=== PATIENT | female | born 1955 | race Caucasian/White ===

== ENCOUNTER → 2017-05-09 | Outpatient (CLI) | payer MEDICAID ==
[2017-05-09 12:22] LABS: Basophils % (A) 0 %; CH 28.5; CHCM 33.5; Eosinophils # (A) 0.1 k/uL (0-0.7); Eosinophils % (A) 2 %; HDW 2.72; HGB 13.4 gm/dL (11.4-16.0); Luc # (Auto) 0.16; Luc % (Auto) 2; Lymphocytes # (A) 1.7 k/uL (1.0-4.8); Lymphocytes % (A) 24 %; MCHC 32.7 g/dL (31.0-37.0); MCV 85.7 fL (80.0-100.0); Monocytes # (A) 0.4 k/uL (0-1.0); Monocytes % (A) 6 %; Neutrophils # (A) 4.7 k/uL (1.3-7.7); Neutrophils % (A) 66 %; RBC 4.78 m/uL (3.80-5.40); WBC 7.1 k/uL (3.8-10.6); WBC (Perox) 7.46
[2017-05-09 12:38] LABS: Calcium 9.8 mg/dL (8.4-10.2); Potassium 5.3 mmol/L (3.5-5.1); Total Bilirubin 0.4 mg/dL (0.2-1.3); Total Protein 6.8 g/dL (6.3-8.2)
== END | disposition home or self-care (01) ==
LOC: LABWHC1 12:04
PROVIDERS: ATTEND Nurse Practitioner Family
DX: E78.00 Pure hypercholesterolemia, unspecified (principal); E11.9 Type 2 diabetes mellitus without complications; E03.9 Hypothyroidism, unspecified; I10 Essential (primary) hypertension
CPT/HCPCS: 36415; 80053; 80061; 83036; 84439; 84443; 85025

== ENCOUNTER → 2017-09-09 | Outpatient (CLI) | payer OTHER ==
--- NOTE | 2017-09-09 11:08 | XR ---
EXAMINATION TYPE: XR lumbar spine 2 or 3V DATE OF EXAM: 09/09/2017 CLINICAL HISTORY: Lumbar spine pain for one week TECHNIQUE: Frontal and lateral images of the lumbar spine are obtained. COMPARISON: None FINDINGS: There are 5 lumbar type vertebral bodies identified. The lumbar spine shows satisfactory alignment without evidence of acute fracture or dislocation. There is mild (grade 1) retrolisthesis o f L3 with respect to L4. Vertebral body heights are maintained. There is intervertebral disc space na rrowing at L2-L3. Multilevel anterior osteophytes and facet arthropathy are seen throughout the lumba r spine. The overlying soft tissue appears unremarkable. Incidental note is made of cholecystectomy clips within the right upper quadrant. IMPRESSION: 1. No acute fracture of the lumbar spine. 2. Mild (grade 1) retrolisthesis of L3 with respect to L4, likely degenerative in nature. 3. Mild to moderate multilevel degenerative disc disease of the lumbar spine most exaggerated at L2-L 3.
== END | disposition home or self-care (01) ==
LOC: RADXRMAIN 10:41
PROVIDERS: ATTEND Emergency Medicine
DX: M51.36 Other intervertebral disc degeneration, lumbar region (principal); M43.16 Spondylolisthesis, lumbar region
CPT/HCPCS: 72100

== ENCOUNTER → 2017-09-16 | Outpatient (CLI) | payer OTHER ==
--- NOTE | 2017-09-16 23:32 | MR ---
EXAMINATION TYPE: MR shoulder RT wo con DATE OF EXAM: 09/16/2017 COMPARISON: NONE HISTORY: Work Related Injury, pt turned to prevent from falling, Limited ROM, 09/01/2017, xrays on PA CS TECHNIQUE: Multiplanar, multisequence imaging of the right shoulder is performed without contrast. FINDINGS: Rotator Cuff: The subscapularis tendon is intact. Glenoid marilyn appear intact. There is a small shoulder joint effu laurent. The biceps tendon is intact. There is some fluid around the biceps tendon. There is mild spurri ng of the humeral head. There is spurring at the AC joint and mild impingement on the supraspinatus t endon. There is a 5 mm area of fluid signal in the greater tuberosity of the humerus. The supraspinat us tendon appears intact. There is no retraction. IMPRESSION: Mild osteoarthritis in the shoulder joint. No evidence of rotator cuff tear. Small shoulder joint eff usion consistent with synovitis. Hypertrophic osteoarthritis in the AC joint with mild subacromial im pingement. Small degenerative cyst in the greater tuberosity of the humerus.
== END | disposition home or self-care (01) ==
LOC: RADMRIMAIN 19:56
PROVIDERS: ATTEND Emergency Medicine
DX: M19.011 Primary osteoarthritis, right shoulder (principal); M85.611 Other cyst of bone, right shoulder; M25.811 Other specified joint disorders, right shoulder; S13.4XXD Sprain of ligaments of cervical spine, subsequent encounter; S33.5XXD Sprain of ligaments of lumbar spine, subsequent encounter

== ENCOUNTER → 2017-11-28 | Outpatient (CLI) | payer MEDICAID ==
[2017-11-28 13:41] LABS: Basophils % (A) 0 %; Eosinophils # (A) 0.2 k/uL (0-0.7); Eosinophils % (A) 2 %; HCT 41.7 % (34.0-46.0); HGB 13.9 gm/dL (11.4-16.0); Lymphocytes # (A) 2.1 k/uL (1.0-4.8); Lymphocytes % (A) 29 %; MCH 28.2 pg (25.0-35.0); MCHC 33.4 g/dL (31.0-37.0); MCV 84.4 fL (80.0-100.0); Mean Platelet Volume 7.7; Monocytes # (A) 0.5 k/uL (0-1.0); Monocytes % (A) 7 %; Neutrophils # (A) 4.2 k/uL (1.3-7.7); Neutrophils % (A) 59 %; Platelet Count 237 k/uL (150-450); RBC 4.95 m/uL (3.80-5.40); RDW 13.1 % (11.5-15.5); WBC 7.1 k/uL (3.8-10.6)
[2017-11-28 13:46] LABS: Calcium 10.1 mg/dL (8.4-10.2); Potassium 5.6 mmol/L (3.5-5.1); Total Bilirubin 0.5 mg/dL (0.2-1.3); Total Protein 6.9 g/dL (6.3-8.2)
[2017-11-28 14:03] LABS: T4, Free (Free Thyroxine) 1.62 ng/dL (0.78-2.19)
[2017-11-28 20:40] LABS: Hemoglobin A1C 7.1 % (4.0-6.0)
== END | disposition home or self-care (01) ==
LOC: LABWHC1 13:00
PROVIDERS: ATTEND Internal Medicine Geriatric Medicine
DX: E11.22 Type 2 diabetes mellitus with diabetic chronic kidney disease (principal); N18.2 Chronic kidney disease, stage 2 (mild); E78.00 Pure hypercholesterolemia, unspecified; E03.9 Hypothyroidism, unspecified
CPT/HCPCS: 36415; 80053; 80061; 82043; 82570; 83036; 84439; 84443; 85025

== ENCOUNTER → 2018-06-09 | Outpatient (CLI) | payer MEDICAID ==
--- NOTE | 2018-06-10 10:28 | MR ---
EXAMINATION TYPE: MR shoulder RT wo con DATE OF EXAM: 06/09/2018 COMPARISON: MR right shoulder 09/16/2017 HISTORY: Right shoulder impingement and pain TECHNIQUE: Multiplanar, multisequence imaging of the right shoulder is performed without contrast. FINDINGS: Rotator Cuff: Increased signal is present within the rotator cuff, difficult to exclude a partial und ersurface, rim rent tear, coronal image 14. Thickening of the rotator cuff compatible with tendinosis . Acromioclavicular Joint: Arthropathy is present, there is some mass effect on the musculotendinous ju nction of supraspinatus Glenohumeral Joint: Intact Labrum: There is some increased signal present within the superior labrum. Difficult to exclude a SLA P lesion. Biceps Tendon: The long head of biceps is in normal location within bicipital groove. Some fluid sign al is present along the long head of biceps tendon Bone marrow signal: Pseudocysts present within the humeral head. Other: There is fluid signal in the subacromial subdeltoid bursa. Suspect a distal acromial spur. IMPRESSION: Findings suggest impingement, there is tendinosis as described. Additional findings above.
== END | disposition home or self-care (01) ==
LOC: RADMRIMAIN 09:04
PROVIDERS: ATTEND Orthopaedic Surgery
DX: M67.813 Other specified disorders of tendon, right shoulder (principal); M89.8X2 Other specified disorders of bone, upper arm; R93.7 Abnormal findings on diagnostic imaging of other parts of musculoskeletal system; M19.011 Primary osteoarthritis, right shoulder

== ENCOUNTER → 2018-06-09 | Outpatient (CLI) | payer MEDICAID ==
[2018-06-09 10:21] LABS: Basophils % (A) 0 %; Eosinophils # (A) 0.2 k/uL (0-0.7); Eosinophils % (A) 4 %; HCT 40.5 % (34.0-46.0); HGB 12.6 gm/dL (11.4-16.0); Lymphocytes # (A) 1.3 k/uL (1.0-4.8); Lymphocytes % (A) 22 %; MCH 27.3 pg (25.0-35.0); MCHC 31.1 g/dL (31.0-37.0); MCV 87.9 fL (80.0-100.0); Monocytes # (A) 0.4 k/uL (0-1.0); Monocytes % (A) 6 %; Neutrophils # (A) 4.1 k/uL (1.3-7.7); Neutrophils % (A) 67 %; Platelet Count 215 k/uL (150-450); RDW 12.9 % (11.5-15.5); WBC 6.1 k/uL (3.8-10.6)
[2018-06-09 11:20] LABS: Albumin 3.7 g/dL (3.5-5.0); Calcium 9.4 mg/dL (8.4-10.2); Potassium 5.5 mmol/L (3.5-5.1); Total Bilirubin 0.4 mg/dL (0.2-1.3); Total Protein 6.3 g/dL (6.3-8.2)
[2018-06-09 11:26] LABS: T4, Free (Free Thyroxine) 1.48 ng/dL (0.78-2.19)
[2018-06-09 20:15] LABS: Hemoglobin A1C 7.2 % (4.0-6.0)
== END | disposition home or self-care (01) ==
LOC: LABWHC1 09:17
PROVIDERS: ATTEND Internal Medicine Geriatric Medicine
DX: I10 Essential (primary) hypertension (principal); E11.9 Type 2 diabetes mellitus without complications; E78.00 Pure hypercholesterolemia, unspecified; E03.9 Hypothyroidism, unspecified
CPT/HCPCS: 36415; 80053; 80061; 83036; 84439; 84443; 85025

== ENCOUNTER → 2018-06-10 | Outpatient (CLI) | payer MEDICAID ==
--- NOTE | 2018-06-10 10:25 | P.STRESS ---
- Stress Test Note Stress Test Results/Findings: Exam Performed: stress echo exercise Exam Date: 06/10/18 Reason for Exam: CHEST PAIN Height: 5 ft 3 in Weight: 119.295 kg Protocol: HIRO Stage: 3 Duration of Exercise: 7:02 Resting Heart Rate: 69 Resting Blood Pressure: 145/81 Maximum Achieved Heart Rate: 136 Maximum Achieved Blood Pressure: 162/68 85% PMHR: 135 100% PMHR: 159 METS: 8.3 Technologist Comment: Stress Test Results/Findings: This is a 62-year-old female with history of hypertension, diabetes, hypercholesterolemia and family history being evaluated for symptoms of chest pain and shortness of breath. Stress data: Baseline EKG showed sinus rhythm with normal AR interval and QRS duration. Blood pressure at rest is 145/81 with pulse rate of 69. Patient walked on the Hiro protocol for 7 minutes achieving a max moderate to 136 with a blood pressure 117/58. EKGs taken during and after the exercise did not reveal any changes of ischemia. Patient did not experience any chest pain. Echo data: Baseline echo images showed normal wall motion and thickening. Exercise echo images showed augmentation of wall motion and thickening in all segments. Final impression: #1. Negative stress test #2. Negative stress echo
--- NOTE | 2018-06-10 12:59 | EST ---
Stress Test Results/Findings: Exam Performed: stress echo exercise Exam Date: 06/10/18 Reason for Exam: CHEST PAIN Height: 5 ft 3 in Weight: 119.295 kg Protocol: HIRO Stage: 3 Duration of Exercise: 7:02 Resting Heart Rate: 69 Resting Blood Pressure: 145/81 Maximum Achieved Heart Rate: 136 Maximum Achieved Blood Pressure: 162/68 85% PMHR: 135 100% PMHR: 159 METS: 8.3 Technologist Comment: Stress Test Results/Findings: This is a 62-year-old female with history of hypertension, diabetes, hypercholesterolemia and family history being evaluated for symptoms of chest pain and shortness of breath. Stress data: Baseline EKG showed sinus rhythm with normal LA interval and QRS duration. Blood pressure at rest is 145/81 with pulse rate of 69. Patient walked on the Hiro protocol for 7 minutes achieving a max moderate to 136 with a blood pressure 117/58. EKGs taken during and after the exercise did not reveal any changes of ischemia. Patient did not experience any chest pain. Echo data: Baseline echo images showed normal wall motion and thickening. Exercise echo images showed augmentation of wall motion and thickening in all segments. Final impression: #1. Negative stress test #2. Negative stress echo MTDD
== END | disposition home or self-care (01) ==
LOC: RADNMMAIN 09:14
PROVIDERS: ATTEND Internal Medicine
DX: I25.10 Atherosclerotic heart disease of native coronary artery without angina pectoris (principal)
CPT/HCPCS: 93351

== ENCOUNTER → 2018-11-26 | Outpatient (CLI) | payer MEDICAID ==
--- NOTE | 2018-11-27 12:03 | XR ---
EXAMINATION TYPE: XR chest 2V DATE OF EXAM: 11/26/2018 COMPARISON: NONE HISTORY: Shortness of breath TECHNIQUE: Frontal and lateral views of the chest are obtained. FINDINGS: Scattered senescent parenchymal changes noted. Hyperinflation compatible with COPD. No evidence for infiltrate. No evidence for atelectasis. Heart size is stable. Mediastinal structures are stable and grossly unremarkable. No evidence for hilar prominence. Degenerative changes dorsal spine. IMPRESSION: 1. No evidence for acute pulmonary disease.
== END | disposition home or self-care (01) ==
LOC: RADXRMAIN 15:52
PROVIDERS: ATTEND Internal Medicine Geriatric Medicine
DX: R05 Cough (principal)
CPT/HCPCS: 71046

== ENCOUNTER → 2019-05-26 | Outpatient (CLI) | payer MEDICAID ==
--- NOTE | 2019-05-26 08:38 | CT ---
EXAMINATION TYPE: CT brain wo con DATE OF EXAM: 05/26/2019 COMPARISON: None HISTORY: Vertigo-recent, chronic headache CT DLP: 1036.[address] of the brain was performed. The ventricles, basal cisterns and sulci overlying the cerebral convexities demonstrate mild enlargem ent. There is no evidence for intracranial hemorrhage or sulcal effacement. There is decreased attenuation about the periventricular white matter and deep white matter of both c erebral hemispheres, compatible with chronic small vessel ischemia. Differential diagnosis does inclu de demyelination. No mass effects are seen.No midline shift. Osseous calvarium is intact. If symptoms persist consider MRI. IMPRESSION: 1. Age related atrophic and chronic small vessel ischemic change without acute intracranial process s een at this time.
--- NOTE | 2019-05-26 15:50 | US ---
EXAMINATION TYPE: US carotid duplex BILAT DATE OF EXAM: 05/26/2019 COMPARISON: NONE CLINICAL HISTORY: R42 Vertigo. Dizziness, right endarterectomy 2010 EXAM MEASUREMENTS: RIGHT: Peak Systolic Velocity (PSV) cm/sec ----- Right CCA: 79.1 ----- Right ICA: 111.9 ----- Right ECA: 155.0 ICA/CCA ratio: 1.4 RIGHT: End Diastole cm/sec ----- Right CCA: 24.8 ----- Right ICA: 47.5 ----- Right ECA: 18.9 LEFT: Peak Systolic Velocity (PSV) cm/sec ----- Left CCA: 94.2 ----- Left ICA: 104.3 ----- Left ECA: 141.6 ICA/CCA ratio: 1.1 LEFT: End Diastole cm/sec ----- Left CCA: 32.3 ----- Left ICA: 27.3 ----- Left ECA: 33.3 VERTEBRALS (direction of flow): Right Vertebral: Antegrade Left Vertebral: Antegrade Rhythm: Normal Farah scale images show mild peripheral plaque at carotid bulb level bilaterally. Velocity measurement s and ratios the visualized portion of both internal carotid arteries remains within normal limits. IMPRESSION: No hemodynamically significant stenosis is seen in either internal carotid artery . Criteria for Assigning % of Stenosis / Diameter reduction (Estimation based on the indirect measurements of the internal carotid artery velocities (ICA PSV). 1. Normal (no stenosis)=ICA PSV < 125 cm/s: ratio < 2.0: ICA EDV<40 cm/s. 2. Less than 50% stenosis=ICA PSV < 125 cm/s: ratio < 2.0: ICA EDV<40 cm/s. 3. 50 to 69% stenosis=ICA PSV of 125 to 230 cm/s: ration 2.0 ? 4.0: ICA EDV 40-100 cm/s. 4. Greater than 70% stenosis to near occlusion= ICA PSV > 230 cm/s: ratio > 4.0: ICA EDV > 100 cm/s. 5. Near occlusion= ICA PSV velocities may be low or undetectable: variable ratio and ICA EDV. 6. Total occlusion=unable to detect flow.
== END | disposition home or self-care (01) ==
LOC: RADCTMAIN 07:47
PROVIDERS: ATTEND Internal Medicine
DX: G31.1 Senile degeneration of brain, not elsewhere classified (principal); I67.82 Cerebral ischemia; R42 Dizziness and giddiness
CPT/HCPCS: 70450; 93880

== ENCOUNTER 2019-12-26 21:39 | Inpatient (IN) | payer MEDICAID, OTHER ==
[~2019-12-26 21:39] MED LIST: PROPOFOL 10 MG/ML 20 ML VIAL IV ONE; SUCCINYLCHOLINE CHLORIDE VIAL 200 MG/10 ML VIAL IV ONE
[2019-12-26 22:12] LABS: Basophils % (A) 0 %; Eosinophils % (A) 0 %; HCT 39.4 % (34.0-46.0); HGB 12.7 gm/dL (11.4-16.0); Lymphocytes # (A) 0.9 k/uL (1.0-4.8); Lymphocytes % (A) 8 %; MCH 26.5 pg (25.0-35.0); MCHC 32.2 g/dL (31.0-37.0); MCV 82.3 fL (80.0-100.0); Mean Platelet Volume 7.6; Monocytes # (A) 0.7 k/uL (0-1.0); Monocytes % (A) 6 %; Neutrophils # (A) 10.2 k/uL (1.3-7.7); Neutrophils % (A) 85 %; Platelet Count 303 k/uL (150-450); RBC 4.78 m/uL (3.80-5.40); RDW 13.1 % (11.5-15.5); WBC 12.1 k/uL (3.8-10.6)
[2019-12-26 22:23] LABS: Albumin 3.7 g/dL (3.5-5.0); Calcium 9.1 mg/dL (8.4-10.2); Potassium 5.3 mmol/L (3.5-5.1); Total Bilirubin 0.6 mg/dL (0.2-1.3)
[2019-12-26 22:24] LABS: Partial Thromboplastin Time 24.3 sec (22.0-30.0); Prothrombin Time 10.6 sec (9.0-12.0)
[2019-12-26 22:39] LABS: SARS-CoV-2 RNA Rapid Abbott Detected (Not Detectd)
--- NOTE | 2019-12-26 22:44 | XR ---
EXAMINATION TYPE: XR chest 1V portable DATE OF EXAM: 12/26/2019 COMPARISON: 11/26/2018 HISTORY: Weakness TECHNIQUE: FINDINGS: There is diffuse pulmonary interstitial edema. Heart is probably enlarged. Bony thorax is i ntact. There is no definite pleural effusion. IMPRESSION: Mild cardiomegaly with moderately severe diffuse interstitial edema that is a change comp ared to old exam. This could relate to acute interstitial pneumonia or acute heart failure.
[2019-12-26] MEDS ORDERED: AZITHROMYCIN 500 MG in SODIUM CHLORIDE 0.9% 250 ML IVPB STA (23:12)
[2019-12-26] MEDS ORDERED: NALOXONE 0.4 MG/ML 1 ML VIAL IV PRN (23:18)
--- NOTE | 2019-12-26 23:18 | ED ---
Weakness HPI - General Chief complaint: Weakness Stated complaint: Weaknes Time Seen by Provider: 12/26/19 21:45 Source: patient, EMS Mode of arrival: EMS Limitations: no limitations - History of Present Illness Initial comments: The patient is a 64-year-old female past medical history of asthma and diabetes who presents to the emergency room with reported cough or shortness of breath. 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 She states that she has been using her inhalers at home however continues to be short of breath. States that she's been sitting in bed and sleeping for approximately 20 hours a day. States that this evening her symptoms got acutely worse she could no longer take it. Also reports to diarrhea and fevers. Denies nausea or vomiting. Denies any chest pain. No lower extremity swelling. There are no alleviating, precipitating or modifying factors - Related Data Home Medications Medication Instructions Recorded Confirmed Atorvastatin [Lipitor] 40 mg PO HS 06/04/14 12/26/19 Esomeprazole Magnesium [NexIUM] 20 mg PO DAILY 06/04/14 12/26/19 INSULIN LISPRO (humaLOG) [humaLOG] See Protocol SQ BID 06/04/14 12/26/19 Lisinopril 20 mg PO HS 06/04/14 12/26/19 Naproxen Sodium [Aleve] 220 mg PO BID 06/04/14 12/26/19 Nitroglycerin Sl Tabs [Nitrostat] 0.4 mg SL Q5M PRN 06/04/14 12/26/19 Acetaminophen [Tylenol] 1,000 mg PO BID 12/26/19 12/26/19 Aspirin 325 mg PO DAILY 12/26/19 12/26/19 Dulaglutide [Trulicity] 1.5 mg SQ TH 12/26/19 12/26/19 Insulin Degludec [Tresiba 36 units SQ BID 12/26/19 12/26/19 Flextouch U-100] Loratadine [Claritin] 10 mg PO HS 12/26/19 12/26/19 Pioglitazone [Actos] 15 mg PO DAILY 12/26/19 12/26/19 Allergies Allergy/AdvReac Type Severity Reaction Status Date / Time daptomycin [From Cubicin] AdvReac Unknown Verified 12/26/19 23:08 lanolin AdvReac Unknown Verified 12/26/19 23:08 moxifloxacin HCl AdvReac Anaphylaxis Verified 12/26/19 23:08 [From Avelox] Penicillins AdvReac Unknown Verified 12/26/19 23:08 tetracycline [Tetracycline] AdvReac Unknown Verified 12/26/19 23:08 vancomycin AdvReac Unknown Verified 12/26/19 23:08 Review of Systems ROS Statement: Those systems with pertinent positive or pertinent negative responses have been documented in the HPI. ROS Other: All systems not noted in ROS Statement are negative. Past Medical History Past Medical History: Asthma, Diabetes Mellitus, GERD/Reflux, Hypertension, Renal Disease Additional Past Medical History / Comment(s): diverticulitis History of Any Multi-Drug Resistant Organisms: None Reported Past Surgical History: Cholecystectomy, Heart Catheterization With Stent Past Psychological History: No Psychological Hx Reported Smoking Status: Former smoker Past Alcohol Use History: None Reported Past Drug Use History: None Reported General Exam Limitations: no limitations General appearance: alert, in no apparent distress, anxious Head exam: Present: atraumatic, normocephalic, normal inspection Eye exam: Present: normal appearance, PERRL, EOMI. Absent: scleral icterus, conjunctival injection, periorbital swelling ENT exam: Present: normal exam, mucous membranes moist Neck exam: Present: normal inspection. Absent: tenderness, meningismus, lymphadenopathy Respiratory exam: Present: rhonchi, accessory muscle use, other (patient tachypneic and hypoxic upon arrival. Mild conversational dyspnea. ). Absent: respiratory distress, wheezes, rales, stridor Cardiovascular Exam: Present: regular rate, normal rhythm, normal heart sounds. Absent: systolic murmur, diastolic murmur, rubs, gallop, clicks GI/Abdominal exam: Present: soft, normal bowel sounds. Absent: distended, tenderness, guarding, rebound, rigid Extremities exam: Present: normal inspection, full ROM, normal capillary refill. Absent: tenderness, pedal edema, joint swelling, calf tenderness Back exam: Present: normal inspection Neurological exam: Present: alert, oriented X3, CN II-XII intact Psychiatric exam: Present: normal affect, normal mood Skin exam: Present: warm, dry, intact, normal color. Absent: rash Course Vital Signs 12/26/19 12/26/19 12/27/19 21:45 23:42 00:00 Temperature 98.3 F 99.6 F Pulse Rate 85 77 Respiratory 20 20 18 Rate Blood Pressure 141/68 145/68 O2 Sat by Pulse 87 L 92 L Oximetry EKG Findings - EKG Comments: EKG Findings:: EKG demonstrates a normal sinus rhythm with ventricular rate of 83. NC interval 112. QRS 84. QTC 432. No acute ST segment elevations or depressions concerning for ischemic changes Medical Decision Making - Medical Decision Making Upon arrival the patient is placed into room 3. A thorough history and physical exam is performed. Patient does have low oxygen saturation of 87% on room air. She does not wear oxygen at home. She is placed on 4 L and saturation 90%. She does have improvement in her work of breathing. Laboratory studies were conducted. Patient is swabbed for Covid. White blood cell count 12.1. Creatinine 1.4 and this appears to be patient's baseline. LDH is 1600. C reactive protein to 62. Coronavirus is detected. Chest x-ray does demonstrate cardiomegaly with moderately severe diffuse interstitial edema that is a change compared to old. Could relate to acute interstitial pneumonia or heart failure. I discussed results of the patient. I recommend hospital admission for which patient did agree. I started the patient on azithromycin and plaquentil. I discussed the patients care with Dr. Mjoica who accept admission. Patient is currently awaiting a bed on the floor in hemodynamically stable condition. - Lab Data Result diagrams: 01/02/20 03:45 01/02/20 03:45 Lab Results 12/26/19 12/26/19 12/26/19 Range/Units 22:01 22:01 22:01 WBC 12.1 H (3.8-10.6) k/uL RBC 4.78 (3.80-5.40) m/uL Hgb 12.7 (11.4-16.0) gm/dL Hct 39.4 (34.0-46.0) % MCV 82.3 (80.0-100.0) fL MCH 26.5 (25.0-35.0) pg MCHC 32.2 (31.0-37.0) g/dL RDW 13.1 (11.5-15.5) % Plt Count 303 (150-450) k/uL Neutrophils % 85 % Lymphocytes % 8 % Monocytes % 6 % Eosinophils % 0 % Basophils % 0 % Neutrophils # 10.2 H (1.3-7.7) k/uL Lymphocytes # 0.9 L (1.0-4.8) k/uL Monocytes # 0.7 (0-1.0) k/uL Eosinophils # 0.0 (0-0.7) k/uL Basophils # 0.0 (0-0.2) k/uL PT 10.6 (9.0-12.0) sec INR 1.0 (<1.2) APTT 24.3 (22.0-30.0) sec Sodium 136 L (137-145) mmol/L Potassium 5.3 H (3.5-5.1) mmol/L Chloride 100 (98-107) mmol/L Carbon Dioxide 23 (22-30) mmol/L Anion Gap 13 mmol/L BUN 41 H (7-17) mg/dL Creatinine 1.43 H (0.52-1.04) mg/dL Est GFR (CKD-EPI)AfAm 45 (>60 ml/min/1.73 sqM) Est GFR (CKD-EPI)NonAf 39 (>60 ml/min/1.73 sqM) Glucose 230 H (74-99) mg/dL Lactic Ac Sepsis Rflx Plasma Lactic Acid Loy (0.7-2.0) mmol/L Calcium 9.1 (8.4-10.2) mg/dL Ferritin 609.6 H (10.0-291.0) ng/mL Total Bilirubin 0.6 (0.2-1.3) mg/dL AST 49 H (14-36) U/L ALT 22 (4-34) U/L Alkaline Phosphatase 255 H (38-126) U/L Lactate Dehydrogenase 1600 H (313-618) U/L C-Reactive Protein 262.0 H (<10.0) mg/L Total Protein 7.0 (6.3-8.2) g/dL Albumin 3.7 (3.5-5.0) g/dL Procalcitonin (0.02-0.09) ng/mL Coronavirus (PCR) (Not Detectd) Influenza Type A RNA (Not Detectd) Influenza Type B (PCR) (Not Detectd) 12/26/19 12/26/19 12/26/19 Range/Units 22:01 22:01 22:07 WBC (3.8-10.6) k/uL RBC (3.80-5.40) m/uL Hgb (11.4-16.0) gm/dL Hct (34.0-46.0) % MCV (80.0-100.0) fL MCH (25.0-35.0) pg MCHC (31.0-37.0) g/dL RDW (11.5-15.5) % Plt Count (150-450) k/uL Neutrophils % % Lymphocytes % % Monocytes % % Eosinophils % % Basophils % % Neutrophils # (1.3-7.7) k/uL Lymphocytes # (1.0-4.8) k/uL Monocytes # (0-1.0) k/uL Eosinophils # (0-0.7) k/uL Basophils # (0-0.2) k/uL PT (9.0-12.0) sec INR (<1.2) APTT (22.0-30.0) sec Sodium (137-145) mmol/L Potassium (3.5-5.1) mmol/L Chloride (98-107) mmol/L Carbon Dioxide (22-30) mmol/L Anion Gap mmol/L BUN (7-17) mg/dL Creatinine (0.52-1.04) mg/dL Est GFR (CKD-EPI)AfAm (>60 ml/min/1.73 sqM) Est GFR (CKD-EPI)NonAf (>60 ml/min/1.73 sqM) Glucose (74-99) mg/dL Lactic Ac Sepsis Rflx Plasma Lactic Acid Loy 2.1 H* (0.7-2.0) mmol/L Calcium (8.4-10.2) mg/dL Ferritin (10.0-291.0) ng/mL Total Bilirubin (0.2-1.3) mg/dL AST (14-36) U/L ALT (4-34) U/L Alkaline Phosphatase (38-126) U/L Lactate Dehydrogenase (313-618) U/L C-Reactive Protein (<10.0) mg/L Total Protein (6.3-8.2) g/dL Albumin (3.5-5.0) g/dL Procalcitonin 0.22 H (0.02-0.09) ng/mL Coronavirus (PCR) Detected A (Not Detectd) Influenza Type A RNA Not Detected (Not Detectd) Influenza Type B (PCR) Not Detected (Not Detectd) 12/26/19 Range/Units 22:38 WBC (3.8-10.6) k/uL RBC (3.80-5.40) m/uL Hgb (11.4-16.0) gm/dL Hct (34.0-46.0) % MCV (80.0-100.0) fL MCH (25.0-35.0) pg MCHC (31.0-37.0) g/dL RDW (11.5-15.5) % Plt Count (150-450) k/uL Neutrophils % % Lymphocytes % % Monocytes % % Eosinophils % % Basophils % % Neutrophils # (1.3-7.7) k/uL Lymphocytes # (1.0-4.8) k/uL Monocytes # (0-1.0) k/uL Eosinophils # (0-0.7) k/uL Basophils # (0-0.2) k/uL PT (9.0-12.0) sec INR (<1.2) APTT (22.0-30.0) sec Sodium (137-145) mmol/L Potassium (3.5-5.1) mmol/L Chloride (98-107) mmol/L Carbon Dioxide (22-30) mmol/L Anion Gap mmol/L BUN (7-17) mg/dL Creatinine (0.52-1.04) mg/dL Est GFR (CKD-EPI)AfAm (>60 ml/min/1.73 sqM) Est GFR (CKD-EPI)NonAf (>60 ml/min/1.73 sqM) Glucose (74-99) mg/dL Lactic Ac Sepsis Rflx Y Plasma Lactic Acid Loy (0.7-2.0) mmol/L Calcium (8.4-10.2) mg/dL Ferritin (10.0-291.0) ng/mL Total Bilirubin (0.2-1.3) mg/dL AST (14-36) U/L ALT (4-34) U/L Alkaline Phosphatase (38-126) U/L Lactate Dehydrogenase (313-618) U/L C-Reactive Protein (<10.0) mg/L Total Protein (6.3-8.2) g/dL Albumin (3.5-5.0) g/dL Procalcitonin (0.02-0.09) ng/mL Coronavirus (PCR) (Not Detectd) Influenza Type A RNA (Not Detectd) Influenza Type B (PCR) (Not Detectd) Disposition Clinical Impression: Hypoxia, COVID-19 virus detected, Pneumonia due to COVID-19 virus Disposition: ADMITTED IP TO [facility] Condition: Serious Is patient prescribed a controlled substance at d/c from ED?: No Decision to Admit Reason: Admit from EC Decision Date: 12/26/19 Decision Time: 23:18
[2019-12-26] MEDS: HYDROXYCHLOROQUINE SULFATE 200 MG TAB PO SCH (23:26)
[2019-12-26] MEDS ORDERED: ACETAMINOPHEN TAB 500 MG TAB PO SCH (23:30)
[2019-12-26] MEDS: LISINOPRIL 20 MG TAB PO SCH (23:55)
[2019-12-26] MEDS: ATORVASTATIN 40 MG TAB PO SCH (23:55)
[2019-12-26] MEDS: INSULIN DETEMIR (LEVEMIR) 100 UNIT/ML SYR SQ SCH (23:56)
[2019-12-27 01:58] LABS: Ferritin 609.6 ng/mL (10.0-291.0)
[2019-12-27 07:05] LABS: Glucose,Whole Blood 161 mg/dL (75-99)
[2019-12-27] MEDS: INSULIN DETEMIR (LEVEMIR) 100 UNIT/ML SYR SQ SCH ×2 (07:20→21:12)
[2019-12-27] MEDS: ASPIRIN 325 MG TAB PO SCH (07:20)
[2019-12-27] MEDS: HYDROXYCHLOROQUINE SULFATE 200 MG TAB PO SCH ×2 (07:20→21:11)
[2019-12-27] MEDS: ACETAMINOPHEN TAB 325 MG TAB PO PRN ×3 (07:20→20:05)
[2019-12-27] MEDS: PANTOPRAZOLE 40 MG TABLET PO SCH (07:21)
[2019-12-27] MEDS ORDERED: ENOXAPARIN 40 MG/0.4 ML SYRINGE SQ SCH (09:00)
--- NOTE | 2019-12-27 11:51 | P.HPIM ---
History of Present Illness H&P Date: 12/27/19 This is a 64-year-old female patient of Dr. Mojica with past medical history of asthma, hypertension, hyperlipidemia, gastroesophageal reflux disease, diabetes mellitus type 2 insulin requiring, coronary artery disease status post stent, remote history of tobacco use and dependence, chronic kidney disease stage III. 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 [facility] in the past, recently changed to a position at [employer]. 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 They were exposed to a COVID-19 positive patient on December 11 and/or December 12. She had symptoms develop approximate 7 days ago with fever, cough, shortness of breath, nausea, diarrhea. She tried to manage at home but symptoms became significantly severe in the past 3 days and she lives alone she was so sick she could not get to the She to the bathroom. Patient came into [facility] emergency center for evaluation and found to be afebrile, blood pressure 141/68, heart rate 85, pulse ox 87%. EKG was a sinus rhythm with no acute ST changes. W BC 12.1, hemoglobin 12.7, platelet count 303, sodium 136, potassium 5.3, chloride 100, CO2 23, BUN 41, creatinine 1.43, blood sugar 230. Total bilirubin 0.6, AST 49, ALT 22, alkaline phosphatase 255, LDH 1600, ferritin 609.6 C-reactive protein 262, pro calcitonin 0.2 to. Chronic virus PCR detected, influenza testing negative, lactic acid 2.1. Repeat lactic acid 1.2 chest x-ray revealed mild cardiomegaly with moderately severe diffuse interstitial edema that is changed from old exam compared to November 2018. This could represent acute interstitial pneumonia or acute heart failure. Patient was started on Tylenol, azithromycin, [facility] consult was requested with infectious disease and pulmonary medicine. Review of Systems Constitutional: Reports chills, Reports fatigue, Reports fever, Reports lethargy, Reports malaise, Reports poor appetite, Reports sweats, Reports weakness Eyes: denies blurred vision, denies pain, denies photophobia, denies loss of vision Ears, nose, mouth and throat: Denies dysphagia, Denies headache, Denies nasal congestion, Denies nasal discharge, Denies sore throat, Denies vertigo Cardiovascular: Reports shortness of breath, Denies chest pain, Denies dyspnea on exertion, Denies edema, Denies leg edema, Denies lightheadedness, Denies syncope Respiratory: Reports cough, Reports cough with sputum, Reports dyspnea, Reports pain on inspiration, Reports respiratory infections, Reports wheezing, Denies excessive sputum, Denies hemoptysis, Denies home oxygen, Denies sleep apnea Gastrointestinal: Reports diarrhea, Reports nausea, Denies BRBPR, Denies constipation, Denies vomiting Genitourinary: Denies dysuria, Denies hematuria, Denies urgency, Denies urinary frequency Menstruation: Reports postmenopausal Musculoskeletal: Reports muscle weakness, Reports myalgias, Denies frequent falls, Denies gait dysfunction Integumentary: Denies pruritus, Denies rash, Denies wounds Neurological: Reports gait dysfunction, Denies change in mentation, Denies change in speech, Denies numbness, Denies seizures, Denies weakness Psychiatric: Denies anxiety, Denies depression Endocrine: Denies fatigue, Denies weight change Past Medical History Past Medical History: Asthma, Diabetes Mellitus, GERD/Reflux, Hyperlipidemia, Hypertension, Renal Disease Additional Past Medical History / Comment(s): diverticulitis History of Any Multi-Drug Resistant Organisms: None Reported Past Surgical History: Cholecystectomy, Heart Catheterization With Stent Additional Past Surgical History / Comment(s): heart cath with stent LAD, carotid 2010 Past Anesthesia/Blood Transfusion Reactions: Unable to Obtain Date of Last Stent Placement:: 2005 Past Psychological History: No Psychological Hx Reported Smoking Status: Former smoker Past Alcohol Use History: None Reported Past Drug Use History: None Reported Medications and Allergies Home Medications Medication Instructions Recorded Confirmed Type Atorvastatin [Lipitor] 40 mg PO HS 06/04/14 12/26/19 History Esomeprazole Magnesium [NexIUM] 20 mg PO DAILY 06/04/14 12/26/19 History INSULIN LISPRO (humaLOG) [humaLOG] See Protocol SQ BID 06/04/14 12/26/19 History Lisinopril 20 mg PO HS 06/04/14 12/26/19 History Naproxen Sodium [Aleve] 220 mg PO BID 06/04/14 12/26/19 History Nitroglycerin Sl Tabs [Nitrostat] 0.4 mg SL Q5M PRN 06/04/14 12/26/19 History Acetaminophen [Tylenol] 1,000 mg PO BID 12/26/19 12/26/19 History Aspirin 325 mg PO DAILY 12/26/19 12/26/19 History Dulaglutide [Trulicity] 1.5 mg SQ TH 12/26/19 12/26/19 History Insulin Degludec [Tresiba 36 units SQ BID 12/26/19 12/26/19 History Flextouch U-100] Loratadine [Claritin] 10 mg PO HS 12/26/19 12/26/19 History Pioglitazone [Actos] 15 mg PO DAILY 12/26/19 12/26/19 History Allergies Allergy/AdvReac Type Severity Reaction Status Date / Time daptomycin [From Cubicin] AdvReac Unknown Verified 12/26/19 23:08 lanolin AdvReac Unknown Verified 12/26/19 23:08 moxifloxacin HCl AdvReac Anaphylaxis Verified 12/26/19 23:08 [From Avelox] Penicillins AdvReac Unknown Verified 12/26/19 23:08 tetracycline [Tetracycline] AdvReac Unknown Verified 12/26/19 23:08 vancomycin AdvReac Unknown Verified 12/26/19 23:08 Physical Exam Vitals: Vital Signs Temp Pulse Pulse Resp BP BP Pulse Ox 12/27/19 04:00 20 12/27/19 03:51 98.7 F 74 18 107/69 90 L 12/27/19 00:31 99.2 F 77 18 110/66 96 12/27/19 00:00 18 12/26/19 23:42 99.6 F 77 20 145/68 92 L 12/26/19 21:45 98.3 F 85 20 141/68 87 L Intake and Output 12/26/19 12/27/19 12/27/19 22:59 06:59 14:59 Intake Total 450 Balance 450 Intake: Intake, IV Titration 250 Amount Azithromycin 500 mg In 250 Sodium Chloride 0.9% 250 ml @ 250 mls/hr IVPB ONCE STA Rx#:[id number] Oral 200 Other: # Voids 2 # Bowel Movements 2 Weight 117.934 kg 117.934 kg Gen: This is a morbidly obese 64-year-old female. Patient is resting in bed. No acute respiratory distress is noted. HEENT: Head is atraumatic, normocephalic. Pupils equal, round. Sclerae is anicteric. NECK: Supple. No JVD. No lymphadenopathy. No thyromegaly. LUNGS: Diminished bilaterally with scattered rhonchi. No intercostal retractions. HEART: Regular rate and rhythm. No murmur. ABDOMEN: Soft. Bowel sounds are present. No masses. No tenderness. EXTREMITIES: No pedal edema. No calf tenderness. Dorsalis pedis +2 bilaterally. NEUROLOGICAL: Patient is awake, alert and oriented x3. Cranial nerves 2 through 12 are grossly intact. Results CBC & Chem 7: 12/26/19 22:12/26/19 22: Labs: Abnormal Lab Results - Last 24 Hours (Table) 12/26/19 12/26/19 12/26/19 Range/Units 22:01 22:01 22:01 WBC 12.1 H (3.8-10.6) k/uL Neutrophils # 10.2 H (1.3-7.7) k/uL Lymphocytes # 0.9 L (1.0-4.8) k/uL Sodium 136 L (137-145) mmol/L Potassium 5.3 H (3.5-5.1) mmol/L BUN 41 H (7-17) mg/dL Creatinine 1.43 H (0.52-1.04) mg/dL Glucose 230 H (74-99) mg/dL POC Glucose (mg/dL) (75-99) mg/dL Plasma Lactic Acid Loy 2.1 H* (0.7-2.0) mmol/L Ferritin 609.6 H (10.0-291.0) ng/mL AST 49 H (14-36) U/L Alkaline Phosphatase 255 H (38-126) U/L Lactate Dehydrogenase 1600 H (313-618) U/L C-Reactive Protein 262.0 H (<10.0) mg/L Procalcitonin (0.02-0.09) ng/mL Coronavirus (PCR) (Not Detectd) 12/26/19 12/26/19 12/27/19 Range/Units 22:01 22:07 07:04 WBC (3.8-10.6) k/uL Neutrophils # (1.3-7.7) k/uL Lymphocytes # (1.0-4.8) k/uL Sodium (137-145) mmol/L Potassium (3.5-5.1) mmol/L BUN (7-17) mg/dL Creatinine (0.52-1.04) mg/dL Glucose (74-99) mg/dL POC Glucose (mg/dL) 161 H (75-99) mg/dL Plasma Lactic Acid Loy (0.7-2.0) mmol/L Ferritin (10.0-291.0) ng/mL AST (14-36) U/L Alkaline Phosphatase (38-126) U/L Lactate Dehydrogenase (313-618) U/L C-Reactive Protein (<10.0) mg/L Procalcitonin 0.22 H (0.02-0.09) ng/mL Coronavirus (PCR) Detected A (Not Detectd) Thrombosis Risk Factor Assmnt - DVT/VTE Prophylaxis DVT/VTE Prophylaxis: Pharmacologic Prophylaxis ordered - Choose All That Apply Each Risk Factor Represents 2 Points: Age 61-74 years Thrombosis Risk Factor Assessment Total Risk Factor Score: 2 Thrombosis Risk Factor Assessment Level: Low Risk Assessment and Plan Plan: 1. Acute hypoxic respiratory failure secondary to COPD exacerbation and COVID- 19 pneumonitis. Patient admitted to the MedSurg floor. Continue Plaquenil 400 mg twice daily. Consults with pulmonary medicine and infectious disease. Continue albuterol inhaler as needed, vitamin C, azithromycin, Solu-Medrol 40 mg IV every 12 hours, zinc. 2. Acute kidney injury with chronic kidney disease stage III. Avoid nephrotoxic agents, hypotension. Hold Aleve. 3. Mild hyperkalemia secondary to acute kidney injury. 4. Mild lactic acidosis secondary to COVID-19 infection. Resolved. 5. Hyperlipidemia. Continue atorvastatin 40 g at bedtime 6. Diabetes mellitus type 2, insulin requiring. Continue Levemir 36 units twice daily, NovoLog scale before meals and at bedtime. Hold Actos and Trulicity for now. 7. History of coronary artery disease status post stenting. Continue aspirin 325 mg daily, Lipitor. 8. Hypertension. Continue lisinopril 20 mg at bedtime with parameters. Avoid hypotension. 9. Gastroesophageal reflux disease disease and GI prophylaxis. Continue P rotonix. 10. DVT prophylaxis. Lovenox. Patient will be admitted to the hospital for a minimum of 2 night stay. Discharge plan: return home Impression and plan of care have been directed as dictated by the signing physician. Deborah Crow nurse practitioner acting as scribe for signing physician.
[2019-12-27] MEDS: ALBUTEROL HFA INHALER INHALATION PRN ×3 (11:56→21:01)
[2019-12-27 12:02] LABS: Glucose,Whole Blood 154 mg/dL (75-99)
--- NOTE | 2019-12-27 12:14 | CONS ---
CONSULTATION PULMONARY/CRITICAL CARE CONSULTATION: DATE OF CONSULTATION: December 27, 2019 REASON FOR CONSULTATION: Weakness and possible COVID-19 infection. This 64-year-old female with a history of asthma and diabetes, presents to the emergency department on December 25 at 9 with complaints of cough and shortness of breath. She apparently was exposed to a patient with COVID-19 infection a couple weeks back. 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 The patient states that she was using her inhalers at home, but unfortunately continued to have shortness of breath. In addition, she has felt very weak and fatigued and has been sleeping nearly 20 hours a day. For that reason, she decided to come into the emergency room to be evaluated. Her rapid COVID- 19 test was positive. Her chest x-ray did show diffuse bilateral infiltrates. HOME MEDICATIONS: Her home medications are reviewed. She is on Lipitor, Nexium, insulin, lisinopril, Aleve, nitroglycerin, Tylenol, aspirin, Trulicity, Tresiba, loratadine, and Actos. ALLERGIES: Allergies include DAPTOMYCIN, LANOLIN, AVELOX, PENICILLIN, TETRACYCLINE, and VANCOMYCIN. PAST MEDICAL HISTORY: Her past medical history includes chronic bronchial asthma, diabetes mellitus, GERD, hypertension, chronic kidney disease, and diverticular disease. She also has a history of hyperlipidemia and gastroesophageal reflux disease. SURGICAL HISTORY: Surgical history includes cholecystectomy and heart catheterization with stent. SOCIAL HISTORY: Positive for previous tobacco use. Does not smoke currently. Denies any alcohol or illicit drug use. FAMILY HISTORY: Noncontributory. Both mother and father apparently are healthy. REVIEW OF SYSTEMS: CONSTITUTIONAL: Weakness. NEUROLOGIC: Negative. HEENT: Negative. CARDIOVASCULAR: Negative. PULMONARY: Shortness of breath and cough. GI: Negative. : Negative. RHEUMATOLOGIC: Negative. IMMUNOLOGIC: Negative. ENDOCRINOLOGIC: Negative. DERMATOLOGIC: Negative. PHYSICAL EXAMINATION: VITAL SIGNS: Current vital signs are reviewed. Temperature is 98.6, T-max was 99.6, heart rate 59, respiratory rate 19, blood pressure 93/59, man 70, and 4 L saturation 97%. GENERAL: Appears in no acute distress. HEENT: Examination is grossly unremarkable. Nasal O2 noted. She is on 4 L. NECK: Supple. Full range of motion. No adenopathy, thyromegaly or neck vein distention. CARDIOVASCULAR: Examination reveals regular rhythm and rate. Heart rate os about 65 beats per minute. S1, S2 normal. LUNGS: Reveal diffuse coarse rhonchi. Breath sounds equal. No wheezes or crackles. ABDOMEN: Obese. Bowel sounds are heard. EXTREMITIES: Are intact. No edema. SKIN: Without rash. NEUROLOGIC: Examination is brief but nonfocal. Chest x-ray done on the shows diffuse interstitial changes consistent with interstitial pneumonia. LABS: Labs are reviewed. Her COVID-19 test was positive. Her influenza studies were negative. White count 12.1, hemoglobin 12.7, hematocrit 39.4, platelet count 303,000. PT. INR, PTT all normal. Sodium 136, potassium 5.3, chloride 100, CO2 of 23. Anion gap is 13. BUN and creatinine were 41 and 1.43. Glucose 203. Lactic acid 2.1. Ferritin 609. AST 49. Alkaline phosphatase 255. LDH 1600. C-reactive protein 262. Procalcitonin 0.22. I do not see a D-dimer. CURRENT MEDICATIONS: Current medications are reviewed. She is on Tylenol, albuterol inhaler, ascorbic acid, aspirin, Lipitor, Zithromax, Lovenox at therapeutic doses, hydroxychloroquine, insulin, lisinopril, Narcan, Protonix, and zinc. ASSESSMENT: 1. COVID-19 pneumonia. 2. Asthma exacerbation, triggered by the viral infection. 3. Hyperlipidemia. 4. Gastroesophageal reflux disease. 5. Diabetes mellitus. 6. Hypertension. 7. Hyperlipidemia. 8. Obesity. 9. History of diverticular disease. 10.Previous history of PCI with stent placement. PLAN: Please see my orders. Will add Symbicort and corticosteroids. Additional recommendations and suggestions are forthcoming. Prognosis is guarded. Should she deteriorate, she will be moved to the ICU where she may require intubation and mechanical ventilation. Other medications including hydroxychloroquine, Zithromax, enoxaparin, and zinc were added. MMODL / IJN: [id number] /
[2019-12-27] MEDS: ASCORBIC ACID 500 MG TAB PO SCH ×2 (12:27→20:05)
[2019-12-27] MEDS: INSULIN ASPART (NovoLOG) 100 UNIT/ML VIAL SQ SCH ×3 (12:27→21:11)
[2019-12-27] MEDS: ZINC SULFATE 220 MG CAP PO SCH (12:27)
[2019-12-27] MEDS ORDERED: guaiFENesin-Coden 100-10MG/5ML 10 ML CUP PO PRN (15:15)
[2019-12-27 16:25] LABS: Glucose,Whole Blood 147 mg/dL (75-99)
[2019-12-27 17:14] LABS: ABG Base Excess -1.6 mmol/L; ABG HCO3 23 mmol/L (21-25); ABG Oxygen Saturation 97.2 % (94-97); ABG PCO2 36 mmHg (35-45); ABG PH 7.41 (7.35-7.45); ABG PO2 90 mmHg (83-108); ABG TCO2 24 mmol/L (19-24)
[2019-12-27] MEDS: LACTATED RINGERS 1,000 ML IV SCH (18:38)
[2019-12-27] MEDS: ATORVASTATIN 40 MG TAB PO SCH (20:05)
[2019-12-27] MEDS: LISINOPRIL 20 MG TAB PO SCH (20:05)
[2019-12-27] MEDS: methylPREDNISolone SOD SUCCI 40 MG/ML 1 ML VIAL IV SCH (20:06)
[2019-12-27 20:47] LABS: Glucose,Whole Blood 135 mg/dL (75-99)
[2019-12-27] MEDS: SYMBICORT 160-4.5 MCG INHALER INHALATION SCH (21:02)
[2019-12-27] MEDS: ENOXAPARIN 120 MG/0.8 ML SYRINGE SQ SCH (21:10)
[2019-12-27] MEDS: AZITHROMYCIN 500 MG TAB PO SCH (21:11)
--- NOTE | 2019-12-27 23:44 | P.CONS ---
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 and apparently has been exposed to a corporate positive patient about 2 weeks ago patient had been complaining of increasing shortness of breath over the last 24- hour she did have a cough which has been moderate intensity not bringing up any sputum patient denies having any URI symptom no nausea no vomiting no abdominal pain or any diarrhea patient has been using her inhaler without any relief with the symptom the patient presented to hospital on arrival to the ER patient initially afebrile subsequently spiked a fever patient did have white count 12,000 with a mild lymphopenia patient did have a elevated lactic acid LDH CRP as well as procalcitonin burgos PCR positive patient did have a chest x-ray shows mild cardiomegaly with moderate severe diffuse interstitial edema patient has been admitted to the hospital and has been started on Plaquenil and Zithromax Solu-Medrol infectious has been consulted for further recommendation regarding antibiotic therapy. Review of Systems Positive point has been mentioned in HPI rest of the systems are negative Past Medical History Past Medical History: Asthma, Diabetes Mellitus, GERD/Reflux, Hyperlipidemia, Hypertension, Renal Disease Additional Past Medical History / Comment(s): diverticulitis History of Any Multi-Drug Resistant Organisms: None Reported Past Surgical History: Cholecystectomy, Heart Catheterization With Stent Additional Past Surgical History / Comment(s): heart cath with stent LAD, carotid 2010 Past Anesthesia/Blood Transfusion Reactions: Unable to Obtain Date of Last Stent Placement:: 2005 Past Psychological History: No Psychological Hx Reported Smoking Status: Former smoker Past Alcohol Use History: None Reported Past Drug Use History: None Reported Medications and Allergies Home Medications Medication Instructions Recorded Confirmed Type Atorvastatin [Lipitor] 40 mg PO HS 06/04/14 12/26/19 History Esomeprazole Magnesium [NexIUM] 20 mg PO DAILY 06/04/14 12/26/19 History INSULIN LISPRO (humaLOG) [humaLOG] See Protocol SQ BID 06/04/14 12/26/19 History Lisinopril 20 mg PO HS 06/04/14 12/26/19 History Naproxen Sodium [Aleve] 220 mg PO BID 06/04/14 12/26/19 History Nitroglycerin Sl Tabs [Nitrostat] 0.4 mg SL Q5M PRN 06/04/14 12/26/19 History Acetaminophen [Tylenol] 1,000 mg PO BID 12/26/19 12/26/19 History Aspirin 325 mg PO DAILY 12/26/19 12/26/19 History Dulaglutide [Trulicity] 1.5 mg SQ TH 12/26/19 12/26/19 History Insulin Degludec [Tresiba 36 units SQ BID 12/26/19 12/26/19 History Flextouch U-100] Loratadine [Claritin] 10 mg PO HS 12/26/19 12/26/19 History Pioglitazone [Actos] 15 mg PO DAILY 12/26/19 12/26/19 History Allergies Allergy/AdvReac Type Severity Reaction Status Date / Time daptomycin [From Cubicin] AdvReac Unknown Verified 12/26/19 23:08 lanolin AdvReac Unknown Verified 12/26/19 23:08 moxifloxacin HCl AdvReac Anaphylaxis Verified 12/26/19 23:08 [From Avelox] Penicillins AdvReac Unknown Verified 12/26/19 23:08 tetracycline [Tetracycline] AdvReac Unknown Verified 12/26/19 23:08 vancomycin AdvReac Unknown Verified 12/26/19 23:08 Physical Exam Vitals: Vital Signs Temp Pulse Pulse Resp BP BP Pulse Ox 12/27/19 17:00 79 34 H 92/55 92 L 12/27/19 16:32 95 12/27/19 16:30 99.3 F 83 21 114/82 92 L 12/27/19 12:49 98.9 F 61 18 96/63 96 12/27/19 07:00 98.6 F 59 L 19 93/59 97 12/27/19 04:00 20 12/27/19 03:51 98.7 F 74 18 107/69 90 L 12/27/19 00:31 99.2 F 77 18 110/66 96 12/27/19 00:00 18 12/26/19 23:42 99.6 F 77 20 145/68 92 L 12/26/19 21:45 98.3 F 85 20 141/68 87 L Intake and Output 12/27/19 12/27/19 12/27/19 06:59 14:59 22:59 Intake Total 450 200 200 Balance 450 200 200 Intake: Intake, IV Titration 250 Amount Azithromycin 500 mg In 250 Sodium Chloride 0.9% 250 ml @ 250 mls/hr IVPB ONCE STA Rx#:[id number] Oral 200 200 200 Other: # Voids 2 3 # Bowel Movements 2 Weight 117.934 kg GENERAL DESCRIPTION: Middle-aged female lying in bed, mild distress. No tachypnea or accessory muscle of respiration use. HEENT: Shows Pallor , no scleral icterus. Oral mucous membrane is dry. NECK: Trachea central, no thyromegaly. LUNGS: Unlabored breathing. Decrease intensity of breath sounds. No wheeze or crackle. HEART: S1, S2, regular rate and rhythm. ABDOMEN: Soft, no tenderness , guarding or rigidity EXTREMITIES: No edema of feet. SKIN: No rash, no masses palpable. NEUROLOGICAL: The patient is awake, alert, oriented x3, mood and affect normal. Results CBC & Chem 7: 12/26/19 22:01 12/26/19 22:01 Labs: Abnormal Lab Results - Last 24 Hours (Table) 12/26/19 12/26/19 12/26/19 Range/Units 22:01 22:01 22:01 WBC 12.1 H (3.8-10.6) k/uL Neutrophils # 10.2 H (1.3-7.7) k/uL Lymphocytes # 0.9 L (1.0-4.8) k/uL ABG O2 Saturation (94-97) % Sodium 136 L (137-145) mmol/L Potassium 5.3 H (3.5-5.1) mmol/L BUN 41 H (7-17) mg/dL Creatinine 1.43 H (0.52-1.04) mg/dL Glucose 230 H (74-99) mg/dL POC Glucose (mg/dL) (75-99) mg/dL Plasma Lactic Acid Loy 2.1 H* (0.7-2.0) mmol/L Ferritin 609.6 H (10.0-291.0) ng/mL AST 49 H (14-36) U/L Alkaline Phosphatase 255 H (38-126) U/L Lactate Dehydrogenase 1600 H (313-618) U/L C-Reactive Protein 262.0 H (<10.0) mg/L Procalcitonin (0.02-0.09) ng/mL Coronavirus (PCR) (Not Detectd) 12/26/19 12/26/19 12/27/19 Range/Units 22:01 22:07 07:04 WBC (3.8-10.6) k/uL Neutrophils # (1.3-7.7) k/uL Lymphocytes # (1.0-4.8) k/uL ABG O2 Saturation (94-97) % Sodium (137-145) mmol/L Potassium (3.5-5.1) mmol/L BUN (7-17) mg/dL Creatinine (0.52-1.04) mg/dL Glucose (74-99) mg/dL POC Glucose (mg/dL) 161 H (75-99) mg/dL Plasma Lactic Acid Loy (0.7-2.0) mmol/L Ferritin (10.0-291.0) ng/mL AST (14-36) U/L Alkaline Phosphatase (38-126) U/L Lactate Dehydrogenase (313-618) U/L C-Reactive Protein (<10.0) mg/L Procalcitonin 0.22 H (0.02-0.09) ng/mL Coronavirus (PCR) Detected A (Not Detectd) 12/27/19 12/27/19 12/27/19 Range/Units 12:00 16:24 17:00 WBC (3.8-10.6) k/uL Neutrophils # (1.3-7.7) k/uL Lymphocytes # (1.0-4.8) k/uL ABG O2 Saturation 97.2 H (94-97) % Sodium (137-145) mmol/L Potassium (3.5-5.1) mmol/L BUN (7-17) mg/dL Creatinine (0.52-1.04) mg/dL Glucose (74-99) mg/dL POC Glucose (mg/dL) 154 H 147 H (75-99) mg/dL Plasma Lactic Acid Loy (0.7-2.0) mmol/L Ferritin (10.0-291.0) ng/mL AST (14-36) U/L Alkaline Phosphatase (38-126) U/L Lactate Dehydrogenase (313-618) U/L C-Reactive Protein (<10.0) mg/L Procalcitonin (0.02-0.09) ng/mL Coronavirus (PCR) (Not Detectd) Assessment and Plan Assessment: 1-patient presented hospital with increasing shortness of breath cough and this patient will be exposed to a COVID 19+ patient with evidence of diffuse pulmonary infiltrate likely resenting acute COVID-19 pneumonia which has been confirmed on a nasopharyngeal swab with the biochemical markers also suggestive of COVID-19 infection 2-patient with multiple antibiotic allergies that would limit the number of antibiotics safe to use (1) Pneumonia due to COVID-19 virus Current Visit: Yes Status: Acute Code(s): U07.1 - COVID-19; J12.89 - OTHER VIRAL PNEUMONIA SNOMED Code(s): 110136570 Plan: 1-blood cultures x1-obtain a sputum for Gram stain and culture 2-Plaquenil Zithromax per protocol and steroids has been added 3-droplet isolation and respiratory support We will follow on clinical condition and cultures to further adjust medication if needed Thank you for this consultation we will follow the patient along with you Time with Patient: Greater than 30
[2019-12-28 00:11] LABS: Amorphous Sediment,Urine Occasional /hpf; Appearance,Urine Cloudy (Clear); Bacteria,Urine Rare /hpf; Bilirubin,Urine Negative (Negative); Blood,Urine Negative (Negative); Color,Urine Yellow; Glucose,Urine (UA) Negative (Negative); Granular Casts,Urine 1 /lpf (0); Hyaline Casts,Urine 145 /lpf (0-2); Ketones,Urine Negative (Negative); Leukocyte Esterase,Urine Negative (Negative); Mucus,Urine Rare /hpf; Nitrite,Urine Negative (Negative); Protein,Urine 1+ (Negative); RBC,Urine 3 /hpf (0-5); Specific Gravity,Urine 1.027 (1.001-1.035); Squamous Epithelial Cell,Urine 1 /hpf (0-4); Urobilinogen,Urine <2.0 mg/dL (<2.0); WBC,Urine 1 /hpf (0-5)
[2019-12-28 00:37] LABS: Glucose,Whole Blood 202 mg/dL (75-99)
[2019-12-28 04:48] LABS: Basophils % (A) 0 %; Eosinophils % (A) 0 %; HCT 35.9 % (34.0-46.0); HGB 11.6 gm/dL (11.4-16.0); Lymphocytes # (A) 0.6 k/uL (1.0-4.8); Lymphocytes % (A) 6 %; MCH 27.1 pg (25.0-35.0); MCHC 32.4 g/dL (31.0-37.0); MCV 83.6 fL (80.0-100.0); Mean Platelet Volume 8.4; Monocytes # (A) 0.3 k/uL (0-1.0); Monocytes % (A) 3 %; Neutrophils # (A) 9.4 k/uL (1.3-7.7); Neutrophils % (A) 90 %; Platelet Count 251 k/uL (150-450); RBC 4.29 m/uL (3.80-5.40); RDW 13.4 % (11.5-15.5); WBC 10.5 k/uL (3.8-10.6)
[2019-12-28 05:06] LABS: Albumin 3.6 g/dL (3.5-5.0); Calcium 9.4 mg/dL (8.4-10.2); Potassium 5.2 mmol/L (3.5-5.1); Total Bilirubin 0.5 mg/dL (0.2-1.3); Total Protein 7.5 g/dL (6.3-8.2)
[2019-12-28 07:10] LABS: Glucose,Whole Blood 244 mg/dL (75-99)
[2019-12-28] MEDS: INSULIN ASPART (NovoLOG) 100 UNIT/ML VIAL SQ SCH ×3 (07:16→18:51)
--- NOTE | 2019-12-28 07:58 | XR ---
EXAMINATION TYPE: XR chest 1V portable DATE OF EXAM: 12/28/2019 COMPARISON: 2019 INDICATION: Dyspnea TECHNIQUE: Single frontal view of the chest is obtained. FINDINGS: The heart size is normal. The pulmonary vasculature is normal. Bilateral patchy infiltrates are present especially along the lateral left mid and lower lung field a nd at the right lower lobe. Findings appear worsening over the interval. IMPRESSION: 1. Worsening peripheral infiltrates, correlate for atypical pneumonia.
[2019-12-28] MEDS: methylPREDNISolone SOD SUCCI 40 MG/ML 1 ML VIAL IV SCH ×2 (08:01→20:13)
[2019-12-28] MEDS: ASPIRIN 325 MG TAB PO SCH (08:01)
[2019-12-28] MEDS: ASCORBIC ACID 500 MG TAB PO SCH ×2 (08:01→20:14)
[2019-12-28] MEDS: HYDROXYCHLOROQUINE SULFATE 200 MG TAB PO SCH (08:02)
[2019-12-28] MEDS: ZINC SULFATE 220 MG CAP PO SCH (08:02)
[2019-12-28] MEDS: PANTOPRAZOLE 40 MG TABLET PO SCH (08:02)
[2019-12-28] MEDS: ENOXAPARIN 120 MG/0.8 ML SYRINGE SQ SCH (08:02)
[2019-12-28] MEDS: LACTATED RINGERS 1,000 ML IV SCH ×2 (08:03→16:14)
[2019-12-28] MEDS: ALBUTEROL HFA INHALER INHALATION PRN ×3 (08:21→20:06)
[2019-12-28] MEDS: SYMBICORT 160-4.5 MCG INHALER INHALATION SCH ×2 (08:21→20:06)
[2019-12-28] MEDS: INSULIN DETEMIR (LEVEMIR) 100 UNIT/ML SYR SQ SCH ×2 (08:22→20:26)
[2019-12-28 09:16] LABS: ABG Base Excess -2.6 mmol/L; ABG HCO3 23 mmol/L (21-25); ABG Oxygen Saturation 96.9 % (94-97); ABG PCO2 38 mmHg (35-45); ABG PH 7.38 (7.35-7.45); ABG PO2 91 mmHg (83-108); ABG TCO2 24 mmol/L (19-24); Allen Test Performed? Yes
[2019-12-28] MEDS: PROPOFOL 1,000 MG in EMPTY BAG 1 BAG IV SCH ×6 (10:15→22:03)
[2019-12-28] MEDS ORDERED: CISATRACURIUM 2 MG/ML 5 ML VIAL IV ONE ×2 (10:27→11:37)
--- NOTE | 2019-12-28 10:39 | XR ---
EXAMINATION TYPE: XR chest 1V portable DATE OF EXAM: 12/28/2019 COMPARISON: 12/28/2019 INDICATION: Difficulty breathing, endotracheal tube and nasogastric tube placement TECHNIQUE: Single frontal view of the chest is obtained. FINDINGS: The heart size is normal. The pulmonary vasculature is normal. Scattered infiltrates are present bilaterally greater along the left lateral margin left base and pat gaurav through the right lung. Findings may be worsening. r There is placement of an endotracheal tube with tip 4.7 cm above the frantz. Nasogastric tube transve rses the thorax the tip in the left upper quadrant of the abdomen. IMPRESSION: 1. Worsening bilateral lung infiltrates. 2. Endotracheal tube and nasogastric tube placement.
[2019-12-28 11:25] LABS: ABG Base Excess -3.9 mmol/L; ABG HCO3 23 mmol/L (21-25); ABG Oxygen Saturation 97.2 % (94-97); ABG PCO2 54 mmHg (35-45); ABG PH 7.24 (7.35-7.45); ABG PO2 112 mmHg (83-108); ABG TCO2 25 mmol/L (19-24)
[2019-12-28 11:26] LABS: Allen Test Performed? no
--- NOTE | 2019-12-28 11:35 | PCN ---
PROCEDURE NOTE PROCEDURE: Right radial arterial line. OPERATORS: Alva Noel and Lexy Ramirez. THE REASON FOR THE PROCEDURE: Frequent blood draws and blood gas monitoring. POSTOPERATIVE DIAGNOSIS: Frequent blood draws and blood gas monitoring. There was informed consent and universal timeout. ARTERIAL LINE PLACEMENT: Indications: Hemodynamic monitoring. A time-out was completed verifying correct patient, procedure, site, positioning, and implant(s) or special equipment if applicable. Joni's test was performed to ensure adequate perfusion. The patient's right wrist was prepped and draped in sterile fashion. 1% Lidocaine was used to anesthetize the area. An 18G Arrow arterial line was introduced into the right radial artery. The catheter was threaded over the guide wire and the needle was removed with appropriate pulsatile blood return. Blood loss was minimal. The catheter was then sutured in place to the skin and a sterile dressing applied. Perfusion to the extremity distal to the point of catheter insertion was checked and found to be adequate. The patient tolerated the procedure well and there were no complications. The right radial art line was inserted. It was inserted without difficulty. There was good blood return and waveform. The catheter was sutured in place. Sterile dressing was applied by the nurse. There was no immediate complication. The patient tolerated the procedure very well. MMODL / IJN: [id number] /
--- NOTE | 2019-12-28 11:35 | PCN ---
PROCEDURE NOTE PROCEDURE: Left subclavian triple-lumen catheter. Dr. Liu was the kettle operator head along with Lexy Ramirez RN. PREOPERATIVE DIAGNOSIS: The reason for the procedure was for the administration of fluids and pressors. POSTOPERATIVE DIAGNOSIS: The reason for the procedure was for the administration of fluids and pressors. A time-out was completed verifying correct patient, procedure, site, positioning, and implant(s) or special equipment if applicable. The patient was placed in a dependent position appropriate for triple lumen catheter placement based on the vein to be cannulated. The patient's left shoulder was prepped and draped in sterile fashion. 1% Lidocaine was used to anesthetize the surrounding skin area. A triple lumen 9F Cordis catheter was introduced into the left subclavian using Seldinger technique. The catheter was threaded smoothly over the guide wire and appropriate blood return was obtained. Each lumen of the catheter was evacuated of air and flushed with sterile saline. The catheter was then sutured in place to the skin and a sterile dressing applied. Perfusion to the extremity distal to the point of catheter insertion was checked and found to be adequate. There was no immediate complication. The catheter was sutured in place. Sterile dressing applied by the nurse. There was good blood return from all 3 ports. Again, there was informed consent and universal timeout. The tip of the catheter was seen in the junction of superior vena cava and right atrium. Again, no immediate complication. MMODL / IJN: [id number] /
--- NOTE | 2019-12-28 11:43 | P.PN ---
Subjective Progress Note Date: 12/28/19 This is a 64-year-old female patient of Dr. Mojica with past medical history of asthma, hypertension, hyperlipidemia, gastroesophageal reflux disease, diabetes mellitus type 2 insulin requiring, coronary artery disease status post stent, remote history of tobacco use and dependence, chronic kidney disease stage III. 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 They were exposed to a COVID-19 positive patient on December 11 and/or December 12. She had symptoms develop approximate 7 days ago with fever, cough, shortness of breath, nausea, diarrhea. She tried to manage at home but symptoms became significantly severe in the past 3 days and she lives alone she was so sick she could not get to the She to the bathroom. Patient came into [facility] emergency center for evaluation and found to be afebrile, blood pressure 141/68, heart rate 85, pulse ox 87%. EKG was a sinus rhythm with no acute ST changes. W BC 12.1, hemoglobin 12.7, platelet count 303, sodium 136, potassium 5.3, chloride 100, CO2 23, BUN 41, creatinine 1.43, blood sugar 230. Total bilirubin 0.6, AST 49, ALT 22, alkaline phosphatase 255, LDH 1600, ferritin 609.6 C-reactive protein 262, pro calcitonin 0.2 to. Chronic virus PCR detected, influenza testing negative, lactic acid 2.1. Repeat lactic acid 1.2 chest x-ray revealed mild cardiomegaly with moderately severe diffuse interstitial edema that is changed from old exam compared to November 2018. This could represent acute interstitial pneumonia or acute heart failure. Patient was started on Tylenol, azithromycin, Plaquenil admitted to the [facility] floor and consult was requested with infectious disease and pulmonary medicine. 12/27: Patient had a drop in her oxygen saturation and became tachypneic. She was initially placed on high flow nasal cannula at 10 L, transferred into the intensive care unit and was intubated this morning. Temperature max 101.4. Heart rate in the 60s and 70s. Repeat blood work reveals CBC unremarkable except for low lymphocytes. D-dimer 1.05, potassium 5.2, BUN 62 and creatinine 1.91. Blood sugars in the 200s. Alkaline phosphatase 198 LDH 1439. She has been continued on azithromycin, Plaquenil, zinc and vitamin C. Solu-Medrol is currently at 40 mg IV every 12 hours. Objective - Vital Signs Vital signs: Vital Signs Temp 97.6 F 12/28/19 04:00 Pulse 59 L 12/28/19 07:00 Resp 36 H 12/28/19 07:00 BP 126/66 12/28/19 07:00 Pulse Ox 95 12/28/19 07:00 Intake & Output 12/27/19 12/28/19 12/28/19 18:59 06:59 18:59 Intake Total 600 1240 150 Output Total 468 80 Balance 600 772 70 Weight 123.8 kg Intake: IV 900 150 Lactated Ringers 1,000 ml 900 150 @ 75 mls/hr IV .[id number] [facility] Rx#:[id number] Oral 600 340 Output: Urine 468 80 Other: Voiding Method Indwelling Catheter # Voids 3 - Exam Review of Systems Unable to obtain due to intubation Physical Examination Gen: This is a morbidly obese 64-year-old female. Patient is resting in bed. No acute respiratory distress is noted. HEENT: Head is atraumatic, normocephalic. Pupils equal, round. Sclerae is anicteric. Oral ET and gastric tube in place NECK: Supple. No JVD. No lymphadenopathy. No thyromegaly. LUNGS: Diminished bilaterally with scattered rhonchi. HEART: Regular rate and rhythm. No murmur. ABDOMEN: Soft. Bowel sounds are present. No masses. No tenderness. EXTREMITIES: No pedal edema. No calf tenderness. Dorsalis pedis +2 bilatera lly. NEUROLOGICAL: Patient is intubated. - Labs CBC & Chem 7: 12/28/19 04:18 12/28/19 04:18 Labs: Abnormal Lab Results - Last 24 Hours (Table) 12/27/19 12/27/19 12/27/19 Range/Units 12:00 16:24 17:00 Neutrophils # (1.3-7.7) k/uL Lymphocytes # (1.0-4.8) k/uL D-Dimer (<0.60) mg/L FEU ABG O2 Saturation 97.2 H (94-97) % Potassium (3.5-5.1) mmol/L BUN (7-17) mg/dL Creatinine (0.52-1.04) mg/dL Glucose (74-99) mg/dL POC Glucose (mg/dL) 154 H 147 H (75-99) mg/dL AST (14-36) U/L Alkaline Phosphatase (38-126) U/L Lactate Dehydrogenase (313-618) U/L Urine Appearance (Clear) Urine Protein (Negative) Amorphous Sediment (None) /hpf Urine Bacteria (None) /hpf Hyaline Casts (0-2) /lpf Urine Mucus (None) /hpf 12/27/19 12/27/19 12/28/19 Range/Units 20:46 22:45 00:36 Neutrophils # (1.3-7.7) k/uL Lymphocytes # (1.0-4.8) k/uL D-Dimer (<0.60) mg/L FEU ABG O2 Saturation (94-97) % Potassium (3.5-5.1) mmol/L BUN (7-17) mg/dL Creatinine (0.52-1.04) mg/dL Glucose (74-99) mg/dL POC Glucose (mg/dL) 135 H 202 H (75-99) mg/dL AST (14-36) U/L Alkaline Phosphatase (38-126) U/L Lactate Dehydrogenase (313-618) U/L Urine Appearance Cloudy H (Clear) Urine Protein 1+ H (Negative) Amorphous Sediment Occasional H (None) /hpf Urine Bacteria Rare H (None) /hpf Hyaline Casts 145 H (0-2) /lpf Urine Mucus Rare H (None) /hpf 12/28/19 12/28/19 12/28/19 Range/Units 04:18 04:18 04:18 Neutrophils # 9.4 H (1.3-7.7) k/uL Lymphocytes # 0.6 L (1.0-4.8) k/uL D-Dimer 1.05 H (<0.60) mg/L FEU ABG O2 Saturation (94-97) % Potassium 5.2 H (3.5-5.1) mmol/L BUN 62 H (7-17) mg/dL Creatinine 1.91 H (0.52-1.04) mg/dL Glucose 254 H (74-99) mg/dL POC Glucose (mg/dL) (75-99) mg/dL AST 49 H (14-36) U/L Alkaline Phosphatase 198 H (38-126) U/L Lactate Dehydrogenase 1439 H (313-618) U/L Urine Appearance (Clear) Urine Protein (Negative) Amorphous Sediment (None) /hpf Urine Bacteria (None) /hpf Hyaline Casts (0-2) /lpf Urine Mucus (None) /hpf 12/28/19 Range/Units 07:08 Neutrophils # (1.3-7.7) k/uL Lymphocytes # (1.0-4.8) k/uL D-Dimer (<0.60) mg/L FEU ABG O2 Saturation (94-97) % Potassium (3.5-5.1) mmol/L BUN (7-17) mg/dL Creatinine (0.52-1.04) mg/dL Glucose (74-99) mg/dL POC Glucose (mg/dL) 244 H (75-99) mg/dL AST (14-36) U/L Alkaline Phosphatase (38-126) U/L Lactate Dehydrogenase (313-618) U/L Urine Appearance (Clear) Urine Protein (Negative) Amorphous Sediment (None) /hpf Urine Bacteria (None) /hpf Hyaline Casts (0-2) /lpf Urine Mucus (None) /hpf Assessment and Plan Plan: 1. Acute hypoxic respiratory failure secondary to COPD exacerbation and COVID- 19 pneumonitis. Patient transferred to the ICU and required intubation and mechanical ventilation. Continue Plaquenil 400 mg twice daily. Consults with pulmonary medicine and infectious disease. Continue albuterol inhaler as needed, vitamin C, azithromycin, Solu-Medrol 40 mg IV every 12 hours, zinc. 2. Acute kidney injury with chronic kidney disease stage III. Avoid nephrotoxic agents, hypotension. Hold Aleve. 3. Mild hyperkalemia secondary to acute kidney injury. 4. Mild lactic acidosis secondary to COVID-19 infection. Resolved. 5. Sepsis secondary to Covid 19 infection, POA. 6. Hyperlipidemia. Continue atorvastatin 40 g at bedtime 7. Diabetes mellitus type 2, insulin requiring. Continue Levemir 36 units twic e daily, NovoLog scale before meals and at bedtime. Hold Actos and Trulicity for now. 7. History of coronary artery disease status post stenting. Continue aspirin 325 mg daily, Lipitor. 8. Hypertension. Continue lisinopril 20 mg at bedtime with parameters. Avoid hypotension. 9. Gastroesophageal reflux disease disease and GI prophylaxis. Continue Protonix. 10. DVT prophylaxis. Lovenox. Patient will be admitted to the hospital for a minimum of 2 night stay. Discharge plan: return home Impression and plan of care have been directed as dictated by the signing physician. Deborah Crow nurse practitioner acting as scribe for signing physician.
[2019-12-28] MEDS ORDERED: HYDROmorphone 1 MG/ML 1 ML SYRINGE IVP PRN (11:48)
[2019-12-28] MEDS ORDERED: HYDROmorphone 2 MG/ML 1 ML SYRINGE IVP PRN (11:53)
--- NOTE | 2019-12-28 12:28 | XR ---
EXAMINATION TYPE: XR chest 1V confirm line [facility] DATE OF EXAM: 12/28/2019 CLINICAL HISTORY: Difficulty breathing progress study. TECHNIQUE: Single AP portable upright view of the chest is obtained. COMPARISON: Chest x-ray from 12/28/2019 FINDINGS: Endotracheal and NG tubes are unchanged in position. Left-sided central venous line with i ts distal tip overlying the SVC. No evidence of pneumothorax. Bilateral airspace infiltrates persist essentially unchanged.cardiomediastinal silhouette is unchanged as well. IMPRESSION: Overall stable findings,
[2019-12-28 13:31] LABS: Glucose,Whole Blood 269 mg/dL (75-99)
[2019-12-28] MEDS: HYDROmorphone 1 MG/ML 1 ML SYRINGE IVP PRN (13:35)
--- NOTE | 2019-12-28 14:14 | P.PN ---
Subjective Progress Note Date: 12/28/19 On 12/28/2019 patient seen in follow-up in the intensive care unit. She remains on high FiO2 this morning, she is currently on 50 L per high flow nasal cannula, with a pulse ox of 92%, she is dyspneic, and fatigue. Her Covid 19 test was positive, patient remains on azithromycin, Plaquenil, and IV steroids at 40 mg every 12 hours, she is also on zinc sulfate. Today's chest x-ray has been reviewed, showing worsening peripheral infiltrates. Blood gas has been obtained, showing pO2 of 91, pCO2 of 30, and pH of 7.38, this was done and FiO2 of 75%, which talk to the patient regarding intubation and placement on mechanical ventilation in view of high oxygen demand, worsening pulmonary infiltrates, worsening oxygenation, and the patient is agreeable to proceed with intubation and mechanical ventilation. Anesthesia services were consulted and intubated the patient, patient was placed on assist-control mode of ventilation with a rate of 20, tidal vital 350, FiO2 100%, and PEEP of 5, repeat blood gases were obtained showing pO2 of 112, pCO2 54, pH of 7.24, this was done on the 100%, and a vent settings were adjusted with a rate up to 26 breaths per minute, and increase of PEEP to 10 cm of water. They've remained has been started for sedation. The rest the lab work has been reviewed, d-dimer is elevated at 1.05, no leukocytosis, sodium is 137, potassium is 5.2, chloride is 102, CO2 is 25, BUN is 62, creatinine is 1.91, alk phos is 198, down from 255, LDH is 1439, down from 16 Objective - Vital Signs Vital signs: Vital Signs Temp 98.4 F 12/28/19 08:00 Pulse 80 12/28/19 11:30 Resp 20 12/28/19 11:30 BP 133/66 12/28/19 11:30 Pulse Ox 96 12/28/19 11:30 Intake & Output 12/27/19 12/28/19 12/28/19 18:59 06:59 18:59 Intake Total 600 1240 613.138 Output Total 468 230 Balance 600 772 383.138 Weight 123.8 kg Intake: IV 900 450 Lactated Ringers 1,000 ml 900 450 @ 75 mls/hr IV .[id number] [facility] Rx#:[id number] Intake, IV Titration 163.138 Amount Propofol 1,000 mg In 163.138 Empty Bag 1 bag @ Titrate IV .Q0M [facility] Rx#: [id number] Oral 600 340 Output: Urine 468 230 Other: Voiding Method Indwelling Catheter Indwelling Catheter # Voids 3 ABP, PAP, CO, CI - Last Documented Arterial Blood Pressure 94/44 - Exam GENERAL EXAM: See 64-year-old obese white female, intubated, sedated, on mechanical ventilator, comfortable in no apparent distress. HEAD: Normocephalic/atraumatic. EYES: Normal reaction of pupils, equal size. Conjunctiva pink, sclera white. NOSE: Clear with pink turbinates. THROAT: No erythema or exudates. NECK: No masses, no JVD, no thyroid enlargement, no adenopathy. CHEST: No chest wall deformity. Symmetrical expansion. LUNGS: Equal air entry with no crackles, wheeze, rhonchi or dullness. CVS: Regular rate and rhythm, normal S1 and S2, no gallops, no murmurs, no rubs ABDOMEN: Soft, nontender. No hepatosplenomegaly, normal bowel sounds, no guarding or rigidity. EXTREMITIES: No clubbing, no edema, no cyanosis, 2+ pulses and upper and lower extremities. MUSCULOSKELETAL: Muscle strength and tone normal. SPINE: No scoliosis or deformity SKIN: No rashes CENTRAL NERVOUS SYSTEM: Sedated, intubated, No focal deficits, tone is normal in all 4 extremities. - Labs CBC & Chem 7: 12/28/19 04:18 12/28/19 04:18 Labs: Abnormal Lab Results - Last 24 Hours (Table) 12/27/19 12/27/19 12/27/19 Range/Units 16:24 17:00 20:46 Neutrophils # (1.3-7.7) k/uL Lymphocytes # (1.0-4.8) k/uL D-Dimer (<0.60) mg/L FEU ABG pH (7.35-7.45) ABG pCO2 (35-45) mmHg ABG pO2 (83-108) mmHg ABG Total CO2 (19-24) mmol/L ABG O2 Saturation 97.2 H (94-97) % Potassium (3.5-5.1) mmol/L BUN (7-17) mg/dL Creatinine (0.52-1.04) mg/dL Glucose (74-99) mg/dL POC Glucose (mg/dL) 147 H 135 H (75-99) mg/dL AST (14-36) U/L Alkaline Phosphatase (38-126) U/L Lactate Dehydrogenase (313-618) U/L Urine Appearance (Clear) Urine Protein (Negative) Amorphous Sediment (None) /hpf Urine Bacteria (None) /hpf Hyaline Casts (0-2) /lpf Urine Mucus (None) /hpf 12/27/19 12/28/19 12/28/19 Range/Units 22:45 00:36 04:18 Neutrophils # 9.4 H (1.3-7.7) k/uL Lymphocytes # 0.6 L (1.0-4.8) k/uL D-Dimer (<0.60) mg/L FEU ABG pH (7.35-7.45) ABG pCO2 (35-45) mmHg ABG pO2 (83-108) mmHg ABG Total CO2 (19-24) mmol/L ABG O2 Saturation (94-97) % Potassium (3.5-5.1) mmol/L BUN (7-17) mg/dL Creatinine (0.52-1.04) mg/dL Glucose (74-99) mg/dL POC Glucose (mg/dL) 202 H (75-99) mg/dL AST (14-36) U/L Alkaline Phosphatase (38-126) U/L Lactate Dehydrogenase (313-618) U/L Urine Appearance Cloudy H (Clear) Urine Protein 1+ H (Negative) Amorphous Sediment Occasional H (None) /hpf Urine Bacteria Rare H (None) /hpf Hyaline Casts 145 H (0-2) /lpf Urine Mucus Rare H (None) /hpf 12/28/19 12/28/19 12/28/19 Range/Units 04:18 04:18 07:08 Neutrophils # (1.3-7.7) k/uL Lymphocytes # (1.0-4.8) k/uL D-Dimer 1.05 H (<0.60) mg/L FEU ABG pH (7.35-7.45) ABG pCO2 (35-45) mmHg ABG pO2 (83-108) mmHg ABG Total CO2 (19-24) mmol/L ABG O2 Saturation (94-97) % Potassium 5.2 H (3.5-5.1) mmol/L BUN 62 H (7-17) mg/dL Creatinine 1.91 H (0.52-1.04) mg/dL Glucose 254 H (74-99) mg/dL POC Glucose (mg/dL) 244 H (75-99) mg/dL AST 49 H (14-36) U/L Alkaline Phosphatase 198 H (38-126) U/L Lactate Dehydrogenase 1439 H (313-618) U/L Urine Appearance (Clear) Urine Protein (Negative) Amorphous Sediment (None) /hpf Urine Bacteria (None) /hpf Hyaline Casts (0-2) /lpf Urine Mucus (None) /hpf 12/28/19 12/28/19 Range/Units 11:23 13:30 Neutrophils # (1.3-7.7) k/uL Lymphocytes # (1.0-4.8) k/uL D-Dimer (<0.60) mg/L FEU ABG pH 7.24 L (7.35-7.45) ABG pCO2 54 H (35-45) mmHg ABG pO2 112 H (83-108) mmHg ABG Total CO2 25 H (19-24) mmol/L ABG O2 Saturation 97.2 H (94-97) % Potassium (3.5-5.1) mmol/L BUN (7-17) mg/dL Creatinine (0.52-1.04) mg/dL Glucose (74-99) mg/dL POC Glucose (mg/dL) 269 H (75-99) mg/dL AST (14-36) U/L Alkaline Phosphatase (38-126) U/L Lactate Dehydrogenase (313-618) U/L Urine Appearance (Clear) Urine Protein (Negative) Amorphous Sediment (None) /hpf Urine Bacteria (None) /hpf Hyaline Casts (0-2) /lpf Urine Mucus (None) /hpf Assessment and Plan Plan: Assessment: #1. Acute hypoxemic respiratory failure related to "with 19 related pneumonia, requiring intubation and placement on mechanical ventilation on 12/28/2019 #2. Cough, shortness of breath, weakness, fatigue, diffuse bilateral infiltrates related to "with 19 infection #3. Elevated ferritin, LDH, CRP and d-dimer related to acute: 19 related pneumonia #4. Elevated troponin, rule out possibility of coinfection, related to bacterial infection #5. Hypertension #6. Hyperlipidemia #7. GERD/reflux #8. Diabetes mellitus type 2 #9. History of chronic bronchial asthma, unspecified #10. Chronic kidney disease, unknown baseline #11. History of diverticular disease #12. History of coronary artery disease with PCI and stent placement Plan: Continue current medical treatment, patient has been intubated and placed on mechanical ventilator in view of worsening hypoxemia, worsening pulmonary infiltrates on today's chest x-ray. Necessary vent adjustments have been made, patient placed on Diprivan for sedation with target RASS of -3. Repeat labs, blood gases and chest x-rays in the morning, continue same antibiotics, send a sputum culture, any Plaquenil, and IV Solu-Medrol, will send interleukin-6 level. Continue with therapeutic doses of Lovenox, repeat inflammatory markers, and d-dimer in the morning, repeat chest x-ray. Initiate tube feedings consult dietary for recommendations. We'll continue to follow I performed a history & physical examination of the patient and discussed their management with my nurse practitioner, Alva Urban. I reviewed the nurse practitioner's note and agree with the documented findings and plan of care. Lung sounds are positive for diminished breath sounds. The findings and the impression was discussed with the patient. I attest to the documentation by the nurse practitioner. Time with Patient: Greater than 30
--- NOTE | 2019-12-28 16:53 | PN ---
PROGRESS NOTE DATE OF SERVICE: 12/28/2019 REASON FOR FOLLOWUP: COVID-19 pneumonia. INTERVAL HISTORY: The patient did spike a fever of 101.4. The patient is afebrile this morning. The patient did go into respiratory distress and ended up getting intubated. The patient is currently on low-dose pressor. FiO2 is currently at 70%. No purulent secretions through ET reported by nursing staff or any change in her clinical condition. PHYSICAL EXAMINATION: Blood pressure 103/45 with a pulse of 55, temperature of 98, T-max 101, she is 96% on 70% FiO2. General description is a middle-aged female, intubated on the vent. RESPIRATORY SYSTEM: Unlabored breathing, coarse breath sounds bilaterally, no wheeze. HEART: S1, S2. Regular rate and rhythm. ABDOMEN: Soft, no tenderness. LABS: Hemoglobin 11.8, white count 10.5, BUN of 62, creatinine 1.1, white count of 5.2. DIAGNOSTIC IMPRESSION AND PLAN: Patient with acute respiratory failure which is likely multifactorial as this patient did have a component of acute COVID-19 pneumonia. Patient is covered with Plaquenil and zinc, steroid to continue along with respiratory support and monitor clinical course closely. MMODL / IJN: [id number] / MTDD
[2019-12-28 18:11] LABS: Glucose,Whole Blood 189 mg/dL (75-99)
[2019-12-28] MEDS: ATORVASTATIN 40 MG TAB PO SCH (20:13)
[2019-12-28] MEDS: LISINOPRIL 20 MG TAB PO SCH (20:13)
[2019-12-28] MEDS: CHLORHEXIDINE GLUCONATE 15 ML CUP MUCOUS MEM SCH (20:13)
[2019-12-28] MEDS: HYDROXYCHLOROQUINE ORAL SUSP 200 MG/8 ML ORAL.SYRG PO SCH (20:13)
[2019-12-28] MEDS: AZITHROMYCIN 500 MG TAB PO SCH (20:29)
[2019-12-29 00:05] LABS: Glucose,Whole Blood 195 mg/dL (75-99)
[2019-12-29] MEDS: INSULIN ASPART (NovoLOG) 100 UNIT/ML VIAL SQ SCH ×8 (00:14→23:42)
[2019-12-29] MEDS: PROPOFOL 1,000 MG in EMPTY BAG 1 BAG IV SCH ×10 (01:07→22:31)
[2019-12-29 04:19] LABS: Basophils % (A) 0 %; Eosinophils % (A) 0 %; HCT 34.3 % (34.0-46.0); HGB 10.7 gm/dL (11.4-16.0); Lymphocytes # (A) 0.8 k/uL (1.0-4.8); Lymphocytes % (A) 5 %; MCH 26.1 pg (25.0-35.0); MCHC 31.2 g/dL (31.0-37.0); MCV 83.8 fL (80.0-100.0); Mean Platelet Volume 7.8; Monocytes # (A) 0.4 k/uL (0-1.0); Monocytes % (A) 3 %; Neutrophils # (A) 14.6 k/uL (1.3-7.7); Neutrophils % (A) 92 %; Platelet Count 273 k/uL (150-450); RBC 4.09 m/uL (3.80-5.40); RDW 13.4 % (11.5-15.5)
[2019-12-29 04:36] LABS: Albumin 2.9 g/dL (3.5-5.0); Potassium 4.6 mmol/L (3.5-5.1); Total Bilirubin 0.3 mg/dL (0.2-1.3); Total Protein 5.9 g/dL (6.3-8.2)
[2019-12-29 05:03] LABS: C Reactive Protein 181.7 mg/L (<10.0)
[2019-12-29 05:31] LABS: ABG Base Excess -3.2 mmol/L; ABG HCO3 22 mmol/L (21-25); ABG Oxygen Saturation 95.3 % (94-97); ABG PCO2 40 mmHg (35-45); ABG PH 7.35 (7.35-7.45); ABG PO2 79 mmHg (83-108); ABG TCO2 24 mmol/L (19-24)
--- NOTE | 2019-12-29 07:50 | XR ---
EXAMINATION TYPE: XR chest 1V portable DATE OF EXAM: 12/29/2019 COMPARISON: 12/28/2019 HISTORY: SOB, Follow Up FINDINGS: Indwelling tubes and catheters are unchanged. No Change in bilateral mixed infiltrates. Stable appearance of the cardio-mediastinal structures at this time. IMPRESSION: 1. Stable portable chest. Clinical correlation and follow up until resolution is recommended.
[2019-12-29] MEDS: SYMBICORT 160-4.5 MCG INHALER INHALATION SCH ×2 (07:58→19:41)
[2019-12-29] MEDS: ALBUTEROL HFA INHALER INHALATION PRN (07:58)
[2019-12-29] MEDS: INSULIN DETEMIR (LEVEMIR) 100 UNIT/ML SYR SQ SCH ×2 (08:14→20:03)
[2019-12-29] MEDS: methylPREDNISolone SOD SUCCI 40 MG/ML 1 ML VIAL IV SCH ×2 (08:14→20:03)
[2019-12-29] MEDS: ASPIRIN 325 MG TAB PO SCH (08:14)
[2019-12-29] MEDS: ASCORBIC ACID 500 MG TAB PO SCH ×2 (08:14→20:03)
[2019-12-29] MEDS: CHLORHEXIDINE GLUCONATE 15 ML CUP MUCOUS MEM SCH ×2 (08:15→20:03)
[2019-12-29] MEDS: ZINC SULFATE 220 MG CAP PO SCH (08:15)
[2019-12-29] MEDS: ENOXAPARIN 120 MG/0.8 ML SYRINGE SQ SCH (08:15)
[2019-12-29] MEDS: HYDROXYCHLOROQUINE ORAL SUSP 200 MG/8 ML ORAL.SYRG PO SCH ×2 (08:23→20:03)
[2019-12-29] MEDS: PANTOPRAZOLE 40 MG/10 ML VIAL IVP SCH (10:01)
[2019-12-29 11:07] LABS: Ferritin 556.8 ng/mL (10.0-291.0)
--- NOTE | 2019-12-29 11:29 | P.PN ---
Subjective Progress Note Date: 12/29/19 On 12/28/2019 patient seen in follow-up in the intensive care unit. She remains on high FiO2 this morning, she is currently on 50 L per high flow nasal cannula, with a pulse ox of 92%, she is dyspneic, and fatigue. Her Covid 19 test was positive, patient remains on azithromycin, Plaquenil, and IV steroids at 40 mg every 12 hours, she is also on zinc sulfate. Today's chest x-ray has been reviewed, showing worsening peripheral infiltrates. Blood gas has been obtained, showing pO2 of 91, pCO2 of 30, and pH of 7.38, this was done and FiO2 of 75%, which talk to the patient regarding intubation and placement on mechanical ventilation in view of high oxygen demand, worsening pulmonary infiltrates, worsening oxygenation, and the patient is agreeable to proceed with intubation and mechanical ventilation. Anesthesia services were consulted and intubated the patient, patient was placed on assist-control mode of ventilation with a rate of 20, tidal vital 350, FiO2 100%, and PEEP of 5, repeat blood gases were obtained showing pO2 of 112, pCO2 54, pH of 7.24, this was done on the 100%, and a vent settings were adjusted with a rate up to 26 breaths per minute, and increase of PEEP to 10 cm of water. They've remained has been started for sedation. The rest the lab work has been reviewed, d-dimer is elevated at 1.05, no leukocytosis, sodium is 137, potassium is 5.2, chloride is 102, CO2 is 25, BUN is 62, creatinine is 1.91, alk phos is 198, down from 255, LDH is 1439, down from 16 On 12/29/2019 patient seen in follow-up in the intensive care unit, she was intubated yesterday for acute hypoxemic respiratory failure secondary to "with 19 infection, today she remains on mechanical ventilator, she is sedated, she is on assist-control mode of ventilation with a rate of 26, tidal M of 350, FiO2 of 60% and PEEP of 10, her pulse ox is 92%, this morning his blood gases showed pO2 of 79, pCO2 40, and pH of 7.35, maintenance IV fluids include lactate of Ringer's at a rate of 75, Diprivan is a 55 mics per kilo per minute, tube feeding is Vital 1.2 at 10, with a goal of 10. Today's chest x-ray has been reviewed showing bilateral infiltrates. Today's labs have been reviewed, showing white blood cell count of 16.0, hemoglobin is 10.7, d-dimer is 0.72, serum sodium is 135, and the rest of the electrolytes were within normal limits, B1 of 63, creatinine is 1.43, ferritin level is trending down slightly, down to 556.8 on today's labs, LDH is down to 1050, liver enzymes are improving, al kaline phosphatase is 167 CRP is down to 181.7, interleukin level has been sent, and is pending at this time, patient is on a combination of Plaquenil, azithromycin, Solu-Medrol and zinc for COVID 19 related pneumonia. Objective - Vital Signs Vital signs: Vital Signs Temp 98.1 F 12/29/19 08:00 Pulse 50 L 12/29/19 10:00 Resp 27 H 12/29/19 10:00 BP 120/56 12/29/19 10:00 Pulse Ox 93 L 12/29/19 10:00 Intake & Output 12/28/19 12/29/19 12/29/19 18:59 06:59 18:59 Intake Total 8201.690 1917.786 344 Output Total 530 710 450 Balance 717.920 926.786 -106 Weight 123.8 kg 121.7 kg 121.7 kg Intake: IV 900 1011 234 Lactated Ringers 1,000 ml 900 975 225 @ 75 mls/hr IV .[id number] JORGE Rx#:[id number] Pressure bag 36 9 Intake, IV Titration 317.920 405.786 100 Amount Propofol 1,000 mg In 317.920 405.786 100 Empty Bag 1 bag @ Titrate IV .Q0M JORGE Rx#: [id number] Tube Feeding 30 130 10 Other 90 Output: Urine 530 710 450 Other: Voiding Method Indwelling Catheter Indwelling Catheter Indwelling Catheter ABP, PAP, CO, CI - Last Documented Arterial Blood Pressure 116/50 - Exam GENERAL EXAM: See 64-year-old obese white female, intubated, sedated, on mechanical ventilator, comfortable in no apparent distress. HEAD: Normocephalic/atraumatic. EYES: Normal reaction of pupils, equal size. Conjunctiva pink, sclera white. NOSE: Clear with pink turbinates. THROAT: No erythema or exudates. NECK: No masses, no JVD, no thyroid enlargement, no adenopathy. CHEST: No chest wall deformity. Symmetrical expansion. LUNGS: Equal air entry with no crackles, wheeze, rhonchi or dullness. CVS: Regular rate and rhythm, normal S1 and S2, no gallops, no murmurs, no rubs ABDOMEN: Soft, nontender. No hepatosplenomegaly, normal bowel sounds, no guarding or rigidity. EXTREMITIES: No clubbing, no edema, no cyanosis, 2+ pulses and upper and lower extremities. MUSCULOSKELETAL: Muscle strength and tone normal. SPINE: No scoliosis or deformity SKIN: No rashes CENTRAL NERVOUS SYSTEM: Sedated, intubated, No focal deficits, tone is normal in all 4 extremities. - Labs CBC & Chem 7: 12/29/19 04:00 12/29/19 04:00 Labs: Abnormal Lab Results - Last 24 Hours (Table) 12/28/19 12/28/19 12/28/19 Range/Units 11:23 13:30 18:10 WBC (3.8-10.6) k/uL Hgb (11.4-16.0) gm/dL Neutrophils # (1.3-7.7) k/uL Lymphocytes # (1.0-4.8) k/uL D-Dimer (<0.60) mg/L FEU ABG pH 7.24 L (7.35-7.45) ABG pCO2 54 H (35-45) mmHg ABG pO2 112 H (83-108) mmHg ABG Total CO2 25 H (19-24) mmol/L ABG O2 Saturation 97.2 H (94-97) % Sodium (137-145) mmol/L BUN (7-17) mg/dL Creatinine (0.52-1.04) mg/dL Glucose (74-99) mg/dL POC Glucose (mg/dL) 269 H 189 H (75-99) mg/dL Ferritin (10.0-291.0) ng/mL Alkaline Phosphatase (38-126) U/L Lactate Dehydrogenase (313-618) U/L C-Reactive Protein (<10.0) mg/L Total Protein (6.3-8.2) g/dL Albumin (3.5-5.0) g/dL 12/29/19 12/29/19 12/29/19 Range/Units 00:03 04:00 04:00 WBC 16.0 H (3.8-10.6) k/uL Hgb 10.7 L (11.4-16.0) gm/dL Neutrophils # 14.6 H (1.3-7.7) k/uL Lymphocytes # 0.8 L (1.0-4.8) k/uL D-Dimer (<0.60) mg/L FEU ABG pH (7.35-7.45) ABG pCO2 (35-45) mmHg ABG pO2 (83-108) mmHg ABG Total CO2 (19-24) mmol/L ABG O2 Saturation (94-97) % Sodium 135 L (137-145) mmol/L BUN 63 H (7-17) mg/dL Creatinine 1.43 H (0.52-1.04) mg/dL Glucose 247 H (74-99) mg/dL POC Glucose (mg/dL) 195 H (75-99) mg/dL Ferritin 556.8 H (10.0-291.0) ng/mL Alkaline Phosphatase 167 H (38-126) U/L Lactate Dehydrogenase 1050 H (313-618) U/L C-Reactive Protein 181.7 H (<10.0) mg/L Total Protein 5.9 L (6.3-8.2) g/dL Albumin 2.9 L (3.5-5.0) g/dL 12/29/19 12/29/19 Range/Units 04:00 05:25 WBC (3.8-10.6) k/uL Hgb (11.4-16.0) gm/dL Neutrophils # (1.3-7.7) k/uL Lymphocytes # (1.0-4.8) k/uL D-Dimer 0.72 H (<0.60) mg/L FEU ABG pH (7.35-7.45) ABG pCO2 (35-45) mmHg ABG pO2 79 L (83-108) mmHg ABG Total CO2 (19-24) mmol/L ABG O2 Saturation (94-97) % Sodium (137-145) mmol/L BUN (7-17) mg/dL Creatinine (0.52-1.04) mg/dL Glucose (74-99) mg/dL POC Glucose (mg/dL) (75-99) mg/dL Ferritin (10.0-291.0) ng/mL Alkaline Phosphatase (38-126) U/L Lactate Dehydrogenase (313-618) U/L C-Reactive Protein (<10.0) mg/L Total Protein (6.3-8.2) g/dL Albumin (3.5-5.0) g/dL Microbiology - Last 24 Hours (Table) 12/29/19 00:50 Sputum Culture - Preliminary Sputum 12/28/19 00:21 Blood Culture - Preliminary Blood No Growth after 24 hours Assessment and Plan Plan: Assessment: #1. Acute hypoxemic respiratory failure related to "with 19 related pneumonia, requiring intubation and placement on mechanical ventilation on 12/28/2019 #2. Cough, shortness of breath, weakness, fatigue, diffuse bilateral infiltrates related to "with 19 infection #3. Elevated ferritin, LDH, CRP and d-dimer related to acute COVID19 related pneumonia, and inflammatory markers are improving on today's labs #4. Elevated troponin, rule out possibility of coinfection, related to bacterial infection #5. Hypertension #6. Hyperlipidemia #7. GERD/reflux #8. Diabetes mellitus type 2 #9. History of chronic bronchial asthma, unspecified #10. Chronic kidney disease, unknown baseline #11. History of diverticular disease #12. History of coronary artery disease with PCI and stent placement Plan: Continue current medical treatment, increase the PEEP to 13, today's chest x-ray has been reviewed showing stable bilateral infiltrates, inflammatory markers are trending down, continue with current protocol including Plaquenil, Zithromax, IV Solu-Medrol. 2 up in 6 level is pending, vital signs are stable, continue nutritional support. She is hemodynamically stable. Chest x-ray in the morning. Continue Lovenox at therapeutic doses, GI prophylaxis. I performed a history & physical examination of the patient and discussed their management with my nurse practitioner, Alva Urban. I reviewed the nurse practitioner's note and agree with the documented findings and plan of care. Lung sounds are positive for diminished breath sounds. The findings and the impression was discussed with the patient. I attest to the documentation by the nurse practitioner. Time with Patient: Less than 30
[2019-12-29 12:08] LABS: Glucose,Whole Blood 231 mg/dL (75-99)
--- NOTE | 2019-12-29 12:38 | P.PN ---
Subjective Progress Note Date: 12/29/19 This is a 64-year-old female patient of Dr. Mojica with past medical history of asthma, hypertension, hyperlipidemia, gastroesophageal reflux disease, diabetes mellitus type 2 insulin requiring, coronary artery disease status post stent, remote history of tobacco use and dependence, chronic kidney disease stage III. 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 They were exposed to a COVID-19 positive patient on December 11 and/or December 12. She had symptoms develop approximate 7 days ago with fever, cough, shortness of breath, nausea, diarrhea. She tried to manage at home but symptoms became significantly severe in the past 3 days and she lives alone she was so sick she could not get to the She to the bathroom. Patient came into [facility] emergency [facility] for evaluation and found to be afebrile, blood pressure 141/68, heart rate 85, pulse ox 87%. EKG was a sinus rhythm with no acute ST changes. W BC 12.1, hemoglobin 12.7, platelet count 303, sodium 136, potassium 5.3, chloride 100, CO2 23, BUN 41, creatinine 1.43, blood sugar 230. Total bilirubin 0.6, AST 49, ALT 22, alkaline phosphatase 255, LDH 1600, ferritin 609.6 C-reactive protein 262, pro calcitonin 0.2 to. Chronic virus PCR detected, influenza testing negative, lactic acid 2.1. Repeat lactic acid 1.2 chest x-ray revealed mild cardiomegaly with moderately severe diffuse interstitial edema that is changed from old exam compared to November 2018. This could represent acute interstitial pneumonia or acute heart failure. Patient was started on Tylenol, azithromycin, Plaquenil admitted to the [facility] floor and consult was requested with infectious disease and pulmonary medicine. 12/27: Patient had a drop in her oxygen saturation and became tachypneic. She was initially placed on high flow nasal cannula at 10 L, transferred into the intensive care unit and was intubated this morning. Temperature max 101.4. Heart rate in the 60s and 70s. Repeat blood work reveals CBC unremarkable except for low lymphocytes. D-dimer 1.05, potassium 5.2, BUN 62 and creatinine 1.91. Blood sugars in the 200s. Alkaline phosphatase 198 LDH 1439. She has been continued on azithromycin, Plaquenil, zinc and vitamin C. Solu-Medrol is currently at 40 mg IV every 12 hours. 12/28: Patient remains in the intensive care unit, intubated and on mechanical ventilation with tidal volume 350, FiO2 of 50 and PEEP 13. Patient has been afebrile, heart rate 50, blood pressure 120/56. Repeat blood work reveals WBC 16, hemoglobin 10.7, platelet count 273. Repeat d-dimer is decreased at 0.72. Sodium 135, potassium 4.6, chloride 103, CO2 24, BUN 63 and creatinine 1.43. Ferritin decreased to 556.8, alkaline phosphatase decreased 167, LDH decreased to 1050, C-reactive protein 181.7. Case has been discussed outside patient's room with the patient's nurse. Blood sugars have been elevated running 189 to 231. We will increase Levemir to 42 units twice daily, added and NovoLog scheduled 5 units every 6 hours along with NovoLog scale. Patient is currently & Medrol 40 mg IV every 12 hours. Objective - Vital Signs Vital signs: Vital Signs Temp 98.1 F 12/29/19 08:00 Pulse 55 L 12/29/19 09:00 Resp 26 H 12/29/19 09:00 BP 127/59 12/29/19 09:00 Pulse Ox 91 L 12/29/19 09:00 Intake & Output 12/28/19 12/29/19 12/29/19 18:59 06:59 18:59 Intake Total 1529.951 6602.786 10 Output Total 530 710 Balance 717.920 926.786 10 Weight 123.8 kg 121.7 kg Intake: IV 900 1011 Lactated Ringers 1,000 ml 900 975 @ 75 mls/hr IV .[id number] JORGE Rx#:[id number] Pressure bag 36 Intake, IV Titration 317.920 405.786 Amount Propofol 1,000 mg In 317.920 405.786 Empty Bag 1 bag @ Titrate IV .Q0M JORGE Rx#: [id number] Tube Feeding 30 130 10 Other 90 Output: Urine 530 710 Other: Voiding Method Indwelling Catheter Indwelling Catheter ABP, PAP, CO, CI - Last Documented Arterial Blood Pressure 128/52 - Exam Review of Systems Unable to obtain due to intubation Physical Examination Gen: This is a morbidly obese 64-year-old female. Patient is resting in bed. No acute respiratory distress is noted. HEENT: Head is atraumatic, normocephalic. Pupils equal, round. Sclerae is anicteric. Oral ET and gastric tube in place NEUROLOGICAL: Patient is intubated. Physical examination deferred to recorder helper seismograph. - Labs CBC & Chem 7: 12/29/19 04:00 12/29/19 04:00 Labs: Abnormal Lab Results - Last 24 Hours (Table) 12/28/19 12/28/19 12/28/19 Range/Units 11:23 13:30 18:10 WBC (3.8-10.6) k/uL Hgb (11.4-16.0) gm/dL Neutrophils # (1.3-7.7) k/uL Lymphocytes # (1.0-4.8) k/uL D-Dimer (<0.60) mg/L FEU ABG pH 7.24 L (7.35-7.45) ABG pCO2 54 H (35-45) mmHg ABG pO2 112 H (83-108) mmHg ABG Total CO2 25 H (19-24) mmol/L ABG O2 Saturation 97.2 H (94-97) % Sodium (137-145) mmol/L BUN (7-17) mg/dL Creatinine (0.52-1.04) mg/dL Glucose (74-99) mg/dL POC Glucose (mg/dL) 269 H 189 H (75-99) mg/dL Alkaline Phosphatase (38-126) U/L Lactate Dehydrogenase (313-618) U/L C-Reactive Protein (<10.0) mg/L Total Protein (6.3-8.2) g/dL Albumin (3.5-5.0) g/dL 12/29/19 12/29/19 12/29/19 Range/Units 00:03 04:00 04:00 WBC 16.0 H (3.8-10.6) k/uL Hgb 10.7 L (11.4-16.0) gm/dL Neutrophils # 14.6 H (1.3-7.7) k/uL Lymphocytes # 0.8 L (1.0-4.8) k/uL D-Dimer (<0.60) mg/L FEU ABG pH (7.35-7.45) ABG pCO2 (35-45) mmHg ABG pO2 (83-108) mmHg ABG Total CO2 (19-24) mmol/L ABG O2 Saturation (94-97) % Sodium 135 L (137-145) mmol/L BUN 63 H (7-17) mg/dL Creatinine 1.43 H (0.52-1.04) mg/dL Glucose 247 H (74-99) mg/dL POC Glucose (mg/dL) 195 H (75-99) mg/dL Alkaline Phosphatase 167 H (38-126) U/L Lactate Dehydrogenase 1050 H (313-618) U/L C-Reactive Protein 181.7 H (<10.0) mg/L Total Protein 5.9 L (6.3-8.2) g/dL Albumin 2.9 L (3.5-5.0) g/dL 12/29/19 12/29/19 Range/Units 04:00 05:25 WBC (3.8-10.6) k/uL Hgb (11.4-16.0) gm/dL Neutrophils # (1.3-7.7) k/uL Lymphocytes # (1.0-4.8) k/uL D-Dimer 0.72 H (<0.60) mg/L FEU ABG pH (7.35-7.45) ABG pCO2 (35-45) mmHg ABG pO2 79 L (83-108) mmHg ABG Total CO2 (19-24) mmol/L ABG O2 Saturation (94-97) % Sodium (137-145) mmol/L BUN (7-17) mg/dL Creatinine (0.52-1.04) mg/dL Glucose (74-99) mg/dL POC Glucose (mg/dL) (75-99) mg/dL Alkaline Phosphatase (38-126) U/L Lactate Dehydrogenase (313-618) U/L C-Reactive Protein (<10.0) mg/L Total Protein (6.3-8.2) g/dL Albumin (3.5-5.0) g/dL Microbiology - Last 24 Hours (Table) 12/28/19 00:21 Blood Culture - Preliminary Blood No Growth after 24 hours Assessment and Plan Plan: 1. Acute hypoxic respiratory failure secondary to COPD exacerbation and COVID- 19 pneumonitis. ICU managment with intubation and mechanical ventilation. Continue Plaquenil 200 mg twice daily. Consults with pulmonary medicine and infectious disease. Continue albuterol inhaler as needed, vitamin C, azithromycin, Solu-Medrol 40 mg IV every 12 hours, zinc. 2. Acute kidney injury with chronic kidney disease stage III. Avoid nephrotoxic agents, hypotension. Hold Aleve. 3. Mild hyperkalemia secondary to acute kidney injury. 4. Mild lactic acidosis secondary to COVID-19 infection. Resolved. 5. Sepsis secondary to Covid 19 infection, POA. 6. Hyperlipidemia. Continue atorvastatin 40 g at bedtime 7. Diabetes mellitus type 2, insulin requiring, uncontrolled with hyperglycemia secondary to steroids. Continue Levemir increased to 42 units twice daily, and scheduled NovoLog 5 units every 6 hours along with continuing NovoLog scale every 6 hours. Hold Actos and Trulicity for now. 7. History of coronary artery disease status post stenting. Continue aspirin 325 mg daily, Lipitor. 8. Hypertension. Continue lisinopril 20 mg at bedtime with parameters. Avoid hypotension. 9. Gastroesophageal reflux disease disease and GI prophylaxis. Continue Protonix. 10. DVT prophylaxis. Lovenox. Discharge plan: To be determined Impression and plan of care have been directed as dictated by the signing physician. Deborah Crow nurse practitioner acting as scribe for signing physician.
[2019-12-29] MEDS: LACTATED RINGERS 1,000 ML IV SCH ×2 (16:15→23:42)
[2019-12-29 17:10] LABS: Glucose,Whole Blood 282 mg/dL (75-99)
--- NOTE | 2019-12-29 18:41 | PN ---
PROGRESS NOTE DATE OF SERVICE: 12/29/2019 REASON FOR FOLLOWUP: Acute COVID-19 pneumonia. INTERVAL HISTORY: The patient is currently afebrile. The patient remains to be intubated on the vent. The patient is hemodynamically stable, not on any pressor support. FiO2 is currently 50%. No significant purulent secretions from the ET or any diarrhea reported. PHYSICAL EXAMINATION: Blood pressure is 115/50 with a pulse of 57, temperature of 98.2. She is 95% on 50% FiO2. General description is a middle-aged female lying in bed in no distress. RESPIRATORY SYSTEM: Unlabored breathing. Decreased intensity of breath sounds. No wheeze. HEART: S1, S2. Regular rate and rhythm. ABDOMEN: Soft. No tenderness. LABS: Hemoglobin is 10.7, white count is 16,000. BUN of 63, creatinine 1.43. DIAGNOSTIC IMPRESSION AND PLAN: Patient with acute respiratory failure which is likely multifactorial in this patient who did have a component of pneumonia. She did have confirmed COVID-19 testing. The patient is covered with Zithromax, Plaquenil, zinc, and steroids that we will monitor closely and continue with supportive care. MMODL / IJN: [id number] /
[2019-12-29] MEDS: LISINOPRIL 20 MG TAB PO SCH (20:03)
[2019-12-29] MEDS: ATORVASTATIN 40 MG TAB PO SCH (20:03)
[2019-12-29] MEDS: AZITHROMYCIN 500 MG TAB PO SCH (20:03)
[2019-12-29 23:34] LABS: Glucose,Whole Blood 292 mg/dL (75-99)
[2019-12-30] MEDS: PROPOFOL 1,000 MG in EMPTY BAG 1 BAG IV SCH ×9 (00:07→21:20)
[2019-12-30] MEDS: HYDROmorphone 1 MG/ML 1 ML SYRINGE IVP PRN ×2 (01:05→14:14)
[2019-12-30 04:18] LABS: MCH 27.1 pg (25.0-35.0); MCHC 32.1 g/dL (31.0-37.0); MCV 84.4 fL (80.0-100.0); Mean Platelet Volume 8.2; Platelet Count 276 k/uL (150-450); RBC 3.68 m/uL (3.80-5.40); RDW 13.5 % (11.5-15.5); WBC 17.5 k/uL (3.8-10.6)
[2019-12-30 04:37] LABS: Albumin 2.7 g/dL (3.5-5.0); C Reactive Protein 67.9 mg/L (<10.0); Calcium 8.9 mg/dL (8.4-10.2); Potassium 5.4 mmol/L (3.5-5.1); Total Bilirubin 0.2 mg/dL (0.2-1.3); Total Protein 5.5 g/dL (6.3-8.2)
[2019-12-30] MEDS: INSULIN ASPART (NovoLOG) 100 UNIT/ML VIAL SQ SCH ×6 (05:02→17:46)
[2019-12-30 05:41] LABS: ABG Base Excess -0.9 mmol/L; ABG HCO3 25 mmol/L (21-25); ABG Oxygen Saturation 97.8 % (94-97); ABG PCO2 45 mmHg (35-45); ABG PH 7.35 (7.35-7.45); ABG PO2 110 mmHg (83-108); ABG TCO2 26 mmol/L (19-24)
--- NOTE | 2019-12-30 07:35 | XR ---
EXAMINATION TYPE: XR chest 1V portable DATE OF EXAM: 12/30/2019 COMPARISON: Prior chest x-ray 12/29/2019 HISTORY: Intubated TECHNIQUE: Single frontal view of the chest is obtained. FINDINGS: Endotracheal tube, NG tube, left subclavian central venous catheter are overlying appropri ate positions. Exam is expiratory and rotated. Bilateral airspace disease persists. No evident pneumo thorax or pleural effusion. Heart size is stable. There are overlying cardiac leads, artifacts. IMPRESSION: There is not a significant interval change, correlate for pneumonia
[2019-12-30] MEDS: SYMBICORT 160-4.5 MCG INHALER INHALATION SCH ×2 (07:41→19:01)
[2019-12-30] MEDS: ALBUTEROL HFA INHALER INHALATION PRN ×3 (07:41→11:40)
[2019-12-30] MEDS: ZINC SULFATE 220 MG CAP PO SCH (08:27)
[2019-12-30] MEDS: CHLORHEXIDINE GLUCONATE 15 ML CUP MUCOUS MEM SCH ×2 (08:27→20:06)
[2019-12-30] MEDS: ASCORBIC ACID 500 MG TAB PO SCH ×2 (08:27→20:07)
[2019-12-30] MEDS: PANTOPRAZOLE 40 MG/10 ML VIAL IVP SCH (08:28)
[2019-12-30] MEDS: ENOXAPARIN 120 MG/0.8 ML SYRINGE SQ SCH (08:28)
[2019-12-30] MEDS: HYDROXYCHLOROQUINE ORAL SUSP 200 MG/8 ML ORAL.SYRG PO SCH ×2 (08:28→20:06)
[2019-12-30] MEDS: ASPIRIN 325 MG TAB PO SCH (08:28)
[2019-12-30] MEDS: INSULIN DETEMIR (LEVEMIR) 100 UNIT/ML SYR SQ SCH ×2 (08:29→20:06)
[2019-12-30] MEDS: methylPREDNISolone SOD SUCCI 40 MG/ML 1 ML VIAL IV SCH ×2 (08:29→20:06)
--- NOTE | 2019-12-30 11:34 | P.PN ---
Subjective Progress Note Date: 12/30/19 This is a 64-year-old female patient of Dr. Mojica with past medical history of asthma, hypertension, hyperlipidemia, gastroesophageal reflux disease, diabetes mellitus type 2 insulin requiring, coronary artery disease status post stent, remote history of tobacco use and dependence, chronic kidney disease stage III. Patient is a [employer] and worked for [employer] in the past, recently changed to a position at [employer] [facility]. 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 They were exposed to a COVID-19 positive patient on December 11 and/or December 12. She had symptoms develop approximate 7 days ago with fever, cough, shortness of breath, nausea, diarrhea. She tried to manage at home but symptoms became significantly severe in the past 3 days and she lives alone she was so sick she could not get to the She to the bathroom. Patient came into [facility] emergency center for evaluation and found to be afebrile, blood pressure 141/68, heart rate 85, pulse ox 87%. EKG was a sinus rhythm with no acute ST changes. W BC 12.1, hemoglobin 12.7, platelet count 303, sodium 136, potassium 5.3, chloride 100, CO2 23, BUN 41, creatinine 1.43, blood sugar 230. Total bilirubin 0.6, AST 49, ALT 22, alkaline phosphatase 255, LDH 1600, ferritin 609.6 C-reactive protein 262, pro calcitonin 0.2 to. Chronic virus PCR detected, influenza testing negative, lactic acid 2.1. Repeat lactic acid 1.2 chest x-ray revealed mild cardiomegaly with moderately severe diffuse interstitial edema that is changed from old exam compared to November 2018. This could represent acute interstitial pneumonia or acute heart failure. Patient was started on Tylenol, azithromycin, Plaquenil admitted to the [facility] floor and consult was requested with infectious disease and pulmonary medicine. 12/27: Patient had a drop in her oxygen saturation and became tachypneic. She was initially placed on high flow nasal cannula at 10 L, transferred into the intensive care unit and was intubated this morning. Temperature max 101.4. Heart rate in the 60s and 70s. Repeat blood work reveals CBC unremarkable except for low lymphocytes. D-dimer 1.05, potassium 5.2, BUN 62 and creatinine 1.91. Blood sugars in the 200s. Alkaline phosphatase 198 LDH 1439. She has been continued on azithromycin, Plaquenil, zinc and vitamin C. Solu-Medrol is currently at 40 mg IV every 12 hours. 12/28: Patient remains in the intensive care unit, intubated and on mechanical ventilation with tidal volume 350, FiO2 of 50 and PEEP 13. Patient has been afebrile, heart rate 50, blood pressure 120/56. Repeat blood work reveals WBC 16, hemoglobin 10.7, platelet count 273. Repeat d-dimer is decreased at 0.72. Sodium 135, potassium 4.6, chloride 103, CO2 24, BUN 63 and creatinine 1.43. Ferritin decreased to 556.8, alkaline phosphatase decreased 167, LDH decreased to 1050, C-reactive protein 181.7. Case has been discussed outside patient's room with the patient's nurse. Blood sugars have been elevated running 189 to 231. We will increase Levemir to 42 units twice daily, added and NovoLog scheduled 5 units every 6 hours along with NovoLog scale. Patient is currently & Medrol 40 mg IV every 12 hours. 12/29: Patient remains intubated in critical ventilation with tidal volume 350, FiO2 of 40 and PEEP of 13. Patient has been afebrile, heart rate in the 50s, blood pressure 101/55. Repeat laboratory studies revealed a CBC 17.5, hemoglobin 10, platelet count 276. Sodium 135, potassium 5.4, chloride 105, CO2 26, BUN 61, creatinine 1.07 area blood sugars are running in the 200s up to 300, alkaline phosphatase 143, LDH 875, C-reactive protein 67.9, albumin 2.7. We will again today increase her insulins with long acting up to 50 units twice daily and NovoLog 10 units every 6 hours along with NovoLog scale. Patient has had good urine output, tube feedings are at goal. Patient appears to be stable at this time. Objective - Vital Signs Vital signs: Vital Signs Temp 97.7 F 12/30/19 08:00 Pulse 49 L 12/30/19 08:00 Resp 17 12/30/19 08:00 BP 97/48 12/29/19 19:00 Pulse Ox 98 12/30/19 08:00 Intake & Output 12/29/19 12/30/19 12/30/19 18:59 06:59 18:59 Intake Total 7284.063 6487.446 230 Output Total 985 860 160 Balance 447.493 781.446 70 Weight 121.7 kg 124.5 kg Intake: IV 936 858 156 Lactated Ringers 1,000 ml 900 825 150 @ 75 mls/hr IV .[id number] [facility] Rx#:[id number] Pressure bag 36 33 6 Intake, IV Titration 442.493 473.446 Amount Propofol 1,000 mg In 442.493 473.446 Empty Bag 1 bag @ Titrate IV .Q0M [facility] Rx#: [id number] Tube Feeding 54 220 44 Other 90 30 Output: Urine 985 860 160 Other: Voiding Method Indwelling Catheter Indwelling Catheter ABP, PAP, CO, CI - Last Documented Arterial Blood Pressure 116/57 - Exam Review of Systems Unable to obtain due to intubation Physical Examination Gen: This is a morbidly obese 64-year-old female. Patient is resting in bed. No acute respiratory distress is noted. HEENT: Head is atraumatic, normocephalic. Oral ET and gastric tube in place NEUROLOGICAL: Patient is intubated. Physical examination deferred to api architect. - Labs CBC & Chem 7: 12/30/19 04:00 12/30/19 04:00 Labs: Abnormal Lab Results - Last 24 Hours (Table) 12/29/19 12/29/19 12/29/19 Range/Units 04:00 12:06 17:09 WBC (3.8-10.6) k/uL RBC (3.80-5.40) m/uL Hgb (11.4-16.0) gm/dL Hct (34.0-46.0) % ABG pO2 (83-108) mmHg ABG Total CO2 (19-24) mmol/L ABG O2 Saturation (94-97) % Sodium (137-145) mmol/L Potassium (3.5-5.1) mmol/L BUN (7-17) mg/dL Creatinine (0.52-1.04) mg/dL Glucose (74-99) mg/dL POC Glucose (mg/dL) 231 H 282 H (75-99) mg/dL Ferritin 556.8 H (10.0-291.0) ng/mL Alkaline Phosphatase (38-126) U/L Lactate Dehydrogenase (313-618) U/L C-Reactive Protein (<10.0) mg/L Total Protein (6.3-8.2) g/dL Albumin (3.5-5.0) g/dL 12/29/19 12/30/19 12/30/19 Range/Units 23:32 04:00 04:00 WBC 17.5 H (3.8-10.6) k/uL RBC 3.68 L (3.80-5.40) m/uL Hgb 10.0 L (11.4-16.0) gm/dL Hct 31.0 L (34.0-46.0) % ABG pO2 (83-108) mmHg ABG Total CO2 (19-24) mmol/L ABG O2 Saturation (94-97) % Sodium 135 L (137-145) mmol/L Potassium 5.4 H (3.5-5.1) mmol/L BUN 61 H (7-17) mg/dL Creatinine 1.07 H (0.52-1.04) mg/dL Glucose 300 H (74-99) mg/dL POC Glucose (mg/dL) 292 H (75-99) mg/dL Ferritin (10.0-291.0) ng/mL Alkaline Phosphatase 143 H (38-126) U/L Lactate Dehydrogenase 875 H (313-618) U/L C-Reactive Protein 67.9 H (<10.0) mg/L Total Protein 5.5 L (6.3-8.2) g/dL Albumin 2.7 L (3.5-5.0) g/dL 12/30/19 Range/Units 05:35 WBC (3.8-10.6) k/uL RBC (3.80-5.40) m/uL Hgb (11.4-16.0) gm/dL Hct (34.0-46.0) % ABG pO2 110 H (83-108) mmHg ABG Total CO2 26 H (19-24) mmol/L ABG O2 Saturation 97.8 H (94-97) % Sodium (137-145) mmol/L Potassium (3.5-5.1) mmol/L BUN (7-17) mg/dL Creatinine (0.52-1.04) mg/dL Glucose (74-99) mg/dL POC Glucose (mg/dL) (75-99) mg/dL Ferritin (10.0-291.0) ng/mL Alkaline Phosphatase (38-126) U/L Lactate Dehydrogenase (313-618) U/L C-Reactive Protein (<10.0) mg/L Total Protein (6.3-8.2) g/dL Albumin (3.5-5.0) g/dL Microbiology - Last 24 Hours (Table) 12/28/19 00:21 Blood Culture - Preliminary Blood No Growth after 48 hours 12/29/19 00:50 Gram Stain - Preliminary Sputum Sputum Culture - Preliminary Assessment and Plan Plan: 1. Acute hypoxic respiratory failure secondary to COPD exacerbation and COVID- 19 pneumonitis. ICU managment with intubation and mechanical ventilation. Continue Plaquenil 200 mg twice daily. Consults with pulmonary medicine and infectious disease. Continue albuterol inhaler as needed, vitamin C, azithromycin, Solu-Medrol 40 mg IV every 12 hours, zinc. 2. Acute kidney injury with chronic kidney disease stage III. Avoid nephrotoxic agents, hypotension. Hold Aleve. 3. Mild hyperkalemia secondary to acute kidney injury. 4. Mild lactic acidosis secondary to COVID-19 infection. Resolved. 5. Sepsis secondary to Covid 19 infection, POA. 6. Hyperlipidemia. Continue atorvastatin 40 g at bedtime 7. Diabetes mellitus type 2, insulin requiring, uncontrolled with hyperglycemia secondary to steroids. Continue Levemir increased to 50 units twice daily, and increase scheduled NovoLog to 10 units every 6 hours along with continuing NovoLog scale every 6 hours. Hold Actos and Trulicity for now. 7. History of coronary artery disease status post stenting. Continue aspirin 325 mg daily, Lipitor. 8. Hypertension. Continue lisinopril 20 mg at bedtime with parameters. Avoid hypotension. 9. Gastroesophageal reflux disease disease and GI prophylaxis. Continue Protonix. 10. DVT prophylaxis. Lovenox. Discharge plan: To be determined Impression and plan of care have been directed as dictated by the signing physician. Deborah Crow nurse practitioner acting as scribe for signing physician.
[2019-12-30 11:35] LABS: Ferritin 488.9 ng/mL (10.0-291.0)
[2019-12-30 11:57] LABS: Glucose,Whole Blood 333 mg/dL (75-99)
--- NOTE | 2019-12-30 12:05 | P.PN ---
Subjective Progress Note Date: 12/30/19 On 12/28/2019 patient seen in follow-up in the intensive care unit. She remains on high FiO2 this morning, she is currently on 50 L per high flow nasal cannula, with a pulse ox of 92%, she is dyspneic, and fatigue. Her Covid 19 test was positive, patient remains on azithromycin, Plaquenil, and IV steroids at 40 mg every 12 hours, she is also on zinc sulfate. Today's chest x-ray has been reviewed, showing worsening peripheral infiltrates. Blood gas has been obtained, showing pO2 of 91, pCO2 of 30, and pH of 7.38, this was done and FiO2 of 75%, which talk to the patient regarding intubation and placement on mechanical ventilation in view of high oxygen demand, worsening pulmonary infiltrates, worsening oxygenation, and the patient is agreeable to proceed with intubation and mechanical ventilation. Anesthesia services were consulted and intubated the patient, patient was placed on assist-control mode of ventilation with a rate of 20, tidal vital 350, FiO2 100%, and PEEP of 5, repeat blood gases were obtained showing pO2 of 112, pCO2 54, pH of 7.24, this was done on the 100%, and a vent settings were adjusted with a rate up to 26 breaths per minute, and increase of PEEP to 10 cm of water. They've remained has been started for sedation. The rest the lab work has been reviewed, d-dimer is elevated at 1.05, no leukocytosis, sodium is 137, potassium is 5.2, chloride is 102, CO2 is 25, BUN is 62, creatinine is 1.91, alk phos is 198, down from 255, LDH is 1439, down from 16 On 12/29/2019 patient seen in follow-up in the intensive care unit, she was intubated yesterday for acute hypoxemic respiratory failure secondary to "with 19 infection, today she remains on mechanical ventilator, she is sedated, she is on assist-control mode of ventilation with a rate of 26, tidal M of 350, FiO2 of 60% and PEEP of 10, her pulse ox is 92%, this morning his blood gases showed pO2 of 79, pCO2 40, and pH of 7.35, maintenance IV fluids include lactate of Ringer's at a rate of 75, Diprivan is a 55 mics per kilo per minute, tube feeding is Vital 1.2 at 10, with a goal of 10. Today's chest x-ray has been reviewed showing bilateral infiltrates. Today's labs have been reviewed, showing white blood cell count of 16.0, hemoglobin is 10.7, d-dimer is 0.72, serum sodium is 135, and the rest of the electrolytes were within normal limits, B1 of 63, creatinine is 1.43, ferritin level is trending down slightly, down to 556.8 on today's labs, LDH is down to 1050, liver enzymes are improving, al kaline phosphatase is 167 CRP is down to 181.7, interleukin level has been sent, and is pending at this time, patient is on a combination of Plaquenil, azithromycin, Solu-Medrol and zinc for COVID 19 related pneumonia. On 12/30/2019 patient seen in follow-up in the intensive care unit, she remains intubated, sedated on mechanical ventilator, current settings are assist-control with a rate of 26, tidal line was 350, FiO2 is 50% and PEEP is at 13 cm of water, this morning blood gases show pO2 of 110, pCO2 45 and pH of 7.35 and this was done on 50%. Today's chest x-ray has been reviewed, and stable findings of bilateral airspace disease related to COVID 19 related pneumonia. Today's labs have been reviewed, showing white blood cell, 17.5, hemoglobin is 10.0, d-dimer on yesterday's labs was trending down at 0.7, sodium is 135, potassium is 5.4, chloride is 105, renal profile is improving, B1 is down to 61, and creatinine is 1.07, ferritin is trending down at 488, liver enzymes improving, ALT and AST within normal limits, alkaline phosphatase down to 143, LDH is 875 which is improving, CRP is down to 67.9 on today's labs. Microbiology data has been reviewed no growth on sputum and blood culture. Patient has been afebrile, hemodynamically she stable, IV fluids including lactated Ringer's at a rate of 75, and Diprivan is a 35 mics per kilo per minute. She is tolerating tube fee dings, she received vital 1.2 at 22 with a goal of 22. Objective - Vital Signs Vital signs: Vital Signs Temp 97.7 F 12/30/19 08:00 Pulse 53 L 12/30/19 11:00 Resp 19 12/30/19 11:00 BP 101/55 12/30/19 11:00 Pulse Ox 97 12/30/19 11:00 Intake & Output 12/29/19 12/30/19 12/30/19 18:59 06:59 18:59 Intake Total 1001.325 8005.446 680 Output Total 985 860 520 Balance 447.493 781.446 160 Weight 121.7 kg 124.5 kg 124.5 kg Intake: IV 936 858 390 Lactated Ringers 1,000 ml 900 825 375 @ 75 mls/hr IV .[id number] [facility] Rx#:[id number] Pressure bag 36 33 15 Intake, IV Titration 442.493 473.446 100 Amount Propofol 1,000 mg In 442.493 473.446 100 Empty Bag 1 bag @ Titrate IV .Q0M [facility] Rx#: [id number] Tube Feeding 54 220 110 Other 90 80 Output: Urine 985 860 520 Other: Voiding Method Indwelling Catheter Indwelling Catheter Indwelling Catheter ABP, PAP, CO, CI - Last Documented Arterial Blood Pressure 135/68 - Exam GENERAL EXAM: See 64-year-old obese white female, intubated, sedated, on mechanical ventilator, comfortable in no apparent distress. HEAD: Normocephalic/atraumatic. EYES: Normal reaction of pupils, equal size. Conjunctiva pink, sclera white. NOSE: Clear with pink turbinates. THROAT: No erythema or exudates. NECK: No masses, no JVD, no thyroid enlargement, no adenopathy. CHEST: No chest wall deformity. Symmetrical expansion. LUNGS: Equal air entry with no crackles, wheeze, rhonchi or dullness. CVS: Regular rate and rhythm, normal S1 and S2, no gallops, no murmurs, no rubs ABDOMEN: Soft, nontender. No hepatosplenomegaly, normal bowel sounds, no guarding or rigidity. EXTREMITIES: No clubbing, no edema, no cyanosis, 2+ pulses and upper and lower extremities. MUSCULOSKELETAL: Muscle strength and tone normal. SPINE: No scoliosis or deformity SKIN: No rashes CENTRAL NERVOUS SYSTEM: Sedated, intubated, No focal deficits, tone is normal in all 4 extremities. - Labs CBC & Chem 7: 12/30/19 04:00 12/30/19 04:00 Labs: Abnormal Lab Results - Last 24 Hours (Table) 12/29/19 12/29/19 12/29/19 Range/Units 12:06 17:09 23:32 WBC (3.8-10.6) k/uL RBC (3.80-5.40) m/uL Hgb (11.4-16.0) gm/dL Hct (34.0-46.0) % ABG pO2 (83-108) mmHg ABG Total CO2 (19-24) mmol/L ABG O2 Saturation (94-97) % Sodium (137-145) mmol/L Potassium (3.5-5.1) mmol/L BUN (7-17) mg/dL Creatinine (0.52-1.04) mg/dL Glucose (74-99) mg/dL POC Glucose (mg/dL) 231 H 282 H 292 H (75-99) mg/dL Ferritin (10.0-291.0) ng/mL Alkaline Phosphatase (38-126) U/L Lactate Dehydrogenase (313-618) U/L C-Reactive Protein (<10.0) mg/L Total Protein (6.3-8.2) g/dL Albumin (3.5-5.0) g/dL 12/30/19 12/30/19 12/30/19 Range/Units 04:00 04:00 05:35 WBC 17.5 H (3.8-10.6) k/uL RBC 3.68 L (3.80-5.40) m/uL Hgb 10.0 L (11.4-16.0) gm/dL Hct 31.0 L (34.0-46.0) % ABG pO2 110 H (83-108) mmHg ABG Total CO2 26 H (19-24) mmol/L ABG O2 Saturation 97.8 H (94-97) % Sodium 135 L (137-145) mmol/L Potassium 5.4 H (3.5-5.1) mmol/L BUN 61 H (7-17) mg/dL Creatinine 1.07 H (0.52-1.04) mg/dL Glucose 300 H (74-99) mg/dL POC Glucose (mg/dL) (75-99) mg/dL Ferritin 488.9 H (10.0-291.0) ng/mL Alkaline Phosphatase 143 H (38-126) U/L Lactate Dehydrogenase 875 H (313-618) U/L C-Reactive Protein 67.9 H (<10.0) mg/L Total Protein 5.5 L (6.3-8.2) g/dL Albumin 2.7 L (3.5-5.0) g/dL 12/30/19 Range/Units 11:55 WBC (3.8-10.6) k/uL RBC (3.80-5.40) m/uL Hgb (11.4-16.0) gm/dL Hct (34.0-46.0) % ABG pO2 (83-108) mmHg ABG Total CO2 (19-24) mmol/L ABG O2 Saturation (94-97) % Sodium (137-145) mmol/L Potassium (3.5-5.1) mmol/L BUN (7-17) mg/dL Creatinine (0.52-1.04) mg/dL Glucose (74-99) mg/dL POC Glucose (mg/dL) 333 H (75-99) mg/dL Ferritin (10.0-291.0) ng/mL Alkaline Phosphatase (38-126) U/L Lactate Dehydrogenase (313-618) U/L C-Reactive Protein (<10.0) mg/L Total Protein (6.3-8.2) g/dL Albumin (3.5-5.0) g/dL Microbiology - Last 24 Hours (Table) 12/28/19 00:21 Blood Culture - Preliminary Blood No Growth after 48 hours 12/29/19 00:50 Gram Stain - Preliminary Sputum Sputum Culture - Preliminary Assessment and Plan Plan: Assessment: #1. Acute hypoxemic respiratory failure related to COVID 19 related pneumonia, requiring intubation and placement on mechanical ventilation on 12/28/2019 #2. Cough, shortness of breath, weakness, fatigue, diffuse bilateral infiltrates related to COVID19 infection #3. Elevated ferritin, LDH, CRP and d-dimer related to acute COVID19 related pneumonia, and inflammatory markers are improving on today's labs #4. Elevated troponin, rule out possibility of coinfection, related to bacterial infection #5. Hypertension #6. Hyperlipidemia #7. GERD/reflux #8. Diabetes mellitus type 2 #9. History of chronic bronchial asthma, unspecified #10. Chronic kidney disease, unknown baseline #11. History of diverticular disease #12. History of coronary artery disease with PCI and stent placement Plan: Continue current medical treatment, continue the Plaquenil, antibiotics, and IV Solu-Medrol, inflammatory markers and d-dimer are trending down, interleukin-6 level is pending, no fever, hemodynamically patient is stable, today's chest x- ray has been reviewed still showing bilateral airspace disease consistent with Covid 19 related pneumonia. No significant change on today's chest x-ray. Blood gases have been reviewed, we'll drop the FiO2 down to 40%, and if patient is stable oxygenation above 93-94% May attempt to wean the PEEP further. Continue nutritional support. No acute events overnight. We'll probably attempt spontaneous awakening trials tomorrow as long as the patient's oxygenation continues to improve. We'll continue to follow, I performed a history & physical examination of the patient and discussed their management with my nurse practitioner, Alva Urban. I reviewed the nurse practitioner's note and agree with the documented findings and plan of care. Lung sounds are positive for diminished breath sounds. The findings and the impression was discussed with the patient. I attest to the documentation by the nurse practitioner. Time with Patient: Greater than 30
[2019-12-30 17:43] LABS: Glucose,Whole Blood 313 mg/dL (75-99)
[2019-12-30] MEDS: LACTATED RINGERS 1,000 ML IV SCH (17:46)
[2019-12-30] MEDS: ATORVASTATIN 40 MG TAB PO SCH (20:06)
[2019-12-30] MEDS: AZITHROMYCIN 500 MG TAB PO SCH (20:07)
[2019-12-30] MEDS: LISINOPRIL 20 MG TAB PO SCH (20:07)
[2019-12-30] MEDS: ACETAMINOPHEN TAB 325 MG TAB PO PRN (21:20)
[2019-12-30 23:40] LABS: Glucose,Whole Blood 277 mg/dL (75-99)
--- NOTE | 2019-12-30 23:57 | PN ---
PROGRESS NOTE DATE OF SERVICE: 12/30/2019 REASON FOR FOLLOWUP: Acute COVID-19 pneumonia. INTERVAL HISTORY: The patient is currently afebrile. The patient remains to be hemodynamically stable. FiO2 is currently down to no pressor support. No purulent secretions through the ET or any diarrhea reported by nursing staff. PHYSICAL EXAMINATION: Blood pressure 130/63 with a pulse of 59, temperature 99.3. She is 96% on 40% FiO2. General description is a middle-aged female intubated on the vent. Respiratory system: Unlabored breathing. Clear to auscultation anteriorly. Heart S1, S2. Regular rate and rhythm. Abdomen soft, no tenderness. LABS: Hemoglobin is 10, white count 17.5, BUN of 61, creatinine 1.07. DIAGNOSTIC IMPRESSION AND PLAN: 1. Patient with acute respiratory failure which is multifactorial in this patient who did have a component of acute Covid-19 pneumonia. Patient currently covered with Plaquenil and zinc, Solu-Medrol, to continue and monitor clinical course closely. 2. Elevated white count more likely steroid effect and will monitor closely. MMODL / IJN: [id number] /
[2019-12-31] MEDS: INSULIN ASPART (NovoLOG) 100 UNIT/ML VIAL SQ SCH ×9 (00:02→23:59)
[2019-12-31] MEDS: PROPOFOL 1,000 MG in EMPTY BAG 1 BAG IV SCH ×10 (00:02→21:46)
[2019-12-31] MEDS: LACTATED RINGERS 1,000 ML IV SCH ×2 (01:48→12:10)
[2019-12-31] MEDS: HYDROmorphone 1 MG/ML 1 ML SYRINGE IVP PRN ×3 (03:35→22:19)
[2019-12-31 04:20] LABS: HCT 33.3 % (34.0-46.0); HGB 10.8 gm/dL (11.4-16.0); MCH 27.3 pg (25.0-35.0); MCHC 32.5 g/dL (31.0-37.0); MCV 83.8 fL (80.0-100.0); Mean Platelet Volume 8.1; Platelet Count 308 k/uL (150-450); RBC 3.98 m/uL (3.80-5.40); RDW 13.5 % (11.5-15.5)
[2019-12-31 04:29] LABS: Albumin 2.9 g/dL (3.5-5.0); C Reactive Protein 43.4 mg/L (<10.0); Calcium 9.2 mg/dL (8.4-10.2); Potassium 5.5 mmol/L (3.5-5.1); Total Bilirubin 0.2 mg/dL (0.2-1.3)
[2019-12-31 05:55] LABS: ABG Base Excess 2.4 mmol/L; ABG HCO3 27 mmol/L (21-25); ABG Oxygen Saturation 97.1 % (94-97); ABG PCO2 42 mmHg (35-45); ABG PH 7.42 (7.35-7.45); ABG PO2 89 mmHg (83-108); ABG TCO2 28 mmol/L (19-24); Allen Test Performed? Yes
--- NOTE | 2019-12-31 07:02 | XR ---
EXAMINATION TYPE: XR chest 1V portable DATE OF EXAM: 12/31/2019 HISTORY: Tube placement. REFERENCE: Previous study dated 12/30/2019. FINDINGS: The patient is ET tube and NG tube remain in place, unchanged in appearance. There is a lef t-sided central venous catheter in place. I suspect this is subclavian and location. The tip is at th e cavoatrial junction. There are continuing bilateral infiltrates. That on the right may have worsened slightly. Heart size is mildly prominent. There is blunting of both CP angles. IMPRESSION: 1. CONTINUING BIBASILAR AIRSPACE DISEASE. 2. WORSENING RIGHT BASILAR AIRSPACE DISEASE
[2019-12-31] MEDS: ASCORBIC ACID 500 MG TAB PO SCH ×2 (08:32→19:46)
[2019-12-31] MEDS: PANTOPRAZOLE 40 MG/10 ML VIAL IVP SCH (08:32)
[2019-12-31] MEDS: methylPREDNISolone SOD SUCCI 40 MG/ML 1 ML VIAL IV SCH ×2 (08:32→19:46)
[2019-12-31] MEDS: ASPIRIN 325 MG TAB PO SCH (08:32)
[2019-12-31] MEDS: ZINC SULFATE 220 MG CAP PO SCH (08:33)
[2019-12-31] MEDS: CHLORHEXIDINE GLUCONATE 15 ML CUP MUCOUS MEM SCH ×2 (08:33→19:46)
[2019-12-31] MEDS: INSULIN DETEMIR (LEVEMIR) 100 UNIT/ML SYR SQ SCH ×2 (08:35→19:46)
[2019-12-31] MEDS: HYDROXYCHLOROQUINE ORAL SUSP 200 MG/8 ML ORAL.SYRG PO SCH (08:35)
[2019-12-31] MEDS: SYMBICORT 160-4.5 MCG INHALER INHALATION SCH ×2 (08:42→20:33)
[2019-12-31] MEDS: ALBUTEROL HFA INHALER INHALATION PRN ×2 (08:43→20:33)
[2019-12-31] MEDS ORDERED: ENOXAPARIN 120 MG/0.8 ML SYRINGE SQ SCH (09:00)
--- NOTE | 2019-12-31 11:31 | P.PN ---
Subjective Progress Note Date: 12/31/19 Principal diagnosis: Acute hypoxemic respiratory failure secondary to CoVID 19 related pneumonia, requiring intubation and placement on mechanical ventilator on 12/28/2019 The patient is seen today 12/31/2019 in follow-up in the intensive care unit. She remains intubated and on the mechanical ventilator. Currently he had assist-control with a rate of 60, tidal volume 350, FiO2 40% and a PEEP of 13. Morning blood gases revealed a pO2 89, pCO2 42, pH 7.42. She remains sedated on propofol at 50 mcg/kg/m. She has lactated Ringer's at 75 ML's per hour. Vital 1.2 at 22 mL per hour which is goal. Chest x-ray reveals continuing by basilar airspace disease. Worsening right basilar airspace disease. Blood culture reveals no growth. Sputum culture reveals no growth. White count 17.0. Hemoglobin 10.8. D-dimer 0.48. Sodium 137. Potassium 5.5. Creatinine 0.90. AST 20. ALT 18. LDH 806. Creatinine kinase to 95. C-reactive protein 43. Mainly trending down. She is continued on azithromycin, Plaquenil, IV Solu- Medrol, zinc. Lovenox at 120 mg subcu twice a day. Objective - Vital Signs Vital signs: Vital Signs Temp 99.1 F 12/31/19 08:00 Pulse 59 L 12/31/19 11:00 Resp 26 H 12/31/19 11:00 BP 113/63 12/31/19 11:00 Pulse Ox 95 12/31/19 11:00 Intake & Output 12/30/19 12/31/19 12/31/19 18:59 06:59 18:59 Intake Total 2918.715 2672.265 609.68 Output Total 1255 1210 670 Balance 451.768 525.265 -60.32 Weight 124.5 kg 125.4 kg Intake: IV 936 936 390 Lactated Ringers 1,000 ml 900 900 375 @ 75 mls/hr IV .[id number] JORGE Rx#:[id number] Pressure bag 36 36 15 Intake, IV Titration 366.768 445.265 79.68 Amount Propofol 1,000 mg In 366.768 445.265 79.68 Empty Bag 1 bag @ Titrate IV .Q0M JORGE Rx#: [id number] Tube Feeding 264 264 110 Other 140 90 30 Output: Urine 1255 1210 670 Other: Voiding Method Indwelling Catheter Indwelling Catheter Indwelling Catheter ABP, PAP, CO, CI - Last Documented Arterial Blood Pressure 97/53 - Exam GENERAL EXAM: A 64-year-old obese female patient, intubated, sedated, on mechanical ventilator, comfortable in no apparent distress. HEAD: Normocephalic/atraumatic. EYES: Sluggish reaction of pupils, equal size. Conjunctiva pink, sclera white. NOSE: Clear with pink turbinates. THROAT: Oral endotracheal and gastric tube secured in place No erythema or exudates. NECK: No masses, no JVD, no thyroid enlargement, no adenopathy. CHEST: No chest wall deformity. Symmetrical expansion. LUNGS: Equal air entry with crackles in the posterior bases right greater than left. CVS: Regular rate and rhythm, normal S1 and S2, no gallops, no murmurs, no rubs ABDOMEN: Soft, nontender. No hepatosplenomegaly, normal bowel sounds, no guarding or rigidity. EXTREMITIES: No clubbing, no edema, no cyanosis, 2+ pulses and upper and lower extremities. MUSCULOSKELETAL: Muscle strength and tone normal. SPINE: No scoliosis or deformity SKIN: No rashes CENTRAL NERVOUS SYSTEM: Sedated, intubated, No focal deficits, tone is normal in all 4 extremities. - Labs CBC & Chem 7: 12/31/19 04:00 12/31/19 04:00 Labs: Abnormal Lab Results - Last 24 Hours (Table) 12/30/19 12/30/19 12/30/19 Range/Units 04:00 11:55 17:42 WBC (3.8-10.6) k/uL Hgb (11.4-16.0) gm/dL Hct (34.0-46.0) % ABG HCO3 (21-25) mmol/L ABG Total CO2 (19-24) mmol/L ABG O2 Saturation (94-97) % Potassium (3.5-5.1) mmol/L BUN (7-17) mg/dL Glucose (74-99) mg/dL POC Glucose (mg/dL) 333 H 313 H (75-99) mg/dL Ferritin 488.9 H (10.0-291.0) ng/mL Alkaline Phosphatase (38-126) U/L Lactate Dehydrogenase (313-618) U/L Creatine Kinase (30-135) U/L C-Reactive Protein (<10.0) mg/L Total Protein (6.3-8.2) g/dL Albumin (3.5-5.0) g/dL 12/30/19 12/31/19 12/31/19 Range/Units 23:39 04:00 04:00 WBC 17.0 H (3.8-10.6) k/uL Hgb 10.8 L (11.4-16.0) gm/dL Hct 33.3 L (34.0-46.0) % ABG HCO3 (21-25) mmol/L ABG Total CO2 (19-24) mmol/L ABG O2 Saturation (94-97) % Potassium 5.5 H (3.5-5.1) mmol/L BUN 52 H (7-17) mg/dL Glucose 271 H (74-99) mg/dL POC Glucose (mg/dL) 277 H (75-99) mg/dL Ferritin (10.0-291.0) ng/mL Alkaline Phosphatase 151 H (38-126) U/L Lactate Dehydrogenase 806 H (313-618) U/L Creatine Kinase 295 H (30-135) U/L C-Reactive Protein 43.4 H (<10.0) mg/L Total Protein 6.0 L (6.3-8.2) g/dL Albumin 2.9 L (3.5-5.0) g/dL 12/31/19 Range/Units 05:52 WBC (3.8-10.6) k/uL Hgb (11.4-16.0) gm/dL Hct (34.0-46.0) % ABG HCO3 27 H (21-25) mmol/L ABG Total CO2 28 H (19-24) mmol/L ABG O2 Saturation 97.1 H (94-97) % Potassium (3.5-5.1) mmol/L BUN (7-17) mg/dL Glucose (74-99) mg/dL POC Glucose (mg/dL) (75-99) mg/dL Ferritin (10.0-291.0) ng/mL Alkaline Phosphatase (38-126) U/L Lactate Dehydrogenase (313-618) U/L Creatine Kinase (30-135) U/L C-Reactive Protein (<10.0) mg/L Total Protein (6.3-8.2) g/dL Albumin (3.5-5.0) g/dL Microbiology - Last 24 Hours (Table) 12/28/19 00:21 Blood Culture - Preliminary Blood No Growth after 72 hours 12/29/19 00:50 Gram Stain - Preliminary Sputum Sputum Culture - Preliminary Assessment and Plan Assessment: 1. Acute hypoxemic respiratory failure related to COVID 19 related pneumonia, requiring intubation and placement on mechanical ventilation on 12/28/2019 #2. Cough, shortness of breath, weakness, fatigue, diffuse bilateral infil trates related to COVID19 infection #3. Elevated ferritin, LDH, CRP and d-dimer related to acute COVID19 related pneumonia, and inflammatory markers are improving on today's labs #4. Elevated troponin, rule out possibility of coinfection, related to bacterial infection #5. Hypertension #6. Hyperlipidemia #7. GERD/reflux #8. Diabetes mellitus type 2 #9. History of chronic bronchial asthma, unspecified #10. Chronic kidney disease, unknown baseline #11. History of diverticular disease #12. History of coronary artery disease with PCI and stent placement Plan: The patient was seen and evaluated by Dr. Liu Chest x-ray, ABGs and labs reviewed Decrease the PEEP to 10 Daily interruption of sedation Completed a course of Plaquenil today Continue azithromycin, IV Solu-Medrol, zinc Continue Lovenox We will continue to follow make further recommendations based on her clinical status. Critical care time 40 minutes I, the cosigning physician, performed a history & physical examination of the patient. Lungs sounds with crackles in the bilateral posterior bases right greater than left. Maintaining good O2 saturations in the 90s on 40% FiO2 on mechanical ventilator. I discussed the assessment and plan of care with my nurse practitioner, Missy Jeffrey. I attest to the above note as dictated by her.
[2019-12-31 12:01] LABS: Glucose,Whole Blood 211 mg/dL (75-99)
[2019-12-31 14:29] LABS: Ferritin 419.8 ng/mL (10.0-291.0)
[2019-12-31 17:51] LABS: Glucose,Whole Blood 276 mg/dL (75-99)
[2019-12-31] MEDS: LISINOPRIL 20 MG TAB PO SCH (19:46)
[2019-12-31] MEDS: AZITHROMYCIN 500 MG TAB PO SCH (19:46)
[2019-12-31] MEDS: ATORVASTATIN 40 MG TAB PO SCH (19:46)
[2019-12-31] MEDS: ENOXAPARIN 150 MG/ML SYRINGE SQ SCH (19:47)
--- NOTE | 2019-12-31 20:19 | P.PN ---
Subjective Progress Note Date: 12/31/19 Principal diagnosis: Acute hypoxic respiratory failure secondary to COPD exacerbation and COVID 19 pneumonitis, acute kidney injury, type 2 diabetes, hypertension 64-year-old female one of my office patient who was admitted to the hospital with acute COVID 19 pneumonitis with acute respiratory failure and severe hypoxia require high flow O2. Patient was shortly intubated and transferred to the intensive care unit, patient was suffering from acute on chronic kidney injury but sugar still mildly elevated. Patient still having significantly elevated CRP with abnormal liver function test, lactic acid that subtle down significantly. Blood sugar still mildly elevated when titrating insulin is making sugar slightly but better at this point. Patient is still sedated on mechanical ventilation currently no weaning his plan in the next 24 hours. Objective - Vital Signs Vital signs: Vital Signs Temp 98.8 F 12/31/19 20:00 Pulse 57 L 12/31/19 20:00 Resp 26 H 12/31/19 20:00 BP 137/71 12/31/19 20:00 Pulse Ox 95 12/31/19 20:00 Intake & Output 12/31/19 12/31/19 01/01/20 06:59 18:59 06:59 Intake Total 1162.286 3268.053 327.733 Output Total 1210 1220 375 Balance 525.265 459.053 -47.267 Weight 125.4 kg Intake: IV 936 936 156 Lactated Ringers 1,000 ml 900 900 150 @ 75 mls/hr IV .[id number] JORGE Rx#:[id number] Pressure bag 36 36 6 Intake, IV Titration 445.265 367.053 97.733 Amount Propofol 1,000 mg In 445.265 367.053 97.733 Empty Bag 1 bag @ Titrate IV .Q0M JORGE Rx#: [id number] Tube Feeding 264 286 44 Other 90 90 30 Output: Urine 1210 1220 375 Other: Voiding Method Indwelling Catheter Indwelling Catheter Indwelling Catheter ABP, PAP, CO, CI - Last Documented Arterial Blood Pressure 119/50 - Exam Review of systems: CONSTITUTIONAL: Obese sedated on mechanical ventilation. EYES: No icterus sclerae, no conjunctivitis. EARS, NOSE, MOUTH, THROAT, and FACE: No sore throat, lymphadenopathy, carotid bruits or deformity. RESPIRATORY: Acute respiratory failure on mechanical ventilation. CARDIOVASCULAR: No CP, Palpitation, PND, Orthopnea, or angina. GASTROINTESTINAL: No Abd pain, Nausea or vomiting, no Diarrhea or constipation, No GI Bleed, no distention or masses. GENITOURINARY: Negative for Hematuria or UTI, no kidney stones. INTEGUMENT/BREAST: Negative for any muscular injury with mild osteoarthritis.. HEMATOLOGIC/LYMPHATIC: Negative for bleed or purpura. MUSCULOSKELTAL: Negative for Myalgia or arthralgia. NEURLOGICAL: Currently sedated and paralyzed no much response. BEHAVIORAL/PSYCH: Negative. ENDOCRINE: Negative. Physical examination: General Appearance: Sedated with ET tube on on mechanical ventilation does not look in any respiratory distress. Neck HEENT: Supple, no lymphadenopathy, no thyroid enlargement, no carotid bruits. Lungs: Decreased expansion bilaterally with fine rhonchi positive mild expiratory wheezes with crackles in the bases. Chest Wall: Decrease expansion with deep inspiration no tenderness and no deformity was found on exam, no costochondral pain or discomfort. Heart: Regular rate and rhythm, S1, S2 normal, no murmur, rub or gallop. Back: Symmetric, no curvature, ROM normal, no CVA tenderness. Abdomen: Soft, non-tender, bowel sounds active all four quadrants, no masses, no organomegaly. Extremities: Extremities normal, atraumatic, no cyanosis or edema. Pulses: 2+ and symmetric. Skin: Skin color, texture, tugor normal, no rashes or lesions. Neurologic: Sedated on mechanical ventilation. - Labs CBC & Chem 7: 12/31/19 04:00 12/31/19 04:00 Labs: Abnormal Lab Results - Last 24 Hours (Table) 12/30/19 12/31/19 12/31/19 Range/Units 23:39 04:00 04:00 WBC 17.0 H (3.8-10.6) k/uL Hgb 10.8 L (11.4-16.0) gm/dL Hct 33.3 L (34.0-46.0) % ABG HCO3 (21-25) mmol/L ABG Total CO2 (19-24) mmol/L ABG O2 Saturation (94-97) % Potassium 5.5 H (3.5-5.1) mmol/L BUN 52 H (7-17) mg/dL Glucose 271 H (74-99) mg/dL POC Glucose (mg/dL) 277 H (75-99) mg/dL Ferritin 419.8 H (10.0-291.0) ng/mL Alkaline Phosphatase 151 H (38-126) U/L Lactate Dehydrogenase 806 H (313-618) U/L Creatine Kinase 295 H (30-135) U/L C-Reactive Protein 43.4 H (<10.0) mg/L Total Protein 6.0 L (6.3-8.2) g/dL Albumin 2.9 L (3.5-5.0) g/dL 12/31/19 12/31/19 12/31/19 Range/Units 05:52 11:59 17:50 WBC (3.8-10.6) k/uL Hgb (11.4-16.0) gm/dL Hct (34.0-46.0) % ABG HCO3 27 H (21-25) mmol/L ABG Total CO2 28 H (19-24) mmol/L ABG O2 Saturation 97.1 H (94-97) % Potassium (3.5-5.1) mmol/L BUN (7-17) mg/dL Glucose (74-99) mg/dL POC Glucose (mg/dL) 211 H 276 H (75-99) mg/dL Ferritin (10.0-291.0) ng/mL Alkaline Phosphatase (38-126) U/L Lactate Dehydrogenase (313-618) U/L Creatine Kinase (30-135) U/L C-Reactive Protein (<10.0) mg/L Total Protein (6.3-8.2) g/dL Albumin (3.5-5.0) g/dL Microbiology - Last 24 Hours (Table) 12/29/19 00:50 Gram Stain - Final Sputum Sputum Culture - Final 12/28/19 00:21 Blood Culture - Preliminary Blood No Growth after 72 hours Assessment and Plan Plan: 1 acute hypoxic respiratory failure secondary to COPD exacerbation and Covid 19 pneumonitis: Still on ICU management at this point still on mechanical ventilation continue plaque with nail along with azithromycin still on smaller dose of Solu-Medrol along with zinc. 2 COPD excessive patient: Continue mechanical ventilation, continue Solu-Medrol, continue albuterol inhaler currently. 3 acute kidney injury: Much better so far with significant improvement of kidney function. 4 type 2 diabetes: Blood sugar remain not well control titrate Levemir higher 10 extra unit and NovoLog up to 15 units every 6 hours along with sliding scales coverage holding off on Trulicity the and Actos currently. 5 hypertension: Well controlled currently with try to avoid any hypotension with her current condition. 7 sepsis: Patient was treated with antibiotics with significant response so far. 8 lactic acidosis secondary to Covid 19 infection and hypoxia has improved significantly at this point. 9 DVT prophylaxis: Remain on Lovenox 1 mg/kg daily. 10 GI prophylaxis: Patient remain on pantoprazole IV. CODE STATUS: Full code. Prognosis still guarded mortality still high.
--- NOTE | 2019-12-31 22:11 | PN ---
PROGRESS NOTE DATE OF SERVICE: 12/31/2019. REASON FOR FOLLOW UP: Acute COVID-19 pneumonia. INTERVAL HISTORY: The patient is currently afebrile. The patient is hemodynamically stable. Not on any pressor support. FiO2 is currently stable. Tolerating tube feeds. No diarrhea reported by the nursing staff. PHYSICAL EXAMINATION: Blood pressure 149/65 with a pulse of 53, temperature 98.8. She is 95% on 40% FiO2. General description is a middle-aged female intubated on the vent. Respiratory system: Unlabored breathing, clear to auscultation anteriorly. HEART: S1, S2. Regular rate and rhythm. ABDOMEN: Soft, no distention. LABS: Hemoglobin is 10.8, white count 82073, BUN of 52, creatinine 0.90. Sputum has been usual respiratory ct. Blood culture negative. DIAGNOSTIC IMPRESSION AND PLAN: Patient with acute respiratory failure which is multifactorial in this patient who did have a component of acute COVID-19 pneumonia. The patient has completed her 5-day course of Plaquenil. Currently on Solu-Medrol and Zinc and otherwise to continue along with respiratory support. Monitor clinical course closely. MMODL / IJN: [id number] /
[2019-12-31 23:38] LABS: Glucose,Whole Blood 236 mg/dL (75-99)
[2020-01-01] MEDS: INSULIN ASPART (NovoLOG) 100 UNIT/ML VIAL SQ SCH ×7 (00:02→17:54)
[2020-01-01] MEDS: PROPOFOL 1,000 MG in EMPTY BAG 1 BAG IV SCH ×6 (00:09→21:01)
[2020-01-01] MEDS: LACTATED RINGERS 1,000 ML IV SCH ×2 (00:11→12:22)
[2020-01-01] MEDS: ALBUTEROL HFA INHALER INHALATION PRN ×3 (02:00→21:50)
[2020-01-01 05:08] LABS: Basophils % (A) 0 %; Eosinophils % (A) 0 %; HCT 32.4 % (34.0-46.0); HGB 10.3 gm/dL (11.4-16.0); Lymphocytes # (A) 0.8 k/uL (1.0-4.8); Lymphocytes % (A) 6 %; MCH 26.8 pg (25.0-35.0); MCHC 31.9 g/dL (31.0-37.0); MCV 84.1 fL (80.0-100.0); Monocytes # (A) 0.4 k/uL (0-1.0); Monocytes % (A) 3 %; Neutrophils # (A) 12.2 k/uL (1.3-7.7); Neutrophils % (A) 90 %; Platelet Count 289 k/uL (150-450); RBC 3.86 m/uL (3.80-5.40); RDW 13.4 % (11.5-15.5); WBC 13.5 k/uL (3.8-10.6)
[2020-01-01 05:25] LABS: ABG Base Excess 3.6 mmol/L; ABG HCO3 28 mmol/L (21-25); ABG Oxygen Saturation 96.3 % (94-97); ABG PCO2 44 mmHg (35-45); ABG PH 7.42 (7.35-7.45); ABG PO2 85 mmHg (83-108); ABG TCO2 30 mmol/L (19-24); Allen Test Performed? Yes
[2020-01-01 05:33] LABS: Albumin 2.7 g/dL (3.5-5.0); C Reactive Protein 43.1 mg/L (<10.0); Calcium 8.9 mg/dL (8.4-10.2); Potassium 5.4 mmol/L (3.5-5.1); Total Bilirubin 0.2 mg/dL (0.2-1.3); Total Protein 5.6 g/dL (6.3-8.2)
[2020-01-01 05:41] LABS: Glucose,Whole Blood 249 mg/dL (75-99)
--- NOTE | 2020-01-01 06:46 | XR ---
EXAMINATION TYPE: XR chest 1V portable DATE OF EXAM: 01/01/2020 HISTORY: covid+. REFERENCE: Review study dated 12/31/2019. FINDINGS: The patient's ET tube remains somewhat high projecting over the T2 vertebral body. An NG tu be is present and its tip is within the stomach. There is a left subclavian catheter in place. Its ti p is in the right atrium. There continues be patchy, bilateral airspace disease. This appears to have perhaps worsened slightly on the left. The heart is mildly enlarged. There is blunting of both CP angles and I cannot exclude small effusions. IMPRESSION: SLIGHT WORSENING IN THE PATIENT'S LEFT-SIDED INFILTRATES.
[2020-01-01] MEDS ORDERED: INSULIN ASPART (NovoLOG) 100 UNIT/ML VIAL SQ SCH (07:00)
[2020-01-01] MEDS: SYMBICORT 160-4.5 MCG INHALER INHALATION SCH ×2 (08:01→21:50)
[2020-01-01] MEDS: ENOXAPARIN 150 MG/ML SYRINGE SQ SCH ×2 (08:47→20:07)
[2020-01-01] MEDS: ZINC SULFATE 220 MG CAP PO SCH (08:47)
[2020-01-01] MEDS: ASPIRIN 325 MG TAB PO SCH (08:47)
[2020-01-01] MEDS: PANTOPRAZOLE 40 MG/10 ML VIAL IVP SCH (08:48)
[2020-01-01] MEDS: ASCORBIC ACID 500 MG TAB PO SCH ×2 (08:48→20:06)
[2020-01-01] MEDS: CHLORHEXIDINE GLUCONATE 15 ML CUP MUCOUS MEM SCH ×2 (08:48→20:06)
[2020-01-01] MEDS: methylPREDNISolone SOD SUCCI 40 MG/ML 1 ML VIAL IV SCH ×2 (08:48→20:06)
[2020-01-01] MEDS: INSULIN DETEMIR (LEVEMIR) 100 UNIT/ML SYR SQ SCH ×2 (09:14→20:06)
[2020-01-01] MEDS: HYDROmorphone 1 MG/ML 1 ML SYRINGE IVP PRN ×2 (09:17→15:49)
--- NOTE | 2020-01-01 11:16 | P.PN ---
Subjective Progress Note Date: 01/01/20 Principal diagnosis: Acute hypoxemic respiratory failure secondary to CoVID 19 related pneumonia, requiring intubation and placement on mechanical ventilator on 12/28/2019 The patient is seen today 01/01/2020 in follow-up in the intensive care unit. She remains intubated on mechanical ventilator. Current settings assist-control at a rate of 26, tidal on 350, FiO2 40% and a PEEP of 10. Morning blood gases reveal a P O2 85, pCO2 44, pH 7.41. Chest x-ray reveals bilateral patchy infiltrates worse on the left. She remains sedated on propofol 50 mcg/kg/m. Lactated Ringer's at 75 ML's per hour. Vital 1.2 at 22 milliliters which is her goal. Blood and sputum cultures reveal no growth. White count 13.5. Hemoglobin 10.3. Platelets 289. Sodium 137. Potassium 4.4. Creatinine 0.85. AST 19 ALT 18 LDH 728. C-reactive protein 43. Completed Plaquenil. Remains on Lovenox, zinc, azithromycin, vitamin C. Objective - Vital Signs Vital signs: Vital Signs Temp 98.9 F 01/01/20 08:00 Pulse 61 01/01/20 11:00 Resp 26 H 01/01/20 11:00 BP 116/49 01/01/20 11:00 Pulse Ox 94 L 01/01/20 11:00 Intake & Output 12/31/19 01/01/20 01/01/20 18:59 06:59 18:59 Intake Total 0789.406 2135.885 674.793 Output Total 1220 1690 510 Balance 459.053 39.885 164.793 Intake: IV 936 936 390 Lactated Ringers 1,000 ml 900 900 375 @ 75 mls/hr IV .[id number] JORGE Rx#:[id number] Pressure bag 36 36 15 Intake, IV Titration 367.053 439.885 82.793 Amount Propofol 1,000 mg In 367.053 439.885 82.793 Empty Bag 1 bag @ Titrate IV .Q0M OJRGE Rx#: [id number] Tube Feeding 286 264 132 Other 90 90 70 Output: Urine 1220 1690 510 Other: Voiding Method Indwelling Catheter Indwelling Catheter Indwelling Catheter # Voids 3 ABP, PAP, CO, CI - Last Documented Arterial Blood Pressure 107/48 - Exam GENERAL EXAM: A 64-year-old obese female patient, intubated, sedated, on mechanical ventilator, comfortable in no apparent distress. HEAD: Normocephalic/atraumatic. EYES: Sluggish reaction of pupils, equal size. Conjunctiva pink, sclera white. NOSE: Clear with pink turbinates. THROAT: Oral endotracheal and gastric tube secured in place No erythema or exudates. NECK: No masses, no JVD, no thyroid enlargement, no adenopathy. CHEST: No chest wall deformity. Symmetrical expansion. LUNGS: Equal air entry with crackles in the posterior bases right greater than left. CVS: Regular rate and rhythm, normal S1 and S2, no gallops, no murmurs, no rubs ABDOMEN: Soft, nontender. No hepatosplenomegaly, normal bowel sounds, no guarding or rigidity. EXTREMITIES: No clubbing, no edema, no cyanosis, 2+ pulses and upper and lower extremities. MUSCULOSKELETAL: Muscle strength and tone normal. SPINE: No scoliosis or deformity SKIN: No rashes CENTRAL NERVOUS SYSTEM: Sedated, intubated, No focal deficits, tone is normal in all 4 extremities. - Labs CBC & Chem 7: 01/01/20 05:00 01/01/20 05:00 Labs: Abnormal Lab Results - Last 24 Hours (Table) 12/31/19 12/31/19 12/31/19 Range/Units 04:00 11:59 17:50 WBC (3.8-10.6) k/uL Hgb (11.4-16.0) gm/dL Hct (34.0-46.0) % Neutrophils # (1.3-7.7) k/uL Lymphocytes # (1.0-4.8) k/uL ABG HCO3 (21-25) mmol/L ABG Total CO2 (19-24) mmol/L Potassium (3.5-5.1) mmol/L BUN (7-17) mg/dL Glucose (74-99) mg/dL POC Glucose (mg/dL) 211 H 276 H (75-99) mg/dL Ferritin 419.8 H (10.0-291.0) ng/mL Alkaline Phosphatase (38-126) U/L Lactate Dehydrogenase (313-618) U/L C-Reactive Protein (<10.0) mg/L Total Protein (6.3-8.2) g/dL Albumin (3.5-5.0) g/dL 12/31/19 01/01/20 01/01/20 Range/Units 23:36 04:37 05:00 WBC 13.5 H (3.8-10.6) k/uL Hgb 10.3 L (11.4-16.0) gm/dL Hct 32.4 L (34.0-46.0) % Neutrophils # 12.2 H (1.3-7.7) k/uL Lymphocytes # 0.8 L (1.0-4.8) k/uL ABG HCO3 28 H (21-25) mmol/L ABG Total CO2 30 H (19-24) mmol/L Potassium (3.5-5.1) mmol/L BUN (7-17) mg/dL Glucose (74-99) mg/dL POC Glucose (mg/dL) 236 H (75-99) mg/dL Ferritin (10.0-291.0) ng/mL Alkaline Phosphatase (38-126) U/L Lactate Dehydrogenase (313-618) U/L C-Reactive Protein (<10.0) mg/L Total Protein (6.3-8.2) g/dL Albumin (3.5-5.0) g/dL 01/01/20 01/01/20 Range/Units 05:00 05:39 WBC (3.8-10.6) k/uL Hgb (11.4-16.0) gm/dL Hct (34.0-46.0) % Neutrophils # (1.3-7.7) k/uL Lymphocytes # (1.0-4.8) k/uL ABG HCO3 (21-25) mmol/L ABG Total CO2 (19-24) mmol/L Potassium 5.4 H (3.5-5.1) mmol/L BUN 43 H (7-17) mg/dL Glucose 238 H (74-99) mg/dL POC Glucose (mg/dL) 249 H (75-99) mg/dL Ferritin (10.0-291.0) ng/mL Alkaline Phosphatase 130 H (38-126) U/L Lactate Dehydrogenase 728 H (313-618) U/L C-Reactive Protein 43.1 H (<10.0) mg/L Total Protein 5.6 L (6.3-8.2) g/dL Albumin 2.7 L (3.5-5.0) g/dL Microbiology - Last 24 Hours (Table) 12/28/19 00:21 Blood Culture - Preliminary Blood No Growth after 96 hours 12/29/19 00:50 Gram Stain - Final Sputum Sputum Culture - Final Assessment and Plan Assessment: 1. Acute hypoxemic respiratory failure related to COVID 19 related pneumonia, requiring intubation and placement on mechanical ventilation on 12/28/2019 2. Cough, shortness of breath, weakness, fatigue, diffuse bilateral infiltrates related to COVID19 infection 3. Elevated ferritin, LDH, CRP and d-dimer related to acute COVID19 related pneumonia, and inflammatory markers are improving 4. Elevated troponin, rule out possibility of coinfection, related to bacterial infection 5. Hypertension 6. Hyperlipidemia 7. GERD/reflux 8. Diabetes mellitus type 2 9. History of chronic bronchial asthma, unspecified 10. Chronic kidney disease, unknown baseline 11. History of diverticular disease 12. History of coronary artery disease with PCI and stent placement Plan: The patient was seen and evaluated by Dr. Liu Chest x-ray, ABGs and labs reviewed Decrease the PEEP to Daily interruption of sedation, if possible spontaneous breathing trial Completed a course of Plaquenil Continue azithromycin, IV Solu-Medrol, zinc, vitamin C Continue Lovenox We will continue to follow and make further recommendations based on her clinical status. Critical care time 35 minutes I, the cosigning physician, performed a history & physical examination of the patient. Lungs sounds with crackles in the bilateral posterior bases left greater than right. Maintaining good O2 saturations in the 90s on 40% FiO2 on mechanical ventilator. I discussed the assessment and plan of care with my nurse practitioner, Missy Jeffrey. I attest to the above note as dictated by her.
[2020-01-01 11:23] LABS: Glucose,Whole Blood 175 mg/dL (75-99)
[2020-01-01 14:42] LABS: Glucose,Whole Blood 180 mg/dL (75-99)
[2020-01-01 17:52] LABS: Glucose,Whole Blood 178 mg/dL (75-99)
[2020-01-01] MEDS: LISINOPRIL 20 MG TAB PO SCH (20:06)
[2020-01-01] MEDS: ATORVASTATIN 40 MG TAB PO SCH (20:06)
[2020-01-01] MEDS: AZITHROMYCIN 500 MG TAB PO SCH (20:07)
[2020-01-01 20:18] LABS: Glucose,Whole Blood 153 mg/dL (75-99)
--- NOTE | 2020-01-01 21:21 | P.PN ---
Subjective Progress Note Date: 01/01/20 Principal diagnosis: Acute hypoxic respiratory failure secondary to COPD exacerbation and COVID 19 pneumonitis, acute kidney injury, type 2 diabetes, hypertension 64-year-old female one of my office patient who was admitted to the hospital with acute COVID 19 pneumonitis with acute respiratory failure and severe hypoxia require high flow O2. Patient was shortly intubated and transferred to the intensive care unit, patient was suffering from acute on chronic kidney injury but sugar still mildly elevated. Patient still having significantly elevated CRP with abnormal liver function test, lactic acid that subtle down significantly. Blood sugar still mildly elevated when titrating insulin is making sugar slightly but better at this point. Patient is still sedated on mechanical ventilation currently no weaning his plan in the next 24 hours. 12/31: Back in off on sedation patient has done slightly well still not ready to be extubated this point she had her weaning parameter and was sedated and continue mechanical ventilation. Blood sugar still high her steroid was decreased today to Solu-Medrol 40 mg twice a day with higher Levemir to 60 units twice a day and up on NovoLog to 20 units every 6 hours plus a sliding scale we have to watch for any decrease blood sugar specially with a new change on insulin and medication. Objective - Vital Signs Vital signs: Vital Signs Temp 98.3 F 01/01/20 04:00 Pulse 51 L 01/01/20 06:00 Resp 28 H 01/01/20 06:00 BP 115/53 01/01/20 06:00 Pulse Ox 96 01/01/20 06:00 Intake & Output 12/31/19 01/01/20 01/01/20 18:59 06:59 18:59 Intake Total 5532.032 5586.885 Output Total 1220 1690 Balance 459.053 39.885 Intake: IV 936 936 Lactated Ringers 1,000 ml 900 900 @ 75 mls/hr IV .[id number] JORGE Rx#:[id number] Pressure bag 36 36 Intake, IV Titration 367.053 439.885 Amount Propofol 1,000 mg In 367.053 439.885 Empty Bag 1 bag @ Titrate IV .Q0M JORGE Rx#: [id number] Tube Feeding 286 264 Other 90 90 Output: Urine 1220 1690 Other: Voiding Method Indwelling Catheter Indwelling Catheter ABP, PAP, CO, CI - Last Documented Arterial Blood Pressure 128/64 - Exam Review of systems: CONSTITUTIONAL: Obese sedated on mechanical ventilation. EYES: No icterus sclerae, no conjunctivitis. EARS, NOSE, MOUTH, THROAT, and FACE: No sore throat, lymphadenopathy, carotid bruits or deformity. RESPIRATORY: Acute respiratory failure on mechanical ventilation. CARDIOVASCULAR: No CP, Palpitation, PND, Orthopnea, or angina. GASTROINTESTINAL: No Abd pain, Nausea or vomiting, no Diarrhea or constipation, No GI Bleed, no distention or masses. GENITOURINARY: Negative for Hematuria or UTI, no kidney stones. INTEGUMENT/BREAST: Negative for any muscular injury with mild osteoarthritis.. HEMATOLOGIC/LYMPHATIC: Negative for bleed or purpura. MUSCULOSKELTAL: Negative for Myalgia or arthralgia. NEURLOGICAL: Currently sedated and paralyzed no much response. BEHAVIORAL/PSYCH: Negative. ENDOCRINE: Negative. Physical examination: General Appearance: Sedated with ET tube on on mechanical ventilation does not look in any respiratory distress. Neck HEENT: Supple, no lymphadenopathy, no thyroid enlargement, no carotid bruits. Lungs: Decreased expansion bilaterally with fine rhonchi positive mild expiratory wheezes with crackles in the bases. Chest Wall: Decrease expansion with deep inspiration no tenderness and no deformity was found on exam, no costochondral pain or discomfort. Heart: Regular rate and rhythm, S1, S2 normal, no murmur, rub or gallop. Back: Symmetric, no curvature, ROM normal, no CVA tenderness. Abdomen: Soft, non-tender, bowel sounds active all four quadrants, no masses, no organomegaly. Extremities: Extremities normal, atraumatic, no cyanosis or edema. Pulses: 2+ and symmetric. Skin: Skin color, texture, tugor normal, no rashes or lesions. Neurologic: Sedated on mechanical ventilation. - Labs CBC & Chem 7: 01/01/20 05:00 01/01/20 05:00 Labs: Abnormal Lab Results - Last 24 Hours (Table) 12/31/19 12/31/19 12/31/19 Range/Units 04:00 11:59 17:50 WBC (3.8-10.6) k/uL Hgb (11.4-16.0) gm/dL Hct (34.0-46.0) % Neutrophils # (1.3-7.7) k/uL Lymphocytes # (1.0-4.8) k/uL ABG HCO3 (21-25) mmol/L ABG Total CO2 (19-24) mmol/L Potassium (3.5-5.1) mmol/L BUN (7-17) mg/dL Glucose (74-99) mg/dL POC Glucose (mg/dL) 211 H 276 H (75-99) mg/dL Ferritin 419.8 H (10.0-291.0) ng/mL Alkaline Phosphatase (38-126) U/L Lactate Dehydrogenase (313-618) U/L C-Reactive Protein (<10.0) mg/L Total Protein (6.3-8.2) g/dL Albumin (3.5-5.0) g/dL 12/31/19 01/01/20 01/01/20 Range/Units 23:36 04:37 05:00 WBC 13.5 H (3.8-10.6) k/uL Hgb 10.3 L (11.4-16.0) gm/dL Hct 32.4 L (34.0-46.0) % Neutrophils # 12.2 H (1.3-7.7) k/uL Lymphocytes # 0.8 L (1.0-4.8) k/uL ABG HCO3 28 H (21-25) mmol/L ABG Total CO2 30 H (19-24) mmol/L Potassium (3.5-5.1) mmol/L BUN (7-17) mg/dL Glucose (74-99) mg/dL POC Glucose (mg/dL) 236 H (75-99) mg/dL Ferritin (10.0-291.0) ng/mL Alkaline Phosphatase (38-126) U/L Lactate Dehydrogenase (313-618) U/L C-Reactive Protein (<10.0) mg/L Total Protein (6.3-8.2) g/dL Albumin (3.5-5.0) g/dL 01/01/20 01/01/20 Range/Units 05:00 05:39 WBC (3.8-10.6) k/uL Hgb (11.4-16.0) gm/dL Hct (34.0-46.0) % Neutrophils # (1.3-7.7) k/uL Lymphocytes # (1.0-4.8) k/uL ABG HCO3 (21-25) mmol/L ABG Total CO2 (19-24) mmol/L Potassium 5.4 H (3.5-5.1) mmol/L BUN 43 H (7-17) mg/dL Glucose 238 H (74-99) mg/dL POC Glucose (mg/dL) 249 H (75-99) mg/dL Ferritin (10.0-291.0) ng/mL Alkaline Phosphatase 130 H (38-126) U/L Lactate Dehydrogenase 728 H (313-618) U/L C-Reactive Protein 43.1 H (<10.0) mg/L Total Protein 5.6 L (6.3-8.2) g/dL Albumin 2.7 L (3.5-5.0) g/dL Microbiology - Last 24 Hours (Table) 12/28/19 00:21 Blood Culture - Preliminary Blood No Growth after 96 hours 12/29/19 00:50 Gram Stain - Final Sputum Sputum Culture - Final Assessment and Plan Assessment: 1 acute hypoxic respiratory failure secondary to COPD exacerbation and Covid 19 pneumonitis: Still on ICU management at this point still on mechanical ve ntilation continue plaque with nail along with azithromycin still on smaller dose of Solu-Medrol along with zinc. 2 COPD excessive patient: Continue mechanical ventilation, continue Solu-Medrol 40 mg twice a day and this point, continue albuterol inhaler currently. 3 acute kidney injury: Much better so far with significant improvement of kidney function. 4 type 2 diabetes: Blood sugar still quite bit high will higher NovoLog up to 20 units every 6 hour plus sliding scale and Levemir was up to 60 units twice a day. 5 hypertension: Well controlled currently with try to avoid any hypotension with her current condition. 7 sepsis: Patient was treated with antibiotics with significant response so far. 8 lactic acidosis secondary to Covid 19 infection and hypoxia has improved significantly at this point. 9 DVT prophylaxis: Remain on Lovenox 1 mg/kg daily. 10 GI prophylaxis: Patient remain on pantoprazole IV. CODE STATUS: Full code. Prognosis still guarded mortality still high.
[2020-01-01 23:46] LABS: Glucose,Whole Blood 118 mg/dL (75-99)
[2020-01-02] MEDS: PROPOFOL 1,000 MG in EMPTY BAG 1 BAG IV SCH ×3 (00:04→06:39)
[2020-01-02] MEDS: INSULIN ASPART (NovoLOG) 100 UNIT/ML VIAL SQ SCH ×6 (00:05→18:08)
--- NOTE | 2020-01-02 00:29 | PN ---
PROGRESS NOTE DATE OF SERVICE: 01/01/2020 REASON FOR FOLLOWUP: Acute COVID-19 Pneumonia. INTERVAL HISTORY: The patient is currently afebrile. The patient is hemodynamically stable. The patient is slightly more awake and alert today. FiO2 is currently 40%. No significant purulent secretion through the ET or any diarrhea reported. PHYSICAL EXAMINATION: Blood pressure 111/49 with a pulse of 49, temperature 98.4. She is 96% on 40% FiO2. General description is a middle-aged female intubated on the vent. RESPIRATORY SYSTEM: Unlabored breathing, decreased breath sounds. No wheeze. HEART: S1, S2. Regular rate and rhythm. ABDOMEN: Soft, no tenderness. LABS: Hemoglobin is 10.3, white count 13.5, BUN of 43, creatinine 0.85. DIAGNOSTIC IMPRESSION AND PLAN: Patient with acute COVID-19 Pneumonia with respiratory failure. Patient has completed her Plaquenil therapy. She is currently on Solu-Medrol and zinc. Respiratory support to continue. Will monitor clinical course closely. YUDELKA / SUYAPAN: [id number] /
[2020-01-02] MEDS: HYDROmorphone 1 MG/ML 1 ML SYRINGE IVP PRN ×2 (00:53→06:53)
[2020-01-02 03:49] LABS: Glucose,Whole Blood 197 mg/dL (75-99)
[2020-01-02 03:49] LABS: Glucose,Whole Blood 186 mg/dL (75-99)
[2020-01-02 03:57] LABS: Basophils % (A) 0 %; Eosinophils % (A) 0 %; HGB 9.9 gm/dL (11.4-16.0); Lymphocytes % (A) 6 %; MCH 26.9 pg (25.0-35.0); Mean Platelet Volume 7.8; Monocytes # (A) 0.6 k/uL (0-1.0); Monocytes % (A) 3 %; Neutrophils # (A) 14.5 k/uL (1.3-7.7); Neutrophils % (A) 90 %; Platelet Count 291 k/uL (150-450); RBC 3.69 m/uL (3.80-5.40); RDW 13.2 % (11.5-15.5); WBC 16.2 k/uL (3.8-10.6)
[2020-01-02 05:08] LABS: Albumin 2.6 g/dL (3.5-5.0); Calcium 8.9 mg/dL (8.4-10.2); Potassium 5.2 mmol/L (3.5-5.1); Total Bilirubin 0.2 mg/dL (0.2-1.3); Total Protein 5.4 g/dL (6.3-8.2)
[2020-01-02 05:58] LABS: ABG Base Excess 5.1 mmol/L; ABG HCO3 29 mmol/L (21-25); ABG Oxygen Saturation 95.7 % (94-97); ABG PCO2 44 mmHg (35-45); ABG PH 7.44 (7.35-7.45); ABG PO2 78 mmHg (83-108); ABG TCO2 31 mmol/L (19-24); Allen Test Performed? Yes
[2020-01-02 06:34] LABS: Glucose,Whole Blood 148 mg/dL (75-99)
[2020-01-02] MEDS: INSULIN DETEMIR (LEVEMIR) 100 UNIT/ML SYR SQ SCH ×2 (06:37→21:33)
--- NOTE | 2020-01-02 07:35 | XR ---
EXAMINATION TYPE: XR chest 1V portable DATE OF EXAM: 01/02/2020 COMPARISON: 01/01/2020 HISTORY: SOB, Follow Up FINDINGS: Indwelling tubes and catheters are unchanged. No Change in bilateral infiltrates greatest at the left lower lobe. Stable appearance of the cardio-mediastinal structures at this time. Pleural effusion unchanged. IMPRESSION: 1. Stable portable chest. Clinical correlation and follow up until resolution is recommended.
[2020-01-02] MEDS: SYMBICORT 160-4.5 MCG INHALER INHALATION SCH ×2 (07:41→20:01)
[2020-01-02] MEDS: ALBUTEROL HFA INHALER INHALATION PRN (07:42)
[2020-01-02] MEDS: FUROSEMIDE 10 MG/ML 4 ML VIAL IV SCH ×2 (09:14→21:10)
[2020-01-02] MEDS: PANTOPRAZOLE 40 MG/10 ML VIAL IVP SCH (09:14)
[2020-01-02] MEDS: CHLORHEXIDINE GLUCONATE 15 ML CUP MUCOUS MEM SCH (09:15)
[2020-01-02] MEDS: ASPIRIN 325 MG TAB PO SCH (09:15)
[2020-01-02] MEDS: ASCORBIC ACID 500 MG TAB PO SCH ×3 (09:15→21:46)
[2020-01-02] MEDS: methylPREDNISolone SOD SUCCI 40 MG/ML 1 ML VIAL IV SCH ×2 (09:15→21:10)
[2020-01-02] MEDS: LACTATED RINGERS 1,000 ML IV SCH (09:16)
--- NOTE | 2020-01-02 09:33 | P.PN ---
Subjective Progress Note Date: 01/02/20 This is a 64-year-old female patient of Dr. Mojica with past medical history of asthma, hypertension, hyperlipidemia, gastroesophageal reflux disease, diabetes mellitus type 2 insulin requiring, coronary artery disease status post stent, remote history of tobacco use and dependence, chronic kidney disease stage III. 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. 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 They were exposed to a COVID-19 positive patient on December 11 and/or December 12. She had symptoms develop approximate 7 days ago with fever, cough, shortness of breath, nausea, diarrhea. She tried to manage at home but symptoms became significantly severe in the past 3 days and she lives alone she was so sick she could not get to the She to the bathroom. Patient came into [facility] emergency center for evaluation and found to be afebrile, blood pressure 141/68, heart rate 85, pulse ox 87%. EKG was a sinus rhythm with no acute ST changes. W BC 12.1, hemoglobin 12.7, platelet count 303, sodium 136, potassium 5.3, chloride 100, CO2 23, BUN 41, creatinine 1.43, blood sugar 230. Total bilirubin 0.6, AST 49, ALT 22, alkaline phosphatase 255, LDH 1600, ferritin 609.6 C-reactive protein 262, pro calcitonin 0.2 to. Chronic virus PCR detected, influenza testing negative, lactic acid 2.1. Repeat lactic acid 1.2 chest x-ray revealed mild cardiomegaly with moderately severe diffuse interstitial edema that is changed from old exam compared to November 2018. This could represent acute interstitial pneumonia or acute heart failure. Patient was started on Tylenol, azithromycin, Plaquenil admitted to the [facility] floor and consult was requested with infectious disease and pulmonary medicine. 12/27: Patient had a drop in her oxygen saturation and became tachypneic. She was initially placed on high flow nasal cannula at 10 L, transferred into the intensive care unit and was intubated this morning. Temperature max 101.4. Heart rate in the 60s and 70s. Repeat blood work reveals CBC unremarkable except for low lymphocytes. D-dimer 1.05, potassium 5.2, BUN 62 and creatinine 1.91. Blood sugars in the 200s. Alkaline phosphatase 198 LDH 1439. She has been continued on azithromycin, Plaquenil, zinc and vitamin C. Solu-Medrol is currently at 40 mg IV every 12 hours. 12/28: Patient remains in the intensive care unit, intubated and on mechanical ventilation with tidal volume 350, FiO2 of 50 and PEEP 13. Patient has been afebrile, heart rate 50, blood pressure 120/56. Repeat blood work reveals WBC 16, hemoglobin 10.7, platelet count 273. Repeat d-dimer is decreased at 0.72. Sodium 135, potassium 4.6, chloride 103, CO2 24, BUN 63 and creatinine 1.43. Ferritin decreased to 556.8, alkaline phosphatase decreased 167, LDH decreased to 1050, C-reactive protein 181.7. Case has been discussed outside patient's room with the patient's nurse. Blood sugars have been elevated running 189 to 231. We will increase Levemir to 42 units twice daily, added and NovoLog scheduled 5 units every 6 hours along with NovoLog scale. Patient is currently & Medrol 40 mg IV every 12 hours. 12/29: Patient remains intubated in critical ventilation with tidal volume 350, FiO2 of 40 and PEEP of 13. Patient has been afebrile, heart rate in the 50s, blood pressure 101/55. Repeat laboratory studies revealed a CBC 17.5, hemoglobin 10, platelet count 276. Sodium 135, potassium 5.4, chloride 105, CO2 26, BUN 61, creatinine 1.07 area blood sugars are running in the 200s up to 300, alkaline phosphatase 143, LDH 875, C-reactive protein 67.9, albumin 2.7. We will again today increase her insulins with long acting up to 50 units twice daily and NovoLog 10 units every 6 hours along with NovoLog scale. Patient has had good urine output, tube feedings are at goal. Patient appears to be stable at this time. 12/30: Patient still having significantly elevated CRP with abnormal liver function test, lactic acid that subtle down significantly. Blood sugar still mildly elevated when titrating insulin is making sugar slightly but better at this point. Patient is still sedated on mechanical ventilation currently no weaning his plan in the next 24 hours. 12/31: Back in off on sedation patient has done slightly well still not ready to be extubated this point she had her weaning parameter and was sedated and continue mechanical ventilation. Blood sugar still high her steroid was decreased today to Solu-Medrol 40 mg twice a day with higher Levemir to 60 units twice a day and up on NovoLog to 20 units every 6 hours plus a sliding scale we have to watch for any decrease blood sugar specially with a new change on insulin and medication. 01/01: Patient remains intubated and on mechanical ventilation. Patient is on a sedation holiday. Tidal volume 350, FiO2 40, PEEP 5. Patient has been afebrile, heart rate in the 40s, blood pressure 101/49. Repeat lab work reveals W BC 16.2, hemoglobin 9.9, platelet count 291. D-dimer 0.28. Sodium 138, potassium 5.2, chloride 104, CO2 29, BUN 42 and creatinine 0.89. Blood sugars have been running 148 197. At bedtime glucose 118. Scheduled NovoLog will be decreased to 15 units and continue Levemir at 60 units twice daily. Solu-Medrol at 40 mg IV every 12 hours and Lasix 40 mg every 12 hours. Patient has completed course of Plaquenil. She remains in isolation. Objective - Vital Signs Vital signs: Vital Signs Temp 98.4 F 01/02/20 04:00 Pulse 50 L 01/02/20 07:00 Resp 26 H 01/02/20 07:00 BP 96/43 01/01/20 19:00 Pulse Ox 97 01/02/20 07:00 Intake & Output 01/01/20 01/02/20 01/02/20 18:59 06:59 18:59 Intake Total 7464.125 4565.419 100 Output Total 930 1060 75 Balance 521.612 530.419 25 Weight 123.4 kg 124.1 kg Intake: IV 936 936 78 Lactated Ringers 1,000 ml 900 900 75 @ 75 mls/hr IV .[id number] JORGE Rx#:[id number] Pressure bag 36 36 3 Intake, IV Titration 143.612 300.419 Amount Propofol 1,000 mg In 143.612 300.419 Empty Bag 1 bag @ Titrate IV .Q0M JORGE Rx#: [id number] Tube Feeding 242 264 22 Other 130 90 Output: Urine 930 1060 75 Other: Voiding Method Indwelling Catheter Indwelling Catheter ABP, PAP, CO, CI - Last Documented Arterial Blood Pressure 114/52 - Exam Review of Systems Unable to obtain due to intubation Physical Examination Gen: This is a morbidly obese 64-year-old female. Patient is resting in bed. No acute respiratory distress is noted. HEENT: Head is atraumatic, normocephalic. Oral ET and gastric tube in place NEUROLOGICAL: Patient is intubated. Physical examination deferred to carburetor expert. - Labs CBC & Chem 7: 01/02/20 03:45 01/02/20 03:45 Labs: Abnormal Lab Results - Last 24 Hours (Table) 01/01/20 01/01/20 01/01/20 Range/Units 11:20 14:40 17:51 WBC (3.8-10.6) k/uL RBC (3.80-5.40) m/uL Hgb (11.4-16.0) gm/dL Hct (34.0-46.0) % Neutrophils # (1.3-7.7) k/uL ABG pO2 (83-108) mmHg ABG HCO3 (21-25) mmol/L ABG Total CO2 (19-24) mmol/L Potassium (3.5-5.1) mmol/L BUN (7-17) mg/dL Glucose (74-99) mg/dL POC Glucose (mg/dL) 175 H 180 H 178 H (75-99) mg/dL Lactate Dehydrogenase (313-618) U/L C-Reactive Protein (<10.0) mg/L Total Protein (6.3-8.2) g/dL Albumin (3.5-5.0) g/dL 01/01/20 01/01/20 01/02/20 Range/Units 20:16 23:45 03:45 WBC 16.2 H (3.8-10.6) k/uL RBC 3.69 L (3.80-5.40) m/uL Hgb 9.9 L (11.4-16.0) gm/dL Hct 31.0 L (34.0-46.0) % Neutrophils # 14.5 H (1.3-7.7) k/uL ABG pO2 (83-108) mmHg ABG HCO3 (21-25) mmol/L ABG Total CO2 (19-24) mmol/L Potassium (3.5-5.1) mmol/L BUN (7-17) mg/dL Glucose (74-99) mg/dL POC Glucose (mg/dL) 153 H 118 H (75-99) mg/dL Lactate Dehydrogenase (313-618) U/L C-Reactive Protein (<10.0) mg/L Total Protein (6.3-8.2) g/dL Albumin (3.5-5.0) g/dL 01/02/20 01/02/20 01/02/20 Range/Units 03:45 03:47 03:48 WBC (3.8-10.6) k/uL RBC (3.80-5.40) m/uL Hgb (11.4-16.0) gm/dL Hct (34.0-46.0) % Neutrophils # (1.3-7.7) k/uL ABG pO2 (83-108) mmHg ABG HCO3 (21-25) mmol/L ABG Total CO2 (19-24) mmol/L Potassium 5.2 H (3.5-5.1) mmol/L BUN 42 H (7-17) mg/dL Glucose 180 H (74-99) mg/dL POC Glucose (mg/dL) 186 H 197 H (75-99) mg/dL Lactate Dehydrogenase 643 H (313-618) U/L C-Reactive Protein 43.0 H (<10.0) mg/L Total Protein 5.4 L (6.3-8.2) g/dL Albumin 2.6 L (3.5-5.0) g/dL 01/02/20 01/02/20 Range/Units 05:54 06:29 WBC (3.8-10.6) k/uL RBC (3.80-5.40) m/uL Hgb (11.4-16.0) gm/dL Hct (34.0-46.0) % Neutrophils # (1.3-7.7) k/uL ABG pO2 78 L (83-108) mmHg ABG HCO3 29 H (21-25) mmol/L ABG Total CO2 31 H (19-24) mmol/L Potassium (3.5-5.1) mmol/L BUN (7-17) mg/dL Glucose (74-99) mg/dL POC Glucose (mg/dL) 148 H (75-99) mg/dL Lactate Dehydrogenase (313-618) U/L C-Reactive Protein (<10.0) mg/L Total Protein (6.3-8.2) g/dL Albumin (3.5-5.0) g/dL Microbiology - Last 24 Hours (Table) 12/28/19 00:21 Blood Culture - Preliminary Blood No Growth after 120 hours Assessment and Plan Plan: 1. Acute hypoxic respiratory failure secondary to COPD exacerbation and COVID- 19 pneumonitis. ICU managment with intubation and mechanical ventilation. Continue Plaquenil 200 mg twice daily. Consults with pulmonary medicine and infectious disease. Continue albuterol inhaler as needed, vitamin C, azithromycin, Solu-Medrol 40 mg IV every 12 hours, zinc. 2. Acute kidney injury with chronic kidney disease stage III. Avoid nephrotoxic agents, hypotension. Hold Aleve. 3. Mild hyperkalemia secondary to acute kidney injury. 4. Mild lactic acidosis secondary to COVID-19 infection. Resolved. 5. Sepsis secondary to Covid 19 infection, POA. 6. Hyperlipidemia. Continue atorvastatin 40 g at bedtime 7. Diabetes mellitus type 2, insulin requiring, uncontrolled with hyperglycemia secondary to steroids. Continue Levemir 60 units twice daily, and decrease scheduled NovoLog to 15 units every 6 hours along with continuing NovoLog scale every 6 hours. Hold Actos and Trulicity for now. 7. History of coronary artery disease status post stenting. Continue aspirin 325 mg daily, Lipitor. 8. Hypertension. Continue lisinopril 20 mg at bedtime with parameters. Avoid hypotension. 9. Gastroesophageal reflux disease disease and GI prophylaxis. Continue Protonix. 10. DVT prophylaxis. Lovenox. Discharge plan: To be determined Impression and plan of care have been directed as dictated by the signing physician. Deborah Crow nurse practitioner acting as scribe for signing physician.
--- NOTE | 2020-01-02 10:17 | P.PN ---
Subjective Progress Note Date: 01/02/20 Is a 64-year-old female patient who was originally hospitalized on 12/27/2019 because of an acute cold and 19 related infection/pneumonia. 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 Her symptoms progressively got worse and she became progressively more short of breath and she also developed nausea and diarrhea. She came into the hospital and she was quite hypoxic and she checked positive for coag with 19 infection. Her chest x-ray showed some mild cardiomegaly and diffuse interstitial infiltrates secondary to an underlying covert 19 related pneumonia. The patient also has other comorbidities including asthma, hypertension, hyperlipidemia and acid reflux in addition to diabetes mellitus type 2. She has coronary artery disease with previous coronary stenting. She has chronic stage III kidney disease. She is obese with a body mass index of 48.2. This patient has been intubated since 12/28/2019. Since then the patient has remained on a mechanical ventilator. She is currently on an assist-control mode rate of 26 with a tidal volume of 350 and FiO2 of 40% with a PEEP of 10. Her chest x-ray is consistent with lateral pneumonia worse on the left. She is on propofol for sedation. She is on vital 1.2 for enteral feeding and nutritional support. She has completed her course of Plaquenil and she was also treated with Zithromax vitamin C and zinc sulfate. Her sputum Gram stain and culture has been negative. Blood cultures been negative. She is on IV Solu-Medrol 40 mg every 12 hours. On today's evaluation of 01/02/2020, the patient remains intubated on a mechanical ventilator. The patient today is on a assist-control mode at the rate of 26 with a tidal volume of 350 and FiO2 of 40% with a PEEP of 5. Peak airway pressures around 27 anesthetic pressures of 21. The chest x-ray from today shows stable bilateral pulmonary infiltrates which has remained unchanged and the patient is infiltration rate is in the left lower lobe. ET tube is in a good location. The blood gas showed a pH of 7.44 with a pCO2 of 44 and pO2 of any 8. The patient has a peak given a pressure of 27. This particular pressures at 21. White cell count is at 16.2. She was noted to be excessively fluid overloaded and the patient's net fluid balance and the positive with a weight gain and order of 7 kg. The patient will be started on IV Lasix. Otherwise, no other significant events overnight. The patient remains on Lovenox therapeutic dose. No signs of any bleeding. Objective - Vital Signs Vital signs: Vital Signs Temp 98.4 F 01/02/20 04:00 Pulse 47 L 01/02/20 06:00 Resp 26 H 01/02/20 06:00 BP 96/43 01/01/20 19:00 Pulse Ox 95 01/02/20 06:00 Intake & Output 01/01/20 01/01/20 01/02/20 06:59 18:59 06:59 Intake Total 5399.300 4858.612 1505.055 Output Total 3275 589 9992 Balance 39.885 521.612 445.055 Weight 123.4 kg 124.1 kg Intake: IV 936 936 936 Lactated Ringers 1,000 ml 900 900 900 @ 75 mls/hr IV .[id number] JORGE Rx#:[id number] Pressure bag 36 36 36 Intake, IV Titration 439.885 143.612 215.055 Amount Propofol 1,000 mg In 439.885 143.612 215.055 Empty Bag 1 bag @ Titrate IV .Q0M JORGE Rx#: [id number] Tube Feeding 264 242 264 Other 90 130 90 Output: Urine 8084 880 7609 Other: Voiding Method Indwelling Catheter Indwelling Catheter Indwelling Catheter ABP, PAP, CO, CI - Last Documented Arterial Blood Pressure 110/47 - Exam GENERAL EXAM: A 64-year-old obese female patient, intubated, sedated, on mechanical ventilator, comfortable in no apparent distress.patient has a subclavian left sided triple lumen catheter. Orogastric and orotracheal tube are both in place. HEAD: Normocephalic/atraumatic. EYES: Sluggish reaction of pupils, equal size. Conjunctiva pink, sclera white. NOSE: Clear with pink turbinates. THROAT: Oral endotracheal and gastric tube secured in place No erythema or e xudates. NECK: No masses, no JVD, no thyroid enlargement, no adenopathy. CHEST: No chest wall deformity. Symmetrical expansion. LUNGS: Equal air entry with crackles in the posterior bases right greater than left. CVS: Regular rate and rhythm, normal S1 and S2, no gallops, no murmurs, no rubs ABDOMEN: Soft, nontender. No hepatosplenomegaly, normal bowel sounds, no guarding or rigidity. EXTREMITIES: No clubbing, no edema, no cyanosis, 2+ pulses and upper and lower extremities. The patient has extensive edema in all 4 extremities MUSCULOSKELETAL: Muscle strength and tone normal. SPINE: No scoliosis or deformity SKIN: No rashes CENTRAL NERVOUS SYSTEM: Sedated, intubated, No focal deficits, tone is normal in all 4 extremities. - Labs CBC & Chem 7: 01/02/20 03:45 01/02/20 03:45 Labs: Abnormal Lab Results - Last 24 Hours (Table) 01/01/20 01/01/20 01/01/20 Range/Units 11:20 14:40 17:51 WBC (3.8-10.6) k/uL RBC (3.80-5.40) m/uL Hgb (11.4-16.0) gm/dL Hct (34.0-46.0) % Neutrophils # (1.3-7.7) k/uL ABG pO2 (83-108) mmHg ABG HCO3 (21-25) mmol/L ABG Total CO2 (19-24) mmol/L Potassium (3.5-5.1) mmol/L BUN (7-17) mg/dL Glucose (74-99) mg/dL POC Glucose (mg/dL) 175 H 180 H 178 H (75-99) mg/dL Lactate Dehydrogenase (313-618) U/L C-Reactive Protein (<10.0) mg/L Total Protein (6.3-8.2) g/dL Albumin (3.5-5.0) g/dL 01/01/20 01/01/20 01/02/20 Range/Units 20:16 23:45 03:45 WBC 16.2 H (3.8-10.6) k/uL RBC 3.69 L (3.80-5.40) m/uL Hgb 9.9 L (11.4-16.0) gm/dL Hct 31.0 L (34.0-46.0) % Neutrophils # 14.5 H (1.3-7.7) k/uL ABG pO2 (83-108) mmHg ABG HCO3 (21-25) mmol/L ABG Total CO2 (19-24) mmol/L Potassium (3.5-5.1) mmol/L BUN (7-17) mg/dL Glucose (74-99) mg/dL POC Glucose (mg/dL) 153 H 118 H (75-99) mg/dL Lactate Dehydrogenase (313-618) U/L C-Reactive Protein (<10.0) mg/L Total Protein (6.3-8.2) g/dL Albumin (3.5-5.0) g/dL 01/02/20 01/02/20 01/02/20 Range/Units 03:45 03:47 03:48 WBC (3.8-10.6) k/uL RBC (3.80-5.40) m/uL Hgb (11.4-16.0) gm/dL Hct (34.0-46.0) % Neutrophils # (1.3-7.7) k/uL ABG pO2 (83-108) mmHg ABG HCO3 (21-25) mmol/L ABG Total CO2 (19-24) mmol/L Potassium 5.2 H (3.5-5.1) mmol/L BUN 42 H (7-17) mg/dL Glucose 180 H (74-99) mg/dL POC Glucose (mg/dL) 186 H 197 H (75-99) mg/dL Lactate Dehydrogenase 643 H (313-618) U/L C-Reactive Protein 43.0 H (<10.0) mg/L Total Protein 5.4 L (6.3-8.2) g/dL Albumin 2.6 L (3.5-5.0) g/dL 01/02/20 01/02/20 Range/Units 05:54 06:29 WBC (3.8-10.6) k/uL RBC (3.80-5.40) m/uL Hgb (11.4-16.0) gm/dL Hct (34.0-46.0) % Neutrophils # (1.3-7.7) k/uL ABG pO2 78 L (83-108) mmHg ABG HCO3 29 H (21-25) mmol/L ABG Total CO2 31 H (19-24) mmol/L Potassium (3.5-5.1) mmol/L BUN (7-17) mg/dL Glucose (74-99) mg/dL POC Glucose (mg/dL) 148 H (75-99) mg/dL Lactate Dehydrogenase (313-618) U/L C-Reactive Protein (<10.0) mg/L Total Protein (6.3-8.2) g/dL Albumin (3.5-5.0) g/dL Microbiology - Last 24 Hours (Table) 12/28/19 00:21 Blood Culture - Preliminary Blood No Growth after 120 hours Assessment and Plan Plan: 1. Acute hypoxemic respiratory failure related to COVID 19 related pneumonia, requiring intubation and placement on mechanical ventilation on 12/28/2019, treated with Plaquenil and then sulfate and the patient is also on IV Solu Medrol 40 mg every 12 hours. Remains intubated on mechanical ventilator. Chest x-ray was noted. Blood gases was noted. Remains sedated for now. The patient's chest x-ray stable for now. Oxidation is also stable. Chest x-ray was noted. Blood gases was noted. There are signs of fluid overload. 2. diffuse bilateral pneumonia secondary to COVID19 infection 3. Elevated ferritin, LDH, CRP and d-dimer related to acute COVID19 related pneumonia, and inflammatory markers are improving, and the d-dimer was elevated and the patient was placed on therapeutic dose of Lovenox in the most recent d- dimer from 12/31/2019 has improved and is down to 0.28 4. obesity with a BMI of 48.2 5. Hypertension, taken RAVEN inhibitor in the RAVEN inhibitor was kept on board 6. Hyperlipidemia 7. GERD/reflux 8. Diabetes mellitus type 2currently on Levemir insulin 60 units twice a day in addition to NovoLog 20 units every 6 hours and a scale 9. History of chronic bronchial asthma, unspecified 10. acute on chronic kidney injury, renal function is normalized and the creatinine is down to 0.8 11. History of diverticular disease 12. History of coronary artery disease with PCI and stent placement Plan Continue ventilator support Drop the PEEP down to 5 and work on the FiO2 to maintain a saturation above 90% Start the patient on Lasix 40 mg every 12 hours and IV Fluids to KVO Continued IV Solu Medrol 40 mg every 12 hours. Continue rest of the supportive care including enteral feeding for nutritional support Blood sugar monitoring and treatment We'll continue to follow make further recommendations based on her progress. Condition is critical. This evaluation was done more than 30 minutes. Time with Patient: Greater than 30
[2020-01-02] MEDS: ZINC SULFATE 220 MG CAP PO SCH (10:27)
[2020-01-02 11:25] LABS: Ferritin 376.4 ng/mL (10.0-291.0)
[2020-01-02 11:27] LABS: Ferritin 326.2 ng/mL (10.0-291.0)
[2020-01-02] MEDS ORDERED: INSULIN ASPART (NovoLOG) 100 UNIT/ML VIAL SQ SCH (12:00)
[2020-01-02 12:19] LABS: Glucose,Whole Blood 102 mg/dL (75-99)
[2020-01-02] MEDS: PROMETHAZINE HCL 6.25 MG/5 ML CUP PO PRN ×2 (14:04→21:11)
[2020-01-02] MEDS: ENOXAPARIN 150 MG/ML SYRINGE SQ SCH (14:20)
--- NOTE | 2020-01-02 17:28 | PN ---
PROGRESS NOTE DATE OF SERVICE: 01/02/2020 REASON FOR FOLLOWUP: Acute COVID-19 pneumonia. INTERVAL HISTORY: The patient is currently afebrile. She was extubated this morning, currently on 100% non-rebreather. Slightly lethargic, though no hemodynamic instability. No vomiting or any diarrhea reported. PHYSICAL EXAMINATION: Blood pressure 132/59 with pulse 84, temperature 98. She is 98% on 100% FiO2. General description is a middle-aged female lying in bed in no distress. RESPIRATORY SYSTEM: Unlabored breathing. Coarse breath sounds bilaterally at the bases. No wheeze. HEART: S1, S2. Regular rate and rhythm. ABDOMEN: Soft. No tenderness. LABS: Hemoglobin is 9.9, white count 16.2, BUN of 42, creatinine 0.89. DIAGNOSTIC IMPRESSION AND PLAN: Patient with acute COVID-19 pneumonia. Patient has been successfully extubated. She has completed her Plaquenil therapy, currently on Zithromax, Solu-Medrol and zinc; to continue along with respiratory support and monitor her clinical course closely. MMCHON / SUYAPAN: [id number] /
[2020-01-02 18:04] LABS: Glucose,Whole Blood 113 mg/dL (75-99)
[2020-01-02] MEDS: LISINOPRIL 20 MG TAB PO SCH ×2 (21:16→21:46)
[2020-01-02] MEDS: AZITHROMYCIN 500 MG TAB PO SCH ×2 (21:16→21:46)
[2020-01-02] MEDS: ATORVASTATIN 40 MG TAB PO SCH ×2 (21:17→21:46)
[2020-01-02 21:23] LABS: Glucose,Whole Blood 95 mg/dL (75-99)
[2020-01-03] MEDS: LACTATED RINGERS 1,000 ML IV SCH ×3 (00:01→13:28)
[2020-01-03 00:08] LABS: Glucose,Whole Blood 90 mg/dL (75-99)
[2020-01-03] MEDS: INSULIN ASPART (NovoLOG) 100 UNIT/ML VIAL SQ SCH ×5 (00:45→23:46)
[2020-01-03 05:12] LABS: Glucose,Whole Blood 132 mg/dL (75-99)
[2020-01-03 05:20] LABS: Basophils % (A) 0 %; Eosinophils % (A) 0 %; HCT 32.5 % (34.0-46.0); HGB 10.3 gm/dL (11.4-16.0); Lymphocytes % (A) 8 %; MCH 26.9 pg (25.0-35.0); MCHC 31.8 g/dL (31.0-37.0); MCV 84.6 fL (80.0-100.0); Mean Platelet Volume 8.4; Monocytes # (A) 0.5 k/uL (0-1.0); Monocytes % (A) 4 %; Neutrophils # (A) 11.4 k/uL (1.3-7.7); Neutrophils % (A) 87 %; Platelet Count 308 k/uL (150-450); RBC 3.84 m/uL (3.80-5.40); RDW 13.9 % (11.5-15.5); WBC 13.1 k/uL (3.8-10.6)
[2020-01-03 05:40] LABS: Albumin 2.9 g/dL (3.5-5.0); Potassium 4.7 mmol/L (3.5-5.1); Total Bilirubin 0.3 mg/dL (0.2-1.3); Total Protein 5.9 g/dL (6.3-8.2)
[2020-01-03] MEDS: INSULIN DETEMIR (LEVEMIR) 100 UNIT/ML SYR SQ SCH (05:58)
--- NOTE | 2020-01-03 07:48 | XR ---
EXAMINATION TYPE: XR chest 1V portable DATE OF EXAM: 01/03/2020 COMPARISON: 01/02/2020 INDICATION: Tube placement TECHNIQUE: Single frontal view of the chest is obtained. FINDINGS: The heart size is borderline in size. The pulmonary vasculature is prominent. There is patchy infiltrates diffusely throughout the bilateral lungs lung peripheries. Central venous catheter is present the tip in the superior vena cava right atrial junction unchanged in position. Prior endotracheal tube and nasogastric tube have been removed. IMPRESSION: 1. Patchy diffuse infiltrates less stable from comparison. 2. Central venous catheter stable in position.
[2020-01-03] MEDS: ALBUTEROL HFA INHALER INHALATION PRN ×2 (08:13→15:58)
[2020-01-03] MEDS: SYMBICORT 160-4.5 MCG INHALER INHALATION SCH ×2 (08:14→19:56)
[2020-01-03] MEDS: ENOXAPARIN 40 MG/0.4 ML SYRINGE SQ SCH (09:00)
[2020-01-03] MEDS: FUROSEMIDE 10 MG/ML 4 ML VIAL IV SCH ×2 (09:01→20:04)
[2020-01-03] MEDS: methylPREDNISolone SOD SUCCI 40 MG/ML 1 ML VIAL IV SCH (09:01)
[2020-01-03] MEDS: PANTOPRAZOLE 40 MG/10 ML VIAL IVP SCH (09:01)
[2020-01-03] MEDS: ASPIRIN 325 MG TAB PO SCH (09:27)
[2020-01-03] MEDS: ASCORBIC ACID 500 MG TAB PO SCH ×2 (09:27→20:04)
[2020-01-03] MEDS: ZINC SULFATE 220 MG CAP PO SCH (09:27)
[2020-01-03 11:26] LABS: Ferritin 527.6 ng/mL (10.0-291.0)
--- NOTE | 2020-01-03 11:43 | P.PN ---
Subjective Progress Note Date: 01/03/20 Is a 64-year-old female patient who was originally hospitalized on 12/27/2019 because of an acute cold and 19 related infection/pneumonia. 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 Her symptoms progressively got worse and she became progressively more short of breath and she also developed nausea and diarrhea. She came into the hospital and she was quite hypoxic and she checked positive for coag with 19 infection. Her chest x-ray showed some mild cardiomegaly and diffuse interstitial infiltrates secondary to an underlying covert 19 related pneumonia. The patient also has other comorbidities including asthma, hypertension, hyperlipidemia and acid reflux in addition to diabetes mellitus type 2. She has coronary artery disease with previous coronary stenting. She has chronic stage III kidney disease. She is obese with a body mass index of 48.2. This patient has been intubated since 12/28/2019. Since then the patient has remained on a mechanical ventilator. She is currently on an assist-control mode rate of 26 with a tidal volume of 350 and FiO2 of 40% with a PEEP of 10. Her chest x-ray is consistent with lateral pneumonia worse on the left. She is on propofol for sedation. She is on vital 1.2 for enteral feeding and nutritional support. She has completed her course of Plaquenil and she was also treated with Zithromax vitamin C and zinc sulfate. Her sputum Gram stain and culture has been negative. Blood cultures been negative. She is on IV Solu-Medrol 40 mg every 12 hours. On today's evaluation of 01/02/2020, the patient remains intubated on a mechanical ventilator. The patient today is on a assist-control mode at the rate of 26 with a tidal volume of 350 and FiO2 of 40% with a PEEP of 5. Peak airway pressures around 27 anesthetic pressures of 21. The chest x-ray from today shows stable bilateral pulmonary infiltrates which has remained unchanged and the patient is infiltration rate is in the left lower lobe. ET tube is in a good location. The blood gas showed a pH of 7.44 with a pCO2 of 44 and pO2 of any 8. The patient has a peak given a pressure of 27. This particular pressures at 21. White cell count is at 16.2. She was noted to be excessively fluid overloaded and the patient's net fluid balance and the positive with a weight gain and order of 7 kg. The patient will be started on IV Lasix. Otherwise, no other significant events overnight. The patient remains on Lovenox therapeutic dose. No signs of any bleeding. On 01/03/2020, I'm seeing this patient for a follow-up in the intensive care [facility]. The patient was extubated yesterday and currently she is on 10 L of oxygen by nasal cannula. She is awake and communicating and following commands pH is extremely weak. I'm not sure if he is able to swallow and his Urrutia evaluation to be done today. Chest x-ray still showing stable bilateral pulmonary infiltrates unchanged from yesterday's chest x-ray. The patient has been a positive fluid balance. The patient is currently on Lasix 40 mg every 12 hours. The patient is on IV Solu-Medrol. The net fluid balance of been -2 L over the past 24 hours he had a body weight is still at 124 kg. In terms of labs, the white cell count at 13.1. BUN is at 43 with a creatinine of 0.9. The LDH is slightly elevated at 914. CRP level is at 50. No fever. No chills. No other complaints otherwise for now. Objective - Vital Signs Vital signs: Vital Signs Temp 97.8 F 01/03/20 08:00 Pulse 69 01/03/20 11:00 Resp 22 01/03/20 11:00 BP 149/77 01/02/20 11:00 Pulse Ox 97 01/03/20 11:00 Intake & Output 01/02/20 01/03/20 01/03/20 18:59 06:59 18:59 Intake Total 1103.092 936 234 Output Total 2290 1835 250 Balance -1186.908 -899 -16 Weight 124.1 kg 124.1 kg Intake: IV 936 936 234 Lactated Ringers 1,000 ml 900 900 225 @ 75 mls/hr IV .[id number] JORGE Rx#:[id number] Pressure bag 36 36 9 Intake, IV Titration 82.092 Amount Propofol 1,000 mg In 82.092 Empty Bag 1 bag @ Titrate IV .Q0M JORGE Rx#: [id number] Tube Feeding 55 Other 30 Output: Urine 2290 1835 250 Other: Voiding Method Indwelling Catheter Indwelling Catheter ABP, PAP, CO, CI - Last Documented Arterial Blood Pressure 112/52 - Exam GENERAL EXAM: A 64-year-old obese female patient, The patient has been on 10 L of oxygen by nasal cannula. The patient's been extubated. HEAD: Normocephalic/atraumatic. EYES: Sluggish reaction of pupils, equal size. Conjunctiva pink, sclera white. NOSE: Clear with pink turbinates. THROAT: Oral endotracheal and gastric tube secured in place No erythema or exudates. NECK: No masses, no JVD, no thyroid enlargement, no adenopathy. CHEST: No chest wall deformity. Symmetrical expansion. LUNGS: Equal air entry with crackles in the posterior bases right greater than left. CVS: Regular rate and rhythm, normal S1 and S2, no gallops, no murmurs, no rubs ABDOMEN: Soft, nontender. No hepatosplenomegaly, normal bowel sounds, no guarding or rigidity. EXTREMITIES: No clubbing, no edema, no cyanosis, 2+ pulses and upper and lower extremities. The patient has extensive edema in all 4 extremities MUSCULOSKELETAL: Muscle strength and tone normal. SPINE: No scoliosis or deformity SKIN: No rashes CENTRAL NERVOUS SYSTEM: Significant motor weakness in all 4 extremities. The patient is barely able to raise her arms against gravity. No focal deficits, tone is normal in all 4 extremities. - Labs CBC & Chem 7: 01/03/20 05:15 01/03/20 05:15 Labs: Abnormal Lab Results - Last 24 Hours (Table) 01/02/20 01/02/20 01/03/20 Range/Units 12:17 18:03 05:10 WBC (3.8-10.6) k/uL Hgb (11.4-16.0) gm/dL Hct (34.0-46.0) % Neutrophils # (1.3-7.7) k/uL Carbon Dioxide (22-30) mmol/L BUN (7-17) mg/dL Glucose (74-99) mg/dL POC Glucose (mg/dL) 102 H 113 H 132 H (75-99) mg/dL Ferritin (10.0-291.0) ng/mL Lactate Dehydrogenase (313-618) U/L C-Reactive Protein (<10.0) mg/L Total Protein (6.3-8.2) g/dL Albumin (3.5-5.0) g/dL 01/03/20 01/03/20 Range/Units 05:15 05:15 WBC 13.1 H (3.8-10.6) k/uL Hgb 10.3 L (11.4-16.0) gm/dL Hct 32.5 L (34.0-46.0) % Neutrophils # 11.4 H (1.3-7.7) k/uL Carbon Dioxide 36 H (22-30) mmol/L BUN 43 H (7-17) mg/dL Glucose 127 H (74-99) mg/dL POC Glucose (mg/dL) (75-99) mg/dL Ferritin 527.6 H (10.0-291.0) ng/mL Lactate Dehydrogenase 914 H (313-618) U/L C-Reactive Protein 50.0 H (<10.0) mg/L Total Protein 5.9 L (6.3-8.2) g/dL Albumin 2.9 L (3.5-5.0) g/dL Microbiology - Last 24 Hours (Table) 12/28/19 00:21 Blood Culture - Final Blood No Growth after 144 hours Assessment and Plan Plan: 1. Acute hypoxemic respiratory failure related to COVID 19 related pneumonia, requiring intubation and placement on mechanical ventilation on 12/28/2019, treated with Plaquenil and then sulfate and the patient is also on IV Solu Medrol 40 mg every 12 hours. The patient was extubated on 01/02/2020 and curren tly she is on 10 L about 2 by nasal cannula. She is awake and alert. She is expressing significant amount of motor weakness. 2. diffuse bilateral pneumonia secondary to COVID19 infection 3. Elevated ferritin, LDH, CRP and d-dimer related to acute COVID19 related pneumonia, and inflammatory markers are improving, and the d-dimer was elevated and the patient was placed on therapeutic dose of Lovenox in the most recent d- dimer from 12/31/2019 has improved and is down to 0.28 4. obesity with a BMI of 48.2 5. Hypertension, taken RAVEN inhibitor in the RAVEN inhibitor was kept on board 6. Hyperlipidemia 7. GERD/reflux 8. Diabetes mellitus type 2currently on Levemir insulin 60 units twice a day in addition to NovoLog 20 units every 6 hours and a scale 9. History of chronic bronchial asthma, unspecified 10. acute on chronic kidney injury, renal function is normalized and the cre atinine is down to 0.8 11. History of diverticular disease 12. History of coronary artery disease with PCI and stent placement Plan keep the patient 10 L about 2 by nasal cannula and gradually wean it down to maintain a saturation above 90% IV Solu Medrol 40 mg every 12 hours IV Lasix 40 mg every 12 hours Speech clear with this patient's swallow physical therapy Lovenox and was switched to prophylactic doses 40 mg subcu every 24 hours Discontinue the IV Solu-Medrol and put the patient prednisone burst taper Repeat chest x-ray in the morning We'll continue to follow.
[2020-01-03 12:20] LABS: Glucose,Whole Blood 146 mg/dL (75-99)
--- NOTE | 2020-01-03 13:05 | P.PN ---
Subjective Progress Note Date: 01/03/20 This is a 64-year-old female patient of Dr. Mojica with past medical history of asthma, hypertension, hyperlipidemia, gastroesophageal reflux disease, diabetes mellitus type 2 insulin requiring, coronary artery disease status post stent, remote history of tobacco use and dependence, chronic kidney disease stage III. 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 They were exposed to a COVID-19 positive patient on December 11 and/or December 12. She had symptoms develop approximate 7 days ago with fever, cough, shortness of breath, nausea, diarrhea. She tried to manage at home but symptoms became significantly severe in the past 3 days and she lives alone she was so sick she could not get to the She to the bathroom. Patient came into [facility] emergency center for evaluation and found to be afebrile, blood pressure 141/68, heart rate 85, pulse ox 87%. EKG was a sinus rhythm with no acute ST changes. W BC 12.1, hemoglobin 12.7, platelet count 303, sodium 136, potassium 5.3, chloride 100, CO2 23, BUN 41, creatinine 1.43, blood sugar 230. Total bilirubin 0.6, AST 49, ALT 22, alkaline phosphatase 255, LDH 1600, ferritin 609.6 C-reactive protein 262, pro calcitonin 0.2 to. Chronic virus PCR detected, influenza testing negative, lactic acid 2.1. Repeat lactic acid 1.2 chest x-ray revealed mild cardiomegaly with moderately severe diffuse interstitial edema that is changed from old exam compared to November 2018. This could represent acute interstitial pneumonia or acute heart failure. Patient was started on Tylenol, azithromycin, Plaquenil admitted to the MedSur floor and consult was requested with infectious disease and pulmonary medicine. 12/27: Patient had a drop in her oxygen saturation and became tachypneic. She was initially placed on high flow nasal cannula at 10 L, transferred into the intensive care unit and was intubated this morning. Temperature max 101.4. Heart rate in the 60s and 70s. Repeat blood work reveals CBC unremarkable except for low lymphocytes. D-dimer 1.05, potassium 5.2, BUN 62 and creatinine 1.91. Blood sugars in the 200s. Alkaline phosphatase 198 LDH 1439. She has been continued on azithromycin, Plaquenil, zinc and vitamin C. Solu-Medrol is currently at 40 mg IV every 12 hours. 12/28: Patient remains in the intensive care unit, intubated and on mechanical ventilation with tidal volume 350, FiO2 of 50 and PEEP 13. Patient has been afebrile, heart rate 50, blood pressure 120/56. Repeat blood work reveals WBC 16, hemoglobin 10.7, platelet count 273. Repeat d-dimer is decreased at 0.72. Sodium 135, potassium 4.6, chloride 103, CO2 24, BUN 63 and creatinine 1.43. Ferritin decreased to 556.8, alkaline phosphatase decreased 167, LDH decreased to 1050, C-reactive protein 181.7. Case has been discussed outside patient's room with the patient's nurse. Blood sugars have been elevated running 189 to 231. We will increase Levemir to 42 units twice daily, added and NovoLog scheduled 5 units every 6 hours along with NovoLog scale. Patient is currently & Medrol 40 mg IV every 12 hours. 12/29: Patient remains intubated in critical ventilation with tidal volume 350, FiO2 of 40 and PEEP of 13. Patient has been afebrile, heart rate in the 50s, blood pressure 101/55. Repeat laboratory studies revealed a CBC 17.5, hemoglobin 10, platelet count 276. Sodium 135, potassium 5.4, chloride 105, CO2 26, BUN 61, creatinine 1.07 area blood sugars are running in the 200s up to 300, alkaline phosphatase 143, LDH 875, C-reactive protein 67.9, albumin 2.7. We will again today increase her insulins with long acting up to 50 units twice daily and NovoLog 10 units every 6 hours along with NovoLog scale. Patient has had good urine output, tube feedings are at goal. Patient appears to be stable at this time. 12/30: Patient still having significantly elevated CRP with abnormal liver function test, lactic acid that subtle down significantly. Blood sugar still mildly elevated when titrating insulin is making sugar slightly but better at this point. Patient is still sedated on mechanical ventilation currently no weaning his plan in the next 24 hours. 12/31: Back in off on sedation patient has done slightly well still not ready to be extubated this point she had her weaning parameter and was sedated and continue mechanical ventilation. Blood sugar still high her steroid was decreased today to Solu-Medrol 40 mg twice a day with higher Levemir to 60 units twice a day and up on NovoLog to 20 units every 6 hours plus a sliding scale we have to watch for any decrease blood sugar specially with a new change on insulin and medication. 01/01: Patient remains intubated and on mechanical ventilation. Patient is on a sedation holiday. Tidal volume 350, FiO2 40, PEEP 5. Patient has been afebrile, heart rate in the 40s, blood pressure 101/49. Repeat lab work reveals W BC 16.2, hemoglobin 9.9, platelet count 291. D-dimer 0.28. Sodium 138, potassium 5.2, chloride 104, CO2 29, BUN 42 and creatinine 0.89. Blood sugars have been running 148 197. At bedtime glucose 118. Scheduled NovoLog will be decreased to 15 units and continue Levemir at 60 units twice daily. Solu-Medrol at 40 mg IV every 12 hours and Lasix 40 mg every 12 hours. Patient has completed course of Plaquenil. She remains in isolation. 01/02: Patient was successfully extubated yesterday afternoon. She is pulse ox 97% on 10 L high flow nasal cannula. She has been afebrile, heart rate 69, blood pressure 112/52. WBC 13.1, hemoglobin 10.3, platelet count 308. Sodium 141, potassium 4.7, chloride 103, CO2 36, BUN 43 and creatinine 0.96. Blood sugars are improved and stable and have been running between 90 and 146 with holding of Levemir. Levemir will be discontinued and patient on scale insulin only for now. Repeat ferritin level 527.6, LDH 914, C-reactive protein 50. Sputum culture finalized with normal ct. Blood culture no growth at 144 hours. Repeat chest x-ray reveals patchy diffuse infiltrates less stable from comparison. Central venous catheter stable. Patient is having difficulties with swallowing and speech therapy will be evaluating. For now, oral medic ations on hold. corporate manager will discuss with the patient option of rehab when she is stable. Anticipate patient will be in the hospital until early next week. Objective - Vital Signs Vital signs: Vital Signs Temp 98.8 F 01/03/20 04:00 Pulse 66 01/03/20 07:00 Resp 22 01/03/20 07:00 BP 149/77 01/02/20 11:00 Pulse Ox 92 L 01/03/20 07:00 Intake & Output 01/02/20 01/03/20 01/03/20 18:59 06:59 18:59 Intake Total 1103.092 936 78 Output Total 2290 1835 75 Balance -1186.908 -765 3 Weight 124.1 kg Intake: IV 936 936 78 Lactated Ringers 1,000 ml 900 900 75 @ 75 mls/hr IV .[id number] JORGE Rx#:[id number] Pressure bag 36 36 3 Intake, IV Titration 82.092 Amount Propofol 1,000 mg In 82.092 Empty Bag 1 bag @ Titrate IV .Q0M JORGE Rx#: [id number] Tube Feeding 55 Other 30 Output: Urine 2290 1835 75 Other: Voiding Method Indwelling Catheter Indwelling Catheter ABP, PAP, CO, CI - Last Documented Arterial Blood Pressure 114/53 - Exam Review of Systems Unable to obtain due to intubation Physical Examination Gen: This is a morbidly obese 64-year-old female. Patient is resting in bed. No acute respiratory distress is noted. HEENT: Head is atraumatic, normocephalic. Physical examination deferred to associate project manager. - Labs CBC & Chem 7: 01/03/20 05:15 01/03/20 05:15 Labs: Abnormal Lab Results - Last 24 Hours (Table) 01/01/20 01/02/20 01/02/20 Range/Units 05:00 03:45 12:17 WBC (3.8-10.6) k/uL Hgb (11.4-16.0) gm/dL Hct (34.0-46.0) % Neutrophils # (1.3-7.7) k/uL Carbon Dioxide (22-30) mmol/L BUN (7-17) mg/dL Glucose (74-99) mg/dL POC Glucose (mg/dL) 102 H (75-99) mg/dL Ferritin 376.4 H 326.2 H (10.0-291.0) ng/mL Lactate Dehydrogenase (313-618) U/L C-Reactive Protein (<10.0) mg/L Total Protein (6.3-8.2) g/dL Albumin (3.5-5.0) g/dL 01/02/20 01/03/20 01/03/20 Range/Units 18:03 05:10 05:15 WBC 13.1 H (3.8-10.6) k/uL Hgb 10.3 L (11.4-16.0) gm/dL Hct 32.5 L (34.0-46.0) % Neutrophils # 11.4 H (1.3-7.7) k/uL Carbon Dioxide (22-30) mmol/L BUN (7-17) mg/dL Glucose (74-99) mg/dL POC Glucose (mg/dL) 113 H 132 H (75-99) mg/dL Ferritin (10.0-291.0) ng/mL Lactate Dehydrogenase (313-618) U/L C-Reactive Protein (<10.0) mg/L Total Protein (6.3-8.2) g/dL Albumin (3.5-5.0) g/dL 01/03/20 Range/Units 05:15 WBC (3.8-10.6) k/uL Hgb (11.4-16.0) gm/dL Hct (34.0-46.0) % Neutrophils # (1.3-7.7) k/uL Carbon Dioxide 36 H (22-30) mmol/L BUN 43 H (7-17) mg/dL Glucose 127 H (74-99) mg/dL POC Glucose (mg/dL) (75-99) mg/dL Ferritin (10.0-291.0) ng/mL Lactate Dehydrogenase 914 H (313-618) U/L C-Reactive Protein 50.0 H (<10.0) mg/L Total Protein 5.9 L (6.3-8.2) g/dL Albumin 2.9 L (3.5-5.0) g/dL Microbiology - Last 24 Hours (Table) 12/28/19 00:21 Blood Culture - Final Blood No Growth after 144 hours Assessment and Plan Plan: 1. Acute hypoxic respiratory failure secondary to COPD exacerbation and COVID- 19 pneumonitis. Patient has been successfully extubated.. Completed Plaquenil. Consults with pulmonary medicine and infectious disease. Continue albuterol inhaler as needed, Symbicort twice daily, IV Solu-Medrol transitioned to oral prednisone. 2. Acute kidney injury with chronic kidney disease stage III. Avoid nephrotoxic agents, hypotension. Hold Aleve. 3. Mild hyperkalemia secondary to acute kidney injury. 4. Mild lactic acidosis secondary to COVID-19 infection. Resolved. 5. Sepsis secondary to Covid 19 infection, POA. 6. Hyperlipidemia. Continue atorvastatin 40 g at bedtime 7. Diabetes mellitus type 2, insulin requiring, uncontrolled with hyperglycemia secondary to steroids. Discontinue Levemir and scheduled NovoLog. Continue NovoLog scale every 6 hours. Hold Actos and Trulicity for now. 7. History of coronary artery disease status post stenting. Continue aspirin 325 mg daily, Lipitor. 8. Hypertension. Continue lisinopril 20 mg at bedtime with parameters. Avoid hypotension. 9. Gastroesophageal reflux disease disease and GI prophylaxis. Continue Protonix. 10. DVT prophylaxis. Lovenox. 11. Dysphagia. Speech therapy consult. Discharge plan: Subacute rehab Impression and plan of care have been directed as dictated by the signing physician. Deborah Crow nurse practitioner acting as scribe for signing physician.
--- NOTE | 2020-01-03 15:35 | PN ---
PROGRESS NOTE DATE OF SERVICE: 01/03/2020 REASON FOR FOLLOWUP: Pneumonia. INTERVAL HISTORY: The patient is currently afebrile. The patient has been breathing comfortably, requiring nasal cannula oxygen. Did have a low-grade fever of 100 around midnight. Hemodynamically stable. Not on pressor support. The patient denies any chest pain, no abdominal pain, no diarrhea. PHYSICAL EXAMINATION: Blood pressure 106/54 with a pulse of 71, temperature 98.7, she is 94% on 8 L nasal cannula. General description is a middle-aged female, lying in bed in no distress. RESPIRATORY SYSTEM: Unlabored breathing, decreased breath sounds at the base, no wheeze. HEART: S1, S2. Regular rate and rhythm. ABDOMEN: Soft, no tenderness. LABS: Hemoglobin 10.8, white count of 13.1. BUN of 43, creatinine 0.96. DIAGNOSTIC IMPRESSION AND PLAN: Patient with acute respiratory failure which is multifactorial did have COVID-19 pneumonia. The patient has been successfully extubated, is currently hemodynamically stable and respiratory status slowly improving. White count showing downward trend, currently on vancomycin and prednisone to continue and will monitor clinical course closely. MMODL / IJN: [id number] /
[2020-01-03 16:41] LABS: Glucose,Whole Blood 269 mg/dL (75-99)
[2020-01-03 18:09] LABS: Glucose,Whole Blood 242 mg/dL (75-99)
[2020-01-03] MEDS: LISINOPRIL 20 MG TAB PO SCH (20:04)
[2020-01-03] MEDS: ATORVASTATIN 40 MG TAB PO SCH (20:04)
[2020-01-03] MEDS: AZITHROMYCIN 500 MG TAB PO SCH (20:04)
[2020-01-03 23:36] LABS: Glucose,Whole Blood 188 mg/dL (75-99)
[2020-01-04 04:47] LABS: Basophils % (A) 0 %; Eosinophils # (A) 0.2 k/uL (0-0.7); Eosinophils % (A) 2 %; HCT 32.7 % (34.0-46.0); HGB 10.4 gm/dL (11.4-16.0); Lymphocytes # (A) 1.2 k/uL (1.0-4.8); Lymphocytes % (A) 9 %; MCH 26.7 pg (25.0-35.0); MCHC 31.6 g/dL (31.0-37.0); MCV 84.3 fL (80.0-100.0); Mean Platelet Volume 8.1; Monocytes # (A) 0.8 k/uL (0-1.0); Monocytes % (A) 6 %; Neutrophils # (A) 10.6 k/uL (1.3-7.7); Neutrophils % (A) 82 %; Platelet Count 387 k/uL (150-450); RBC 3.89 m/uL (3.80-5.40); RDW 13.4 % (11.5-15.5); WBC 12.9 k/uL (3.8-10.6)
[2020-01-04 05:05] LABS: Albumin 2.9 g/dL (3.5-5.0); C Reactive Protein 43.6 mg/L (<10.0); Calcium 9.1 mg/dL (8.4-10.2); Potassium 4.5 mmol/L (3.5-5.1); Total Bilirubin 0.5 mg/dL (0.2-1.3); Total Protein 5.9 g/dL (6.3-8.2)
[2020-01-04 05:19] LABS: Glucose,Whole Blood 198 mg/dL (75-99)
[2020-01-04] MEDS: INSULIN ASPART (NovoLOG) 100 UNIT/ML VIAL SQ SCH ×3 (05:57→18:06)
--- NOTE | 2020-01-04 07:56 | XR ---
EXAMINATION TYPE: XR chest 1V portable DATE OF EXAM: 01/04/2020 COMPARISON: 01/03/2020 HISTORY: Recent extubation. Line placement. Follow-up for bilateral opacities. TECHNIQUE: Single frontal view of the chest is obtained. FINDINGS: Stable peripheral confluent bilateral opacities, left greater than right and retrocardiac opacity. Left-sided subclavian approach central venous catheter is similar in position. Mediastinal s ilhouette is enlarged likely from rotation and patient positioning. Overall low lung volumes. No acut e osseous process. No pneumothorax. IMPRESSION: Stable peripherally oriented bilateral consolidations and retrocardiac airspace disease.
[2020-01-04] MEDS: ALBUTEROL HFA INHALER INHALATION PRN ×3 (08:28→20:31)
[2020-01-04] MEDS: SYMBICORT 160-4.5 MCG INHALER INHALATION SCH ×2 (08:28→20:31)
[2020-01-04] MEDS: ENOXAPARIN 40 MG/0.4 ML SYRINGE SQ SCH (09:06)
[2020-01-04] MEDS: ASCORBIC ACID 500 MG TAB PO SCH ×2 (09:06→20:45)
[2020-01-04] MEDS: FUROSEMIDE 10 MG/ML 4 ML VIAL IV SCH (09:06)
[2020-01-04] MEDS: ASPIRIN 325 MG TAB PO SCH (09:06)
[2020-01-04] MEDS: predniSONE 20 MG TAB PO SCH (09:07)
[2020-01-04] MEDS: PANTOPRAZOLE 40 MG/10 ML VIAL IVP SCH (09:07)
[2020-01-04] MEDS: ZINC SULFATE 220 MG CAP PO SCH (09:18)
[2020-01-04] MEDS: INSULIN DETEMIR (LEVEMIR) 100 UNIT/ML SYR SQ SCH ×2 (10:05→20:45)
[2020-01-04 11:33] LABS: Ferritin 462.8 ng/mL (10.0-291.0)
--- NOTE | 2020-01-04 11:42 | P.PN ---
Subjective Progress Note Date: 01/04/20 This is a 64-year-old female patient of Dr. Mojica with past medical history of asthma, hypertension, hyperlipidemia, gastroesophageal reflux disease, diabetes mellitus type 2 insulin requiring, coronary artery disease status post stent, remote history of tobacco use and dependence, chronic kidney disease stage III. 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 They were exposed to a COVID-19 positive patient on December 11 and/or December 12. She had symptoms develop approximate 7 days ago with fever, cough, shortness of breath, nausea, diarrhea. She tried to manage at home but symptoms became significantly severe in the past 3 days and she lives alone she was so sick she could not get to the She to the bathroom. Patient came into [facility] emergency center for evaluation and found to be afebrile, blood pressure 141/68, heart rate 85, pulse ox 87%. EKG was a sinus rhythm with no acute ST changes. W BC 12.1, hemoglobin 12.7, platelet count 303, sodium 136, potassium 5.3, chloride 100, CO2 23, BUN 41, creatinine 1.43, blood sugar 230. Total bilirubin 0.6, AST 49, ALT 22, alkaline phosphatase 255, LDH 1600, ferritin 609.6 C-reactive protein 262, pro calcitonin 0.2 to. Chronic virus PCR detected, influenza testing negative, lactic acid 2.1. Repeat lactic acid 1.2 chest x-ray revealed mild cardiomegaly with moderately severe diffuse interstitial edema that is changed from old exam compared to November 2018. This could represent acute interstitial pneumonia or acute heart failure. Patient was started on Tylenol, azithromycin, Plaquenil admitted to the MedSur floor and consult was requested with infectious disease and pulmonary medicine. 12/27: Patient had a drop in her oxygen saturation and became tachypneic. She was initially placed on high flow nasal cannula at 10 L, transferred into the intensive care unit and was intubated this morning. Temperature max 101.4. Heart rate in the 60s and 70s. Repeat blood work reveals CBC unremarkable except for low lymphocytes. D-dimer 1.05, potassium 5.2, BUN 62 and creatinine 1.91. Blood sugars in the 200s. Alkaline phosphatase 198 LDH 1439. She has been continued on azithromycin, Plaquenil, zinc and vitamin C. Solu-Medrol is currently at 40 mg IV every 12 hours. 12/28: Patient remains in the intensive care unit, intubated and on mechanical ventilation with tidal volume 350, FiO2 of 50 and PEEP 13. Patient has been afebrile, heart rate 50, blood pressure 120/56. Repeat blood work reveals WBC 16, hemoglobin 10.7, platelet count 273. Repeat d-dimer is decreased at 0.72. Sodium 135, potassium 4.6, chloride 103, CO2 24, BUN 63 and creatinine 1.43. Ferritin decreased to 556.8, alkaline phosphatase decreased 167, LDH decreased to 1050, C-reactive protein 181.7. Case has been discussed outside patient's room with the patient's nurse. Blood sugars have been elevated running 189 to 231. We will increase Levemir to 42 units twice daily, added and NovoLog scheduled 5 units every 6 hours along with NovoLog scale. Patient is currently & Medrol 40 mg IV every 12 hours. 12/29: Patient remains intubated in critical ventilation with tidal volume 350, FiO2 of 40 and PEEP of 13. Patient has been afebrile, heart rate in the 50s, blood pressure 101/55. Repeat laboratory studies revealed a CBC 17.5, hemoglobin 10, platelet count 276. Sodium 135, potassium 5.4, chloride 105, CO2 26, BUN 61, creatinine 1.07 area blood sugars are running in the 200s up to 300, alkaline phosphatase 143, LDH 875, C-reactive protein 67.9, albumin 2.7. We will again today increase her insulins with long acting up to 50 units twice daily and NovoLog 10 units every 6 hours along with NovoLog scale. Patient has had good urine output, tube feedings are at goal. Patient appears to be stable at this time. 12/30: Patient still having significantly elevated CRP with abnormal liver function test, lactic acid that subtle down significantly. Blood sugar still mildly elevated when titrating insulin is making sugar slightly but better at this point. Patient is still sedated on mechanical ventilation currently no weaning his plan in the next 24 hours. 12/31: Back in off on sedation patient has done slightly well still not ready to be extubated this point she had her weaning parameter and was sedated and continue mechanical ventilation. Blood sugar still high her steroid was decreased today to Solu-Medrol 40 mg twice a day with higher Levemir to 60 units twice a day and up on NovoLog to 20 units every 6 hours plus a sliding scale we have to watch for any decrease blood sugar specially with a new change on insulin and medication. 01/01: Patient remains intubated and on mechanical ventilation. Patient is on a sedation holiday. Tidal volume 350, FiO2 40, PEEP 5. Patient has been afebrile, heart rate in the 40s, blood pressure 101/49. Repeat lab work reveals W BC 16.2, hemoglobin 9.9, platelet count 291. D-dimer 0.28. Sodium 138, potassium 5.2, chloride 104, CO2 29, BUN 42 and creatinine 0.89. Blood sugars have been running 148 197. At bedtime glucose 118. Scheduled NovoLog will be decreased to 15 units and continue Levemir at 60 units twice daily. Solu-Medrol at 40 mg IV every 12 hours and Lasix 40 mg every 12 hours. Patient has completed course of Plaquenil. She remains in isolation. 01/02: Patient was successfully extubated yesterday afternoon. She is pulse ox 97% on 10 L high flow nasal cannula. She has been afebrile, heart rate 69, blood pressure 112/52. WBC 13.1, hemoglobin 10.3, platelet count 308. Sodium 141, potassium 4.7, chloride 103, CO2 36, BUN 43 and creatinine 0.96. Blood sugars are improved and stable and have been running between 90 and 146 with holding of Levemir. Levemir will be discontinued and patient on scale insulin only for now. Repeat ferritin level 527.6, LDH 914, C-reactive protein 50. Sputum culture finalized with normal ct. Blood culture no growth at 144 hours. Repeat chest x-ray reveals patchy diffuse infiltrates less stable from comparison. Central venous catheter stable. Patient is having difficulties with swallowing and speech therapy will be evaluating. For now, oral medic ations on hold. repair department manager will discuss with the patient option of rehab when she is stable. Anticipate patient will be in the hospital until early next week. 01/03: Patient remains in intensive care unit. She is on O2 partial nonrebreather and pulse ox seen 97% on 15 L. Blood pressure 122/70, heart rate 80, respiratory rate 24. Patient has been afebrile for 24 hours. You have to collect again over a year repeat blood work reveals hemoglobin of 10.4, white count 12.9, platelet count 387. Sodium 140, potassium 4.5, chloride 100, CO2 38, BUN 52 and creatinine 1. Blood sugars have been running between 188 and 198. Blood sugars were in the 200s yesterday afternoon. Patient is now able to eat and we will start Levemir back in at 10 units twice daily. Sputum culture is finalized with normal ct and blood culture no growth. A repeat chest x- ray is stable peripherally oriented bilateral consolidation and retrocardiac airspace disease. Dr. Moreira is continuing to follow patient and recommending vancomycin and prednisone. repair department manager and director of social work are attempting to reach the patient's son regarding subacute rehab. PT and OT have recommended subacute rehab. Objective - Vital Signs Vital signs: Vital Signs Temp 99.5 F 01/04/20 00:00 Pulse 72 01/04/20 07:00 Resp 25 H 01/04/20 07:00 BP 122/62 01/04/20 07:00 Pulse Ox 94 L 01/04/20 07:00 Intake & Output 01/03/20 01/04/20 01/04/20 18:59 06:59 18:59 Intake Total 936 1176 78 Output Total 1850 1705 60 Balance -914 -529 18 Weight 124.1 kg Intake: IV 936 936 78 Lactated Ringers 1,000 ml 900 900 75 @ 75 mls/hr IV .[id number] [facility] Rx#:[id number] Pressure bag 36 36 3 Oral 240 Output: Urine 1850 1705 60 Other: Voiding Method Indwelling Catheter Indwelling Catheter ABP, PAP, CO, CI - Last Documented Arterial Blood Pressure 98/49 - Exam Review of Systems Unable to obtain. Patient is and Covid 19 isolation. Physical Examination Gen: This is a morbidly obese 64-year-old female. Patient is resting in bed. No acute respiratory distress is noted. HEENT: Head is atraumatic, normocephalic. Physical examination deferred to washing machine repairer. - Labs CBC & Chem 7: 01/04/20 04:30 01/04/20 04:30 Labs: Abnormal Lab Results - Last 24 Hours (Table) 01/03/20 01/03/2020 Range/Units 05:15 12:17 16:40 WBC (3.8-10.6) k/uL Hgb (11.4-16.0) gm/dL Hct (34.0-46.0) % Neutrophils # (1.3-7.7) k/uL Carbon Dioxide (22-30) mmol/L BUN (7-17) mg/dL Glucose (74-99) mg/dL POC Glucose (mg/dL) 146 H 269 H (75-99) mg/dL Ferritin 527.6 H (10.0-291.0) ng/mL Lactate Dehydrogenase (313-618) U/L C-Reactive Protein (<10.0) mg/L Total Protein (6.3-8.2) g/dL Albumin (3.5-5.0) g/dL 01/03/20 01/03/20 01/04/20 Range/Units 18:06 23:35 04:30 WBC 12.9 H (3.8-10.6) k/uL Hgb 10.4 L (11.4-16.0) gm/dL Hct 32.7 L (34.0-46.0) % Neutrophils # 10.6 H (1.3-7.7) k/uL Carbon Dioxide (22-30) mmol/L BUN (7-17) mg/dL Glucose (74-99) mg/dL POC Glucose (mg/dL) 242 H 188 H (75-99) mg/dL Ferritin (10.0-291.0) ng/mL Lactate Dehydrogenase (313-618) U/L C-Reactive Protein (<10.0) mg/L Total Protein (6.3-8.2) g/dL Albumin (3.5-5.0) g/dL 01/04/20 01/04/20 Range/Units 04:30 05:16 WBC (3.8-10.6) k/uL Hgb (11.4-16.0) gm/dL Hct (34.0-46.0) % Neutrophils # (1.3-7.7) k/uL Carbon Dioxide 38 H (22-30) mmol/L BUN 52 H (7-17) mg/dL Glucose 188 H (74-99) mg/dL POC Glucose (mg/dL) 198 H (75-99) mg/dL Ferritin (10.0-291.0) ng/mL Lactate Dehydrogenase 739 H (313-618) U/L C-Reactive Protein 43.6 H (<10.0) mg/L Total Protein 5.9 L (6.3-8.2) g/dL Albumin 2.9 L (3.5-5.0) g/dL Assessment and Plan Plan: 1. Acute hypoxic respiratory failure secondary to COPD exacerbation and COVID- 19 pneumonitis. Patient has been successfully extubated. Completed Plaquenil. Consults with pulmonary medicine and infectious disease. Continue albuterol inhaler as needed, Symbicort twice daily, continue prednisone 40 mg daily 2. Acute kidney injury with chronic kidney disease stage III. Avoid nephrotoxic agents, hypotension. Hold Aleve. 3. Mild hyperkalemia secondary to acute kidney injury. 4. Mild lactic acidosis secondary to COVID-19 infection. Resolved. 5. Sepsis secondary to Covid 19 infection, POA. 6. Hyperlipidemia. Continue atorvastatin 40 g at bedtime 7. Diabetes mellitus type 2, insulin requiring, uncontrolled with hyperglycemia secondary to steroids. Resume Levemir at 10 units twice daily, continue NovoLog scale before meals and at bedtime. 7. History of coronary artery disease status post stenting. Continue aspirin 325 mg daily, Lipitor. 8. Hypertension. Continue lisinopril 20 mg at bedtime with parameters. Avoid hypotension. 9. Gastroesophageal reflux disease disease and GI prophylaxis. Continue Protonix. 10. DVT prophylaxis. Lovenox. 11. Dysphagia. Speech therapy has evaluated with recommendations for ground diet with nectar thick liquids, continue one-to-one supervision, upright position small bites liquids via cup. Discharge plan: Subacute rehab Impression and plan of care have been directed as dictated by the signing physician. Deborah Crow nurse practitioner acting as scribe for signing physician.
[2020-01-04 12:11] LABS: Glucose,Whole Blood 249 mg/dL (75-99)
[2020-01-04] MEDS: LACTATED RINGERS 1,000 ML IV SCH (12:12)
--- NOTE | 2020-01-04 13:21 | US ---
EXAMINATION TYPE: US kidneys/renal and bladder DATE OF EXAM: 01/04/2020 COMPARISON: CT abdomen and pelvis August 21, 2013 CLINICAL HISTORY: HUANG on [facility]. ICU patient. Positive Covid. Bladder heart. Limited visualization due to patient body habitus and position EXAM MEASUREMENTS: Right Kidney: 9.2 x 4.4 x 4.9 cm Left Kidney: 9.0 x 4.3 x 4.6 cm Right Kidney: No hydronephrosis or masses seen Left Kidney: No hydronephrosis or masses seen Bladder: Appears moderately distended. Patient has heart. Bilateral Jets not seen due to heart Suboptimal study due to patient's body habitus and current medical condition in ICU. No obvious hydro nephrosis or concerning solid or cystic renal masses on images saved. Heart catheter in bladder with some residual urine. IMPRESSION: Suboptimal study without obvious hydronephrosis noted bilaterally.
--- NOTE | 2020-01-04 13:27 | P.PN ---
Subjective Progress Note Date: 01/04/20 Is a 64-year-old female patient who was originally hospitalized on 12/27/2019 because of an acute cold and 19 related infection/pneumonia. 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 Her symptoms progressively got worse and she became progressively more short of breath and she also developed nausea and diarrhea. She came into the hospital and she was quite hypoxic and she checked positive for coag with 19 infection. Her chest x-ray showed some mild cardiomegaly and diffuse interstitial infiltrates secondary to an underlying covert 19 related pneumonia. The patient also has other comorbidities including asthma, hypertension, hyperlipidemia and acid reflux in addition to diabetes mellitus type 2. She has coronary artery disease with previous coronary stenting. She has chronic stage III kidney disease. She is obese with a body mass index of 48.2. This patient has been intubated since 12/28/2019. Since then the patient has remained on a mechanical ventilator. She is currently on an assist-control mode rate of 26 with a tidal volume of 350 and FiO2 of 40% with a PEEP of 10. Her chest x-ray is consistent with lateral pneumonia worse on the left. She is on propofol for sedation. She is on vital 1.2 for enteral feeding and nutritional support. She has completed her course of Plaquenil and she was also treated with Zithromax vitamin C and zinc sulfate. Her sputum Gram stain and culture has been negative. Blood cultures been negative. She is on IV Solu-Medrol 40 mg every 12 hours. On today's evaluation of 01/02/2020, the patient remains intubated on a mechanical ventilator. The patient today is on a assist-control mode at the rate of 26 with a tidal volume of 350 and FiO2 of 40% with a PEEP of 5. Peak airway pressures around 27 anesthetic pressures of 21. The chest x-ray from today shows stable bilateral pulmonary infiltrates which has remained unchanged and the patient is infiltration rate is in the left lower lobe. ET tube is in a good location. The blood gas showed a pH of 7.44 with a pCO2 of 44 and pO2 of any 8. The patient has a peak given a pressure of 27. This particular pressures at 21. White cell count is at 16.2. She was noted to be excessively fluid overloaded and the patient's net fluid balance and the positive with a weight gain and order of 7 kg. The patient will be started on IV Lasix. Otherwise, no other significant events overnight. The patient remains on Lovenox therapeutic dose. No signs of any bleeding. On 01/03/2020, I'm seeing this patient for a follow-up in the intensive care [facility]. The patient was extubated yesterday and currently she is on 10 L of oxygen by nasal cannula. She is awake and communicating and following commands pH is extremely weak. I'm not sure if he is able to swallow and his Urrutia evaluation to be done today. Chest x-ray still showing stable bilateral pulmonary infiltrates unchanged from yesterday's chest x-ray. The patient has been a positive fluid balance. The patient is currently on Lasix 40 mg every 12 hours. The patient is on IV Solu-Medrol. The net fluid balance of been -2 L over the past 24 hours he had a body weight is still at 124 kg. In terms of labs, the white cell count at 13.1. BUN is at 43 with a creatinine of 0.9. The LDH is slightly elevated at 914. CRP level is at 50. No fever. No chills. No other complaints otherwise for now. On 01/04/2020, the patient is still weak and somewhat lethargic. She is able to take some few bites and take some applesauce. Her oral intake is diminished. She remains quite weak and debilitated. She has been placed on on the percent nonrebreather facemask to maintain a saturation of above 90% and the patient has been mouth breathing. She is receiving IV fluids at the rate of 75 mL an hour of normal saline. Her chest x-ray still showing diffuse bilateral pulmonary infiltrates, interstitial, unchanged compared to yesterday. She was receiving diuretics and the Lasix dose will be tapered. The patient was also taken of the IV Solu Medrol and started on a prednisone burst taper. No altered mentation. No agitation. No chest pain. Continues to have some dry cough. No significant sputum production. She is afebrile. Based on her covert 19 inflammatory markers, the LDH is at 739 with a C-reactive protein of 43 and a ferritin level is down to 462. Renal function is stable for now. No other significant events otherwise for now. The patient will be kept in ICU for another 24 hours pending some further improvement. Objective - Vital Signs Vital signs: Vital Signs Temp 99.2 F 01/04/20 12:00 Pulse 80 01/04/20 12:00 Resp 33 H 01/04/20 12:00 BP 129/61 01/04/20 12:00 Pulse Ox 96 01/04/20 12:00 Intake & Output 01/03/20 01/04/20 01/04/20 18:59 06:59 18:59 Intake Total 936 1176 588 Output Total 1850 1705 1070 Balance -914 -529 -482 Weight 124.1 kg Intake: IV 936 936 468 Lactated Ringers 1,000 ml 900 900 450 @ 75 mls/hr IV .[id number] [facility] Rx#:[id number] Pressure bag 36 36 18 Oral 240 120 Output: Urine 1850 1705 1070 Other: Voiding Method Indwelling Catheter Indwelling Catheter Indwelling Catheter # Voids 3 ABP, PAP, CO, CI - Last Documented Arterial Blood Pressure 95/48 - Exam GENERAL EXAM: A 64-year-old obese female patient, The patient has been on 100 and percent nonrebreather facemask. The patient's been extubated. She is able to speak up. Sentences that are rather short. No use of accessory muscles of breathing.. HEAD: Normocephalic/atraumatic. EYES: Sluggish reaction of pupils, equal size. Conjunctiva pink, sclera white. NOSE: Clear with pink turbinates. THROAT: Oral endotracheal and gastric tube secured in place No erythema or exudates. NECK: No masses, no JVD, no thyroid enlargement, no adenopathy. CHEST: No chest wall deformity. Symmetrical expansion. LUNGS: Equal air entry with crackles in the posterior bases right greater than left. CVS: Regular rate and rhythm, normal S1 and S2, no gallops, no murmurs, no rubs ABDOMEN: Soft, nontender. No hepatosplenomegaly, normal bowel sounds, no guarding or rigidity. EXTREMITIES: No clubbing, no edema, no cyanosis, 2+ pulses and upper and lower extremities. The patient has extensive edema in all 4 extremities MUSCULOSKELETAL: Muscle strength and tone normal. SPINE: No scoliosis or deformity SKIN: No rashes CENTRAL NERVOUS SYSTEM: Significant motor weakness in all 4 extremities. The patient is barely able to raise her arms against gravity. No focal deficits, tone is normal in all 4 extremities. - Labs CBC & Chem 7: 01/04/20 04:30 01/04/20 04:30 Labs: Abnormal Lab Results - Last 24 Hours (Table) 01/03/20 01/03/20 01/03/20 Range/Units 16:40 18:06 23:35 WBC (3.8-10.6) k/uL Hgb (11.4-16.0) gm/dL Hct (34.0-46.0) % Neutrophils # (1.3-7.7) k/uL Carbon Dioxide (22-30) mmol/L BUN (7-17) mg/dL Glucose (74-99) mg/dL POC Glucose (mg/dL) 269 H 242 H 188 H (75-99) mg/dL Ferritin (10.0-291.0) ng/mL Lactate Dehydrogenase (313-618) U/L C-Reactive Protein (<10.0) mg/L Total Protein (6.3-8.2) g/dL Albumin (3.5-5.0) g/dL 01/04/20 01/04/20 01/04/20 Range/Units 04:30 04:30 05:16 WBC 12.9 H (3.8-10.6) k/uL Hgb 10.4 L (11.4-16.0) gm/dL Hct 32.7 L (34.0-46.0) % Neutrophils # 10.6 H (1.3-7.7) k/uL Carbon Dioxide 38 H (22-30) mmol/L BUN 52 H (7-17) mg/dL Glucose 188 H (74-99) mg/dL POC Glucose (mg/dL) 198 H (75-99) mg/dL Ferritin 462.8 H (10.0-291.0) ng/mL Lactate Dehydrogenase 739 H (313-618) U/L C-Reactive Protein 43.6 H (<10.0) mg/L Total Protein 5.9 L (6.3-8.2) g/dL Albumin 2.9 L (3.5-5.0) g/dL 01/04/20 Range/Units 12:09 WBC (3.8-10.6) k/uL Hgb (11.4-16.0) gm/dL Hct (34.0-46.0) % Neutrophils # (1.3-7.7) k/uL Carbon Dioxide (22-30) mmol/L BUN (7-17) mg/dL Glucose (74-99) mg/dL POC Glucose (mg/dL) 249 H (75-99) mg/dL Ferritin (10.0-291.0) ng/mL Lactate Dehydrogenase (313-618) U/L C-Reactive Protein (<10.0) mg/L Total Protein (6.3-8.2) g/dL Albumin (3.5-5.0) g/dL Assessment and Plan Plan: 1. Acute hypoxemic respiratory failure related to COVID 19 related pneumonia, requiring intubation and placement on mechanical ventilation on 12/28/2019, treated with Plaquenil and then sulfate and the patient is also on IV Solu Medrol 40 mg every 12 hours. The patient was extubated on 01/02/2020 On 01/04/2020, the patient remains on 100% nonrebreather facemask. She was weaned down to 10 L. Nevertheless, overnight, she was noted to be a mouth breather and she was placed back on the percent on a beta facemask a chest x-ray findings are essentially stable with patient continues to have diffuse bilateral pulmonary infiltrates. Functionally and physically, she is quite weak. She is trying to increase his oral intake. His spending most of her time in bed. Limi julio activity for now. Continues to BE short of breath with limited amount of activity. 2. diffuse bilateral pneumonia secondary to COVID19 infection 3. Elevated ferritin, LDH, CRP and d-dimer related to acute COVID19 related pneumonia, and inflammatory markers are improving, and the d-dimer was elevated and the patient was placed on therapeutic dose of Lovenox in the most recent d- dimer from 12/31/2019 has improved and is down to 0.28 4. obesity with a BMI of 48.2 5. Hypertension, taken RAVEN inhibitor in the RAVEN inhibitor was kept on board 6. Hyperlipidemia 7. GERD/reflux 8. Diabetes mellitus type 2currently on Levemir insulin 60 units twice a day in addition to NovoLog 20 units every 6 hours and a scale 9. History of chronic bronchial asthma, unspecified 10. acute on chronic kidney injury, renal function is normalized and the creatinine is down to 0.8 11. History of diverticular disease 12. History of coronary artery disease with PCI and stent placement Plan Alternate between 100% nonrebreather facemask and a nasal cannula, high flow This continued IV Solu Medrol put the patient prednisone burst taper Diabetes to Once a Day Daily chest x-rays Monitor Covid 19 inflammatory markers We'll continue to follow make further recommendations based on her progress. She is on Lovenox for prophylaxis for now.
--- NOTE | 2020-01-04 17:25 | PN ---
PROGRESS NOTE DATE OF SERVICE: 01/04/2020 REASON FOR FOLLOWUP: Pneumonia. INTERVAL HISTORY: The patient is currently afebrile. Patient is more awake and alert. She is still on partial non-rebreather, but denies having any worsening chest pain or shortness of breath. Minimal cough. No abdominal pain, no diarrhea. PHYSICAL EXAMINATION: Blood pressure 109/56, pulse of 65, temperature 98.8. She is 95% on partial non- rebreather. General description is a middle-aged female, lying in bed in no distress. RESPIRATORY SYSTEM: Unlabored breathing. Coarse breath sounds at the base. No wheeze. HEART: S1, S2. Regular rate and rhythm. ABDOMEN: Soft, no tenderness. LABS: Hemoglobin is 10.4, white count of 12.9 with a creatinine 1.0. DIAGNOSTIC IMPRESSION AND PLAN: Patient with acute COVID-19 pneumonia. The patient has been consistently extubated. X- rays still showing some infiltrate though the patient is not running fever and white count showing a downward trend. She has completed her antibiotic therapy. Will monitor the patient closely and adjust medications further if needed. MMODL / IJN: [id number] /
[2020-01-04 17:58] LABS: Glucose,Whole Blood 221 mg/dL (75-99)
[2020-01-04] MEDS: LISINOPRIL 20 MG TAB PO SCH (20:45)
[2020-01-04] MEDS: ATORVASTATIN 40 MG TAB PO SCH (20:45)
[2020-01-04 21:03] LABS: Glucose,Whole Blood 230 mg/dL (75-99)
[2020-01-04 23:54] LABS: Glucose,Whole Blood 201 mg/dL (75-99)
[2020-01-05] MEDS: INSULIN ASPART (NovoLOG) 100 UNIT/ML VIAL SQ SCH ×5 (00:04→23:30)
[2020-01-05] MEDS: LACTATED RINGERS 1,000 ML IV SCH ×3 (02:30→23:19)
[2020-01-05 05:01] LABS: Basophils % (A) 0 %; Eosinophils # (A) 0.2 k/uL (0-0.7); Eosinophils % (A) 2 %; HCT 30.5 % (34.0-46.0); HGB 9.8 gm/dL (11.4-16.0); Hypochromasia Slight; Lymphocytes % (A) 12 %; MCH 27.2 pg (25.0-35.0); MCHC 31.9 g/dL (31.0-37.0); MCV 85.1 fL (80.0-100.0); Mean Platelet Volume 7.8; Monocytes # (A) 0.4 k/uL (0-1.0); Monocytes % (A) 5 %; Neutrophils # (A) 6.9 k/uL (1.3-7.7); Neutrophils % (A) 80 %; Platelet Count 355 k/uL (150-450); RBC 3.59 m/uL (3.80-5.40); RDW 13.2 % (11.5-15.5); WBC 8.7 k/uL (3.8-10.6)
[2020-01-05 05:30] LABS: Glucose,Whole Blood 156 mg/dL (75-99)
--- NOTE | 2020-01-05 07:16 | XR ---
EXAMINATION TYPE: XR chest 1V portable DATE OF EXAM: 01/05/2020 CLINICAL HISTORY: Difficulty breathing progress study. TECHNIQUE: Single AP portable upright view of the chest is obtained. COMPARISON: Chest x-ray from one day earlier and older studies. FINDINGS: Stable left-sided central venous catheter. Persistent peripheral mid to lower lung and bib asilar opacities and low lung volumes. Stable cardiomegaly. Osseous structures are intact. IMPRESSION: Overall stable findings, cardiomegaly and low lung volumes with bibasilar and periphera l bilateral mid to lower lung infiltrates are all redemonstrated.
[2020-01-05] MEDS: ALBUTEROL HFA INHALER INHALATION PRN ×2 (08:10→20:03)
[2020-01-05] MEDS: SYMBICORT 160-4.5 MCG INHALER INHALATION SCH ×3 (08:10→20:08)
[2020-01-05] MEDS: ASPIRIN 325 MG TAB PO SCH (08:50)
[2020-01-05] MEDS: ZINC SULFATE 220 MG CAP PO SCH (08:51)
[2020-01-05] MEDS: predniSONE 20 MG TAB PO SCH (08:52)
[2020-01-05] MEDS: ASCORBIC ACID 500 MG TAB PO SCH ×2 (08:52→20:50)
[2020-01-05] MEDS: PANTOPRAZOLE 40 MG/10 ML VIAL IVP SCH (08:52)
[2020-01-05] MEDS: FUROSEMIDE 10 MG/ML 4 ML VIAL IV SCH (08:53)
[2020-01-05] MEDS: ENOXAPARIN 40 MG/0.4 ML SYRINGE SQ SCH (08:53)
[2020-01-05] MEDS: INSULIN DETEMIR (LEVEMIR) 100 UNIT/ML SYR SQ SCH ×2 (08:54→20:50)
--- NOTE | 2020-01-05 11:26 | P.PN ---
Subjective Progress Note Date: 01/05/20 This is a 64-year-old female patient of Dr. Mojica with past medical history of asthma, hypertension, hyperlipidemia, gastroesophageal reflux disease, diabetes mellitus type 2 insulin requiring, coronary artery disease status post stent, remote history of tobacco use and dependence, chronic kidney disease stage III. 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 They were exposed to a COVID-19 positive patient on December 11 and/or December 12. She had symptoms develop approximate 7 days ago with fever, cough, shortness of breath, nausea, diarrhea. She tried to manage at home but symptoms became significantly severe in the past 3 days and she lives alone she was so sick she could not get to the She to the bathroom. Patient came into [facility] emergency center for evaluation and found to be afebrile, blood pressure 141/68, heart rate 85, pulse ox 87%. EKG was a sinus rhythm with no acute ST changes. W BC 12.1, hemoglobin 12.7, platelet count 303, sodium 136, potassium 5.3, chloride 100, CO2 23, BUN 41, creatinine 1.43, blood sugar 230. Total bilirubin 0.6, AST 49, ALT 22, alkaline phosphatase 255, LDH 1600, ferritin 609.6 C-reactive protein 262, pro calcitonin 0.2 to. Chronic virus PCR detected, influenza testing negative, lactic acid 2.1. Repeat lactic acid 1.2 chest x-ray revealed mild cardiomegaly with moderately severe diffuse interstitial edema that is changed from old exam compared to November 2018. This could represent acute interstitial pneumonia or acute heart failure. Patient was started on Tylenol, azithromycin, Plaquenil admitted to the [facility] floor and consult was requested with infectious disease and pulmonary medicine. 12/27: Patient had a drop in her oxygen saturation and became tachypneic. She was initially placed on high flow nasal cannula at 10 L, transferred into the intensive care unit and was intubated this morning. Temperature max 101.4. Heart rate in the 60s and 70s. Repeat blood work reveals CBC unremarkable except for low lymphocytes. D-dimer 1.05, potassium 5.2, BUN 62 and creatinine 1.91. Blood sugars in the 200s. Alkaline phosphatase 198 LDH 1439. She has been continued on azithromycin, Plaquenil, zinc and vitamin C. Solu-Medrol is currently at 40 mg IV every 12 hours. 12/28: Patient remains in the intensive care unit, intubated and on mechanical ventilation with tidal volume 350, FiO2 of 50 and PEEP 13. Patient has been afebrile, heart rate 50, blood pressure 120/56. Repeat blood work reveals WBC 16, hemoglobin 10.7, platelet count 273. Repeat d-dimer is decreased at 0.72. Sodium 135, potassium 4.6, chloride 103, CO2 24, BUN 63 and creatinine 1.43. Ferritin decreased to 556.8, alkaline phosphatase decreased 167, LDH decreased to 1050, C-reactive protein 181.7. Case has been discussed outside patient's room with the patient's nurse. Blood sugars have been elevated running 189 to 231. We will increase Levemir to 42 units twice daily, added and NovoLog scheduled 5 units every 6 hours along with NovoLog scale. Patient is currently & Medrol 40 mg IV every 12 hours. 12/29: Patient remains intubated in critical ventilation with tidal volume 350, FiO2 of 40 and PEEP of 13. Patient has been afebrile, heart rate in the 50s, blood pressure 101/55. Repeat laboratory studies revealed a CBC 17.5, hemoglobin 10, platelet count 276. Sodium 135, potassium 5.4, chloride 105, CO2 26, BUN 61, creatinine 1.07 area blood sugars are running in the 200s up to 300, alkaline phosphatase 143, LDH 875, C-reactive protein 67.9, albumin 2.7. We will again today increase her insulins with long acting up to 50 units twice daily and NovoLog 10 units every 6 hours along with NovoLog scale. Patient has had good urine output, tube feedings are at goal. Patient appears to be stable at this time. 12/30: Patient still having significantly elevated CRP with abnormal liver function test, lactic acid that subtle down significantly. Blood sugar still mildly elevated when titrating insulin is making sugar slightly but better at this point. Patient is still sedated on mechanical ventilation currently no weaning his plan in the next 24 hours. 12/31: Back in off on sedation patient has done slightly well still not ready to be extubated this point she had her weaning parameter and was sedated and continue mechanical ventilation. Blood sugar still high her steroid was decreased today to Solu-Medrol 40 mg twice a day with higher Levemir to 60 units twice a day and up on NovoLog to 20 units every 6 hours plus a sliding scale we have to watch for any decrease blood sugar specially with a new change on insulin and medication. 01/01: Patient remains intubated and on mechanical ventilation. Patient is on a sedation holiday. Tidal volume 350, FiO2 40, PEEP 5. Patient has been afebrile, heart rate in the 40s, blood pressure 101/49. Repeat lab work reveals W BC 16.2, hemoglobin 9.9, platelet count 291. D-dimer 0.28. Sodium 138, potassium 5.2, chloride 104, CO2 29, BUN 42 and creatinine 0.89. Blood sugars have been running 148 197. At bedtime glucose 118. Scheduled NovoLog will be decreased to 15 units and continue Levemir at 60 units twice daily. Solu-Medrol at 40 mg IV every 12 hours and Lasix 40 mg every 12 hours. Patient has completed course of Plaquenil. She remains in isolation. 01/02: Patient was successfully extubated yesterday afternoon. She is pulse ox 97% on 10 L high flow nasal cannula. She has been afebrile, heart rate 69, blood pressure 112/52. WBC 13.1, hemoglobin 10.3, platelet count 308. Sodium 141, potassium 4.7, chloride 103, CO2 36, BUN 43 and creatinine 0.96. Blood sugars are improved and stable and have been running between 90 and 146 with holding of Levemir. Levemir will be discontinued and patient on scale insulin only for now. Repeat ferritin level 527.6, LDH 914, C-reactive protein 50. Sputum culture finalized with normal ct. Blood culture no growth at 144 hours. Repeat chest x-ray reveals patchy diffuse infiltrates less stable from comparison. Central venous catheter stable. Patient is having difficulties with swallowing and speech therapy will be evaluating. For now, oral medic ations on hold. banking center manager will discuss with the patient option of rehab when she is stable. Anticipate patient will be in the hospital until early next week. 01/03: Patient remains in intensive care unit. She is on O2 partial nonrebreather and pulse ox seen 97% on 15 L. Blood pressure 122/70, heart rate 80, respiratory rate 24. Patient has been afebrile for 24 hours. You have to collect again over a year repeat blood work reveals hemoglobin of 10.4, white count 12.9, platelet count 387. Sodium 140, potassium 4.5, chloride 100, CO2 38, BUN 52 and creatinine 1. Blood sugars have been running between 188 and 198. Blood sugars were in the 200s yesterday afternoon. Patient is now able to eat and we will start Levemir back in at 10 units twice daily. Sputum culture is finalized with normal ct and blood culture no growth. A repeat chest x- ray is stable peripherally oriented bilateral consolidation and retrocardiac airspace disease. Dr. Moreira is continuing to follow patient and recommending vancomycin and prednisone. banking center manager and executive secretary social welfare are attempting to reach the patient's son regarding subacute rehab. PT and OT have recommended subacute rehab. 01/04: Patient remains in the intensive care unit, afebrile, heart rate 76, respiratory rate 15-25, blood pressure 106/52, pulse ox 93% on partial rebreather. Repeat lab work reveals hemoglobin 9.8, WBC 8.7, platelet count 355. BUN 48 creatinine 1.01. Blood sugars running this morning at 158. During the evening in the low 200s, 201-230. Patient will be continued on Levemir 10 units twice daily for now and monitor closely. Anticipate increased need once patient is eating. Thus far, patient has had only a few bites of her food. Social work is working with the patient, her son regarding possible workman comp coverage for subacute rehab. Dr. Mojica is planning for her to go to [facility] for subacute rehab when stabilized. Objective - Vital Signs Vital signs: Vital Signs Temp 98.1 F 01/05/20 04:00 Pulse 67 01/05/20 07:00 Resp 22 01/05/20 07:00 BP 121/42 01/05/20 07:00 Pulse Ox 92 L 01/05/20 07:00 Intake & Output 01/04/20 01/05/20 01/05/20 18:59 06:59 18:59 Intake Total 1056 936 78 Output Total 1595 655 45 Balance -539 281 33 Weight 125.2 kg 124.4 kg Intake: IV 936 936 78 Lactated Ringers 1,000 ml 900 900 75 @ 75 mls/hr IV .[id number] [facility] Rx#:[id number] Pressure bag 36 36 3 Oral 120 Output: Urine 1595 655 45 Other: Voiding Method Indwelling Catheter Indwelling Catheter # Voids 3 ABP, PAP, CO, CI - Last Documented Arterial Blood Pressure 104/46 - Exam Review of Systems Unable to obtain. Patient is in Covid 19 isolation. Physical Examination Gen: This is a morbidly obese 64-year-old female. Patient is resting in bed. No acute respiratory distress is noted. HEENT: Head is atraumatic, normocephalic. Physical examination deferred to tele rn. - Labs CBC & Chem 7: 01/05/20 04:30 01/05/20 04:30 Labs: Abnormal Lab Results - Last 24 Hours (Table) 01/04/20 01/04/20 01/04/20 Range/Units 04:30 12:09 17:57 RBC (3.80-5.40) m/uL Hgb (11.4-16.0) gm/dL Hct (34.0-46.0) % Carbon Dioxide (22-30) mmol/L BUN (7-17) mg/dL Glucose (74-99) mg/dL POC Glucose (mg/dL) 249 H 221 H (75-99) mg/dL Ferritin 462.8 H (10.0-291.0) ng/mL 01/04/20 01/04/20 01/05/20 Range/Units 21:01 23:52 04:30 RBC 3.59 L (3.80-5.40) m/uL Hgb 9.8 L (11.4-16.0) gm/dL Hct 30.5 L (34.0-46.0) % Carbon Dioxide (22-30) mmol/L BUN (7-17) mg/dL Glucose (74-99) mg/dL POC Glucose (mg/dL) 230 H 201 H (75-99) mg/dL Ferritin (10.0-291.0) ng/mL 01/05/20 01/05/20 Range/Units 04:30 05:29 RBC (3.80-5.40) m/uL Hgb (11.4-16.0) gm/dL Hct (34.0-46.0) % Carbon Dioxide 38 H (22-30) mmol/L BUN 48 H (7-17) mg/dL Glucose 158 H (74-99) mg/dL POC Glucose (mg/dL) 156 H (75-99) mg/dL Ferritin (10.0-291.0) ng/mL Assessment and Plan Plan: 1. Acute hypoxic respiratory failure secondary to COPD exacerbation and COVID- 19 pneumonitis. Patient has been successfully extubated. Completed Plaquenil. Consults with pulmonary medicine and infectious disease appreciated. Continue albuterol inhaler as needed, Symbicort twice daily, continue prednisone 40 mg daily 2. Acute kidney injury with chronic kidney disease stage III. Avoid nephrotoxic agents, hypotension. 3. Mild hyperkalemia secondary to acute kidney injury. 4. Mild lactic acidosis secondary to COVID-19 infection. Resolved. 5. Sepsis secondary to Covid 19 infection, POA. 6. Hyperlipidemia. Continue atorvastatin 40 g at bedtime 7. Diabetes mellitus type 2, insulin requiring, uncontrolled with hyperglycemia secondary to steroids. Resume Levemir at 10 units twice daily, continue NovoLog scale before meals and at bedtime. 7. History of coronary artery disease status post stenting. Continue aspirin 325 mg daily, Lipitor. 8. Hypertension. Continue lisinopril 20 mg at bedtime with parameters. Avoid hypotension. 9. Gastroesophageal reflux disease disease and GI prophylaxis. Continue Prot narinder. 10. DVT prophylaxis. Lovenox. 11. Dysphagia. Speech therapy has evaluated with recommendations for ground diet with nectar thick liquids, continue one-to-one supervision, upright position small bites liquids via cup. Discharge plan: Subacute rehab at [facility]. Social work is working with the patient's son regarding Workmen's Comp. coverage for ECF. Impression and plan of care have been directed as dictated by the signing physician. Deborah Crow nurse practitioner acting as scribe for signing physician.
[2020-01-05 12:02] LABS: Glucose,Whole Blood 294 mg/dL (75-99)
[2020-01-05] MEDS ORDERED: DILTIAZEM DRIP BOLUS FROM BAG 1 MG SOLN IV ONE (12:03)
[2020-01-05] MEDS: DILTIAZEM 125 MG in SODIUM CHLORIDE 0.9% 100 ML IV SCH (12:15)
[2020-01-05] MEDS ORDERED: INSULIN ASPART (NovoLOG) 100 UNIT/ML VIAL SQ ONE (12:53)
--- NOTE | 2020-01-05 13:33 | P.PN ---
Subjective Progress Note Date: 01/05/20 Is a 64-year-old female patient who was originally hospitalized on 12/27/2019 because of an acute cold and 19 related infection/pneumonia. 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 Her symptoms progressively got worse and she became progressively more short of breath and she also developed nausea and diarrhea. She came into the hospital and she was quite hypoxic and she checked positive for coag with 19 infection. Her chest x-ray showed some mild cardiomegaly and diffuse interstitial infiltrates secondary to an underlying covert 19 related pneumonia. The patient also has other comorbidities including asthma, hypertension, hyperlipidemia and acid reflux in addition to diabetes mellitus type 2. She has coronary artery disease with previous coronary stenting. She has chronic stage III kidney disease. She is obese with a body mass index of 48.2. This patient has been intubated since 12/28/2019. Since then the patient has remained on a mechanical ventilator. She is currently on an assist-control mode rate of 26 with a tidal volume of 350 and FiO2 of 40% with a PEEP of 10. Her chest x-ray is consistent with lateral pneumonia worse on the left. She is on propofol for sedation. She is on vital 1.2 for enteral feeding and nutritional support. She has completed her course of Plaquenil and she was also treated with Zithromax vitamin C and zinc sulfate. Her sputum Gram stain and culture has been negative. Blood cultures been negative. She is on IV Solu-Medrol 40 mg every 12 hours. On today's evaluation of 01/02/2020, the patient remains intubated on a mechanical ventilator. The patient today is on a assist-control mode at the rate of 26 with a tidal volume of 350 and FiO2 of 40% with a PEEP of 5. Peak airway pressures around 27 anesthetic pressures of 21. The chest x-ray from today shows stable bilateral pulmonary infiltrates which has remained unchanged and the patient is infiltration rate is in the left lower lobe. ET tube is in a good location. The blood gas showed a pH of 7.44 with a pCO2 of 44 and pO2 of any 8. The patient has a peak given a pressure of 27. This particular pressures at 21. White cell count is at 16.2. She was noted to be excessively fluid overloaded and the patient's net fluid balance and the positive with a weight gain and order of 7 kg. The patient will be started on IV Lasix. Otherwise, no other significant events overnight. The patient remains on Lovenox therapeutic dose. No signs of any bleeding. On 01/03/2020, I'm seeing this patient for a follow-up in the intensive care [facility]. The patient was extubated yesterday and currently she is on 10 L of oxygen by nasal cannula. She is awake and communicating and following commands pH is extremely weak. I'm not sure if he is able to swallow and his Urrutia evaluation to be done today. Chest x-ray still showing stable bilateral pulmonary infiltrates unchanged from yesterday's chest x-ray. The patient has been a positive fluid balance. The patient is currently on Lasix 40 mg every 12 hours. The patient is on IV Solu-Medrol. The net fluid balance of been -2 L over the past 24 hours he had a body weight is still at 124 kg. In terms of labs, the white cell count at 13.1. BUN is at 43 with a creatinine of 0.9. The LDH is slightly elevated at 914. CRP level is at 50. No fever. No chills. No other complaints otherwise for now. On 01/04/2020, the patient is still weak and somewhat lethargic. She is able to take some few bites and take some applesauce. Her oral intake is diminished. She remains quite weak and debilitated. She has been placed on on the percent nonrebreather facemask to maintain a saturation of above 90% and the patient has been mouth breathing. She is receiving IV fluids at the rate of 75 mL an hour of normal saline. Her chest x-ray still showing diffuse bilateral pulmonary infiltrates, interstitial, unchanged compared to yesterday. She was receiving diuretics and the Lasix dose will be tapered. The patient was also taken of the IV Solu Medrol and started on a prednisone burst taper. No altered mentation. No agitation. No chest pain. Continues to have some dry cough. No significant sputum production. She is afebrile. Based on her covert 19 inflammatory markers, the LDH is at 739 with a C-reactive protein of 43 and a ferritin level is down to 462. Renal function is stable for now. No other significant events otherwise for now. The patient will be kept in ICU for another 24 hours pending some further improvement. On 01/05/2020, the patient is looking somewhat better, more alert and awake and she has regained some of her strength and she is able to raise her arms and legs against gravity and she is also willing to sit up on a chair with help. On today's evaluation, the patient was replaced back on a 15 L of oxygen by nasal cannula with a pulse of 76% pH is being considered for a partial nonrebreather facemask. She is taking minimal amount of oral intake and she is to advance her diet as tolerated. No nausea. No vomiting. No chest pain. She has developed coffee no significant sputum production. She is able to swallow her medications fine. No diarrhea. Note that after completion of around and around noontime today the patient went into atrial fibrillation with rapid ventricular response. The patient be started on Cardizem drip. No major hemodynamic instability along with his atrial fibrillation. The patient still has an arterial line in the right upper extremity and a Urrutia catheter still in place. Objective - Vital Signs Vital signs: Vital Signs Temp 99.2 F 01/05/20 12:30 Pulse 144 H 01/05/20 13:00 Resp 24 01/05/20 13:00 BP 106/85 01/05/20 13:00 Pulse Ox 96 01/05/20 13:00 Intake & Output 01/04/20 01/05/20 01/05/20 18:59 06:59 18:59 Intake Total 1056 936 696 Output Total 1595 655 755 Balance -539 281 -59 Weight 125.2 kg 124.4 kg Intake: IV 936 936 546 Lactated Ringers 1,000 ml 900 900 525 @ 75 mls/hr IV .[id number] [facility] Rx#:[id number] Pressure bag 36 36 21 Oral 120 150 Output: Urine 1595 655 755 Other: Voiding Method Indwelling Catheter Indwelling Catheter Indwelling Catheter # Voids 3 3 ABP, PAP, CO, CI - Last Documented Arterial Blood Pressure 92/63 - Exam GENERAL EXAM: A 64-year-old obese female patient, The patient has been on 100 and percent nonrebreather facemask. The patient's been extubated. She is able to speak up. Sentences that are rather short. No use of accessory muscles of breathing. She was switched to 15 L of oxygen by nasal cannula in the evening and today this patient remains on high flow oxygen. Oxygen is flowing to 15 L per minute nasal cannula. HEAD: Normocephalic/atraumatic. EYES: Sluggish reaction of pupils, equal size. Conjunctiva pink, sclera white. NOSE: Clear with pink turbinates. THROAT: Oral endotracheal and gastric tube secured in place No erythema or exudates. NECK: No masses, no JVD, no thyroid enlargement, no adenopathy. CHEST: No chest wall deformity. Symmetrical expansion. LUNGS: Equal air entry with crackles in the posterior bases right greater than left. CVS: Regular rate and rhythm, normal S1 and S2, no gallops, no murmurs, no rubs, and subsequently around noontime, the patient went into atrial fibrillation with rapid ventricular response. She is asymptomatic with that. ABDOMEN: Soft, nontender. No hepatosplenomegaly, normal bowel sounds, no guarding or rigidity. EXTREMITIES: No clubbing, no edema, no cyanosis, 2+ pulses and upper and lower extremities. The patient has extensive edema in all 4 extremities MUSCULOSKELETAL: Muscle strength and tone normal. SPINE: No scoliosis or deformity SKIN: No rashes CENTRAL NERVOUS SYSTEM: Significant motor weakness in all 4 extremities. The patient seems a much more awake and stronger on today's evaluation she expressed wishes to be moved to a bedside chair with assistance. No focal neurological deficit at this point in time. No confusion. No altered mentation. No signs of any delirium. - Labs CBC & Chem 7: 01/05/20 04:30 01/05/20 04:30 Labs: Abnormal Lab Results - Last 24 Hours (Table) 01/04/20 01/04/20 01/04/20 Range/Units 17:57 21:01 23:52 RBC (3.80-5.40) m/uL Hgb (11.4-16.0) gm/dL Hct (34.0-46.0) % Carbon Dioxide (22-30) mmol/L BUN (7-17) mg/dL Glucose (74-99) mg/dL POC Glucose (mg/dL) 221 H 230 H 201 H (75-99) mg/dL 01/05/20 01/05/20 01/05/20 Range/Units 04:30 04:30 05:29 RBC 3.59 L (3.80-5.40) m/uL Hgb 9.8 L (11.4-16.0) gm/dL Hct 30.5 L (34.0-46.0) % Carbon Dioxide 38 H (22-30) mmol/L BUN 48 H (7-17) mg/dL Glucose 158 H (74-99) mg/dL POC Glucose (mg/dL) 156 H (75-99) mg/dL 01/05/20 Range/Units 12:00 RBC (3.80-5.40) m/uL Hgb (11.4-16.0) gm/dL Hct (34.0-46.0) % Carbon Dioxide (22-30) mmol/L BUN (7-17) mg/dL Glucose (74-99) mg/dL POC Glucose (mg/dL) 294 H (75-99) mg/dL Assessment and Plan Plan: 1. Acute hypoxemic respiratory failure related to COVID 19 related pneumonia, requiring intubation and placement on mechanical ventilation on 12/28/2019, treated with Plaquenil and then sulfate and the patient is also on IV Solu Medrol 40 mg every 12 hours. The patient was extubated on 01/02/2020 On 01/05/2020, chest x-ray findings are essentially the same. The patient co ntinues to have diffuse breath and pulmonary infiltrates related to Covid 19 related pneumonia. The patient is receiving prednisone burst taper for now and she is a dose of 40 mg P she is on Symbicort and albuterol HFA. Oxygenation is still not much improved and the patient remains on 15 L about 2 by nasal cannula. She seems clinically much more alert and somewhat stronger physically . 2. diffuse bilateral pneumonia secondary to COVID19 infection 3. Elevated ferritin, LDH, CRP and d-dimer related to acute COVID19 related pneumonia, and inflammatory markers are improving, and the d-dimer was elevated and the patient was placed on therapeutic dose of Lovenox in the most recent d- dimer from 12/31/2019 has improved and is down to 0.28 4. obesity with a BMI of 48.2 5. Hypertension, taken RAVEN inhibitor in the RAVEN inhibitor was kept on board 6. Hyperlipidemia 7. GERD/reflux 8. Diabetes mellitus type 2currently on Levemir insulin 60 units twice a day in addition to NovoLog 20 units every 6 hours and a scale 9. History of chronic bronchial asthma, unspecified 10. acute on chronic kidney injury, renal function is normalized and the creatinine is down to 0.8 11. History of diverticular disease 12. History of coronary artery disease with PCI and stent placement 13 new-onset atrial fibrillation with rapid ventricular response. The patient was given a dose of Cardizem and currently she is on 10 mg Cardizem an hour. Plan Alternate between 100% nonrebreather facemask and a nasal cannula, high flow oxygen and the patient is currently on 15 L of oxygen by nasal cannula. Prednisone burst taper Chest x-ray findings are noted and the findings are stable In regards to atrial fibrillation continue the Cardizem drip for rate control the dose of 10 mg an hour and may even increased up to 15 mg an hour if needed. Check troponins and TSH and free T4 Obtain echocardiogram to assess LV function Cardiology consultation may be needed in this patient continues to have issues from her atrial fibrillation Daily chest x-rays We'll continue to follow make further recommendations based on her progress. She is on Lovenox for prophylaxis for now.
[2020-01-05 15:07] LABS: T4, Free (Free Thyroxine) 1.4 ng/dL (0.78-2.19)
[2020-01-05 15:12] LABS: Creatine Kinase 47 U/L (30-135)
[2020-01-05 15:25] LABS: Creatine Kinase MB <0.2 ng/mL (0.0-2.4); Troponin I <0.012 ng/mL (0.000-0.034)
[2020-01-05] MEDS ORDERED: DEXTROSE 5% IN WATER 100 ML with AMIODARONE 150 MG IV ONE (16:30)
[2020-01-05 16:38] LABS: Glucose,Whole Blood 250 mg/dL (75-99)
[2020-01-05] MEDS ORDERED: AMIODARONE 360 MG in DEXTROSE 5% IN WATER 200 ML IV ONE ×2 (16:40)
--- NOTE | 2020-01-05 18:18 | PN ---
PROGRESS NOTE DATE OF SERVICE: 01/05/2020 REASON FOR FOLLOWUP: Pneumonia. INTERVAL HISTORY: The patient is currently afebrile. She is still requiring partial rebreather for her oxygen requirement but denies having any chest pain. Minimal cough. No nausea, vomiting or diarrhea. PHYSICAL EXAMINATION: Blood pressure 101/66, pulse of 74, temperature 99.2. She is 97% on 2 L non-rebreather. General description is a middle-aged female lying in bed in no distress. RESPIRATORY SYSTEM: Unlabored breathing with decreased breath sounds at the base. No wheeze. HEART: S1, S2. Irregular rhythm. ABDOMEN: Soft. No tenderness. LABS: Hemoglobin 9.8, white count 8.7, BUN of 48, creatinine 1.01. DIAGNOSTIC IMPRESSION AND PLAN: Patient with acute COVID-19 pneumonia that has been treated. The patient is currently extubated, is on high-flow oxygen, though x-ray with no worsening finding. Lymphopenia has resolved. The patient has completed her Plaquenil/Zithromax therapy, currently on penicillin and zinc; to continue. Will monitor her clinical course closely. MMODL / IJN: [id number] /
[2020-01-05 20:19] LABS: Glucose,Whole Blood 234 mg/dL (75-99)
[2020-01-05] MEDS: LISINOPRIL 20 MG TAB PO SCH (20:50)
[2020-01-05] MEDS: ATORVASTATIN 40 MG TAB PO SCH (20:50)
[2020-01-05 23:25] LABS: Glucose,Whole Blood 165 mg/dL (75-99)
[2020-01-05] MEDS: AMIODARONE 300 MG in DEXTROSE 5% IN WATER 250 ML IV SCH ×2 (23:30)
[2020-01-06] MEDS: DILTIAZEM 125 MG in SODIUM CHLORIDE 0.9% 100 ML IV SCH (04:56)
[2020-01-06] MEDS: LACTATED RINGERS 1,000 ML IV SCH ×2 (06:20→11:25)
[2020-01-06 06:41] LABS: Glucose,Whole Blood 143 mg/dL (75-99)
[2020-01-06] MEDS: INSULIN ASPART (NovoLOG) 100 UNIT/ML VIAL SQ SCH ×4 (06:52→20:39)
[2020-01-06 07:18] LABS: Basophils % (A) 0 %; Eosinophils # (A) 0.3 k/uL (0-0.7); Eosinophils % (A) 3 %; HGB 9.8 gm/dL (11.4-16.0); Hypochromasia Marked; Lymphocytes # (A) 1.2 k/uL (1.0-4.8); Lymphocytes % (A) 13 %; MCH 27.7 pg (25.0-35.0); MCHC 31.4 g/dL (31.0-37.0); MCV 88.1 fL (80.0-100.0); Mean Platelet Volume 7.7; Monocytes # (A) 0.4 k/uL (0-1.0); Monocytes % (A) 5 %; Neutrophils # (A) 7.6 k/uL (1.3-7.7); Neutrophils % (A) 79 %; Platelet Count 348 k/uL (150-450); RBC 3.52 m/uL (3.80-5.40); RDW 13.7 % (11.5-15.5); WBC 9.6 k/uL (3.8-10.6)
[2020-01-06 07:29] LABS: Calcium 8.7 mg/dL (8.4-10.2); Potassium 3.7 mmol/L (3.5-5.1)
[2020-01-06] MEDS: SYMBICORT 160-4.5 MCG INHALER INHALATION SCH ×2 (08:05→19:38)
[2020-01-06] MEDS: ALBUTEROL HFA INHALER INHALATION PRN ×2 (08:05→19:37)
[2020-01-06] MEDS ORDERED: POTASSIUM CHLORIDE 20 MEQ in WATER FOR INJECTION 1 100ML.BAG IVPB ONE (09:00)
[2020-01-06] MEDS: predniSONE 20 MG TAB PO SCH (10:24)
[2020-01-06] MEDS: ASPIRIN 325 MG TAB PO SCH (10:25)
[2020-01-06] MEDS: FUROSEMIDE 10 MG/ML 4 ML VIAL IV SCH (10:25)
[2020-01-06] MEDS: ENOXAPARIN 40 MG/0.4 ML SYRINGE SQ SCH (10:25)
[2020-01-06] MEDS: ASCORBIC ACID 500 MG TAB PO SCH ×2 (10:27→20:40)
[2020-01-06] MEDS: PANTOPRAZOLE 40 MG/10 ML VIAL IVP SCH (10:27)
[2020-01-06 10:33] LABS: Glucose,Whole Blood 164 mg/dL (75-99)
[2020-01-06] MEDS: INSULIN DETEMIR (LEVEMIR) 100 UNIT/ML SYR SQ SCH ×2 (10:34→20:38)
[2020-01-06] MEDS: ZINC SULFATE 220 MG CAP PO SCH (10:34)
--- NOTE | 2020-01-06 10:57 | ECHOF ---
Referral Reason:New onset A fib assess for clots and lvf MEASUREMENTS -------- HEIGHT: 160.0 cm WEIGHT: 124.3 kg BP: 92/63 RVIDd: 2.9 cm (< 3.3) IVSd: 1.7 cm (0.6 - 1.1) LVIDd: 3.2 cm (3.9 - 5.3) LVPWd: 1.4 cm (0.6 - 1.1) IVSs: 2.3 cm LVIDs: 2.1 cm LVPWs: 1.8 cm LA Diam: 3.0 cm (2.7 - 3.8) Ao Diam: 3.2 cm (2.0 - 3.7) AV Cusp: 2.2 cm (1.5 - 2.6) MV EXCURSION: 14.577 mm (> 18.000) MV EF SLOPE: 17 mm/s (70 - 150) EPSS: 0.4 cm RAP: 5.00 mmHg RVSP: 43.54 mmHg FINDINGS -------- Atrial fibrillation. This was a technically difficult study with suboptimal views. The left ventricular size is normal. There is severe concentric left ventricular hypertrophy. Ove rall left ventricular systolic function is normal with, an EF between 65 - 70 %. The right ventricle is normal in size. The left atrial size is normal. The right atrium is normal in size. 5.0mg of Lumason was utilized for enhancement of images There is mild aortic valve sclerosis. The mitral valve is normal. Mild tricuspid regurgitation present. There is mild pulmonary hypertension. The right ventricular systolic pressure, as measured by Doppler, is 43.54mmHg. Trace/mild (physiologic) pulmonic regurgitation. The aortic root size is normal. Normal inferior vena cava with normal inspiratory collapse consistent with estimated right atrial pre ssure of 5 mmHg. There is no pericardial effusion. CONCLUSIONS -------- 1. Atrial fibrillation. 2. This was a technically difficult study with suboptimal views. 3. The left ventricular size is normal. 4. There is severe concentric left ventricular hypertrophy. 5. Overall left ventricular systolic function is normal with, an EF between 65 - 70 %. 6. The right ventricle is normal in size. 7. The left atrial size is normal. 8. The right atrium is normal in size. 9. 5.0mg of Lumason was utilized for enhancement of images 10. There is mild aortic valve sclerosis. 11. The mitral valve is normal. 12. Mild tricuspid regurgitation present. 13. There is mild pulmonary hypertension. 14. The right ventricular systolic pressure, as measured by Doppler, is 43.54mmHg. 15. Trace/mild (physiologic) pulmonic regurgitation. 16. The aortic root size is normal. 17. Normal inferior vena cava with normal inspiratory collapse consistent with estimated right atrial pressure of 5 mmHg. 18. There is no pericardial effusion. PAID INTERN: Mary Christian RDCS
--- NOTE | 2020-01-06 12:05 | P.PN ---
Subjective Progress Note Date: 01/06/20 This is a 64-year-old female patient of Dr. Mojica with past medical history of asthma, hypertension, hyperlipidemia, gastroesophageal reflux disease, diabetes mellitus type 2 insulin requiring, coronary artery disease status post stent, remote history of tobacco use and dependence, chronic kidney disease stage III. 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 They were exposed to a COVID-19 positive patient on December 11 and/or December 12. She had symptoms develop approximate 7 days ago with fever, cough, shortness of breath, nausea, diarrhea. She tried to manage at home but symptoms became significantly severe in the past 3 days and she lives alone she was so sick she could not get to the She to the bathroom. Patient came into [facility] emergency center for evaluation and found to be afebrile, blood pressure 141/68, heart rate 85, pulse ox 87%. EKG was a sinus rhythm with no acute ST changes. W BC 12.1, hemoglobin 12.7, platelet count 303, sodium 136, potassium 5.3, chloride 100, CO2 23, BUN 41, creatinine 1.43, blood sugar 230. Total bilirubin 0.6, AST 49, ALT 22, alkaline phosphatase 255, LDH 1600, ferritin 609.6 C-reactive protein 262, pro calcitonin 0.2 to. Chronic virus PCR detected, influenza testing negative, lactic acid 2.1. Repeat lactic acid 1.2 chest x-ray revealed mild cardiomegaly with moderately severe diffuse interstitial edema that is changed from old exam compared to November 2018. This could represent acute interstitial pneumonia or acute heart failure. Patient was started on Tylenol, azithromycin, Plaquenil admitted to the [facility] floor and consult was requested with infectious disease and pulmonary medicine. 12/27: Patient had a drop in her oxygen saturation and became tachypneic. She was initially placed on high flow nasal cannula at 10 L, transferred into the intensive care unit and was intubated this morning. Temperature max 101.4. Heart rate in the 60s and 70s. Repeat blood work reveals CBC unremarkable except for low lymphocytes. D-dimer 1.05, potassium 5.2, BUN 62 and creatinine 1.91. Blood sugars in the 200s. Alkaline phosphatase 198 LDH 1439. She has been continued on azithromycin, Plaquenil, zinc and vitamin C. Solu-Medrol is currently at 40 mg IV every 12 hours. 12/28: Patient remains in the intensive care unit, intubated and on mechanical ventilation with tidal volume 350, FiO2 of 50 and PEEP 13. Patient has been afebrile, heart rate 50, blood pressure 120/56. Repeat blood work reveals WBC 16, hemoglobin 10.7, platelet count 273. Repeat d-dimer is decreased at 0.72. Sodium 135, potassium 4.6, chloride 103, CO2 24, BUN 63 and creatinine 1.43. Ferritin decreased to 556.8, alkaline phosphatase decreased 167, LDH decreased to 1050, C-reactive protein 181.7. Case has been discussed outside patient's room with the patient's nurse. Blood sugars have been elevated running 189 to 231. We will increase Levemir to 42 units twice daily, added and NovoLog scheduled 5 units every 6 hours along with NovoLog scale. Patient is currently & Medrol 40 mg IV every 12 hours. 12/29: Patient remains intubated in critical ventilation with tidal volume 350, FiO2 of 40 and PEEP of 13. Patient has been afebrile, heart rate in the 50s, blood pressure 101/55. Repeat laboratory studies revealed a CBC 17.5, hemoglobin 10, platelet count 276. Sodium 135, potassium 5.4, chloride 105, CO2 26, BUN 61, creatinine 1.07 area blood sugars are running in the 200s up to 300, alkaline phosphatase 143, LDH 875, C-reactive protein 67.9, albumin 2.7. We will again today increase her insulins with long acting up to 50 units twice daily and NovoLog 10 units every 6 hours along with NovoLog scale. Patient has had good urine output, tube feedings are at goal. Patient appears to be stable at this time. 12/30: Patient still having significantly elevated CRP with abnormal liver function test, lactic acid that subtle down significantly. Blood sugar still mildly elevated when titrating insulin is making sugar slightly but better at this point. Patient is still sedated on mechanical ventilation currently no weaning his plan in the next 24 hours. 12/31: Back in off on sedation patient has done slightly well still not ready to be extubated this point she had her weaning parameter and was sedated and continue mechanical ventilation. Blood sugar still high her steroid was decreased today to Solu-Medrol 40 mg twice a day with higher Levemir to 60 units twice a day and up on NovoLog to 20 units every 6 hours plus a sliding scale we have to watch for any decrease blood sugar specially with a new change on insulin and medication. 01/01: Patient remains intubated and on mechanical ventilation. Patient is on a sedation holiday. Tidal volume 350, FiO2 40, PEEP 5. Patient has been afebrile, heart rate in the 40s, blood pressure 101/49. Repeat lab work reveals W BC 16.2, hemoglobin 9.9, platelet count 291. D-dimer 0.28. Sodium 138, potassium 5.2, chloride 104, CO2 29, BUN 42 and creatinine 0.89. Blood sugars have been running 148 197. At bedtime glucose 118. Scheduled NovoLog will be decreased to 15 units and continue Levemir at 60 units twice daily. Solu-Medrol at 40 mg IV every 12 hours and Lasix 40 mg every 12 hours. Patient has completed course of Plaquenil. She remains in isolation. 01/02: Patient was successfully extubated yesterday afternoon. She is pulse ox 97% on 10 L high flow nasal cannula. She has been afebrile, heart rate 69, blood pressure 112/52. WBC 13.1, hemoglobin 10.3, platelet count 308. Sodium 141, potassium 4.7, chloride 103, CO2 36, BUN 43 and creatinine 0.96. Blood sugars are improved and stable and have been running between 90 and 146 with holding of Levemir. Levemir will be discontinued and patient on scale insulin only for now. Repeat ferritin level 527.6, LDH 914, C-reactive protein 50. Sputum culture finalized with normal ct. Blood culture no growth at 144 hours. Repeat chest x-ray reveals patchy diffuse infiltrates less stable from comparison. Central venous catheter stable. Patient is having difficulties with swallowing and speech therapy will be evaluating. For now, oral medic ations on hold. regional marketing manager will discuss with the patient option of rehab when she is stable. Anticipate patient will be in the hospital until early next week. 01/03: Patient remains in intensive care unit. She is on O2 partial nonrebreather and pulse ox seen 97% on 15 L. Blood pressure 122/70, heart rate 80, respiratory rate 24. Patient has been afebrile for 24 hours. You have to collect again over a year repeat blood work reveals hemoglobin of 10.4, white count 12.9, platelet count 387. Sodium 140, potassium 4.5, chloride 100, CO2 38, BUN 52 and creatinine 1. Blood sugars have been running between 188 and 198. Blood sugars were in the 200s yesterday afternoon. Patient is now able to eat and we will start Levemir back in at 10 units twice daily. Sputum culture is finalized with normal ct and blood culture no growth. A repeat chest x- ray is stable peripherally oriented bilateral consolidation and retrocardiac airspace disease. Dr. Moreira is continuing to follow patient and recommending vancomycin and prednisone. regional marketing manager and director social welfare are attempting to reach the patient's son regarding subacute rehab. PT and OT have recommended subacute rehab. 01/04: Patient remains in the intensive care unit, afebrile, heart rate 76, respiratory rate 15-25, blood pressure 106/52, pulse ox 93% on partial rebreather. Repeat lab work reveals hemoglobin 9.8, WBC 8.7, platelet count 355. BUN 48 creatinine 1.01. Blood sugars running this morning at 158. During the evening in the low 200s, 201-230. Patient will be continued on Levemir 10 units twice daily for now and monitor closely. Anticipate increased need once patient is eating. Thus far, patient has had only a few bites of her food. Social work is working with the patient, her son regarding possible workman comp coverage for subacute rehab. Dr. Mojica is planning for her to go to [facility] for subacute rehab when stabilized. 01/05: Patient remains in intensive care unit. She is awake and alert. She continues to have significant weakness. She is eating very little. She is currently on partial rebreather mask and we will try to transition to nasal cannula today. Patient went into A. fib with RVR yesterday and was started on amiodarone subsequently converted to normal sinus rhythm. Echocardiogram reveals EF of 65-70% with severe concentric left ventricular hypertrophy, mild tricuspid regurgitation, mild pulmonary hypertension.. Patient has been afebrile, blood pressure 99/49, pulse ox 99% on 15 L partial rebreather mask. Repeat blood work reveals WBC 9.6, hemoglobin 9.8, platelet count 348. Electrolytes normal, CO2 36, BUN 44 and creatinine 0.94. Blood sugars running 143-165. Objective - Vital Signs Vital signs: Vital Signs Temp 98.4 F 01/06/20 04:00 Pulse 64 01/06/20 05:00 Resp 22 01/06/20 05:00 BP 106/51 01/06/20 05:00 Pulse Ox 99 01/06/20 05:00 Intake & Output 01/05/20 01/06/20 01/06/20 18:59 06:59 18:59 Intake Total 1086 936 78 Output Total 1275 447 30 Balance -189 489 48 Weight 124.4 kg 125.4 kg Intake: IV 936 936 78 Lactated Ringers 1,000 ml 900 900 75 @ 75 mls/hr IV .[id number] JORGE Rx#:[id number] Pressure bag 36 36 3 Oral 150 Output: Urine 1275 447 30 Other: Voiding Method Indwelling Catheter Indwelling Catheter # Voids 3 # Bowel Movements 1 ABP, PAP, CO, CI - Last Documented Arterial Blood Pressure 84/63 - Exam Review of Systems Constitutional: No fever, no chills, no night sweats. No weight change. Reports weakness, Reports fatigue Reports lethargy. Reports daytime sleepiness. EENT: No headache. No blurred vision or double vision, no loss of vision. No loss of Hearing, no ringing in the ears, no dizziness. No nasal drainage or congestion. No epistaxis. No sore throat. Lungs: Reports shortness of breath, Reportscough, Reports sputum production. No wheezing. Cardiovascular: No chest pain, no lower extremity edema. No palpitations. No paroxysmal nocturnal dyspnea. No orthopnea. No lightheadedness or dizziness. No syncopal episodes. Abdominal: No abdominal pain. No nausea, vomiting. No diarrhea. No constipa tion. No bloody or tarry stools.. No loss of appetite. Genitourinary: No dysuria, increased frequency, urgency. No urinary retention. Musculoskeletal: No myalgias. No muscle weakness, no gait dysfunction, no frequent falls. No back pain. No neck pain. Integumentary: No wounds, no lesions. No rash or pruritus. No unusual bruising. No change in hair or nails. Neurologic: No aphasia. No facial droop. No change in mentation. No head injury. No headache. No paralysis. No paresthesia. Psychiatric: No depression. No anxiety. No mood swings. Endocrine: No abnormal blood sugars. No weight change. No excessive sweating or thirst. No cold intolerance. Physical Examination Gen: This is a 64-year-old morbidly obese female. Patient is resting in ICU bed. She is on partial nonrebreather with mild accessory muscle usage. HEENT: Head is atraumatic, normocephalic. Pupils equal, round. Sclerae is anicteric. Left-sided triple-lumen in place. NECK: Supple. No JVD. No lymphadenopathy. No thyromegaly. LUNGS: Diminished breath sounds bilaterally. Bilateral rales in the bases. No intercostal retractions. HEART: Regular rate and rhythm. No murmur. consulting intern normal sinus rhythm. ABDOMEN: Soft. Bowel sounds are present. No masses. No tenderness. Urrutia catheter draining vini urine with sediment. EXTREMITIES: No pedal edema. No calf tenderness. Dorsalis pedis +2 bilaterally. NEUROLOGICAL: Patient is awake, alert and oriented x3. Cranial nerves 2 through 12 are grossly intact. Generalized weakness noted to upper and lower extremit ies. - Labs CBC & Chem 7: 01/06/20 07:01 01/06/20 07:01 Labs: Abnormal Lab Results - Last 24 Hours (Table) 01/05/20 01/05/20 01/05/20 Range/Units 12:00 16:36 20:17 RBC (3.80-5.40) m/uL Hgb (11.4-16.0) gm/dL Hct (34.0-46.0) % Carbon Dioxide (22-30) mmol/L BUN (7-17) mg/dL Glucose (74-99) mg/dL POC Glucose (mg/dL) 294 H 250 H 234 H (75-99) mg/dL 01/05/20 01/06/20 01/06/20 Range/Units 23:24 06:40 07:01 RBC (3.80-5.40) m/uL Hgb (11.4-16.0) gm/dL Hct (34.0-46.0) % Carbon Dioxide 36 H (22-30) mmol/L BUN 44 H (7-17) mg/dL Glucose 143 H (74-99) mg/dL POC Glucose (mg/dL) 165 H 143 H (75-99) mg/dL 01/06/20 Range/Units 07:01 RBC 3.52 L (3.80-5.40) m/uL Hgb 9.8 L (11.4-16.0) gm/dL Hct 31.0 L (34.0-46.0) % Carbon Dioxide (22-30) mmol/L BUN (7-17) mg/dL Glucose (74-99) mg/dL POC Glucose (mg/dL) (75-99) mg/dL Assessment and Plan Plan: 1. Acute hypoxic respiratory failure secondary to COPD exacerbation and COVID- 19 pneumonitis. Patient has been successfully extubated. Completed Plaquenil. Consults with pulmonary medicine and infectious disease appreciated. Continue albuterol inhaler as needed, Symbicort twice daily, Phenergan cough syrup, prednisone 40 mg daily 2. Acute kidney injury with chronic kidney disease stage III. Avoid nephrotoxic agents, hypotension. 3. Mild hyperkalemia secondary to acute kidney injury. 4. Mild lactic acidosis secondary to COVID-19 infection. Resolved. 5. Sepsis secondary to Covid 19 infection, POA. 6. Hyperlipidemia. Continue atorvastatin 40 mg at bedtime 7. Diabetes mellitus type 2, insulin requiring, uncontrolled with hyperglycemia secondary to steroids. Continue Levemir at 10 units twice daily, continue NovoLog scale before meals and at bedtime. 7. History of coronary artery disease status post stenting. Continue aspirin 325 mg daily, Lipitor. 8. Hypertension. Continue lisinopril 20 mg at bedtime. Avoid hypotension. 9. Gastroesophageal reflux disease disease and GI prophylaxis. Continue Protonix. 10. DVT prophylaxis. Lovenox. 11. Dysphagia. Speech therapy evaluation with recommendations for chapped diet with nectar thick liquids, continue one-to-one supervision, upright position small bites liquids via cup. Possible modified barium swallow on Thursday if symptoms continue. 12. Atrial fibrillation with RVR, paroxysmal atrial fibrillation, new onset. Patient converted on amiodarone drip. Patient was started on Lopressor 12.5 mg twice daily. Discharge plan: Subacute rehab at [facility]. Social work is working with the thomas gaxiola's son regarding Workmen's Comp. coverage for ECF. Impression and plan of care have been directed as dictated by the signing physician. Deborah Crow nurse practitioner acting as scribe for signing physician.
[2020-01-06 12:24] LABS: Glucose,Whole Blood 232 mg/dL (75-99)
--- NOTE | 2020-01-06 13:56 | P.PN ---
Subjective Progress Note Date: 01/06/20 Is a 64-year-old female patient who was originally hospitalized on 12/27/2019 because of an acute cold and 19 related infection/pneumonia. 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 Her symptoms progressively got worse and she became progressively more short of breath and she also developed nausea and diarrhea. She came into the hospital and she was quite hypoxic and she checked positive for coag with 19 infection. Her chest x-ray showed some mild cardiomegaly and diffuse interstitial infiltrates secondary to an underlying covert 19 related pneumonia. The patient also has other comorbidities including asthma, hypertension, hyperlipidemia and acid reflux in addition to diabetes mellitus type 2. She has coronary artery disease with previous coronary stenting. She has chronic stage III kidney disease. She is obese with a body mass index of 48.2. This patient has been intubated since 12/28/2019. Since then the patient has remained on a mechanical ventilator. She is currently on an assist-control mode rate of 26 with a tidal volume of 350 and FiO2 of 40% with a PEEP of 10. Her chest x-ray is consistent with lateral pneumonia worse on the left. She is on propofol for sedation. She is on vital 1.2 for enteral feeding and nutritional support. She has completed her course of Plaquenil and she was also treated with Zithromax vitamin C and zinc sulfate. Her sputum Gram stain and culture has been negative. Blood cultures been negative. She is on IV Solu-Medrol 40 mg every 12 hours. On today's evaluation of 01/02/2020, the patient remains intubated on a mechanical ventilator. The patient today is on a assist-control mode at the rate of 26 with a tidal volume of 350 and FiO2 of 40% with a PEEP of 5. Peak airway pressures around 27 anesthetic pressures of 21. The chest x-ray from today shows stable bilateral pulmonary infiltrates which has remained unchanged and the patient is infiltration rate is in the left lower lobe. ET tube is in a good location. The blood gas showed a pH of 7.44 with a pCO2 of 44 and pO2 of any 8. The patient has a peak given a pressure of 27. This particular pressures at 21. White cell count is at 16.2. She was noted to be excessively fluid overloaded and the patient's net fluid balance and the positive with a weight gain and order of 7 kg. The patient will be started on IV Lasix. Otherwise, no other significant events overnight. The patient remains on Lovenox therapeutic dose. No signs of any bleeding. On 01/03/2020, I'm seeing this patient for a follow-up in the intensive care [facility]. The patient was extubated yesterday and currently she is on 10 L of oxygen by nasal cannula. She is awake and communicating and following commands pH is extremely weak. I'm not sure if he is able to swallow and his Urrutia evaluation to be done today. Chest x-ray still showing stable bilateral pulmonary infiltrates unchanged from yesterday's chest x-ray. The patient has been a positive fluid balance. The patient is currently on Lasix 40 mg every 12 hours. The patient is on IV Solu-Medrol. The net fluid balance of been -2 L over the past 24 hours he had a body weight is still at 124 kg. In terms of labs, the white cell count at 13.1. BUN is at 43 with a creatinine of 0.9. The LDH is slightly elevated at 914. CRP level is at 50. No fever. No chills. No other complaints otherwise for now. On 01/04/2020, the patient is still weak and somewhat lethargic. She is able to take some few bites and take some applesauce. Her oral intake is diminished. She remains quite weak and debilitated. She has been placed on on the percent nonrebreather facemask to maintain a saturation of above 90% and the patient has been mouth breathing. She is receiving IV fluids at the rate of 75 mL an hour of normal saline. Her chest x-ray still showing diffuse bilateral pulmonary infiltrates, interstitial, unchanged compared to yesterday. She was receiving diuretics and the Lasix dose will be tapered. The patient was also taken of the IV Solu Medrol and started on a prednisone burst taper. No altered mentation. No agitation. No chest pain. Continues to have some dry cough. No significant sputum production. She is afebrile. Based on her covert 19 inflammatory markers, the LDH is at 739 with a C-reactive protein of 43 and a ferritin level is down to 462. Renal function is stable for now. No other significant events otherwise for now. The patient will be kept in ICU for another 24 hours pending some further improvement. On 01/05/2020, the patient is looking somewhat better, more alert and awake and she has regained some of her strength and she is able to raise her arms and legs against gravity and she is also willing to sit up on a chair with help. On today's evaluation, the patient was replaced back on a 15 L of oxygen by nasal cannula with a pulse of 76% pH is being considered for a partial nonrebreather facemask. She is taking minimal amount of oral intake and she is to advance her diet as tolerated. No nausea. No vomiting. No chest pain. She has developed coffee no significant sputum production. She is able to swallow her medications fine. No diarrhea. Note that after completion of around and around noontime today the patient went into atrial fibrillation with rapid ventricular response. The patient be started on Cardizem drip. No major hemodynamic instability along with his atrial fibrillation. The patient still has an arterial line in the right upper extremity and a Urrutia catheter still in place. On 01/06/2020, the patient is alternating between high flow oxygen and 100% nonrebreather facemask. No new complaints. I was told that she is working with physical therapy and she was able to sit up on a commode with assistance for a brief period of time. She is taking oral material remaining form of liquids and soft diet. She was in atrial fibrillation with rapid ventricular response and she was given amiodarone and she converted yesterday and she is still on a maintenance for now. She is on no anticoagulation for now. No nausea. No vomiting. No chest pain. No fever. No chills. No cough or sputum production. No other significant events otherwise for now. The patient is still in the intensive care unit as she is recovering from her covid 19 related pneumonia. The catheter still in place. A urinalysis was done as the urine material it's coming out of the Urrutia catheter is quite dark and cloudy. Nevertheless, the patient is a symptomatic and she is afebrile. Objective - Vital Signs Vital signs: Vital Signs Temp 98.8 F 01/06/20 12:00 Pulse 71 01/06/20 12:00 Resp 28 H 01/06/20 12:00 BP 104/40 01/06/20 12:00 Pulse Ox 98 01/06/20 12:00 Intake & Output 01/05/20 01/06/20 01/06/20 18:59 06:59 18:59 Intake Total 1086 936 398 Output Total 1275 447 480 Balance -189 489 -82 Weight 124.4 kg 125.4 kg Intake: IV 936 936 398 Lactated Ringers 1,000 ml 900 900 380 @ 40 mls/hr IV .Q24H JORGE Rx#:[id number] Pressure bag 36 36 18 Oral 150 Output: Urine 1278 769 480 Other: Voiding Method Indwelling Catheter Indwelling Catheter # Voids 3 # Bowel Movements 1 ABP, PAP, CO, CI - Last Documented Arterial Blood Pressure 84/63 - Exam GENERAL EXAM: A 64-year-old obese female patient, The patient has been on 100 and percent nonrebreather facemask. The patient's been extubated. She is able to speak up. Sentences that are rather short. No use of accessory muscles of breathing. She was switched to 15 L of oxygen by nasal cannula in the evening and today this patient remains on high flow oxygen. Oxygen is flowing to 15 L per minute nasal cannula. HEAD: Normocephalic/atraumatic. EYES: Sluggish reaction of pupils, equal size. Conjunctiva pink, sclera white. NOSE: Clear with pink turbinates. THROAT: Oral endotracheal and gastric tube secured in place No erythema or exudates. NECK: No masses, no JVD, no thyroid enlargement, no adenopathy. CHEST: No chest wall deformity. Symmetrical expansion. LUNGS: Equal air entry with crackles in the posterior bases right greater than left. CVS: Regular rate and rhythm, normal S1 and S2, no gallops, no murmurs, no rubs, and subsequently around noontime, the patient went into atrial fibrillation with rapid ventricular response. She is asymptomatic with that. ABDOMEN: Soft, nontender. No hepatosplenomegaly, normal bowel sounds, no guarding or rigidity. EXTREMITIES: No clubbing, no edema, no cyanosis, 2+ pulses and upper and lower extremities. The patient has extensive edema in all 4 extremities MUSCULOSKELETAL: Muscle strength and tone normal. SPINE: No scoliosis or deformity SKIN: No rashes CENTRAL NERVOUS SYSTEM: Significant motor weakness in all 4 extremities. The patient seems a much more awake and stronger on today's evaluation she expressed wishes to be moved to a bedside chair with assistance. No focal neurological deficit at this point in time. No confusion. No altered mentation. No signs of any delirium. - Labs CBC & Chem 7: 01/06/20 07:01 01/06/20 07:01 Labs: Abnormal Lab Results - Last 24 Hours (Table) 01/05/20 01/05/20 01/05/20 Range/Units 16:36 20:17 23:24 RBC (3.80-5.40) m/uL Hgb (11.4-16.0) gm/dL Hct (34.0-46.0) % Carbon Dioxide (22-30) mmol/L BUN (7-17) mg/dL Glucose (74-99) mg/dL POC Glucose (mg/dL) 250 H 234 H 165 H (75-99) mg/dL 01/06/20 01/06/20 01/06/20 Range/Units 06:40 07:01 07:01 RBC 3.52 L (3.80-5.40) m/uL Hgb 9.8 L (11.4-16.0) gm/dL Hct 31.0 L (34.0-46.0) % Carbon Dioxide 36 H (22-30) mmol/L BUN 44 H (7-17) mg/dL Glucose 143 H (74-99) mg/dL POC Glucose (mg/dL) 143 H (75-99) mg/dL 01/06/20 01/06/20 Range/Units 10:32 12:23 RBC (3.80-5.40) m/uL Hgb (11.4-16.0) gm/dL Hct (34.0-46.0) % Carbon Dioxide (22-30) mmol/L BUN (7-17) mg/dL Glucose (74-99) mg/dL POC Glucose (mg/dL) 164 H 232 H (75-99) mg/dL Assessment and Plan Plan: 1. Acute hypoxemic respiratory failure related to COVID 19 related pneumonia, requiring intubation and placement on mechanical ventilation on 12/28/2019, treated with Plaquenil and then sulfate and the patient is also on IV Solu Medrol 40 mg every 12 hours. The patient was extubated on 01/02/2020 On 01/06/2020, the patient is still alternating between high flow oxygen in the 100% nonrebreather facemask. Nevertheless to getting progressively more stronger and interactive. No signs of any significant respiratory distress. I think there may be a component of obstructive sleep apnea as the patient desaturates whenever sleeping and she typically gets placed on on the percent nonrebreather facemask. She is on a prednisone burst taper. No other respira tory issues for now. Most of the cough shortness of breath chest tightness or wheeze.. 2. diffuse bilateral pneumonia secondary to COVID19 infection 3. Elevated ferritin, LDH, CRP and d-dimer related to acute COVID19 related pneumonia, and inflammatory markers are improving, and the d-dimer was elevated and the patient was placed on therapeutic dose of Lovenox in the most recent d- dimer from 12/31/2019 has improved and is down to 0.28 4. obesity with a BMI of 48.2 5. Hypertension, taken RAVEN inhibitor in the RAVEN inhibitor was kept on board 6. Hyperlipidemia 7. GERD/reflux 8. Diabetes mellitus type 2currently on Levemir insulin 60 units twice a day in addition to NovoLog 20 units every 6 hours and a scale 9. History of chronic bronchial asthma, unspecified 10. acute on chronic kidney injury, renal function is normalized and the creatinine is down to 0.8 11. History of diverticular disease 12. History of coronary artery disease with PCI and stent placement 13 new-onset atrial fibrillation with rapid ventricular response. The patient was given a Cardizem initially to which she had no significant response and following that the patient was switched to amiodarone and within a few hours she converted back into normal sinus rhythm. The echo of the heart showed an ejection fraction of 65-70%. No severe abnormalities were noted other than some concentric ventricular hypertrophy. The thyroid function tests were within normal limits. Troponins were also negative. Plan Alternate between 100% nonrebreather facemask and a nasal cannula, high flow oxygen and the patient is currently on 15 L of oxygen by nasal cannula. Prednisone burst taper Chest x-ray findings are noted and the findings are stable Discontinue the amiodarone drip. No need for amiodarone maintenance or anticoagulation. Put the patient on metoprolol 12.5 mg by mouth twice a day. Cardiology consultation may be needed in this patient continues to have issues from her atrial fibrillation Repeat chest x-rays in the morning We'll continue to follow make further recommendations based on her progress. She is on Lovenox for prophylaxis for now.
--- NOTE | 2020-01-06 17:03 | PN ---
PROGRESS NOTE DATE OF SERVICE: 01/06/2020 REASON FOR FOLLOWUP: Pneumonia. INTERVAL HISTORY: The patient is currently afebrile. The patient is still requiring a partial rebreather for her oxygenation, though the patient does not seem to be in any respiratory distress. The patient did have a cough with occasional sputum. No nausea, vomiting or diarrhea is reported. PHYSICAL EXAMINATION: Blood pressure is 90/48 with a pulse of 92, temperature 98.8. She is 93% on partial non-rebreather. General description is a middle-aged female lying in bed in no distress. RESPIRATORY SYSTEM: Unlabored breathing with decreased breath sounds at the base. No wheeze. HEART: S1, S2. Irregular regular. ABDOMEN: Soft. No tenderness. LABS: Hemoglobin 9.8, white count 9.6. BUN of 44, creatinine is 0.94. DIAGNOSTIC IMPRESSION AND PLAN: Patient with acute COVID-19 pneumonia, for which the patient has completed her treatment. She has been extubated. Still her respiratory status is borderline. The patient is currently on prednisone and zinc; to continue. She is afebrile, white count normal, clinically less suspicious for secondary bacterial infection. The patient will be monitored closely. Continue with supportive care. MMODL / IJN: [id number] /
[2020-01-06 17:27] LABS: Glucose,Whole Blood 287 mg/dL (75-99)
[2020-01-06 18:39] LABS: Amorphous Sediment,Urine Moderate /hpf; Appearance,Urine Cloudy (Clear); Bacteria,Urine Occasional /hpf; Bilirubin,Urine Negative (Negative); Blood,Urine Moderate (Negative); Color,Urine Yellow; Glucose,Urine (UA) Trace (Negative); Ketones,Urine Negative (Negative); Leukocyte Esterase,Urine Large (Negative); Mucus,Urine Rare /hpf; Nitrite,Urine Positive (Negative); PH, Urine 5.5 (5.0-8.0); Protein,Urine Negative (Negative); RBC,Urine 64 /hpf (0-5); Specific Gravity,Urine 1.018 (1.001-1.035); Squamous Epithelial Cell,Urine <1 /hpf (0-4); Uric Acid Crystals,Urine Rare /hpf; Urobilinogen,Urine <2.0 mg/dL (<2.0); WBC,Urine 41 /hpf (0-5)
[2020-01-06 20:32] LABS: Glucose,Whole Blood 400 mg/dL (75-99)
[2020-01-06] MEDS: ATORVASTATIN 40 MG TAB PO SCH (20:40)
[2020-01-06] MEDS: METOPROLOL TARTRATE 12.5 MG TAB PO SCH (20:40)
[2020-01-06] MEDS: LISINOPRIL 20 MG TAB PO SCH (20:40)
[2020-01-07 05:34] LABS: Basophils % (A) 0 %; Eosinophils # (A) 0.1 k/uL (0-0.7); Eosinophils % (A) 1 %; HGB 9.7 gm/dL (11.4-16.0); Hypochromasia Marked; Lymphocytes # (A) 1.1 k/uL (1.0-4.8); Lymphocytes % (A) 10 %; MCH 27.8 pg (25.0-35.0); MCHC 31.4 g/dL (31.0-37.0); MCV 88.5 fL (80.0-100.0); Mean Platelet Volume 7.8; Monocytes # (A) 0.4 k/uL (0-1.0); Monocytes % (A) 4 %; Neutrophils # (A) 8.7 k/uL (1.3-7.7); Neutrophils % (A) 83 %; Platelet Count 373 k/uL (150-450); RBC 3.51 m/uL (3.80-5.40); RDW 13.5 % (11.5-15.5); WBC 10.5 k/uL (3.8-10.6)
[2020-01-07 05:47] LABS: Calcium 8.9 mg/dL (8.4-10.2); Potassium 4.1 mmol/L (3.5-5.1)
[2020-01-07] MEDS: LACTATED RINGERS 1,000 ML IV SCH (06:40)
--- NOTE | 2020-01-07 06:47 | XR ---
EXAMINATION TYPE: XR chest 1V portable DATE OF EXAM: 01/07/2020 HISTORY: SOB with low SpO2 levels. REFERENCE: Previous study dated 01/05/2020. FINDINGS: There is a left subclavian catheter in place. Its tip is at the cavoatrial junction. The heart is enlarged. Lung volumes are low. There is patchy, bilateral pneumonia. I suspect small ef fusions. The overall appearance is similar to previous. IMPRESSION: NO SIGNIFICANT INTERVAL CHANGE IN THE APPEARANCE OF THE CHEST.
[2020-01-07 06:49] LABS: Glucose,Whole Blood 196 mg/dL (75-99)
[2020-01-07] MEDS: INSULIN ASPART (NovoLOG) 100 UNIT/ML VIAL SQ SCH ×6 (07:08→21:15)
[2020-01-07] MEDS: SYMBICORT 160-4.5 MCG INHALER INHALATION SCH ×2 (07:22→20:41)
[2020-01-07] MEDS: ALBUTEROL HFA INHALER INHALATION PRN ×2 (07:23→20:42)
[2020-01-07] MEDS ORDERED: INSULIN ASPART (NovoLOG) 100 UNIT/ML VIAL SQ SCH (07:30)
[2020-01-07] MEDS: PANTOPRAZOLE 40 MG/10 ML VIAL IVP SCH (08:16)
[2020-01-07] MEDS: predniSONE 20 MG TAB PO SCH (08:16)
[2020-01-07] MEDS: FUROSEMIDE 10 MG/ML 4 ML VIAL IV SCH (08:16)
[2020-01-07] MEDS: ASPIRIN 325 MG TAB PO SCH (08:16)
[2020-01-07] MEDS: ENOXAPARIN 40 MG/0.4 ML SYRINGE SQ SCH (08:17)
[2020-01-07] MEDS: METOPROLOL TARTRATE 12.5 MG TAB PO SCH ×2 (08:17→21:56)
[2020-01-07] MEDS: ZINC SULFATE 220 MG CAP PO SCH (08:17)
[2020-01-07] MEDS: INSULIN DETEMIR (LEVEMIR) 100 UNIT/ML SYR SQ SCH ×2 (08:17→21:56)
[2020-01-07] MEDS: ASCORBIC ACID 500 MG TAB PO SCH ×2 (08:17→21:56)
[2020-01-07] MEDS ORDERED: INSULIN DETEMIR (LEVEMIR) 100 UNIT/ML SYR SQ ONE (09:08)
--- NOTE | 2020-01-07 10:41 | P.PN ---
Subjective Progress Note Date: 01/07/20 This is a 64-year-old female patient of Dr. Mojica with past medical history of asthma, hypertension, hyperlipidemia, gastroesophageal reflux disease, diabetes mellitus type 2 insulin requiring, coronary artery disease status post stent, remote history of tobacco use and dependence, chronic kidney disease stage III. 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 They were exposed to a COVID-19 positive patient on December 11 and/or December 12. She had symptoms develop approximate 7 days ago with fever, cough, shortness of breath, nausea, diarrhea. She tried to manage at home but symptoms became significantly severe in the past 3 days and she lives alone she was so sick she could not get to the She to the bathroom. Patient came into [facility] emergency center for evaluation and found to be afebrile, blood pressure 141/68, heart rate 85, pulse ox 87%. EKG was a sinus rhythm with no acute ST changes. W BC 12.1, hemoglobin 12.7, platelet count 303, sodium 136, potassium 5.3, chloride 100, CO2 23, BUN 41, creatinine 1.43, blood sugar 230. Total bilirubin 0.6, AST 49, ALT 22, alkaline phosphatase 255, LDH 1600, ferritin 609.6 C-reactive protein 262, pro calcitonin 0.2 to. Chronic virus PCR detected, influenza testing negative, lactic acid 2.1. Repeat lactic acid 1.2 chest x-ray revealed mild cardiomegaly with moderately severe diffuse interstitial edema that is changed from old exam compared to November 2018. This could represent acute interstitial pneumonia or acute heart failure. Patient was started on Tylenol, azithromycin, Plaquenil admitted to the [facility] floor and consult was requested with infectious disease and pulmonary medicine. 12/27: Patient had a drop in her oxygen saturation and became tachypneic. She was initially placed on high flow nasal cannula at 10 L, transferred into the intensive care unit and was intubated this morning. Temperature max 101.4. Heart rate in the 60s and 70s. Repeat blood work reveals CBC unremarkable except for low lymphocytes. D-dimer 1.05, potassium 5.2, BUN 62 and creatinine 1.91. Blood sugars in the 200s. Alkaline phosphatase 198 LDH 1439. She has been continued on azithromycin, Plaquenil, zinc and vitamin C. Solu-Medrol is currently at 40 mg IV every 12 hours. 12/28: Patient remains in the intensive care unit, intubated and on mechanical ventilation with tidal volume 350, FiO2 of 50 and PEEP 13. Patient has been afebrile, heart rate 50, blood pressure 120/56. Repeat blood work reveals WBC 16, hemoglobin 10.7, platelet count 273. Repeat d-dimer is decreased at 0.72. Sodium 135, potassium 4.6, chloride 103, CO2 24, BUN 63 and creatinine 1.43. Ferritin decreased to 556.8, alkaline phosphatase decreased 167, LDH decreased to 1050, C-reactive protein 181.7. Case has been discussed outside patient's room with the patient's nurse. Blood sugars have been elevated running 189 to 231. We will increase Levemir to 42 units twice daily, added and NovoLog scheduled 5 units every 6 hours along with NovoLog scale. Patient is currently & Medrol 40 mg IV every 12 hours. 12/29: Patient remains intubated in critical ventilation with tidal volume 350, FiO2 of 40 and PEEP of 13. Patient has been afebrile, heart rate in the 50s, blood pressure 101/55. Repeat laboratory studies revealed a CBC 17.5, hemoglobin 10, platelet count 276. Sodium 135, potassium 5.4, chloride 105, CO2 26, BUN 61, creatinine 1.07 area blood sugars are running in the 200s up to 300, alkaline phosphatase 143, LDH 875, C-reactive protein 67.9, albumin 2.7. We will again today increase her insulins with long acting up to 50 units twice daily and NovoLog 10 units every 6 hours along with NovoLog scale. Patient has had good urine output, tube feedings are at goal. Patient appears to be stable at this time. 12/30: Patient still having significantly elevated CRP with abnormal liver function test, lactic acid that subtle down significantly. Blood sugar still mildly elevated when titrating insulin is making sugar slightly but better at this point. Patient is still sedated on mechanical ventilation currently no weaning his plan in the next 24 hours. 12/31: Back in off on sedation patient has done slightly well still not ready to be extubated this point she had her weaning parameter and was sedated and continue mechanical ventilation. Blood sugar still high her steroid was decreased today to Solu-Medrol 40 mg twice a day with higher Levemir to 60 units twice a day and up on NovoLog to 20 units every 6 hours plus a sliding scale we have to watch for any decrease blood sugar specially with a new change on insulin and medication. 01/01: Patient remains intubated and on mechanical ventilation. Patient is on a sedation holiday. Tidal volume 350, FiO2 40, PEEP 5. Patient has been afebrile, heart rate in the 40s, blood pressure 101/49. Repeat lab work reveals W BC 16.2, hemoglobin 9.9, platelet count 291. D-dimer 0.28. Sodium 138, potassium 5.2, chloride 104, CO2 29, BUN 42 and creatinine 0.89. Blood sugars have been running 148 197. At bedtime glucose 118. Scheduled NovoLog will be decreased to 15 units and continue Levemir at 60 units twice daily. Solu-Medrol at 40 mg IV every 12 hours and Lasix 40 mg every 12 hours. Patient has completed course of Plaquenil. She remains in isolation. 01/02: Patient was successfully extubated yesterday afternoon. She is pulse ox 97% on 10 L high flow nasal cannula. She has been afebrile, heart rate 69, blood pressure 112/52. WBC 13.1, hemoglobin 10.3, platelet count 308. Sodium 141, potassium 4.7, chloride 103, CO2 36, BUN 43 and creatinine 0.96. Blood sugars are improved and stable and have been running between 90 and 146 with holding of Levemir. Levemir will be discontinued and patient on scale insulin only for now. Repeat ferritin level 527.6, LDH 914, C-reactive protein 50. Sputum culture finalized with normal ct. Blood culture no growth at 144 hours. Repeat chest x-ray reveals patchy diffuse infiltrates less stable from comparison. Central venous catheter stable. Patient is having difficulties with swallowing and speech therapy will be evaluating. For now, oral medic ations on hold. manager commercial sales will discuss with the patient option of rehab when she is stable. Anticipate patient will be in the hospital until early next week. 01/03: Patient remains in intensive care unit. She is on O2 partial nonrebreather and pulse ox seen 97% on 15 L. Blood pressure 122/70, heart rate 80, respiratory rate 24. Patient has been afebrile for 24 hours. You have to collect again over a year repeat blood work reveals hemoglobin of 10.4, white count 12.9, platelet count 387. Sodium 140, potassium 4.5, chloride 100, CO2 38, BUN 52 and creatinine 1. Blood sugars have been running between 188 and 198. Blood sugars were in the 200s yesterday afternoon. Patient is now able to eat and we will start Levemir back in at 10 units twice daily. Sputum culture is finalized with normal ct and blood culture no growth. A repeat chest x- ray is stable peripherally oriented bilateral consolidation and retrocardiac airspace disease. Dr. Moreira is continuing to follow patient and recommending vancomycin and prednisone. manager commercial sales and social science instructor are attempting to reach the patient's son regarding subacute rehab. PT and OT have recommended subacute rehab. 01/04: Patient remains in the intensive care unit, afebrile, heart rate 76, respiratory rate 15-25, blood pressure 106/52, pulse ox 93% on partial rebreather. Repeat lab work reveals hemoglobin 9.8, WBC 8.7, platelet count 355. BUN 48 creatinine 1.01. Blood sugars running this morning at 158. During the evening in the low 200s, 201-230. Patient will be continued on Levemir 10 units twice daily for now and monitor closely. Anticipate increased need once patient is eating. Thus far, patient has had only a few bites of her food. Social work is working with the patient, her son regarding possible workman comp coverage for subacute rehab. Dr. Mojica is planning for her to go to [facility] for subacute rehab when stabilized. 01/05: Patient remains in intensive care unit. She is awake and alert. She continues to have significant weakness. She is eating very little. She is currently on partial rebreather mask and we will try to transition to nasal cannula today. Patient went into A. fib with RVR yesterday and was started on amiodarone subsequently converted to normal sinus rhythm. Echocardiogram reveals EF of 65-70% with severe concentric left ventricular hypertrophy, mild tricuspid regurgitation, mild pulmonary hypertension.. Patient has been afebrile, blood pressure 99/49, pulse ox 99% on 15 L partial rebreather mask. Repeat blood work reveals WBC 9.6, hemoglobin 9.8, platelet count 348. Electrolytes normal, CO2 36, BUN 44 and creatinine 0.94. Blood sugars running 143-165. 01/06: Patient remains in ICU. She was awake and alert this morning and continues to have significant weakness. Patient remains on partial rebreather mask unable to tolerate weaning to nasal cannula yesterday per nursing, will retry today. Patient continues to be normal sinus rhythm. Blood sugar last night was 400 will increase Levemir to 30 units twice a day, NovoLog 10 units with meals along with sliding scale coverage, will titrate slowly to patient's home dose due to decreased oral intake. Patient still to assist two get up to chair. Vital signs are stable, patient remains afebrile heart rate 64 blood pressure 96/53, pulse ox 98% on partial rebreather at 15 L. Labs are reviewed, hemoglobin stable at 9.7, BUN 41 and creatinine 0.91. Repeat chest x-ray showed no significant interval change in the appearance of the chest. Objective - Vital Signs Vital signs: Vital Signs Temp 98.1 F 01/07/20 08:00 Pulse 64 01/07/20 09:00 Resp 29 H 01/07/20 09:00 BP 96/53 01/07/20 09:00 Pulse Ox 98 01/07/20 09:00 Intake & Output 01/06/20 01/07/20 01/07/20 18:59 06:59 18:59 Intake Total 656 633 120 Output Total 1455 874 115 Balance -799 -241 5 Weight 123.5 kg Intake: IV 656 483 120 Lactated Ringers 1,000 ml 620 480 120 @ 40 mls/hr IV .Q24H JORGE Rx#:[id number] Pressure bag 36 3 Intake, IV Titration 50 Amount cefTRIAXone 2 gm In 50 Sodium Chloride 0.9% 50 ml @ 100 mls/hr IVPB HS JORGE Rx#:[id number] Oral 100 Output: Urine 1455 874 115 Other: Voiding Method Indwelling Catheter Indwelling Catheter ABP, PAP, CO, CI - Last Documented Arterial Blood Pressure 84/63 - Exam Review of Systems Constitutional: No fever, no chills, no night sweats. No weight change. Reports weakness, Reports fatigue Reports lethargy. Reports daytime sleepiness. EENT: No headache. No blurred vision or double vision, no loss of vision. No loss of Hearing, no ringing in the ears, no dizziness. No nasal drainage or congestion. No epistaxis. No sore throat. Lungs: Reports shortness of breath, Reports cough, Reports sputum production. No wheezing. Cardiovascular: No chest pain, no lower extremity edema. No palpitations. No paroxysmal nocturnal dyspnea. No orthopnea. No lightheadedness or dizziness. No syncopal episodes. Abdominal: No abdominal pain. No nausea, vomiting. No diarrhea. No constipation. No bloody or tarry stools.. Decreased appetite. Genitourinary: No dysuria, increased frequency, urgency. No urinary retention. Musculoskeletal: No myalgias. No muscle weakness, no gait dysfunction, no frequent falls. No back pain. No neck pain. Integumentary: No wounds, no lesions. No rash or pruritus. No unusual bruising. No change in hair or nails. Neurologic: No aphasia. No facial droop. No change in mentation. No head injury. No headache. No paralysis. No paresthesia. Psychiatric: No depression. No anxiety. No mood swings. Endocrine: No abnormal blood sugars. No weight change. No excessive sweating or thirst. No cold intolerance. Physical Examination Gen: This is a 64-year-old morbidly obese female. Patient is resting in ICU bed. She is on partial nonrebreather, no apparent respiratory distress HEENT: Head is atraumatic, normocephalic. Pupils equal, round. Sclerae is anicteric. Left-sided triple-lumen in place. NECK: Supple. No JVD. No lymphadenopathy. No thyromegaly. LUNGS: Diminished breath sounds bilaterally. Bilateral rales in the bases. No intercostal retractions. HEART: Regular rate and rhythm. No murmur. geospatial technologist normal sinus rhythm. ABDOMEN: Soft. Bowel sounds are present. No masses. No tenderness. Urrutia catheter draining vini urine with sediment. EXTREMITIES: No pedal edema. No calf tenderness. Dorsalis pedis +2 bilaterally. NEUROLOGICAL: Patient is awake, alert and oriented x3. Cranial nerves 2 through 12 are grossly intact. Generalized weakness noted to upper and lower extremities. - Labs CBC & Chem 7: 01/07/20 05:18 01/07/20 05:18 Labs: Abnormal Lab Results - Last 24 Hours (Table) 01/06/20 01/06/20 01/06/20 Range/Units 10:32 12:23 16:40 RBC (3.80-5.40) m/uL Hgb (11.4-16.0) gm/dL Hct (34.0-46.0) % Neutrophils # (1.3-7.7) k/uL Carbon Dioxide (22-30) mmol/L BUN (7-17) mg/dL Glucose (74-99) mg/dL POC Glucose (mg/dL) 164 H 232 H (75-99) mg/dL Urine Appearance Cloudy H (Clear) Urine Glucose (UA) Trace H (Negative) Urine Blood Moderate H (Negative) Urine Nitrite Positive H (Negative) Ur Leukocyte Esterase Large H (Negative) Urine RBC 64 H (0-5) /hpf Urine WBC 41 H (0-5) /hpf Uric Acid Crystals Rare H (None) /hpf Amorphous Sediment Moderate H (None) /hpf Urine Bacteria Occasional H (None) /hpf Urine Mucus Rare H (None) /hpf 01/06/20 01/06/20 01/07/20 Range/Units 17:26 20:30 05:18 RBC 3.51 L (3.80-5.40) m/uL Hgb 9.7 L (11.4-16.0) gm/dL Hct 31.0 L (34.0-46.0) % Neutrophils # 8.7 H (1.3-7.7) k/uL Carbon Dioxide (22-30) mmol/L BUN (7-17) mg/dL Glucose (74-99) mg/dL POC Glucose (mg/dL) 287 H 400 H (75-99) mg/dL Urine Appearance (Clear) Urine Glucose (UA) (Negative) Urine Blood (Negative) Urine Nitrite (Negative) Ur Leukocyte Esterase (Negative) Urine RBC (0-5) /hpf Urine WBC (0-5) /hpf Uric Acid Crystals (None) /hpf Amorphous Sediment (None) /hpf Urine Bacteria (None) /hpf Urine Mucus (None) /hpf 01/07/20 01/07/20 Range/Units 05:18 06:47 RBC (3.80-5.40) m/uL Hgb (11.4-16.0) gm/dL Hct (34.0-46.0) % Neutrophils # (1.3-7.7) k/uL Carbon Dioxide 32 H (22-30) mmol/L BUN 41 H (7-17) mg/dL Glucose 205 H (74-99) mg/dL POC Glucose (mg/dL) 196 H (75-99) mg/dL Urine Appearance (Clear) Urine Glucose (UA) (Negative) Urine Blood (Negative) Urine Nitrite (Negative) Ur Leukocyte Esterase (Negative) Urine RBC (0-5) /hpf Urine WBC (0-5) /hpf Uric Acid Crystals (None) /hpf Amorphous Sediment (None) /hpf Urine Bacteria (None) /hpf Urine Mucus (None) /hpf Assessment and Plan Plan: 1. Acute hypoxic respiratory failure secondary to COPD exacerbation and COVID- 19 pneumonitis. Patient has been successfully extubated. Completed Plaquenil. Consults with pulmonary medicine and infectious disease appreciated. Continue albuterol inhaler as needed, Symbicort twice daily, Phenergan cough syrup, prednisone 40 mg daily 2. Acute kidney injury with chronic kidney disease stage III. Avoid nephrotoxic agents, hypotension. 3. Mild hyperkalemia secondary to acute kidney injury. 4. Mild lactic acidosis secondary to COVID-19 infection. Resolved. 5. Sepsis secondary to Covid 19 infection, POA. 6. Hyperlipidemia. Continue atorvastatin 40 mg at bedtime 7. Diabetes mellitus type 2, insulin requiring, uncontrolled with hyperglycemia secondary to steroids. Will increase Levemir to 30 units twice daily NovoLog 10 units with meals and sliding scale 7. History of coronary artery disease status post stenting. Continue aspirin 325 mg daily, Lipitor. 8. Hypertension. Continue lisinopril 20 mg at bedtime. Avoid hypotension. 9. Gastroesophageal reflux disease disease and GI prophylaxis. Continue Protonix. 10. DVT prophylaxis. Lovenox. 11. Dysphagia. Speech therapy evaluation with recommendations of dysphagia level III chopped diet patient is able to independently feed herself 12. Atrial fibrillation with RVR, paroxysmal atrial fibrillation, new onset. Patient converted on amiodarone drip. Patient was started on Lopressor 12.5 mg twice daily. Discharge plan: Subacute rehab at [facility]. Social work is working with the patient's son regarding Workmen's Comp. coverage for ECF. Impression and plan of care have been directed as dictated by the signing physician. Catrina Albert nurse practitioner acting as scribe for signing physician.
[2020-01-07 11:10] LABS: Glucose,Whole Blood 157 mg/dL (75-99)
--- NOTE | 2020-01-07 12:04 | P.PN ---
Subjective Progress Note Date: 01/07/20 Is a 64-year-old female patient who was originally hospitalized on 12/27/2019 because of an acute cold and 19 related infection/pneumonia. Note that the patient is an [employer] and she worked for [employer]. 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 Her symptoms progressively got worse and she became progressively more short of breath and she also developed nausea and diarrhea. She came into the hospital and she was quite hypoxic and she checked positive for coag with 19 infection. Her chest x-ray showed some mild cardiomegaly and diffuse interstitial infiltrates secondary to an underlying covert 19 related pneumonia. The patient also has other comorbidities including asthma, hypertension, hyperlipidemia and acid reflux in addition to diabetes mellitus type 2. She has coronary artery disease with previous coronary stenting. She has chronic stage III kidney disease. She is obese with a body mass index of 48.2. This patient has been intubated since 12/28/2019. Since then the patient has remained on a mechanical ventilator. She is currently on an assist-control mode rate of 26 with a tidal volume of 350 and FiO2 of 40% with a PEEP of 10. Her chest x-ray is consistent with lateral pneumonia worse on the left. She is on propofol for sedation. She is on vital 1.2 for enteral feeding and nutritional support. She has completed her course of Plaquenil and she was also treated with Zithromax vitamin C and zinc sulfate. Her sputum Gram stain and culture has been negative. Blood cultures been negative. She is on IV Solu-Medrol 40 mg every 12 hours. On today's evaluation of 01/02/2020, the patient remains intubated on a mechanical ventilator. The patient today is on a assist-control mode at the rate of 26 with a tidal volume of 350 and FiO2 of 40% with a PEEP of 5. Peak airway pressures around 27 anesthetic pressures of 21. The chest x-ray from today shows stable bilateral pulmonary infiltrates which has remained unchanged and the patient is infiltration rate is in the left lower lobe. ET tube is in a good location. The blood gas showed a pH of 7.44 with a pCO2 of 44 and pO2 of any 8. The patient has a peak given a pressure of 27. This particular pressures at 21. White cell count is at 16.2. She was noted to be excessively fluid overloaded and the patient's net fluid balance and the positive with a weight gain and order of 7 kg. The patient will be started on IV Lasix. Otherwise, no other significant events overnight. The patient remains on Lovenox therapeutic dose. No signs of any bleeding. On 01/03/2020, I'm seeing this patient for a follow-up in the intensive care [facility]. The patient was extubated yesterday and currently she is on 10 L of oxygen by nasal cannula. She is awake and communicating and following commands pH is extremely weak. I'm not sure if he is able to swallow and his Urrutia evaluation to be done today. Chest x-ray still showing stable bilateral pulmonary infiltrates unchanged from yesterday's chest x-ray. The patient has been a positive fluid balance. The patient is currently on Lasix 40 mg every 12 hours. The patient is on IV Solu-Medrol. The net fluid balance of been -2 L over the past 24 hours he had a body weight is still at 124 kg. In terms of labs, the white cell count at 13.1. BUN is at 43 with a creatinine of 0.9. The LDH is slightly elevated at 914. CRP level is at 50. No fever. No chills. No other complaints otherwise for now. On 01/04/2020, the patient is still weak and somewhat lethargic. She is able to take some few bites and take some applesauce. Her oral intake is diminished. She remains quite weak and debilitated. She has been placed on on the percent nonrebreather facemask to maintain a saturation of above 90% and the patient has been mouth breathing. She is receiving IV fluids at the rate of 75 mL an hour of normal saline. Her chest x-ray still showing diffuse bilateral pulmonary infiltrates, interstitial, unchanged compared to yesterday. She was receiving diuretics and the Lasix dose will be tapered. The patient was also taken of the IV Solu Medrol and started on a prednisone burst taper. No altered mentation. No agitation. No chest pain. Continues to have some dry cough. No significant sputum production. She is afebrile. Based on her covert 19 inflammatory markers, the LDH is at 739 with a C-reactive protein of 43 and a ferritin level is down to 462. Renal function is stable for now. No other significant events otherwise for now. The patient will be kept in ICU for another 24 hours pending some further improvement. On 01/05/2020, the patient is looking somewhat better, more alert and awake and she has regained some of her strength and she is able to raise her arms and legs against gravity and she is also willing to sit up on a chair with help. On today's evaluation, the patient was replaced back on a 15 L of oxygen by nasal cannula with a pulse of 76% pH is being considered for a partial nonrebreather facemask. She is taking minimal amount of oral intake and she is to advance her diet as tolerated. No nausea. No vomiting. No chest pain. She has developed coffee no significant sputum production. She is able to swallow her medications fine. No diarrhea. Note that after completion of around and around noontime today the patient went into atrial fibrillation with rapid ventricular response. The patient be started on Cardizem drip. No major hemodynamic instability along with his atrial fibrillation. The patient still has an arterial line in the right upper extremity and a Urrutia catheter still in place. On 01/06/2020, the patient is alternating between high flow oxygen and 100% nonrebreather facemask. No new complaints. I was told that she is working with physical therapy and she was able to sit up on a commode with assistance for a brief period of time. She is taking oral material remaining form of liquids and soft diet. She was in atrial fibrillation with rapid ventricular response and she was given amiodarone and she converted yesterday and she is still on a maintenance for now. She is on no anticoagulation for now. No nausea. No vomiting. No chest pain. No fever. No chills. No cough or sputum production. No other significant events otherwise for now. The patient is still in the intensive care unit as she is recovering from her covid 19 related pneumonia. The catheter still in place. A urinalysis was done as the urine material it's coming out of the Urrutia catheter is quite dark and cloudy. Nevertheless, the patient is a symptomatic and she is afebrile. On 01/07/2020 on seeing the patient for a follow-up. The patient physically is getting stronger. However, she still having and oxygenation problem which is still requiring 100% nonrebreather facemask. No other new complaints for now. Her oral intake is gradually improving pH is mainly relying on soft or liquid the diet. Cardiac rhythm is sinus. She is off amiodarone for now. Lovenox is being used for DVT prophylaxis. No chest pain. No altered mentation. She is receiving daily Lasix 40 mg IV push. She is also on Lovenox for DVT prophylaxis. She is on Rocephin as an empiric antibiotic coverage. She was taken off the IV Solu-Medrol and started on prednisone burst taper few days back. Objective - Vital Signs Vital signs: Vital Signs Temp 98.1 F 01/07/20 08:00 Pulse 64 01/07/20 11:00 Resp 20 01/07/20 11:00 BP 95/33 01/07/20 11:00 Pulse Ox 94 L 01/07/20 11:00 Intake & Output 01/06/20 01/07/20 01/07/20 18:59 06:59 18:59 Intake Total 656 633 250 Output Total 1455 874 620 Balance -799 -241 -370 Weight 123.5 kg Intake: IV 656 483 200 Lactated Ringers 1,000 ml 620 480 200 @ 40 mls/hr IV .Q24H JORGE Rx#:[id number] Pressure bag 36 3 Intake, IV Titration 50 Amount cefTRIAXone 2 gm In 50 Sodium Chloride 0.9% 50 ml @ 100 mls/hr IVPB HS JORGE Rx#:[id number] Oral 100 50 Output: Urine 1455 874 620 Other: Voiding Method Indwelling Catheter Indwelling Catheter Indwelling Catheter # Voids 3 ABP, PAP, CO, CI - Last Documented Arterial Blood Pressure 84/63 - Exam GENERAL EXAM: A 64-year-old obese female patient, The patient has been on 100 and percent nonrebreather facemask. The patient's been extubated. She is able to speak up. Sentences that are rather short. No use of accessory muscles of breathing. She was switched to 15 L of oxygen by nasal cannula in the evening and today this patient remains on high flow oxygen. Oxygen is flowing to 15 L per minute nasal cannula. HEAD: Normocephalic/atraumatic. EYES: Sluggish reaction of pupils, equal size. Conjunctiva pink, sclera white. NOSE: Clear with pink turbinates. THROAT: Oral endotracheal and gastric tube secured in place No erythema or exudates. NECK: No masses, no JVD, no thyroid enlargement, no adenopathy. CHEST: No chest wall deformity. Symmetrical expansion. LUNGS: Equal air entry with crackles in the posterior bases right greater than left. CVS: Regular rate and rhythm, normal S1 and S2, no gallops, no murmurs, no rubs, and subsequently around noontime, the patient went into atrial fibrillation with rapid ventricular response. She is asymptomatic with that. ABDOMEN: Soft, nontender. No hepatosplenomegaly, normal bowel sounds, no guarding or rigidity. EXTREMITIES: No clubbing, no edema, no cyanosis, 2+ pulses and upper and lower extremities. The patient has extensive edema in all 4 extremities MUSCULOSKELETAL: Muscle strength and tone normal. SPINE: No scoliosis or deformity SKIN: No rashes CENTRAL NERVOUS SYSTEM: Significant motor weakness in all 4 extremities. The patient seems a much more awake and stronger on today's evaluation she expressed wishes to be moved to a bedside chair with assistance. No focal neurological deficit at this point in time. No confusion. No altered mentation. No signs of any delirium. - Labs CBC & Chem 7: 01/07/20 05:18 01/07/20 05:18 Labs: Abnormal Lab Results - Last 24 Hours (Table) 01/06/20 01/06/20 01/06/20 Range/Units 12:23 16:40 17:26 RBC (3.80-5.40) m/uL Hgb (11.4-16.0) gm/dL Hct (34.0-46.0) % Neutrophils # (1.3-7.7) k/uL Carbon Dioxide (22-30) mmol/L BUN (7-17) mg/dL Glucose (74-99) mg/dL POC Glucose (mg/dL) 232 H 287 H (75-99) mg/dL Urine Appearance Cloudy H (Clear) Urine Glucose (UA) Trace H (Negative) Urine Blood Moderate H (Negative) Urine Nitrite Positive H (Negative) Ur Leukocyte Esterase Large H (Negative) Urine RBC 64 H (0-5) /hpf Urine WBC 41 H (0-5) /hpf Uric Acid Crystals Rare H (None) /hpf Amorphous Sediment Moderate H (None) /hpf Urine Bacteria Occasional H (None) /hpf Urine Mucus Rare H (None) /hpf 01/06/20 01/07/20 01/07/20 Range/Units 20:30 05:18 05:18 RBC 3.51 L (3.80-5.40) m/uL Hgb 9.7 L (11.4-16.0) gm/dL Hct 31.0 L (34.0-46.0) % Neutrophils # 8.7 H (1.3-7.7) k/uL Carbon Dioxide 32 H (22-30) mmol/L BUN 41 H (7-17) mg/dL Glucose 205 H (74-99) mg/dL POC Glucose (mg/dL) 400 H (75-99) mg/dL Urine Appearance (Clear) Urine Glucose (UA) (Negative) Urine Blood (Negative) Urine Nitrite (Negative) Ur Leukocyte Esterase (Negative) Urine RBC (0-5) /hpf Urine WBC (0-5) /hpf Uric Acid Crystals (None) /hpf Amorphous Sediment (None) /hpf Urine Bacteria (None) /hpf Urine Mucus (None) /hpf 01/07/20 01/07/20 Range/Units 06:47 11:09 RBC (3.80-5.40) m/uL Hgb (11.4-16.0) gm/dL Hct (34.0-46.0) % Neutrophils # (1.3-7.7) k/uL Carbon Dioxide (22-30) mmol/L BUN (7-17) mg/dL Glucose (74-99) mg/dL POC Glucose (mg/dL) 196 H 157 H (75-99) mg/dL Urine Appearance (Clear) Urine Glucose (UA) (Negative) Urine Blood (Negative) Urine Nitrite (Negative) Ur Leukocyte Esterase (Negative) Urine RBC (0-5) /hpf Urine WBC (0-5) /hpf Uric Acid Crystals (None) /hpf Amorphous Sediment (None) /hpf Urine Bacteria (None) /hpf Urine Mucus (None) /hpf Assessment and Plan Plan: 1. Acute hypoxemic respiratory failure related to COVID 19 related pneumonia, requiring intubation and placement on mechanical ventilation on 12/28/2019, treated with Plaquenil and then sulfate and the patient is also on IV Solu Medrol 40 mg every 12 hours. The patient was extubated on 01/02/2020 On 01/07/2020, the patient remains extubated. Oxygenation is still impaired as the patient continues to require high flow oxygen and 100% on a beta facemask. Physically, she is getting stronger. She is on a prednisone burst taper. The chest x-ray findings are essentially stable with peripheral interstitial infiltrates and areas of consolidation which remains unchanged over the past few days. No other signs of any pulmonary decompensation worsening over the past 48 hours and the patient physically is getting stronger. She is to increase her oral intake. 2. diffuse bilateral pneumonia secondary to COVID19 infection 3. Elevated ferritin, LDH, CRP and d-dimer related to acute COVID19 related pneumonia, and inflammatory markers are improving, and the d-dimer was elevated and the patient was placed on therapeutic dose of Lovenox in the most recent d- dimer from 12/31/2019 has improved and is down to 0.28 4. obesity with a BMI of 48.2 5. Hypertension, taken RAVEN inhibitor in the RAVEN inhibitor was kept on board 6. Hyperlipidemia 7. GERD/reflux 8. Diabetes mellitus type 2currently on Levemir insulin 60 units twice a day in addition to NovoLog 20 units every 6 hours and a scale 9. History of chronic bronchial asthma, unspecified 10. acute on chronic kidney injury, renal function is normalized and the creatinine is down to 0.8 11. History of diverticular disease 12. History of coronary artery disease with PCI and stent placement 13 new-onset atrial fibrillation with rapid ventricular response, converted back into normal sinus rhythm 14 suspected UTI based on an abnormal urine analysis and urine cultures still pending. Meanwhile the patient was started on Rocephin. Plan Alternate between 100% nonrebreather facemask and a nasal cannula, high flow ox ygen and the patient is currently on 15 L of oxygen by nasal cannula. Prednisone burst taper Monitor the cardiac rhythm which remains in sinus for now Chest x-ray findings are noted and the findings are stable and there is no interval changes about the pu Repeat chest x-rays in the morning We'll continue to follow make further recommendations based on her progress. She is on Lovenox for prophylaxis for now. Will work with physical therapy and asked the patient to sit up on a recliner today. We'll keep her in ICU and will continue to follow.
--- NOTE | 2020-01-07 16:55 | PN ---
PROGRESS NOTE DATE OF SERVICE: 01/07/2020 REASON FOR FOLLOWUP: Pneumonia. INTERVAL HISTORY: The patient is currently afebrile. She has been breathing comfortably. FiO2 is currently down to Venti mask. The patient denies having any chest pain. Some cough. No sputum. No abdominal pain or diarrhea reported. PHYSICAL EXAMINATION: Blood pressure 120/56. Pulse of 71, temperature 99.1. She is 95% on Venti mask. General description is a middle-aged female lying in bed in no distress. Respiratory system: Unlabored breathing. Decreased breath sounds in the base, with no wheeze. Heart S1, S2. Regular rate and rhythm. ABDOMEN: Soft, no tenderness. LABS: Hemoglobin 9.7, white count 10.5, BUN of 41, creatinine 0.91. DIAGNOSTIC IMPRESSION AND PLAN: Patient with acute COVID-19 pneumonia for which the patient completed her antibiotic therapy. Chest x-ray with no significant interval changes. The patient has been started on Rocephin. Continue to monitor clinical course closely. Overall prognosis remains to be guarded. Continue supportive care. MMODL / IJN: [id number] /
[2020-01-07 16:59] LABS: Glucose,Whole Blood 177 mg/dL (75-99)
[2020-01-07] MEDS ORDERED: BENZOCAINE/MENTHOL LOZENG 1 EACH LOZENGE MUCOUS MEM PRN (18:23)
[2020-01-07 21:01] LABS: Glucose,Whole Blood 112 mg/dL (75-99)
[2020-01-07] MEDS: LISINOPRIL 20 MG TAB PO SCH (21:56)
[2020-01-07] MEDS: ATORVASTATIN 40 MG TAB PO SCH (21:56)
[2020-01-07] MEDS ORDERED: DEXTROSE 5% IN WATER 100 ML with AMIODARONE 150 MG IV ONE (22:38)
[2020-01-07] MEDS ORDERED: AMIODARONE 360 MG in DEXTROSE 5% IN WATER 200 ML IV ONE ×2 (22:38)
[2020-01-07] MEDS: PROMETHAZINE HCL 6.25 MG/5 ML CUP PO PRN ×2 (22:42→22:43)
[2020-01-08] MEDS: AMIODARONE 300 MG in DEXTROSE 5% IN WATER 250 ML IV SCH ×4 (04:12→15:08)
[2020-01-08] MEDS: APIXABAN 5 MG TAB PO SCH ×3 (04:15→20:18)
[2020-01-08 04:46] LABS: Basophils % (A) 0 %; Eosinophils # (A) 0.2 k/uL (0-0.7); Eosinophils % (A) 2 %; HCT 31.2 % (34.0-46.0); Hypochromasia Slight; Lymphocytes # (A) 2.2 k/uL (1.0-4.8); Lymphocytes % (A) 18 %; MCHC 32.1 g/dL (31.0-37.0); MCV 84.3 fL (80.0-100.0); Mean Platelet Volume 8.1; Monocytes # (A) 0.5 k/uL (0-1.0); Monocytes % (A) 4 %; Neutrophils # (A) 8.8 k/uL (1.3-7.7); Neutrophils % (A) 75 %; Platelet Count 432 k/uL (150-450); RBC 3.71 m/uL (3.80-5.40); RDW 13.8 % (11.5-15.5); WBC 11.8 k/uL (3.8-10.6)
[2020-01-08 04:52] LABS: Potassium 3.5 mmol/L (3.5-5.1)
[2020-01-08 05:31] LABS: Glucose,Whole Blood 73 mg/dL (75-99)
--- NOTE | 2020-01-08 06:36 | XR ---
EXAMINATION TYPE: XR chest 1V portable DATE OF EXAM: 01/08/2020 HISTORY: SOB with low SpO2 levels. REFERENCE: Previous study dated 01/07/2020. FINDINGS: There is a left subclavian catheter in place. Its tip is at the cavoatrial junction. Heart size is improved since the previous study. The heart is now upper limits of normal in size. There are patchy, bilateral infiltrates worse at the left lung base. There is blunting of both CP ang les and I would be difficult to exclude small effusions. The overall appearance of the lungs has not changed significantly. IMPRESSION: NO SIGNIFICANT INTERVAL CHANGE IN THE APPEARANCE OF THE LUNGS.
[2020-01-08 06:51] LABS: Glucose,Whole Blood 70 mg/dL (75-99)
[2020-01-08] MEDS: ALBUTEROL HFA INHALER INHALATION PRN ×2 (07:32→19:19)
[2020-01-08] MEDS: SYMBICORT 160-4.5 MCG INHALER INHALATION SCH ×2 (07:33→19:19)
[2020-01-08] MEDS: PANTOPRAZOLE 40 MG/10 ML VIAL IVP SCH (08:05)
[2020-01-08] MEDS: predniSONE 20 MG TAB PO SCH (08:05)
[2020-01-08] MEDS: METOPROLOL TARTRATE 12.5 MG TAB PO SCH ×2 (08:05→20:18)
[2020-01-08] MEDS: ASCORBIC ACID 500 MG TAB PO SCH ×2 (08:05→20:18)
[2020-01-08] MEDS: FUROSEMIDE 10 MG/ML 4 ML VIAL IV SCH (08:05)
[2020-01-08] MEDS: ZINC SULFATE 220 MG CAP PO SCH (08:05)
[2020-01-08] MEDS: ASPIRIN 325 MG TAB PO SCH (08:05)
[2020-01-08] MEDS: POTASSIUM CHLORIDE 20 MEQ in WATER FOR INJECTION 1 100ML.BAG IVPB SCH ×2 (08:06→10:52)
[2020-01-08] MEDS: INSULIN ASPART (NovoLOG) 100 UNIT/ML VIAL SQ SCH ×7 (08:39→21:31)
[2020-01-08] MEDS: INSULIN DETEMIR (LEVEMIR) 100 UNIT/ML SYR SQ SCH ×2 (08:40→10:53)
--- NOTE | 2020-01-08 09:32 | P.PN ---
Subjective Progress Note Date: 01/08/20 This is a 64-year-old female patient of Dr. Mojica with past medical history of asthma, hypertension, hyperlipidemia, gastroesophageal reflux disease, diabetes mellitus type 2 insulin requiring, coronary artery disease status post stent, remote history of tobacco use and dependence, chronic kidney disease stage III. 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 They were exposed to a COVID-19 positive patient on December 11 and/or December 12. She had symptoms develop approximate 7 days ago with fever, cough, shortness of breath, nausea, diarrhea. She tried to manage at home but symptoms became significantly severe in the past 3 days and she lives alone she was so sick she could not get to the She to the bathroom. Patient came into [facility] emergency center for evaluation and found to be afebrile, blood pressure 141/68, heart rate 85, pulse ox 87%. EKG was a sinus rhythm with no acute ST changes. W BC 12.1, hemoglobin 12.7, platelet count 303, sodium 136, potassium 5.3, chloride 100, CO2 23, BUN 41, creatinine 1.43, blood sugar 230. Total bilirubin 0.6, AST 49, ALT 22, alkaline phosphatase 255, LDH 1600, ferritin 609.6 C-reactive protein 262, pro calcitonin 0.2 to. Chronic virus PCR detected, influenza testing negative, lactic acid 2.1. Repeat lactic acid 1.2 chest x-ray revealed mild cardiomegaly with moderately severe diffuse interstitial edema that is changed from old exam compared to November 2018. This could represent acute interstitial pneumonia or acute heart failure. Patient was started on Tylenol, azithromycin, Plaquenil admitted to the [facility] floor and consult was requested with infectious disease and pulmonary medicine. 12/27: Patient had a drop in her oxygen saturation and became tachypneic. She was initially placed on high flow nasal cannula at 10 L, transferred into the intensive care unit and was intubated this morning. Temperature max 101.4. Heart rate in the 60s and 70s. Repeat blood work reveals CBC unremarkable except for low lymphocytes. D-dimer 1.05, potassium 5.2, BUN 62 and creatinine 1.91. Blood sugars in the 200s. Alkaline phosphatase 198 LDH 1439. She has been continued on azithromycin, Plaquenil, zinc and vitamin C. Solu-Medrol is currently at 40 mg IV every 12 hours. 12/28: Patient remains in the intensive care unit, intubated and on mechanical ventilation with tidal volume 350, FiO2 of 50 and PEEP 13. Patient has been afebrile, heart rate 50, blood pressure 120/56. Repeat blood work reveals WBC 16, hemoglobin 10.7, platelet count 273. Repeat d-dimer is decreased at 0.72. Sodium 135, potassium 4.6, chloride 103, CO2 24, BUN 63 and creatinine 1.43. Ferritin decreased to 556.8, alkaline phosphatase decreased 167, LDH decreased to 1050, C-reactive protein 181.7. Case has been discussed outside patient's room with the patient's nurse. Blood sugars have been elevated running 189 to 231. We will increase Levemir to 42 units twice daily, added and NovoLog scheduled 5 units every 6 hours along with NovoLog scale. Patient is currently & Medrol 40 mg IV every 12 hours. 12/29: Patient remains intubated in critical ventilation with tidal volume 350, FiO2 of 40 and PEEP of 13. Patient has been afebrile, heart rate in the 50s, blood pressure 101/55. Repeat laboratory studies revealed a CBC 17.5, hemoglobin 10, platelet count 276. Sodium 135, potassium 5.4, chloride 105, CO2 26, BUN 61, creatinine 1.07 area blood sugars are running in the 200s up to 300, alkaline phosphatase 143, LDH 875, C-reactive protein 67.9, albumin 2.7. We will again today increase her insulins with long acting up to 50 units twice daily and NovoLog 10 units every 6 hours along with NovoLog scale. Patient has had good urine output, tube feedings are at goal. Patient appears to be stable at this time. 12/30: Patient still having significantly elevated CRP with abnormal liver function test, lactic acid that subtle down significantly. Blood sugar still mildly elevated when titrating insulin is making sugar slightly but better at this point. Patient is still sedated on mechanical ventilation currently no weaning his plan in the next 24 hours. 12/31: Back in off on sedation patient has done slightly well still not ready to be extubated this point she had her weaning parameter and was sedated and continue mechanical ventilation. Blood sugar still high her steroid was decreased today to Solu-Medrol 40 mg twice a day with higher Levemir to 60 units twice a day and up on NovoLog to 20 units every 6 hours plus a sliding scale we have to watch for any decrease blood sugar specially with a new change on insulin and medication. 01/01: Patient remains intubated and on mechanical ventilation. Patient is on a sedation holiday. Tidal volume 350, FiO2 40, PEEP 5. Patient has been afebrile, heart rate in the 40s, blood pressure 101/49. Repeat lab work reveals W BC 16.2, hemoglobin 9.9, platelet count 291. D-dimer 0.28. Sodium 138, potassium 5.2, chloride 104, CO2 29, BUN 42 and creatinine 0.89. Blood sugars have been running 148 197. At bedtime glucose 118. Scheduled NovoLog will be decreased to 15 units and continue Levemir at 60 units twice daily. Solu-Medrol at 40 mg IV every 12 hours and Lasix 40 mg every 12 hours. Patient has completed course of Plaquenil. She remains in isolation. 01/02: Patient was successfully extubated yesterday afternoon. She is pulse ox 97% on 10 L high flow nasal cannula. She has been afebrile, heart rate 69, blood pressure 112/52. WBC 13.1, hemoglobin 10.3, platelet count 308. Sodium 141, potassium 4.7, chloride 103, CO2 36, BUN 43 and creatinine 0.96. Blood sugars are improved and stable and have been running between 90 and 146 with holding of Levemir. Levemir will be discontinued and patient on scale insulin only for now. Repeat ferritin level 527.6, LDH 914, C-reactive protein 50. Sputum culture finalized with normal ct. Blood culture no growth at 144 hours. Repeat chest x-ray reveals patchy diffuse infiltrates less stable from comparison. Central venous catheter stable. Patient is having difficulties with swallowing and speech therapy will be evaluating. For now, oral medic ations on hold. operations section manager will discuss with the patient option of rehab when she is stable. Anticipate patient will be in the hospital until early next week. 01/03: Patient remains in intensive care unit. She is on O2 partial nonrebreather and pulse ox seen 97% on 15 L. Blood pressure 122/70, heart rate 80, respiratory rate 24. Patient has been afebrile for 24 hours. You have to collect again over a year repeat blood work reveals hemoglobin of 10.4, white count 12.9, platelet count 387. Sodium 140, potassium 4.5, chloride 100, CO2 38, BUN 52 and creatinine 1. Blood sugars have been running between 188 and 198. Blood sugars were in the 200s yesterday afternoon. Patient is now able to eat and we will start Levemir back in at 10 units twice daily. Sputum culture is finalized with normal ct and blood culture no growth. A repeat chest x- ray is stable peripherally oriented bilateral consolidation and retrocardiac airspace disease. Dr. Moreira is continuing to follow patient and recommending vancomycin and prednisone. operations section manager and social research assistant are attempting to reach the patient's son regarding subacute rehab. PT and OT have recommended subacute rehab. 01/04: Patient remains in the intensive care unit, afebrile, heart rate 76, respiratory rate 15-25, blood pressure 106/52, pulse ox 93% on partial rebreather. Repeat lab work reveals hemoglobin 9.8, WBC 8.7, platelet count 355. BUN 48 creatinine 1.01. Blood sugars running this morning at 158. During the evening in the low 200s, 201-230. Patient will be continued on Levemir 10 units twice daily for now and monitor closely. Anticipate increased need once patient is eating. Thus far, patient has had only a few bites of her food. Social work is working with the patient, her son regarding possible workman comp coverage for subacute rehab. Dr. Mojica is planning for her to go to [facility] for subacute rehab when stabilized. 01/05: Patient remains in intensive care unit. She is awake and alert. She continues to have significant weakness. She is eating very little. She is currently on partial rebreather mask and we will try to transition to nasal cannula today. Patient went into A. fib with RVR yesterday and was started on amiodarone subsequently converted to normal sinus rhythm. Echocardiogram reveals EF of 65-70% with severe concentric left ventricular hypertrophy, mild tricuspid regurgitation, mild pulmonary hypertension.. Patient has been afebrile, blood pressure 99/49, pulse ox 99% on 15 L partial rebreather mask. Repeat blood work reveals WBC 9.6, hemoglobin 9.8, platelet count 348. Electrolytes normal, CO2 36, BUN 44 and creatinine 0.94. Blood sugars running 143-165. 01/06: Patient remains in ICU. She was awake and alert this morning and continues to have significant weakness. Patient remains on partial rebreather mask unable to tolerate weaning to nasal cannula yesterday per nursing, will retry today. Patient continues to be normal sinus rhythm. Blood sugar last night was 400 will increase Levemir to 30 units twice a day, NovoLog 10 units with meals along with sliding scale coverage, will titrate slowly to patient's home dose due to decreased oral intake. Patient still to assist two get up to chair. Vital signs are stable, patient remains afebrile heart rate 64 blood pressure 96/53, pulse ox 98% on partial rebreather at 15 L. Labs are reviewed, hemoglobin stable at 9.7, BUN 41 and creatinine 0.91. Repeat chest x-ray showed no significant interval change in the appearance of the chest. 01/07 patient seen in ICU this a.m. She is awake and alert. Patient remains on partial rebreather mask O2 flow down to 12 L. Vital signs are stable, remains a febrile heart rate 66, blood pressure 99/66, pulse ox 96%. Patient has been in and out of A. fib per night nurse. Patient is anticoagulated on Eliquis. labs were reviewed, white blood cells 11.8 hemoglobin 10.0 BUN 33, creatinine 0.92. Blood sugars have been up and down, had a blood sugar of 56 this morning adjusted Levemir dose down to 20 units at bedtime and continue 30 AM this should improve as patient tolerates increase oral intake. Speech PT and OT all remain on the case, repeat chest x-ray this morning showed no significant change. Objective - Vital Signs Vital signs: Vital Signs Temp 98.9 F 01/08/20 04:00 Pulse 66 01/08/20 07:00 Resp 17 01/08/20 07:00 BP 99/66 01/08/20 07:00 Pulse Ox 96 01/08/20 07:00 Intake & Output 01/07/20 01/08/20 01/08/20 18:59 06:59 18:59 Intake Total 570 776.4 56.6 Output Total 1395 426 30 Balance -825 350.4 26.6 Weight 124.4 kg Intake: IV 520 776.4 56.6 Amiodarone 1mg/hr 216.4 16.6 Amiodarone Bolus 150 Lactated Ringers 1,000 ml 520 360 40 @ 40 mls/hr IV .Q24H [facility] Rx#:[id number] Rocephin IVPB 50 Oral 50 Output: Urine 1395 426 30 Other: Voiding Method Indwelling Catheter Indwelling Catheter # Voids 3 # Bowel Movements 0 ABP, PAP, CO, CI - Last Documented Arterial Blood Pressure 84/63 - Exam Physical Examination Gen: This is a 64-year-old morbidly obese female. Patient is resting in ICU bed. She is on partial nonrebreather, no apparent respiratory distress HEENT: Head is atraumatic, normocephalic. Pupils equal, round. Sclerae is anicteric. Left-sided triple-lumen in place. NECK: Supple. No JVD. No lymphadenopathy. No thyromegaly. LUNGS: Diminished breath sounds bilaterally. Bilateral rales in the bases. HEART: Regular rate and rhythm. No murmur. base filler operator normal sinus rhythm. ABDOMEN: Soft. Bowel sounds are present. No masses. No tenderness. Urrutia catheter draining vini urine with sediment. EXTREMITIES: No pedal edema. No calf tenderness. Dorsalis pedis +2 bilat erally. NEUROLOGICAL: Patient is awake, alert and oriented x3. Cranial nerves 2 through 12 are grossly intact. Generalized weakness noted to upper and lower extremities. - Labs CBC & Chem 7: 01/08/20 04:34 01/08/20 04:34 Labs: Abnormal Lab Results - Last 24 Hours (Table) 01/07/20 01/07/20 01/07/20 Range/Units 11:09 16:56 21:00 WBC (3.8-10.6) k/uL RBC (3.80-5.40) m/uL Hgb (11.4-16.0) gm/dL Hct (34.0-46.0) % Neutrophils # (1.3-7.7) k/uL Carbon Dioxide (22-30) mmol/L BUN (7-17) mg/dL Glucose (74-99) mg/dL POC Glucose (mg/dL) 157 H 177 H 112 H (75-99) mg/dL 01/08/20 01/08/20 01/08/20 Range/Units 04:34 04:34 05:30 WBC 11.8 H (3.8-10.6) k/uL RBC 3.71 L (3.80-5.40) m/uL Hgb 10.0 L (11.4-16.0) gm/dL Hct 31.2 L (34.0-46.0) % Neutrophils # 8.8 H (1.3-7.7) k/uL Carbon Dioxide 36 H (22-30) mmol/L BUN 33 H (7-17) mg/dL Glucose 56 L (74-99) mg/dL POC Glucose (mg/dL) 73 L (75-99) mg/dL 01/08/20 Range/Units 06:49 WBC (3.8-10.6) k/uL RBC (3.80-5.40) m/uL Hgb (11.4-16.0) gm/dL Hct (34.0-46.0) % Neutrophils # (1.3-7.7) k/uL Carbon Dioxide (22-30) mmol/L BUN (7-17) mg/dL Glucose (74-99) mg/dL POC Glucose (mg/dL) 70 L (75-99) mg/dL Assessment and Plan Assessment: 1. Acute hypoxic respiratory failure secondary to COPD exacerbation and COVID- 19 pneumonitis. Patient has been successfully extubated. Completed Plaquenil. Consults with pulmonary medicine and infectious disease appreciated. Continue albuterol inhaler as needed, Symbicort twice daily, Phenergan cough syrup, prednisone 40 mg daily. Currently on partial rebreather mask at 12 L. 2. Acute kidney injury with chronic kidney disease stage III. Avoid nephrotoxic agents, hypotension. 3. Mild hyperkalemia secondary to acute kidney injury. Resolved. 4. Mild lactic acidosis secondary to COVID-19 infection. Resolved. 5. Sepsis secondary to Covid 19 infection, POA. 6. Hyperlipidemia. Continue atorvastatin 40 mg at bedtime 7. Diabetes mellitus type 2, insulin requiring, uncontrolled with hyperglycemia secondary to steroids. We will do Levemir 30 units in a.m. 20 units at bed. 7. History of coronary artery disease status post stenting. Continue aspirin 325 mg daily, Lipitor. 8. Hypertension. Continue lisinopril 20 mg at bedtime. Avoid hypotension. 9. Gastroesophageal reflux disease disease and GI prophylaxis. Continue Protonix. 10. DVT prophylaxis. Eliquis 5 mg twice a day 11. Dysphagia. Speech therapy evaluation with recommendations of dysphagia l evel III chopped diet patient is able to independently feed herself 12. Atrial fibrillation with RVR, paroxysmal atrial fibrillation, new onset. Patient converted on amiodarone drip. Patient was started on Lopressor 12.5 mg twice daily. Eliquis 5 mg twice a day Discharge plan: Subacute rehab at [facility]. Social work is working with the patient's son regarding Workmen's Comp. coverage for ECF. Impression and plan of care have been directed as dictated by the signing physician. Catrina Albert nurse practitioner acting as scribe for signing physician.
[2020-01-08 12:21] LABS: Glucose,Whole Blood 98 mg/dL (75-99)
--- NOTE | 2020-01-08 12:38 | P.PN ---
Subjective Progress Note Date: 01/08/20 Is a 64-year-old female patient who was originally hospitalized on 12/27/2019 because of an acute cold and 19 related infection/pneumonia. 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 Her symptoms progressively got worse and she became progressively more short of breath and she also developed nausea and diarrhea. She came into the hospital and she was quite hypoxic and she checked positive for coag with 19 infection. Her chest x-ray showed some mild cardiomegaly and diffuse interstitial infiltrates secondary to an underlying covert 19 related pneumonia. The patient also has other comorbidities including asthma, hypertension, hyperlipidemia and acid reflux in addition to diabetes mellitus type 2. She has coronary artery disease with previous coronary stenting. She has chronic stage III kidney disease. She is obese with a body mass index of 48.2. This patient has been intubated since 12/28/2019. Since then the patient has remained on a mechanical ventilator. She is currently on an assist-control mode rate of 26 with a tidal volume of 350 and FiO2 of 40% with a PEEP of 10. Her chest x-ray is consistent with lateral pneumonia worse on the left. She is on propofol for sedation. She is on vital 1.2 for enteral feeding and nutritional support. She has completed her course of Plaquenil and she was also treated with Zithromax vitamin C and zinc sulfate. Her sputum Gram stain and culture has been negative. Blood cultures been negative. She is on IV Solu-Medrol 40 mg every 12 hours. On today's evaluation of 01/02/2020, the patient remains intubated on a mechanical ventilator. The patient today is on a assist-control mode at the rate of 26 with a tidal volume of 350 and FiO2 of 40% with a PEEP of 5. Peak airway pressures around 27 anesthetic pressures of 21. The chest x-ray from today shows stable bilateral pulmonary infiltrates which has remained unchanged and the patient is infiltration rate is in the left lower lobe. ET tube is in a good location. The blood gas showed a pH of 7.44 with a pCO2 of 44 and pO2 of any 8. The patient has a peak given a pressure of 27. This particular pressures at 21. White cell count is at 16.2. She was noted to be excessively fluid overloaded and the patient's net fluid balance and the positive with a weight gain and order of 7 kg. The patient will be started on IV Lasix. Otherwise, no other significant events overnight. The patient remains on Lovenox therapeutic dose. No signs of any bleeding. On 01/03/2020, I'm seeing this patient for a follow-up in the [facility]. The patient was extubated yesterday and currently she is on 10 L of oxygen by nasal cannula. She is awake and communicating and following commands pH is extremely weak. I'm not sure if he is able to swallow and his Urrutia evaluation to be done today. Chest x-ray still showing stable bilateral pulmonary infiltrates unchanged from yesterday's chest x-ray. The patient has been a positive fluid balance. The patient is currently on Lasix 40 mg every 12 hours. The patient is on IV Solu-Medrol. The net fluid balance of been -2 L over the past 24 hours he had a body weight is still at 124 kg. In terms of labs, the white cell count at 13.1. BUN is at 43 with a creatinine of 0.9. The LDH is slightly elevated at 914. CRP level is at 50. No fever. No chills. No other complaints otherwise for now. On 01/04/2020, the patient is still weak and somewhat lethargic. She is able to take some few bites and take some applesauce. Her oral intake is diminished. She remains quite weak and debilitated. She has been placed on on the percent nonrebreather facemask to maintain a saturation of above 90% and the patient has been mouth breathing. She is receiving IV fluids at the rate of 75 mL an hour of normal saline. Her chest x-ray still showing diffuse bilateral pulmonary infiltrates, interstitial, unchanged compared to yesterday. She was receiving diuretics and the Lasix dose will be tapered. The patient was also taken of the IV Solu Medrol and started on a prednisone burst taper. No altered mentation. No agitation. No chest pain. Continues to have some dry cough. No significant sputum production. She is afebrile. Based on her covert 19 inflammatory markers, the LDH is at 739 with a C-reactive protein of 43 and a ferritin level is down to 462. Renal function is stable for now. No other significant events otherwise for now. The patient will be kept in ICU for another 24 hours pending some further improvement. On 01/05/2020, the patient is looking somewhat better, more alert and awake and she has regained some of her strength and she is able to raise her arms and legs against gravity and she is also willing to sit up on a chair with help. On today's evaluation, the patient was replaced back on a 15 L of oxygen by nasal cannula with a pulse of 76% pH is being considered for a partial nonrebreather facemask. She is taking minimal amount of oral intake and she is to advance her diet as tolerated. No nausea. No vomiting. No chest pain. She has developed coffee no significant sputum production. She is able to swallow her medications fine. No diarrhea. Note that after completion of around and around noontime today the patient went into atrial fibrillation with rapid ventricular response. The patient be started on Cardizem drip. No major hemodynamic instability along with his atrial fibrillation. The patient still has an arterial line in the right upper extremity and a Urrutia catheter still in place. On 01/06/2020, the patient is alternating between high flow oxygen and 100% nonrebreather facemask. No new complaints. I was told that she is working with physical therapy and she was able to sit up on a commode with assistance for a brief period of time. She is taking oral material remaining form of liquids and soft diet. She was in atrial fibrillation with rapid ventricular response and she was given amiodarone and she converted yesterday and she is still on a maintenance for now. She is on no anticoagulation for now. No nausea. No vomiting. No chest pain. No fever. No chills. No cough or sputum production. No other significant events otherwise for now. The patient is still in the intensive care unit as she is recovering from her covid 19 related pneumonia. The catheter still in place. A urinalysis was done as the urine material it's coming out of the Urrutia catheter is quite dark and cloudy. Nevertheless, the patient is a symptomatic and she is afebrile. On 01/07/2020 on seeing the patient for a follow-up. The patient physically is getting stronger. However, she still having and oxygenation problem which is still requiring 100% nonrebreather facemask. No other new complaints for now. Her oral intake is gradually improving pH is mainly relying on soft or liquid the diet. Cardiac rhythm is sinus. She is off amiodarone for now. Lovenox is being used for DVT prophylaxis. No chest pain. No altered mentation. She is receiving daily Lasix 40 mg IV push. She is also on Lovenox for DVT prophylaxis. She is on Rocephin as an empiric antibiotic coverage. She was taken off the IV Solu-Medrol and started on prednisone burst taper few days back. On 01/08/2020 on seeing this patient for a follow-up. This patient has been kept in ICU as the patient has had difficulties with improvement in her oxygenation as the patient is recovering from a Covid 19 related pneumonia. The patient was intubated and she was in a mechanical ventilator and she was extubated earlier this week. She was still requiring 100% nonrebreather facemask and earlier this morning she was on 15 L per minute nasal cannula. Chest x-ray still showing bilateral pulmonary infiltrates/consolidation most on the left lung base. Last night, the patient went again for the second time around into atrial fibrillation with rapid ventricular response. She was given amiodarone bolus and she converted back to normal sinus rhythm. For now she is completing the amiodarone bolus and the patient was started also on Eliquis. Echocardiac Wilmar was within normal. Cardiac enzymes were nonelevated. Thyroid function tests are within normal limits. The white cell count is 11.8. Hemoglobin is on 10.0. Renal function is stable. The patient is gradually increasing her diet as tolerated. She is mainly relying on liquid diet. She was started on Levemir insulin and she had issues with hypoglycemia. The dose needs to be reduced accordingly. Objective - Vital Signs Vital signs: Vital Signs Temp 98.2 F 01/08/20 08:00 Pulse 73 01/08/20 11:00 Resp 14 01/08/20 11:21 BP 115/72 01/08/20 11:00 Pulse Ox 91 L 01/08/20 11:00 Intake & Output 01/07/20 01/08/20 01/08/20 18:59 06:59 18:59 Intake Total 570 776.4 323.0 Output Total 1395 426 845 Balance -825 350.4 -522.0 Weight 124.4 kg Intake: IV 520 776.4 283.0 Amiodarone 1mg/hr 216.4 83.0 Amiodarone Bolus 150 Lactated Ringers 1,000 ml 520 360 200 @ 40 mls/hr IV .Q24H [facility] Rx#:[id number] Rocephin IVPB 50 Oral 50 40 Output: Urine 1395 426 845 Other: Voiding Method Indwelling Catheter Indwelling Catheter Indwelling Catheter # Voids 3 3 # Bowel Movements 0 0 ABP, PAP, CO, CI - Last Documented Arterial Blood Pressure 84/63 - Exam GENERAL EXAM: A 64-year-old obese female patient, The patient has been on 100 and percent nonrebreather facemask. The patient's been extubated. She is able to speak up. Sentences that are rather short. No use of accessory muscles of breathing. She was switched to 15 L of oxygen by nasal cannula in the evening and today this patient remains on high flow oxygen. Oxygen is flowing to 15 L per minute nasal cannula. HEAD: Normocephalic/atraumatic. EYES: Sluggish reaction of pupils, equal size. Conjunctiva pink, sclera white. NOSE: Clear with pink turbinates. THROAT: Oral endotracheal and gastric tube secured in place No erythema or exudates. NECK: No masses, no JVD, no thyroid enlargement, no adenopathy. CHEST: No chest wall deformity. Symmetrical expansion. LUNGS: Equal air entry with crackles in the posterior bases right greater than left. CVS: Regular rate and rhythm, normal S1 and S2, no gallops, no murmurs, no rubs, and subsequently around noontime, the patient went into atrial fibrillation with rapid ventricular response. She is asymptomatic with that. ABDOMEN: Soft, nontender. No hepatosplenomegaly, normal bowel sounds, no guarding or rigidity. EXTREMITIES: No clubbing, no edema, no cyanosis, 2+ pulses and upper and lower extremities. The patient has extensive edema in all 4 extremities MUSCULOSKELETAL: Muscle strength and tone normal. SPINE: No scoliosis or deformity SKIN: No rashes CENTRAL NERVOUS SYSTEM: Significant motor weakness in all 4 extremities. The patient seems a much more awake and stronger on today's evaluation she expressed wishes to be moved to a bedside chair with assistance. No focal neurological deficit at this point in time. No confusion. No altered mentation. No signs of any delirium. - Labs CBC & Chem 7: 01/08/20 04:34 01/08/20 04:34 Labs: Abnormal Lab Results - Last 24 Hours (Table) 01/07/20 01/07/20 01/08/20 Range/Units 16:56 21:00 04:34 WBC 11.8 H (3.8-10.6) k/uL RBC 3.71 L (3.80-5.40) m/uL Hgb 10.0 L (11.4-16.0) gm/dL Hct 31.2 L (34.0-46.0) % Neutrophils # 8.8 H (1.3-7.7) k/uL Carbon Dioxide (22-30) mmol/L BUN (7-17) mg/dL Glucose (74-99) mg/dL POC Glucose (mg/dL) 177 H 112 H (75-99) mg/dL 01/08/20 01/08/20 01/08/20 Range/Units 04:34 05:30 06:49 WBC (3.8-10.6) k/uL RBC (3.80-5.40) m/uL Hgb (11.4-16.0) gm/dL Hct (34.0-46.0) % Neutrophils # (1.3-7.7) k/uL Carbon Dioxide 36 H (22-30) mmol/L BUN 33 H (7-17) mg/dL Glucose 56 L (74-99) mg/dL POC Glucose (mg/dL) 73 L 70 L (75-99) mg/dL Assessment and Plan Plan: 1. Acute hypoxemic respiratory failure related to COVID 19 related pneumonia, requiring intubation and placement on mechanical ventilation on 12/28/2019, treated with Plaquenil and then sulfate and the patient is also on IV Solu Medrol 40 mg every 12 hours. The patient was extubated on 01/02/2020 On 01/08/2020, the patient remains extubated, and the patient is on on the percent nonrebreather facemask wean down to 12 L per minute nasal cannula. Chest x-ray findings as essentially unchanged and stable consolidation of the lung bases. She still has very limited reserve and she desaturates with activity and she also desaturated anytime she takes herself off oxygen. 2. diffuse bilateral pneumonia secondary to COVID19 infection, chest x-ray findings are still stable. The patient is post intubation and subsequent extubation. 3. Elevated ferritin, LDH, CRP and d-dimer related to acute COVID19 related pneumonia, and inflammatory markers are improving, and the d-dimer was elevated and the patient was placed on therapeutic dose of Lovenox in the most recent d- dimer from 12/31/2019 has improved and is down to 0.28 4. obesity with a BMI of 48.2 5. Hypertension, taken RAVEN inhibitor in the RAVEN inhibitor was kept on board 6. Hyperlipidemia 7. GERD/reflux 8. Diabetes mellitus type 2 , currently on Levemir insulin and those are being adjusted 9. History of chronic bronchial asthma, unspecified 10. acute on chronic kidney injury, renal function is normalized and the creatinine is down to 0.8 11. History of diverticular disease 12. History of coronary artery disease with PCI and stent placement 13 new-onset atrial fibrillation with rapid ventricular response, converted back into normal sinus rhythm, the patient had 2 runs of atrial fibrillation in both instances she was treated with amiodarone with subsequent conversion to normal sinus rhythm. She is also on metoprolol 12.5 mg by mouth twice a day. 14 suspected UTI based on an abnormal urine analysis and urine cultures still pending. Meanwhile the patient was started on Rocephin. Plan Keep the patient oxygen at 12 L of oxygen by nasal cannula. Prednisone burst taper Monitor the cardiac rhythm which remains in sinus for now Complete amiodarone loading and subsequently we'll maintain the patient on oral amiodarone 200 mg by mouth twice a day. Anticoagulation with Eliquis 5 mg by mouth twice a day. Adjust the dose of Levemir insulin Chest x-ray findings are noted and the findings are stable and there is no interval changes about the pu Repeat chest x-rays in the morning We'll continue to follow make further recommendations based on her progress. Will work with physical therapy and asked the patient to sit up on a recliner today. We'll keep her in ICU and will continue to follow.
[2020-01-08 16:55] LABS: Glucose,Whole Blood 308 mg/dL (75-99)
[2020-01-08] MEDS: LACTATED RINGERS 1,000 ML IV SCH (17:34)
[2020-01-08] MEDS: AMIODARONE 200 MG TAB PO SCH (20:18)
[2020-01-08] MEDS: ATORVASTATIN 40 MG TAB PO SCH (20:18)
[2020-01-08] MEDS: LISINOPRIL 20 MG TAB PO SCH (20:18)
[2020-01-08] MEDS ORDERED: INSULIN DETEMIR (LEVEMIR) 100 UNIT/ML SYR SQ SCH ×2 (21:00)
[2020-01-08 21:16] LABS: Glucose,Whole Blood 269 mg/dL (75-99)
[2020-01-08] MEDS: PROMETHAZINE HCL 6.25 MG/5 ML CUP PO PRN (21:32)
--- NOTE | 2020-01-08 23:30 | PN ---
PROGRESS NOTE DATE OF SERVICE: 01/08/2020 REASON FOR FOLLOWUP: Pneumonia. INTERVAL HISTORY: The patient is currently afebrile. The patient is breathing more comfortably. She did have some cough, no sputum. No nausea, no vomiting. No abdominal pain or diarrhea. PHYSICAL EXAMINATION: Blood pressure 96/32 with a pulse of 67, temperature 97.7. She is 98% on high- flow oxygen. General description is a middle-aged female lying in bed in no distress. RESPIRATORY SYSTEM: Unlabored breathing. Decreased breath sounds at bases. No wheeze. HEART: S1, S2. Regular rate and rhythm. ABDOMEN: Soft, no tenderness. LABS: Hemoglobin is 10, white count 11.8, BUN of 33, creatinine 0.92. DIAGNOSTIC IMPRESSION AND PLAN: Patient with acute COVID-19 pneumonia. This patient has completed her plaquenil. Chest x- ray has been mostly patchy bilateral infiltrate and the patient is currently on Rocephin and zinc and continue and monitor clinical course closely. Continue with supportive care. MMODL / IJN: [id number] / [facility]
[2020-01-09] MEDS: ACETAMINOPHEN TAB 325 MG TAB PO PRN (01:07)
[2020-01-09 04:54] LABS: Basophils % (A) 0 %; Eosinophils # (A) 0.2 k/uL (0-0.7); Eosinophils % (A) 2 %; HCT 28.4 % (34.0-46.0); HGB 9.3 gm/dL (11.4-16.0); Hypochromasia Slight; Lymphocytes # (A) 1.3 k/uL (1.0-4.8); Lymphocytes % (A) 15 %; MCH 27.8 pg (25.0-35.0); MCHC 32.7 g/dL (31.0-37.0); MCV 84.9 fL (80.0-100.0); Mean Platelet Volume 7.4; Monocytes # (A) 0.2 k/uL (0-1.0); Monocytes % (A) 3 %; Neutrophils # (A) 6.6 k/uL (1.3-7.7); Neutrophils % (A) 79 %; Platelet Count 361 k/uL (150-450); RBC 3.35 m/uL (3.80-5.40); RDW 14.1 % (11.5-15.5); WBC 8.4 k/uL (3.8-10.6)
[2020-01-09 05:01] LABS: Calcium 8.6 mg/dL (8.4-10.2); Potassium 3.3 mmol/L (3.5-5.1)
[2020-01-09 06:43] LABS: Glucose,Whole Blood 101 mg/dL (75-99)
[2020-01-09] MEDS: POTASSIUM CHLORIDE 20 MEQ in WATER FOR INJECTION 1 100ML.BAG IVPB SCH ×2 (06:52→09:29)
[2020-01-09] MEDS: INSULIN ASPART (NovoLOG) 100 UNIT/ML VIAL SQ SCH ×7 (06:53→20:51)
[2020-01-09] MEDS: ALBUTEROL HFA INHALER INHALATION PRN (07:37)
[2020-01-09] MEDS: SYMBICORT 160-4.5 MCG INHALER INHALATION SCH ×2 (07:37→21:33)
--- NOTE | 2020-01-09 08:00 | XR ---
EXAMINATION TYPE: XR chest 1V portable DATE OF EXAM: 01/09/2020 COMPARISON: 01/08/2020 HISTORY: Shortness of breath with hypoxemia TECHNIQUE: Single frontal view of the chest is obtained. FINDINGS: Peripheral consolidations are seen bilaterally as noted on the prior as well as a retrocar diac opacity. Left subclavian approach central venous catheter is unchanged. Again the lungs are hypo ventilatory. No new pneumothorax. Cardiomediastinal silhouette is again upper limits of normal. Very trace pleural effusions are questioned. IMPRESSION: Stable peripheral bilateral opacities and low lung volumes.
[2020-01-09] MEDS: ZINC SULFATE 220 MG CAP PO SCH (09:29)
[2020-01-09] MEDS: INSULIN DETEMIR (LEVEMIR) 100 UNIT/ML SYR SQ SCH ×2 (09:29→20:51)
[2020-01-09] MEDS: ASPIRIN 325 MG TAB PO SCH (09:29)
[2020-01-09] MEDS: predniSONE 20 MG TAB PO SCH (09:29)
[2020-01-09] MEDS: AMIODARONE 200 MG TAB PO SCH ×2 (09:30→20:04)
[2020-01-09] MEDS: FUROSEMIDE 10 MG/ML 4 ML VIAL IV SCH (09:30)
[2020-01-09] MEDS: ASCORBIC ACID 500 MG TAB PO SCH ×2 (09:30→20:04)
[2020-01-09] MEDS: METOPROLOL TARTRATE 12.5 MG TAB PO SCH ×2 (09:30→20:04)
[2020-01-09] MEDS: APIXABAN 5 MG TAB PO SCH ×2 (09:30→20:04)
[2020-01-09] MEDS: PANTOPRAZOLE 40 MG TABLET PO SCH (09:30)
--- NOTE | 2020-01-09 09:30 | P.PN ---
Subjective Progress Note Date: 01/09/20 This is a 64-year-old female patient of Dr. Mojica with past medical history of asthma, hypertension, hyperlipidemia, gastroesophageal reflux disease, diabetes mellitus type 2 insulin requiring, coronary artery disease status post stent, remote history of tobacco use and dependence, chronic kidney disease stage III. Patient is a [employer]POOL [employer] and worked for [employer] in the past, recently changed to a position at [employer]. 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 They were exposed to a COVID-19 positive patient on December 11 and/or December 12. She had symptoms develop approximate 7 days ago with fever, cough, shortness of breath, nausea, diarrhea. She tried to manage at home but symptoms became significantly severe in the past 3 days and she lives alone she was so sick she could not get to the She to the bathroom. Patient came into [facility] emergency center for evaluation and found to be afebrile, blood pressure 141/68, heart rate 85, pulse ox 87%. EKG was a sinus rhythm with no acute ST changes. W BC 12.1, hemoglobin 12.7, platelet count 303, sodium 136, potassium 5.3, chloride 100, CO2 23, BUN 41, creatinine 1.43, blood sugar 230. Total bilirubin 0.6, AST 49, ALT 22, alkaline phosphatase 255, LDH 1600, ferritin 609.6 C-reactive protein 262, pro calcitonin 0.2 to. Chronic virus PCR detected, influenza testing negative, lactic acid 2.1. Repeat lactic acid 1.2 chest x-ray revealed mild cardiomegaly with moderately severe diffuse interstitial edema that is changed from old exam compared to November 2018. This could represent acute interstitial pneumonia or acute heart failure. Patient was started on Tylenol, azithromycin, Plaquenil admitted to the [facility] floor and consult was requested with infectious disease and pulmonary medicine. 12/27: Patient had a drop in her oxygen saturation and became tachypneic. She was initially placed on high flow nasal cannula at 10 L, transferred into the intensive care unit and was intubated this morning. Temperature max 101.4. Heart rate in the 60s and 70s. Repeat blood work reveals CBC unremarkable except for low lymphocytes. D-dimer 1.05, potassium 5.2, BUN 62 and creatinine 1.91. Blood sugars in the 200s. Alkaline phosphatase 198 LDH 1439. She has been continued on azithromycin, Plaquenil, zinc and vitamin C. Solu-Medrol is currently at 40 mg IV every 12 hours. 12/28: Patient remains in the intensive care unit, intubated and on mechanical ventilation with tidal volume 350, FiO2 of 50 and PEEP 13. Patient has been afebrile, heart rate 50, blood pressure 120/56. Repeat blood work reveals WBC 16, hemoglobin 10.7, platelet count 273. Repeat d-dimer is decreased at 0.72. Sodium 135, potassium 4.6, chloride 103, CO2 24, BUN 63 and creatinine 1.43. Ferritin decreased to 556.8, alkaline phosphatase decreased 167, LDH decreased to 1050, C-reactive protein 181.7. Case has been discussed outside patient's room with the patient's nurse. Blood sugars have been elevated running 189 to 231. We will increase Levemir to 42 units twice daily, added and NovoLog scheduled 5 units every 6 hours along with NovoLog scale. Patient is currently & Medrol 40 mg IV every 12 hours. 12/29: Patient remains intubated in critical ventilation with tidal volume 350, FiO2 of 40 and PEEP of 13. Patient has been afebrile, heart rate in the 50s, blood pressure 101/55. Repeat laboratory studies revealed a CBC 17.5, hemoglobin 10, platelet count 276. Sodium 135, potassium 5.4, chloride 105, CO2 26, BUN 61, creatinine 1.07 area blood sugars are running in the 200s up to 300, alkaline phosphatase 143, LDH 875, C-reactive protein 67.9, albumin 2.7. We will again today increase her insulins with long acting up to 50 units twice daily and NovoLog 10 units every 6 hours along with NovoLog scale. Patient has had good urine output, tube feedings are at goal. Patient appears to be stable at this time. 12/30: Patient still having significantly elevated CRP with abnormal liver function test, lactic acid that subtle down significantly. Blood sugar still mildly elevated when titrating insulin is making sugar slightly but better at this point. Patient is still sedated on mechanical ventilation currently no weaning his plan in the next 24 hours. 12/31: Back in off on sedation patient has done slightly well still not ready to be extubated this point she had her weaning parameter and was sedated and continue mechanical ventilation. Blood sugar still high her steroid was decreased today to Solu-Medrol 40 mg twice a day with higher Levemir to 60 units twice a day and up on NovoLog to 20 units every 6 hours plus a sliding scale we have to watch for any decrease blood sugar specially with a new change on insulin and medication. 01/01: Patient remains intubated and on mechanical ventilation. Patient is on a sedation holiday. Tidal volume 350, FiO2 40, PEEP 5. Patient has been afebrile, heart rate in the 40s, blood pressure 101/49. Repeat lab work reveals W BC 16.2, hemoglobin 9.9, platelet count 291. D-dimer 0.28. Sodium 138, potassium 5.2, chloride 104, CO2 29, BUN 42 and creatinine 0.89. Blood sugars have been running 148 197. At bedtime glucose 118. Scheduled NovoLog will be decreased to 15 units and continue Levemir at 60 units twice daily. Solu-Medrol at 40 mg IV every 12 hours and Lasix 40 mg every 12 hours. Patient has completed course of Plaquenil. She remains in isolation. 01/02: Patient was successfully extubated yesterday afternoon. She is pulse ox 97% on 10 L high flow nasal cannula. She has been afebrile, heart rate 69, blood pressure 112/52. WBC 13.1, hemoglobin 10.3, platelet count 308. Sodium 141, potassium 4.7, chloride 103, CO2 36, BUN 43 and creatinine 0.96. Blood sugars are improved and stable and have been running between 90 and 146 with holding of Levemir. Levemir will be discontinued and patient on scale insulin only for now. Repeat ferritin level 527.6, LDH 914, C-reactive protein 50. Sputum culture finalized with normal ct. Blood culture no growth at 144 hours. Repeat chest x-ray reveals patchy diffuse infiltrates less stable from comparison. Central venous catheter stable. Patient is having difficulties with swallowing and speech therapy will be evaluating. For now, oral medic ations on hold. site safety manager will discuss with the patient option of rehab when she is stable. Anticipate patient will be in the hospital until early next week. 01/03: Patient remains in intensive care unit. She is on O2 partial nonrebreather and pulse ox seen 97% on 15 L. Blood pressure 122/70, heart rate 80, respiratory rate 24. Patient has been afebrile for 24 hours. You have to collect again over a year repeat blood work reveals hemoglobin of 10.4, white count 12.9, platelet count 387. Sodium 140, potassium 4.5, chloride 100, CO2 38, BUN 52 and creatinine 1. Blood sugars have been running between 188 and 198. Blood sugars were in the 200s yesterday afternoon. Patient is now able to eat and we will start Levemir back in at 10 units twice daily. Sputum culture is finalized with normal ct and blood culture no growth. A repeat chest x- ray is stable peripherally oriented bilateral consolidation and retrocardiac airspace disease. Dr. Moreira is continuing to follow patient and recommending vancomycin and prednisone. site safety manager and social media marketing specialist are attempting to reach the patient's son regarding subacute rehab. PT and OT have recommended subacute rehab. 01/04: Patient remains in the intensive care unit, afebrile, heart rate 76, respiratory rate 15-25, blood pressure 106/52, pulse ox 93% on partial rebreather. Repeat lab work reveals hemoglobin 9.8, WBC 8.7, platelet count 355. BUN 48 creatinine 1.01. Blood sugars running this morning at 158. During the evening in the low 200s, 201-230. Patient will be continued on Levemir 10 units twice daily for now and monitor closely. Anticipate increased need once patient is eating. Thus far, patient has had only a few bites of her food. Social work is working with the patient, her son regarding possible workman comp coverage for subacute rehab. Dr. Mojica is planning for her to go to [facility] for subacute rehab when stabilized. 01/05: Patient remains in intensive care unit. She is awake and alert. She continues to have significant weakness. She is eating very little. She is currently on partial rebreather mask and we will try to transition to nasal cannula today. Patient went into A. fib with RVR yesterday and was started on amiodarone subsequently converted to normal sinus rhythm. Echocardiogram reveals EF of 65-70% with severe concentric left ventricular hypertrophy, mild tricuspid regurgitation, mild pulmonary hypertension.. Patient has been afebrile, blood pressure 99/49, pulse ox 99% on 15 L partial rebreather mask. Repeat blood work reveals WBC 9.6, hemoglobin 9.8, platelet count 348. Electrolytes normal, CO2 36, BUN 44 and creatinine 0.94. Blood sugars running 143-165. 01/06: Patient remains in ICU. She was awake and alert this morning and continues to have significant weakness. Patient remains on partial rebreather mask unable to tolerate weaning to nasal cannula yesterday per nursing, will retry today. Patient continues to be normal sinus rhythm. Blood sugar last night was 400 will increase Levemir to 30 units twice a day, NovoLog 10 units with meals along with sliding scale coverage, will titrate slowly to patient's home dose due to decreased oral intake. Patient still to assist two get up to chair. Vital signs are stable, patient remains afebrile heart rate 64 blood pressure 96/53, pulse ox 98% on partial rebreather at 15 L. Labs are reviewed, hemoglobin stable at 9.7, BUN 41 and creatinine 0.91. Repeat chest x-ray showed no significant interval change in the appearance of the chest. 01/07 patient seen in ICU this a.m. She is awake and alert. Patient remains on partial rebreather mask O2 flow down to 12 L. Vital signs are stable, remains a febrile heart rate 66, blood pressure 99/66, pulse ox 96%. Patient has been in and out of A. fib per night nurse. Patient is anticoagulated on Eliquis. labs were reviewed, white blood cells 11.8 hemoglobin 10.0 BUN 33, creatinine 0.92. Blood sugars have been up and down, had a blood sugar of 56 this morning adjusted Levemir dose down to 20 units at bedtime and continue 30 AM this should improve as patient tolerates increase oral intake. Speech PT and OT all remain on the case, repeat chest x-ray this morning showed no significant change. 01/08: Patient remains in the intensive care unit. She is currently pulse oxing 99% on 12 L high flow nasal cannula. She has been afebrile, heart rate 62, blood pressure 108/43. Repeat lab work reveals WBC 8.4, hemoglobin 9.3. Potassium 3.3 and will be replaced. CO2 32, BUN 29 creatinine 1.04. Blood sugars this morning 112. Patient was running in the 200s in the evening prior. She is currently on Levemir 30 units in the morning and 20 units at bedtime along with NovoLog 10 units 3 times daily with meals and NovoLog scale. Patient is not eating today and we will make minor changes to the Levemir. NovoLog was held for breakfast.. She is on prednisone 40 mg daily. She was on oral amiodarone 200 mg twice daily and eliquis. She is on antibiotics in the form of ceftriaxone. Lasix is at 40 mg IV daily. Rama is evaluating the patient for subacute rehab. Objective - Vital Signs Vital signs: Vital Signs Temp 98.1 F 01/09/20 04:00 Pulse 62 01/09/20 07:00 Resp 21 01/09/20 07:00 BP 108/43 01/09/20 07:00 Pulse Ox 99 01/09/20 07:00 Intake & Output 01/08/20 01/09/20 01/09/20 18:59 06:59 18:59 Intake Total 1027.6 746.6 40 Output Total 1175 500 15 Balance -147.4 246.6 25 Weight 124.6 kg Intake: IV 687.6 646.6 40 Amiodarone 0.5 mg 25 100 Amiodarone 1mg/hr 182.6 16.6 Lactated Ringers 1,000 ml 480 480 40 @ 40 mls/hr IV .Q24H JORGE Rx#:[id number] Rocephin IVPB 50 Intake, IV Titration 250 Amount Amiodarone 300 mg In 250 Dextrose 5% in Water 250 ml @ 0.5 MG/MIN 25 mls/hr IV .Q10H JORGE Rx#: [id number] Oral 90 100 Output: Urine 1175 500 15 Other: Voiding Method Indwelling Catheter Indwelling Catheter # Voids 3 # Bowel Movements 1 2 1 ABP, PAP, CO, CI - Last Documented Arterial Blood Pressure 84/63 - Exam Review of Systems Constitutional: No fever, no chills, no night sweats. No weight change. Reports weakness, Reports fatigue. Reports daytime sleepiness. EENT: No headache. No blurred vision or double vision, no loss of vision. No loss of Hearing, no ringing in the ears, no dizziness. No nasal drainage or congestion. No epistaxis. No sore throat. Lungs: Reports shortness of breath, Reports cough, Reports sputum production. No wheezing. Cardiovascular: No chest pain, no lower extremity edema. No palpitations. No paroxysmal nocturnal dyspnea. No orthopnea. No lightheadedness or dizziness. No syncopal episodes. Abdominal: No abdominal pain. No nausea, vomiting. No diarrhea. No constipation. No bloody or tarry stools.. No loss of appetite. Genitourinary: No dysuria, increased frequency, urgency. No urinary retention. Musculoskeletal: No myalgias. No muscle weakness, no gait dysfunction, no frequent falls. No back pain. No neck pain. Integumentary: No wounds, no lesions. No rash or pruritus. No unusual b ruising. No change in hair or nails. Neurologic: No aphasia. No facial droop. No change in mentation. No head injury. No headache. No paralysis. No paresthesia. Psychiatric: No depression. No anxiety. No mood swings. Endocrine: Abnormal blood sugars. No weight change. No excessive sweating or t mauro. No cold intolerance. Physical Examination Gen: This is a 64-year-old morbidly obese female. Patient is resting in ICU bed. She is on high flow nasal cannula and appears to be comfortable. HEENT: Head is atraumatic, normocephalic. HEART: secured entrance monitor normal sinus rhythm. ABDOMEN: Urrutia catheter draining vini urine. Full physical exam deferred to branch rental manager due to COVID-19 infection and isolation. - Labs CBC & Chem 7: 01/09/20 04:30 01/09/20 04:30 Labs: Abnormal Lab Results - Last 24 Hours (Table) 01/08/20 01/08/20 01/09/20 Range/Units 16:53 21:15 04:30 RBC 3.35 L (3.80-5.40) m/uL Hgb 9.3 L (11.4-16.0) gm/dL Hct 28.4 L (34.0-46.0) % Potassium (3.5-5.1) mmol/L Carbon Dioxide (22-30) mmol/L BUN (7-17) mg/dL Glucose (74-99) mg/dL POC Glucose (mg/dL) 308 H 269 H (75-99) mg/dL 01/09/20 01/09/20 Range/Units 04:30 06:41 RBC (3.80-5.40) m/uL Hgb (11.4-16.0) gm/dL Hct (34.0-46.0) % Potassium 3.3 L (3.5-5.1) mmol/L Carbon Dioxide 32 H (22-30) mmol/L BUN 29 H (7-17) mg/dL Glucose 112 H (74-99) mg/dL POC Glucose (mg/dL) 101 H (75-99) mg/dL Assessment and Plan Plan: 1. Acute hypoxic respiratory failure secondary to COPD exacerbation and COVID- 19 pneumonitis. Patient has been successfully extubated. Completed Plaquenil. Consults with pulmonary medicine and infectious disease appreciated. Continue albuterol inhaler as needed, Symbicort twice daily, Phenergan cough syrup, prednisone 40 mg daily. Patient is currently on 12 L nasal cannula. 2. Acute kidney injury with chronic kidney disease stage III. Avoid nephrotoxic agents, hypotension. 3. Mild hyperkalemia secondary to acute kidney injury. 4. Mild lactic acidosis secondary to COVID-19 infection. Resolved. 5. Sepsis secondary to Covid 19 infection, POA. 6. Hyperlipidemia. Continue atorvastatin 40 mg at bedtime 7. Diabetes mellitus type 2, insulin requiring, uncontrolled with hyperglycemia secondary to steroids. Continue Levemir dose has been adjusted, continue NovoLog scheduled and continue NovoLog scale before meals and at bedtime. 7. History of coronary artery disease status post stenting. Continue aspirin 325 mg daily, Lipitor. 8. Hypertension. Continue lisinopril 20 mg at bedtime. Avoid hypotension. 9. Gastroesophageal reflux disease disease and GI prophylaxis. Continue Protonix. 10. DVT prophylaxis. Eliquis 5 mg twice daily 11. Dysphagia. Speech therapy evaluation with recommendations for chapped diet with nectar thick liquids, continue one-to-one supervision, upright position small bites liquids via cup. Possible modified barium swallow on Thursday if symptoms continue. 12. Atrial fibrillation with RVR, paroxysmal atrial fibrillation, new onset. Patient converted on amiodarone drip. Patient was started on Lopressor 12.5 mg twice daily. Discharge plan: Subacute rehab at [facility]. Social work is working with the patient's son regarding Workmen's Comp. coverage for ECF. Impression and plan of care have been directed as dictated by the signing physician. Deborah Crow nurse practitioner acting as scribe for signing physician.
[2020-01-09 11:53] LABS: Glucose,Whole Blood 141 mg/dL (75-99)
--- NOTE | 2020-01-09 12:37 | P.PN ---
Subjective Progress Note Date: 01/09/20 Principal diagnosis: Acute covid 19 pneumonia. Is a 64-year-old female patient who was originally hospitalized on 12/27/2019 because of an acute cold and 19 related infection/pneumonia. Note that the patient is an [employer] and she worked for [employer]. 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 Her symptoms progressively got worse and she became progressively more short of breath and she also developed nausea and diarrhea. She came into the hospital and she was quite hypoxic and she checked positive for coag with 19 infection. Her chest x-ray showed some mild cardiomegaly and diffuse interstitial infiltrates secondary to an underlying covert 19 related pneumonia. The patient also has other comorbidities including asthma, hypertension, hyperlipidemia and acid reflux in addition to diabetes mellitus type 2. She has coronary artery disease with previous coronary stenting. She has chronic stage III kidney disease. She is obese with a body mass index of 48.2. This patient has been intubated since 12/28/2019. Since then the patient has remained on a mechanical ventilator. She is currently on an assist-control mode rate of 26 with a tidal volume of 350 and FiO2 of 40% with a PEEP of 10. Her chest x-ray is consistent with lateral pneumonia worse on the left. She is on propofol for sedation. She is on vital 1.2 for enteral feeding and nutritional support. She has completed her course of Plaquenil and she was also treated with Zithromax vitamin C and zinc sulfate. Her sputum Gram stain and culture has been negative. Blood cultures been negative. She is on IV Solu-Medrol 40 mg every 12 hours. On today's evaluation of 01/02/2020, the patient remains intubated on a mechanical ventilator. The patient today is on a assist-control mode at the rate of 26 with a tidal volume of 350 and FiO2 of 40% with a PEEP of 5. Peak airway pressures around 27 anesthetic pressures of 21. The chest x-ray from today shows stable bilateral pulmonary infiltrates which has remained unchanged and the patient is infiltration rate is in the left lower lobe. ET tube is in a good location. The blood gas showed a pH of 7.44 with a pCO2 of 44 and pO2 of any 8. The patient has a peak given a pressure of 27. This particular pressures at 21. White cell count is at 16.2. She was noted to be excessively fluid overloaded and the patient's net fluid balance and the positive with a weight gain and order of 7 kg. The patient will be started on IV Lasix. Otherwise, no other significant events overnight. The patient remains on Lovenox therapeutic dose. No signs of any bleeding. On 01/03/2020, I'm seeing this patient for a follow-up in the intensive care unit. The patient was extubated yesterday and currently she is on 10 L of oxygen by nasal cannula. She is awake and communicating and following commands pH is extremely weak. I'm not sure if he is able to swallow and his Urrutia evaluation to be done today. Chest x-ray still showing stable bilateral pulmonary infiltrates unchanged from yesterday's chest x-ray. The patient has been a positive fluid balance. The patient is currently on Lasix 40 mg every 12 hours. The patient is on IV Solu-Medrol. The net fluid balance of been -2 L over the past 24 hours he had a body weight is still at 124 kg. In terms of labs, the white cell count at 13.1. BUN is at 43 with a creatinine of 0.9. The LDH is slightly elevated at 914. CRP level is at 50. No fever. No chills. No other complaints otherwise for now. On 01/04/2020, the patient is still weak and somewhat lethargic. She is able to take some few bites and take some applesauce. Her oral intake is diminished. She remains quite weak and debilitated. She has been placed on on the percent nonrebreather facemask to maintain a saturation of above 90% and the patient has been mouth breathing. She is receiving IV fluids at the rate of 75 mL an hour of normal saline. Her chest x-ray still showing diffuse bilateral pulmonary infiltrates, interstitial, unchanged compared to yesterday. She was receiving diuretics and the Lasix dose will be tapered. The patient was also taken of the IV Solu Medrol and started on a prednisone burst taper. No altered mentatio n. No agitation. No chest pain. Continues to have some dry cough. No significant sputum production. She is afebrile. Based on her covert 19 inflammatory markers, the LDH is at 739 with a C-reactive protein of 43 and a ferritin level is down to 462. Renal function is stable for now. No other significant events otherwise for now. The patient will be kept in ICU for another 24 hours pending some further improvement. On 01/05/2020, the patient is looking somewhat better, more alert and awake and she has regained some of her strength and she is able to raise her arms and legs against gravity and she is also willing to sit up on a chair with help. On today's evaluation, the patient was replaced back on a 15 L of oxygen by nasal cannula with a pulse of 76% pH is being considered for a partial nonrebreather facemask. She is taking minimal amount of oral intake and she is to advance her diet as tolerated. No nausea. No vomiting. No chest pain. She has developed coffee no significant sputum production. She is able to swallow her medications fine. No diarrhea. Note that after completion of around and around noontime today the patient went into atrial fibrillation with rapid ventricular response. The patient be started on Cardizem drip. No major hemodynamic instability along with his atrial fibrillation. The patient still has an arterial line in the right upper extremity and a Urrutia catheter still in place. On 01/06/2020, the patient is alternating between high flow oxygen and 100% nonrebreather facemask. No new complaints. I was told that she is working with physical therapy and she was able to sit up on a commode with assistance for a brief period of time. She is taking oral material remaining form of liquids and soft diet. She was in atrial fibrillation with rapid ventricular response and she was given amiodarone and she converted yesterday and she is still on a maintenance for now. She is on no anticoagulation for now. No nausea. No vomiting. No chest pain. No fever. No chills. No cough or sputum production. No other significant events otherwise for now. The patient is still in the intensive care unit as she is recovering from her covid 19 related pneumonia. The catheter still in place. A urinalysis was done as the urine material it's coming out of the Urrutia catheter is quite dark and cloudy. Nevertheless, the patient is a symptomatic and she is afebrile. On 01/07/2020 on seeing the patient for a follow-up. The patient physically is getting stronger. However, she still having and oxygenation problem which is still requiring 100% nonrebreather facemask. No other new complaints for now. Her oral intake is gradually improving pH is mainly relying on soft or liquid the diet. Cardiac rhythm is sinus. She is off amiodarone for now. Lovenox is being used for DVT prophylaxis. No chest pain. No altered mentation. She is receiving daily Lasix 40 mg IV push. She is also on Lovenox for DVT prophylaxis. She is on Rocephin as an empiric antibiotic coverage. She was taken off the IV Solu-Medrol and started on prednisone burst taper few days back. On 01/08/2020 on seeing this patient for a follow-up. This patient has been kept in ICU as the patient has had difficulties with improvement in her oxygenation as the patient is recovering from a Covid 19 related pneumonia. The patient was intubated and she was in a mechanical ventilator and she was extubated earlier this week. She was still requiring 100% nonrebreather facemask and earlier this morning she was on 15 L per minute nasal cannula. Chest x-ray still showing bilateral pulmonary infiltrates/consolidation most on the left lung base. Last night, the patient went again for the second time around into atrial fibrillation with rapid ventricular response. She was given amiodarone bolus and she converted back to normal sinus rhythm. For now she is completing the amiodarone bolus and the patient was started also on Eliquis. Echocardiac Wilmar was within normal. Cardiac enzymes were nonelevated. Thyroid function tests are within normal limits. The white cell count is 11.8. Hemoglobin is on 10.0. Renal function is stable. The patient is gradually increasing her diet as tolerated. She is mainly relying on liquid diet. She was started on Levemir insulin and she had issues with hypoglycemia. The dose needs to be reduced accordingly. Reevaluated today on 01/09/20, patient remains in the ICU, however she seems to be doing quite well. Patient is on a high flow nasal cannula at 12 L/m, and her O2 saturation is 99%. She is hemodynamically stable. Patient is in sinus rhythm, not requiring any pressors, she was initially admitted on 414, intubated on 12/27 and extubated on 01/01. Patient is doing well, asymptomatic, minimal sh ortness of breath, and I plan to taper down her FiO2 and possibly transfer the patient out of the ICU today. Labs today showed a relatively normal CBC. Relatively normal electrolytes. BUN is 29 creatinine is 1.04. Chest x-ray showed stable peripheral bilateral opacities and low lung volumes Objective - Vital Signs Vital signs: Vital Signs Temp 98.4 F 01/09/20 12:00 Pulse 64 01/09/20 12:00 Resp 23 01/09/20 12:00 BP 108/60 01/09/20 12:00 Pulse Ox 96 01/09/20 12:00 Intake & Output 01/08/20 01/09/20 01/09/20 18:59 06:59 18:59 Intake Total 1027.6 746.6 340 Output Total 1175 500 710 Balance -147.4 246.6 -370 Weight 124.6 kg 124.6 kg Intake: IV 687.6 646.6 240 Amiodarone 0.5 mg 25 100 Amiodarone 1mg/hr 182.6 16.6 Lactated Ringers 1,000 ml 480 480 240 @ 40 mls/hr IV .Q24H JORGE Rx#:[id number] Rocephin IVPB 50 Intake, IV Titration 250 100 Amount Amiodarone 300 mg In 250 Dextrose 5% in Water 250 ml @ 0.5 MG/MIN 25 mls/hr IV .Q10H JORGE Rx#: [id number] Potassium Chloride 20 meq 100 In Water For Injection 1 100ml.bag @ 50 mls/hr IVPB Q2H JORGE Rx#: [id number] Oral 90 100 Output: Urine 1175 500 710 Other: Voiding Method Indwelling Catheter Indwelling Catheter Indwelling Catheter # Voids 3 # Bowel Movements 1 2 1 ABP, PAP, CO, CI - Last Documented Arterial Blood Pressure 84/63 - Exam Physical Exam: Revealed a 64-year-old female obese, in no distress. On high flow nasal cannula Head: Atraumatic normocephalic. HEENT:[Symmetrical chest expansion crackles at the bases no rhonchi and no wheezes. Chest: [Clear throughout, no crackles, no rhonchi, no wheezes.] Cardiac Exam: [Normal S1 and S2, no S3 gallop, no murmur.] Abdomen: [Soft, nontender, no megaly, no rebound, no guarding, normal bowel sounds.] Extremities: [No clubbing, 1+ bipedal edema, no cyanosis.] Neurological Exam: [No focal neurologic deficit.] Alert oriented 3. Psychiatric: Normal mood, affect and normal mental status examination. Skin: No rashes. Lymphatics: No lymphadenopathy. - Labs CBC & Chem 7: 01/09/20 04:30 01/09/20 04:30 Labs: Abnormal Lab Results - Last 24 Hours (Table) 01/08/20 01/08/20 01/09/20 Range/Units 16:53 21:15 04:30 RBC 3.35 L (3.80-5.40) m/uL Hgb 9.3 L (11.4-16.0) gm/dL Hct 28.4 L (34.0-46.0) % Potassium (3.5-5.1) mmol/L Carbon Dioxide (22-30) mmol/L BUN (7-17) mg/dL Glucose (74-99) mg/dL POC Glucose (mg/dL) 308 H 269 H (75-99) mg/dL 01/09/20 01/09/20 01/09/20 Range/Units 04:30 06:41 11:52 RBC (3.80-5.40) m/uL Hgb (11.4-16.0) gm/dL Hct (34.0-46.0) % Potassium 3.3 L (3.5-5.1) mmol/L Carbon Dioxide 32 H (22-30) mmol/L BUN 29 H (7-17) mg/dL Glucose 112 H (74-99) mg/dL POC Glucose (mg/dL) 101 H 141 H (75-99) mg/dL Assessment and Plan Assessment: Impression: Acute hypoxic respiratory failure secondary to covid 19 pneumonia, admitted on 12/26 intubated on 12/27 extubated on 01/01 and has been on high flow nasal cannula. Obesity with BMI of 48.2 Benign essential hypertension GERD without esophagitis Type 2 diabetes Dyslipidemia History of mild intermittent bronchial asthma presently stable Coronary artery disease with previous stent placement New onset atrial fibrillation treated with amiodarone and anticoagulation therapy. Presently in normal sinus rhythm. Remains on oral amiodarone at 200 mg twice a day. She remains on Eliquis Recommendation: Continue present supportive care measures. Titrate FiO2 down as tolerated and monitor O2 saturation and keep it above 90%. Transfer patient out of the ICU to regular medical floor. Repeat PCR for burgos virus, and we have to document 2 negative PCR is before the patient could be transferred to a long-term. That is being handled by the admitting physician. We'll continue to follow again I plan to transfer the patient out of the ICU today. Time with Patient: Less than 30
[2020-01-09] MEDS ORDERED: POTASSIUM CHLORIDE 10 MEQ in WATER FOR INJECTION 1 100ML.BAG IVPB SCH (15:30)
[2020-01-09 16:35] LABS: Glucose,Whole Blood 214 mg/dL (75-99)
[2020-01-09] MEDS: CHOLESTYRAMINE (WITH SUGAR) 4 GM PACKET PO SCH (18:58)
--- NOTE | 2020-01-09 19:26 | PN ---
PROGRESS NOTE DATE OF SERVICE: 01/09/2020 REASON FOR FOLLOWUP: 1. Pneumonia. 2. Diarrhea. INTERVAL HISTORY: The patient is currently afebrile. The patient is breathing more comfortably. Patient denies having any chest pain. Occasional cough. No nausea, no vomiting. No abdominal pain. However, the patient is complaining of diarrhea, multiple loose stools. PHYSICAL EXAMINATION: Blood pressure 111/94 with a pulse of 65, temperature 99.1. She is 97% on 12 L high- flow oxygen. General description is a middle-aged female lying in bed in no distress. RESPIRATORY SYSTEM: Unlabored breathing. Clear to auscultation anteriorly. HEART: S1, S2. Regular rate and rhythm. ABDOMEN: Soft. No tenderness. LABS: Hemoglobin 9.3, white count 8.4, BUN of 29, creatinine 1.04. DIAGNOSTIC IMPRESSION AND PLAN: 1. Patient with acute COVID-19 pneumonia that has been adequately treated. Still having some respiratory symptoms and is being monitored closely. bacterial pneumonia less likely. 2. Patient with diarrhea. We will check a stool sample for C difficile and treat if positive. Add Questran for symptomatic relief and monitor her clinical course closely. MMODL / IJN: [id number] / MTDD
[2020-01-09] MEDS: ATORVASTATIN 40 MG TAB PO SCH (20:04)
[2020-01-09] MEDS: LISINOPRIL 20 MG TAB PO SCH (20:04)
[2020-01-09 20:46] LABS: Glucose,Whole Blood 348 mg/dL (75-99)
[2020-01-09] MEDS: LACTATED RINGERS 1,000 ML IV SCH (20:52)
[2020-01-10 05:09] LABS: Basophils % (A) 0 %; Eosinophils # (A) 0.1 k/uL (0-0.7); Eosinophils % (A) 1 %; HGB 9.3 gm/dL (11.4-16.0); Hypochromasia Slight; Lymphocytes # (A) 1.1 k/uL (1.0-4.8); Lymphocytes % (A) 12 %; MCH 27.5 pg (25.0-35.0); MCHC 32.2 g/dL (31.0-37.0); MCV 85.4 fL (80.0-100.0); Mean Platelet Volume 7.7; Monocytes # (A) 0.3 k/uL (0-1.0); Monocytes % (A) 4 %; Neutrophils # (A) 7.5 k/uL (1.3-7.7); Neutrophils % (A) 82 %; Platelet Count 359 k/uL (150-450); RDW 14.2 % (11.5-15.5); WBC 9.1 k/uL (3.8-10.6)
[2020-01-10 05:18] LABS: Albumin 2.6 g/dL (3.5-5.0); Calcium 8.6 mg/dL (8.4-10.2); Potassium 3.7 mmol/L (3.5-5.1); Total Bilirubin 0.2 mg/dL (0.2-1.3); Total Protein 5.4 g/dL (6.3-8.2)
[2020-01-10 06:06] LABS: Glucose,Whole Blood 149 mg/dL (75-99)
[2020-01-10] MEDS: INSULIN ASPART (NovoLOG) 100 UNIT/ML VIAL SQ SCH ×7 (07:05→20:59)
--- NOTE | 2020-01-10 08:00 | XR ---
EXAMINATION TYPE: XR chest 1V portable DATE OF EXAM: 01/10/2020 Comparison: 01/09/2020 Clinical History: 64-year-old female pneumonia , covid Findings: Left subclavian CVC tip at the cavoatrial junction. Low lung volumes. Multifocal patchy and confluent airspace opacities especially in the periphery of the lungs and left base, relatively unchanged. Hea rt borderline enlarged. Impression: Stable patchy and confluent multifocal airspace disease.
[2020-01-10] MEDS: ALBUTEROL HFA INHALER INHALATION PRN ×3 (08:44→20:25)
[2020-01-10] MEDS: SYMBICORT 160-4.5 MCG INHALER INHALATION SCH ×2 (08:44→20:25)
--- NOTE | 2020-01-10 11:11 | P.PN ---
Subjective Progress Note Date: 01/10/20 This is a 64-year-old female patient of Dr. Mojica with past medical history of asthma, hypertension, hyperlipidemia, gastroesophageal reflux disease, diabetes mellitus type 2 insulin requiring, coronary artery disease status post stent, remote history of tobacco use and dependence, chronic kidney disease stage III. Patient is a [employer] and [facility] the past, recently changed to a position at [employer]. 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 They were exposed to a COVID-19 positive patient on December 11 and/or December 12. She had symptoms develop approximate 7 days ago with fever, cough, shortness of breath, nausea, diarrhea. She tried to manage at home but symptoms became significantly severe in the past 3 days and she lives alone she was so sick she could not get to the She to the bathroom. Patient came into [facility] emergency center for evaluation and found to be afebrile, blood pressure 141/68, heart rate 85, pulse ox 87%. EKG was a sinus rhythm with no acute ST changes. W BC 12.1, hemoglobin 12.7, platelet count 303, sodium 136, potassium 5.3, chloride 100, CO2 23, BUN 41, creatinine 1.43, blood sugar 230. Total bilirubin 0.6, AST 49, ALT 22, alkaline phosphatase 255, LDH 1600, ferritin 609.6 C-reactive protein 262, pro calcitonin 0.2 to. Chronic virus PCR detected, influenza testing negative, lactic acid 2.1. Repeat lactic acid 1.2 chest x-ray revealed mild cardiomegaly with moderately severe diffuse interstitial edema that is changed from old exam compared to November 2018. This could represent acute interstitial pneumonia or acute heart failure. Patient was started on Tylenol, azithromycin, Plaquenil admitted to the [facility] floor and consult was requested with infectious disease and pulmonary medicine. 12/27: Patient had a drop in her oxygen saturation and became tachypneic. She was initially placed on high flow nasal cannula at 10 L, transferred into the intensive care unit and was intubated this morning. Temperature max 101.4. Heart rate in the 60s and 70s. Repeat blood work reveals CBC unremarkable except for low lymphocytes. D-dimer 1.05, potassium 5.2, BUN 62 and creatinine 1.91. Blood sugars in the 200s. Alkaline phosphatase 198 LDH 1439. She has been continued on azithromycin, Plaquenil, zinc and vitamin C. Solu-Medrol is currently at 40 mg IV every 12 hours. 12/28: Patient remains in the intensive care unit, intubated and on mechanical ventilation with tidal volume 350, FiO2 of 50 and PEEP 13. Patient has been afebrile, heart rate 50, blood pressure 120/56. Repeat blood work reveals WBC 16, hemoglobin 10.7, platelet count 273. Repeat d-dimer is decreased at 0.72. Sodium 135, potassium 4.6, chloride 103, CO2 24, BUN 63 and creatinine 1.43. Ferritin decreased to 556.8, alkaline phosphatase decreased 167, LDH decreased to 1050, C-reactive protein 181.7. Case has been discussed outside patient's room with the patient's nurse. Blood sugars have been elevated running 189 to 231. We will increase Levemir to 42 units twice daily, added and NovoLog scheduled 5 units every 6 hours along with NovoLog scale. Patient is currently & Medrol 40 mg IV every 12 hours. 12/29: Patient remains intubated in critical ventilation with tidal volume 350, FiO2 of 40 and PEEP of 13. Patient has been afebrile, heart rate in the 50s, blood pressure 101/55. Repeat laboratory studies revealed a CBC 17.5, hemoglobin 10, platelet count 276. Sodium 135, potassium 5.4, chloride 105, CO2 26, BUN 61, creatinine 1.07 area blood sugars are running in the 200s up to 300, alkaline phosphatase 143, LDH 875, C-reactive protein 67.9, albumin 2.7. We will again today increase her insulins with long acting up to 50 units twice daily and NovoLog 10 units every 6 hours along with NovoLog scale. Patient has had good urine output, tube feedings are at goal. Patient appears to be stable at this time. 12/30: Patient still having significantly elevated CRP with abnormal liver function test, lactic acid that subtle down significantly. Blood sugar still mildly elevated when titrating insulin is making sugar slightly but better at this point. Patient is still sedated on mechanical ventilation currently no weaning his plan in the next 24 hours. 12/31: Back in off on sedation patient has done slightly well still not ready to be extubated this point she had her weaning parameter and was sedated and continue mechanical ventilation. Blood sugar still high her steroid was decreased today to Solu-Medrol 40 mg twice a day with higher Levemir to 60 units twice a day and up on NovoLog to 20 units every 6 hours plus a sliding scale we have to watch for any decrease blood sugar specially with a new change on insulin and medication. 01/01: Patient remains intubated and on mechanical ventilation. Patient is on a sedation holiday. Tidal volume 350, FiO2 40, PEEP 5. Patient has been afebrile, heart rate in the 40s, blood pressure 101/49. Repeat lab work reveals W BC 16.2, hemoglobin 9.9, platelet count 291. D-dimer 0.28. Sodium 138, potassium 5.2, chloride 104, CO2 29, BUN 42 and creatinine 0.89. Blood sugars have been running 148 197. At bedtime glucose 118. Scheduled NovoLog will be decreased to 15 units and continue Levemir at 60 units twice daily. Solu-Medrol at 40 mg IV every 12 hours and Lasix 40 mg every 12 hours. Patient has completed course of Plaquenil. She remains in isolation. 01/02: Patient was successfully extubated yesterday afternoon. She is pulse ox 97% on 10 L high flow nasal cannula. She has been afebrile, heart rate 69, blood pressure 112/52. WBC 13.1, hemoglobin 10.3, platelet count 308. Sodium 141, potassium 4.7, chloride 103, CO2 36, BUN 43 and creatinine 0.96. Blood sugars are improved and stable and have been running between 90 and 146 with holding of Levemir. Levemir will be discontinued and patient on scale insulin only for now. Repeat ferritin level 527.6, LDH 914, C-reactive protein 50. Sputum culture finalized with normal ct. Blood culture no growth at 144 hours. Repeat chest x-ray reveals patchy diffuse infiltrates less stable from comparison. Central venous catheter stable. Patient is having difficulties with swallowing and speech therapy will be evaluating. For now, oral medic ations on hold. district sales manager will discuss with the patient option of rehab when she is stable. Anticipate patient will be in the hospital until early next week. 01/03: Patient remains in intensive care unit. She is on O2 partial nonrebreather and pulse ox seen 97% on 15 L. Blood pressure 122/70, heart rate 80, respiratory rate 24. Patient has been afebrile for 24 hours. You have to collect again over a year repeat blood work reveals hemoglobin of 10.4, white count 12.9, platelet count 387. Sodium 140, potassium 4.5, chloride 100, CO2 38, BUN 52 and creatinine 1. Blood sugars have been running between 188 and 198. Blood sugars were in the 200s yesterday afternoon. Patient is now able to eat and we will start Levemir back in at 10 units twice daily. Sputum culture is finalized with normal ct and blood culture no growth. A repeat chest x- ray is stable peripherally oriented bilateral consolidation and retrocardiac airspace disease. Dr. Moreira is continuing to follow patient and recommending vancomycin and prednisone. district sales manager and social worker assistant are attempting to reach the patient's son regarding subacute rehab. PT and OT have recommended subacute rehab. 01/04: Patient remains in the intensive care unit, afebrile, heart rate 76, respiratory rate 15-25, blood pressure 106/52, pulse ox 93% on partial rebreather. Repeat lab work reveals hemoglobin 9.8, WBC 8.7, platelet count 355. BUN 48 creatinine 1.01. Blood sugars running this morning at 158. During the evening in the low 200s, 201-230. Patient will be continued on Levemir 10 units twice daily for now and monitor closely. Anticipate increased need once patient is eating. Thus far, patient has had only a few bites of her food. Social work is working with the patient, her son regarding possible workman comp coverage for subacute rehab. Dr. Mojica is planning for her to go to [facility] for subacute rehab when stabilized. 01/05: Patient remains in intensive care unit. She is awake and alert. She continues to have significant weakness. She is eating very little. She is currently on partial rebreather mask and we will try to transition to nasal cannula today. Patient went into A. fib with RVR yesterday and was started on amiodarone subsequently converted to normal sinus rhythm. Echocardiogram reveals EF of 65-70% with severe concentric left ventricular hypertrophy, mild tricuspid regurgitation, mild pulmonary hypertension.. Patient has been afebrile, blood pressure 99/49, pulse ox 99% on 15 L partial rebreather mask. Repeat blood work reveals WBC 9.6, hemoglobin 9.8, platelet count 348. Electrolytes normal, CO2 36, BUN 44 and creatinine 0.94. Blood sugars running 143-165. 01/06: Patient remains in ICU. She was awake and alert this morning and continues to have significant weakness. Patient remains on partial rebreather mask unable to tolerate weaning to nasal cannula yesterday per nursing, will retry today. Patient continues to be normal sinus rhythm. Blood sugar last night was 400 will increase Levemir to 30 units twice a day, NovoLog 10 units with meals along with sliding scale coverage, will titrate slowly to patient's home dose due to decreased oral intake. Patient still to assist two get up to chair. Vital signs are stable, patient remains afebrile heart rate 64 blood pressure 96/53, pulse ox 98% on partial rebreather at 15 L. Labs are reviewed, hemoglobin stable at 9.7, BUN 41 and creatinine 0.91. Repeat chest x-ray showed no significant interval change in the appearance of the chest. 01/07 patient seen in ICU this a.m. She is awake and alert. Patient remains on partial rebreather mask O2 flow down to 12 L. Vital signs are stable, remains a febrile heart rate 66, blood pressure 99/66, pulse ox 96%. Patient has been in and out of A. fib per night nurse. Patient is anticoagulated on Eliquis. labs were reviewed, white blood cells 11.8 hemoglobin 10.0 BUN 33, creatinine 0.92. Blood sugars have been up and down, had a blood sugar of 56 this morning adjusted Levemir dose down to 20 units at bedtime and continue 30 AM this should improve as patient tolerates increase oral intake. Speech PT and OT all remain on the case, repeat chest x-ray this morning showed no significant change. 01/08: Patient remains in the intensive care unit. She is currently pulse oxing 99% on 12 L high flow nasal cannula. She has been afebrile, heart rate 62, blood pressure 108/43. Repeat lab work reveals WBC 8.4, hemoglobin 9.3. Potassium 3.3 and will be replaced. CO2 32, BUN 29 creatinine 1.04. Blood sugars this morning 112. Patient was running in the 200s in the evening prior. She is currently on Levemir 30 units in the morning and 20 units at bedtime along with NovoLog 10 units 3 times daily with meals and NovoLog scale. Patient is not eating today and we will make minor changes to the Levemir. NovoLog was held for breakfast.. She is on prednisone 40 mg daily. She was on oral amiodarone 200 mg twice daily and eliquis. She is on antibiotics in the form of ceftriaxone. Lasix is at 40 mg IV daily. Rama is evaluating the patient for subacute rehab. 01/09: Patient remains in intensive care unit. She is currently on nonrebre ather. Patient did well yesterday and was up to a chair with physical therapy. During the evening she was placed on a nonrebreather a pulse ox dropped down to 80%. This morning she was transitioned to nasal cannula 12 L but with rolling in bed she have dropping pulse ox to 70s. She is now back on a nonrebreather. Patient is also having increased volume of bowel movements. Stool has been sent for C. difficile toxin. Patient is afebrile, heart rate 65, respiratory rate 26-30, blood pressure 111/56, pulse ox 100% on nonrebreather. Repeat blood work reveals WBC 9.1, hemoglobin 9.3, platelet count 359. Sodium 141, potassium replacement 7, chloride 104, CO2 32, BUN 26 and creatinine 0.99. Blood sugar this morning is 154. Patient did have one reading of 348 last evening and was in the 200 chest or afternoon. NovoLog scheduled with lunch and supper will be increased. Objective - Vital Signs Vital signs: Vital Signs Temp 98.2 F 01/10/20 04:00 Pulse 73 01/10/20 07:00 Resp 29 H 01/10/20 07:00 BP 120/56 01/10/20 07:00 Pulse Ox 88 L 01/10/20 07:00 Intake & Output 01/09/20 01/10/20 01/10/20 18:59 06:59 18:59 Intake Total 580 528 140 Output Total 1135 480 40 Balance -555 48 100 Weight 124.6 kg 124.6 kg Intake: IV 480 488 40 Lactated Ringers 1,000 ml 480 440 40 @ 40 mls/hr IV .Q24H JORGE Rx#:[id number] Rocephin IVPB 48 Intake, IV Titration 100 Amount Potassium Chloride 20 meq 100 In Water For Injection 1 100ml.bag @ 50 mls/hr IVPB Q2H JORGE Rx#: [id number] Oral 100 Lipid 40 Lactated Ringers 1,000 ml 40 @ 40 mls/hr IV .Q24H COUNT INCLUDES THE [facility] Rx#:[id number] Output: Urine 1135 480 40 Other: Voiding Method Indwelling Catheter Indwelling Catheter # Bowel Movements 4 ABP, PAP, CO, CI - Last Documented Arterial Blood Pressure 84/63 - Exam Review of Systems Constitutional: No fever, no chills, no night sweats. No weight change. Reports weakness, Reports fatigue. EENT: No headache. No blurred vision or double vision, no loss of vision. No loss of Hearing, no ringing in the ears, no dizziness. No nasal drainage or congestion. No epistaxis. No sore throat. Lungs: Reports shortness of breath, Reports cough, Reports sputum production. No wheezing. Cardiovascular: No chest pain, no lower extremity edema. No palpitations. No paroxysmal nocturnal dyspnea. No orthopnea. No lightheadedness or dizziness. No syncopal episodes. Abdominal: No abdominal pain. No nausea, vomiting. No diarrhea. No constipation. No bloody or tarry stools.. No loss of appetite. Genitourinary: No dysuria, increased frequency, urgency. No urinary retention. Musculoskeletal: No myalgias. No muscle weakness, no gait dysfunction, no frequent falls. No back pain. No neck pain. Integumentary: No wounds, no lesions. No rash or pruritus. No unusual bruising. No change in hair or nails. Neurologic: No aphasia. No facial droop. No change in mentation. No head injury. No headache. No paralysis. No paresthesia. Psychiatric: No depression. No anxiety. No mood swings. Endocrine: Abnormal blood sugars. No weight change. No excessive sweating or thirst. No cold intolerance. Physical Examination Gen: This is a 64-year-old morbidly obese female. Patient is resting in ICU bed. She is on partial nonrebreather with mild accessory muscle usage. HEENT: Head is atraumatic, normocephalic. Pupils equal, round. Sclerae is anicteric. Left-sided triple-lumen in place. NECK: Supple. No JVD. No lymphadenopathy. No thyromegaly. LUNGS: Diminished breath sounds bilaterally. Bilateral rales in the bases. Mild intercostal retractions. Tachypneic. HEART: Regular rate and rhythm. No murmur. school bus monitor normal sinus rhythm. ABDOMEN: Soft. Bowel sounds are present. No masses. No tenderness. Urrutia catheter draining vini urine with sediment. EXTREMITIES: No pedal edema. No calf tenderness. Dorsalis pedis +2 bilaterally. NEUROLOGICAL: Patient is awake, alert and oriented x3. Cranial nerves 2 through 12 are grossly intact. Significant generalized weakness noted to upper and lower extremities. - Labs CBC & Chem 7: 01/10/20 04:30 01/10/20 04:30 Labs: Abnormal Lab Results - Last 24 Hours (Table) 01/09/20 01/09/20 01/09/20 Range/Units 11:52 16:33 20:44 RBC (3.80-5.40) m/uL Hgb (11.4-16.0) gm/dL Hct (34.0-46.0) % Carbon Dioxide (22-30) mmol/L BUN (7-17) mg/dL Glucose (74-99) mg/dL POC Glucose (mg/dL) 141 H 214 H 348 H (75-99) mg/dL ALT (4-34) U/L Total Protein (6.3-8.2) g/dL Albumin (3.5-5.0) g/dL 01/10/20 01/10/20 01/10/20 Range/Units 04:30 04:30 06:05 RBC 3.40 L (3.80-5.40) m/uL Hgb 9.3 L (11.4-16.0) gm/dL Hct 29.0 L (34.0-46.0) % Carbon Dioxide 32 H (22-30) mmol/L BUN 26 H (7-17) mg/dL Glucose 154 H (74-99) mg/dL POC Glucose (mg/dL) 149 H (75-99) mg/dL ALT 35 H (4-34) U/L Total Protein 5.4 L (6.3-8.2) g/dL Albumin 2.6 L (3.5-5.0) g/dL Assessment and Plan Plan: 1. Acute hypoxic respiratory failure secondary to COPD exacerbation and COVID- 19 pneumonitis. Patient has been successfully extubated. Completed Plaquenil. Consults with pulmonary medicine and infectious disease appreciated. Continue albuterol inhaler as needed, Symbicort twice daily, Phenergan cough syrup, prednisone 40 mg daily. Patient is currently on nonrebreather. 2. Acute kidney injury with chronic kidney disease stage III. Avoid nephrotoxic agents, hypotension. 3. Mild hyperkalemia secondary to acute kidney injury. 4. Mild lactic acidosis secondary to COVID-19 infection. Resolved. 5. Sepsis secondary to Covid 19 infection, POA. 6. Hyperlipidemia. Continue atorvastatin 40 mg at bedtime 7. Diabetes mellitus type 2, insulin requiring, uncontrolled with hyperglycemia secondary to steroids. Continue Levemir 20 units in the morning and 15 units at bedtime, continue NovoLog scheduled change to 10 units with breakfast, 12 units with lunch and supper and continue NovoLog scale before meals and at bedtime. 7. History of coronary artery disease status post stenting. Continue aspirin 325 mg daily, Lipitor. 8. Hypertension. Continue lisinopril 20 mg at bedtime. Avoid hypotension. 9. Gastroesophageal reflux disease disease and GI prophylaxis. Continue Protonix. 10. DVT prophylaxis. Eliquis 5 mg twice daily 11. Dysphagia. Speech therapy evaluation with recommendations for chapped diet with nectar thick liquids, continue one-to-one supervision, upright position small bites liquids via cup. Possible modified barium swallow on Thursday if symptoms continue. Speech therapy is following. 12. Atrial fibrillation with RVR, paroxysmal atrial fibrillation, new onset. Patient converted on amiodarone drip. Patient was started on Lopressor 12.5 mg twice daily. Discharge plan: Subacute rehab at [facility]. Social work is working with the patient's son regarding Workmen's Comp. coverage for ECF. Impression and plan of care have been directed as dictated by the signing physician. Deborah Crow nurse practitioner acting as scribe for signing physician.
--- NOTE | 2020-01-10 11:18 | P.PN ---
Subjective Progress Note Date: 01/10/20 Principal diagnosis: Acute covid 19 pneumonia. Is a 64-year-old female patient who was originally hospitalized on 12/27/2019 because of an acute cold and 19 related infection/pneumonia. 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 Her symptoms progressively got worse and she became progressively more short of breath and she also developed nausea and diarrhea. She came into the hospital and she was quite hypoxic and she checked positive for coag with 19 infection. Her chest x-ray showed some mild cardiomegaly and diffuse interstitial infiltrates secondary to an underlying covert 19 related pneumonia. The patient also has other comorbidities including asthma, hypertension, hyperlipidemia and acid reflux in addition to diabetes mellitus type 2. She has coronary artery disease with previous coronary stenting. She has chronic stage III kidney disease. She is obese with a body mass index of 48.2. This patient has been intubated since 12/28/2019. Since then the patient has remained on a mechanical ventilator. She is currently on an assist-control mode rate of 26 with a tidal volume of 350 and FiO2 of 40% with a PEEP of 10. Her chest x-ray is consistent with lateral pneumonia worse on the left. She is on propofol for sedation. She is on vital 1.2 for enteral feeding and nutritional support. She has completed her course of Plaquenil and she was also treated with Zithromax vitamin C and zinc sulfate. Her sputum Gram stain and culture has been negative. Blood cultures been negative. She is on IV Solu-Medrol 40 mg every 12 hours. On today's evaluation of 01/02/2020, the patient remains intubated on a mechanical ventilator. The patient today is on a assist-control mode at the rate of 26 with a tidal volume of 350 and FiO2 of 40% with a PEEP of 5. Peak airway pressures around 27 anesthetic pressures of 21. The chest x-ray from today shows stable bilateral pulmonary infiltrates which has remained unchanged and the patient is infiltration rate is in the left lower lobe. ET tube is in a good location. The blood gas showed a pH of 7.44 with a pCO2 of 44 and pO2 of any 8. The patient has a peak given a pressure of 27. This particular pressures at 21. White cell count is at 16.2. She was noted to be excessively fluid overloaded and the patient's net fluid balance and the positive with a weight gain and order of 7 kg. The patient will be started on IV Lasix. Otherwise, no other significant events overnight. The patient remains on Lovenox therapeutic dose. No signs of any bleeding. On 01/03/2020, I'm seeing this patient for a follow-up in the intensive care unit. The patient was extubated yesterday and currently she is on 10 L of oxygen by nasal cannula. She is awake and communicating and following commands pH is extremely weak. I'm not sure if he is able to swallow and his Urrutia evaluation to be done today. Chest x-ray still showing stable bilateral pulmonary infiltrates unchanged from yesterday's chest x-ray. The patient has been a positive fluid balance. The patient is currently on Lasix 40 mg every 12 hours. The patient is on IV Solu-Medrol. The net fluid balance of been -2 L over the past 24 hours he had a body weight is still at 124 kg. In terms of labs, the white cell count at 13.1. BUN is at 43 with a creatinine of 0.9. The LDH is slightly elevated at 914. CRP level is at 50. No fever. No chills. No other complaints otherwise for now. On 01/04/2020, the patient is still weak and somewhat lethargic. She is able to take some few bites and take some applesauce. Her oral intake is diminished. She remains quite weak and debilitated. She has been placed on on the percent nonrebreather facemask to maintain a saturation of above 90% and the patient has been mouth breathing. She is receiving IV fluids at the rate of 75 mL an hour of normal saline. Her chest x-ray still showing diffuse bilateral pulmonary infiltrates, interstitial, unchanged compared to yesterday. She was receiving diuretics and the Lasix dose will be tapered. The patient was also taken of the IV Solu Medrol and started on a prednisone burst taper. No altered mentatio n. No agitation. No chest pain. Continues to have some dry cough. No significant sputum production. She is afebrile. Based on her covert 19 inflammatory markers, the LDH is at 739 with a C-reactive protein of 43 and a ferritin level is down to 462. Renal function is stable for now. No other significant events otherwise for now. The patient will be kept in ICU for another 24 hours pending some further improvement. On 01/05/2020, the patient is looking somewhat better, more alert and awake and she has regained some of her strength and she is able to raise her arms and legs against gravity and she is also willing to sit up on a chair with help. On today's evaluation, the patient was replaced back on a 15 L of oxygen by nasal cannula with a pulse of 76% pH is being considered for a partial nonrebreather facemask. She is taking minimal amount of oral intake and she is to advance her diet as tolerated. No nausea. No vomiting. No chest pain. She has developed coffee no significant sputum production. She is able to swallow her medications fine. No diarrhea. Note that after completion of around and around noontime today the patient went into atrial fibrillation with rapid ventricular response. The patient be started on Cardizem drip. No major hemodynamic instability along with his atrial fibrillation. The patient still has an arterial line in the right upper extremity and a Urrutia catheter still in place. On 01/06/2020, the patient is alternating between high flow oxygen and 100% nonrebreather facemask. No new complaints. I was told that she is working with physical therapy and she was able to sit up on a commode with assistance for a brief period of time. She is taking oral material remaining form of liquids and soft diet. She was in atrial fibrillation with rapid ventricular response and she was given amiodarone and she converted yesterday and she is still on a maintenance for now. She is on no anticoagulation for now. No nausea. No vomiting. No chest pain. No fever. No chills. No cough or sputum production. No other significant events otherwise for now. The patient is still in the intensive care unit as she is recovering from her covid 19 related pneumonia. The catheter still in place. A urinalysis was done as the urine material it's coming out of the Urrutia catheter is quite dark and cloudy. Nevertheless, the patient is a symptomatic and she is afebrile. On 01/07/2020 on seeing the patient for a follow-up. The patient physically is getting stronger. However, she still having and oxygenation problem which is still requiring 100% nonrebreather facemask. No other new complaints for now. Her oral intake is gradually improving pH is mainly relying on soft or liquid the diet. Cardiac rhythm is sinus. She is off amiodarone for now. Lovenox is being used for DVT prophylaxis. No chest pain. No altered mentation. She is receiving daily Lasix 40 mg IV push. She is also on Lovenox for DVT prophylaxis. She is on Rocephin as an empiric antibiotic coverage. She was taken off the IV Solu-Medrol and started on prednisone burst taper few days back. On 01/08/2020 on seeing this patient for a follow-up. This patient has been kept in ICU as the patient has had difficulties with improvement in her oxygenation as the patient is recovering from a Covid 19 related pneumonia. The patient was intubated and she was in a mechanical ventilator and she was extubated earlier this week. She was still requiring 100% nonrebreather facemask and earlier this morning she was on 15 L per minute nasal cannula. Chest x-ray still showing bilateral pulmonary infiltrates/consolidation most on the left lung base. Last night, the patient went again for the second time around into atrial fibrillation with rapid ventricular response. She was given amiodarone bolus and she converted back to normal sinus rhythm. For now she is completing the amiodarone bolus and the patient was started also on Eliquis. Echocardiac Wilmar was within normal. Cardiac enzymes were nonelevated. Thyroid function tests are within normal limits. The white cell count is 11.8. Hemoglobin is on 10.0. Renal function is stable. The patient is gradually increasing her diet as tolerated. She is mainly relying on liquid diet. She was started on Levemir insulin and she had issues with hypoglycemia. The dose needs to be reduced accordingly. Reevaluated today on 01/09/20, patient remains in the ICU, however she seems to be doing quite well. Patient is on a high flow nasal cannula at 12 L/m, and her O2 saturation is 99%. She is hemodynamically stable. Patient is in sinus rhythm, not requiring any pressors, she was initially admitted on 414, intubated on 12/27 and extubated on 01/01. Patient is doing well, asymptomatic, minimal sh ortness of breath, and I plan to taper down her FiO2 and possibly transfer the patient out of the ICU today. Labs today showed a relatively normal CBC. Relatively normal electrolytes. BUN is 29 creatinine is 1.04. Chest x-ray showed stable peripheral bilateral opacities and low lung volumes Patient was reevaluated today on 01/10/20, patient developed shortness of breath early this morning, and she was switched to non-rebreather mask. Her O2 saturation is 100% on a nonrebreather mask. Hence I recommended transitioning the patient to a high flow nasal cannula. Patient is feeling better on the nonrebreather mask. Her chest x-ray showed multifocal airspace disease. Not much different from what it was few days ago. Labs were reviewed including a relatively normal CBC relatively normal basic metabolic profile. Normal renal profile Objective - Vital Signs Vital signs: Vital Signs Temp 98.6 F 01/10/20 08:00 Pulse 65 01/10/20 09:00 Resp 26 H 01/10/20 09:00 BP 111/56 01/10/20 09:00 Pulse Ox 100 01/10/20 09:00 Intake & Output 01/09/20 01/10/20 01/10/20 18:59 06:59 18:59 Intake Total 580 528 140 Output Total 1135 480 40 Balance -555 48 100 Weight 124.6 kg 124.6 kg Intake: IV 480 488 40 Lactated Ringers 1,000 ml 480 440 40 @ 40 mls/hr IV .Q24H JORGE Rx#:[id number] Rocephin IVPB 48 Intake, IV Titration 100 Amount Potassium Chloride 20 meq 100 In Water For Injection 1 100ml.bag @ 50 mls/hr IVPB Q2H JORGE Rx#: [id number] Oral 100 Lipid 40 Lactated Ringers 1,000 ml 40 @ 40 mls/hr IV .Q24H JORGE Rx#:[id number] Output: Urine 1135 480 40 Other: Voiding Method Indwelling Catheter Indwelling Catheter # Bowel Movements 4 ABP, PAP, CO, CI - Last Documented Arterial Blood Pressure 84/63 - Exam Physical Exam: Revealed a 64-year-old female obese, in no distress. Non- rebreather mask 100% O2 sat is 100%. Head: Atraumatic normocephalic. HEENT: PERRLA, EOMI, no icterus. Chest: [Symmetrical chest expansion crackles at the bases no rhonchi and no wheezes. \Cardiac Exam: [Normal S1 and S2, no S3 gallop, no murmur.] Abdomen: [Soft, nontender, no megaly, no rebound, no guarding, normal bowel sounds.] Extremities: [No clubbing, 1+ bipedal edema, no cyanosis.] Neurological Exam: [No focal neurologic deficit.] Alert oriented 3. Psychiatric: Normal mood, affect and normal mental status examination. Skin: No rashes. Lymphatics: No lymphadenopathy. - Labs CBC & Chem 7: 01/10/20 04:30 01/10/20 04:30 Labs: Abnormal Lab Results - Last 24 Hours (Table) 01/09/20 01/09/20 01/09/20 Range/Units 11:52 16:33 20:44 RBC (3.80-5.40) m/uL Hgb (11.4-16.0) gm/dL Hct (34.0-46.0) % Carbon Dioxide (22-30) mmol/L BUN (7-17) mg/dL Glucose (74-99) mg/dL POC Glucose (mg/dL) 141 H 214 H 348 H (75-99) mg/dL ALT (4-34) U/L Total Protein (6.3-8.2) g/dL Albumin (3.5-5.0) g/dL 01/10/20 01/10/20 01/10/20 Range/Units 04:30 04:30 06:05 RBC 3.40 L (3.80-5.40) m/uL Hgb 9.3 L (11.4-16.0) gm/dL Hct 29.0 L (34.0-46.0) % Carbon Dioxide 32 H (22-30) mmol/L BUN 26 H (7-17) mg/dL Glucose 154 H (74-99) mg/dL POC Glucose (mg/dL) 149 H (75-99) mg/dL ALT 35 H (4-34) U/L Total Protein 5.4 L (6.3-8.2) g/dL Albumin 2.6 L (3.5-5.0) g/dL Assessment and Plan Assessment: Impression: Acute hypoxic respiratory failure secondary to covid 19 pneumonia, admitted on 12/26 intubated on 12/27 extubated on 01/01 and has been on relatively high FiO2. Obesity with BMI of 48.2 Benign essential hypertension GERD without esophagitis Type 2 diabetes Dyslipidemia History of mild intermittent bronchial asthma presently stable Coronary artery disease with previous stent placement New onset atrial fibrillation treated with amiodarone and anticoagulation therapy. Presently in normal sinus rhythm. Remains on oral amiodarone at 200 mg twice a day. She remains on Eliquis Recommendation: Transition patient to a high flow nasal cannula or airvo with close monitoring of the O2 saturation. Lasix 40 mg IV push to be given 1. Continue present supportive care measures. Continue to monitor the patient in the ICU for now. Repeat PCR for burgos virus, and we have to document 2 negative PCR is before the patient could be transferred to a senior care. That is being handled by the admitting physician. We'll continue to follow Time with Patient: Less than 30
[2020-01-10 11:56] LABS: Glucose,Whole Blood 151 mg/dL (75-99)
[2020-01-10] MEDS: INSULIN DETEMIR (LEVEMIR) 100 UNIT/ML SYR SQ SCH ×2 (12:15→20:36)
[2020-01-10] MEDS: FUROSEMIDE 10 MG/ML 4 ML VIAL IV SCH (12:16)
[2020-01-10] MEDS: predniSONE 20 MG TAB PO SCH (12:16)
[2020-01-10] MEDS: ZINC SULFATE 220 MG CAP PO SCH (12:16)
[2020-01-10] MEDS: METOPROLOL TARTRATE 12.5 MG TAB PO SCH ×2 (12:16→20:35)
[2020-01-10] MEDS: ASPIRIN 325 MG TAB PO SCH (12:17)
[2020-01-10] MEDS: CHOLESTYRAMINE (WITH SUGAR) 4 GM PACKET PO SCH ×2 (12:17→18:59)
[2020-01-10] MEDS: AMIODARONE 200 MG TAB PO SCH ×2 (12:17→20:35)
[2020-01-10] MEDS: PANTOPRAZOLE 40 MG TABLET PO SCH (12:17)
[2020-01-10] MEDS: ASCORBIC ACID 500 MG TAB PO SCH ×2 (12:17→20:35)
[2020-01-10] MEDS: APIXABAN 5 MG TAB PO SCH ×2 (12:17→20:35)
--- NOTE | 2020-01-10 16:19 | PN ---
PROGRESS NOTE DATE OF SERVICE: 01/10/2020 REASON FOR FOLLOWUP: Pneumonia and UTI and diarrhea. INTERVAL HISTORY: The patient is currently afebrile. Patient is still requiring high-flow oxygen. She is breathing more comfortably. Did have a cough but no worsening sputum production. No nausea, vomiting. No abdominal pain and diarrhea has improved. PHYSICAL EXAMINATION: Blood pressure 137/61 with a pulse of 72, temperature 98.8. She is 98% on 6 L high- flow oxygen. General description is a middle-aged female, lying in bed in no distress. RESPIRATORY SYSTEM: Unlabored breathing, clear to auscultation anteriorly. HEART S1, S2. Regular rate and rhythm. ABDOMEN: Soft, no tenderness. LABS: Hemoglobin 9.8, white count of 9.1 BUN of 26, creatinine 0.99. DIAGNOSTIC IMPRESSION AND PLAN: 1. Patient admitted to hospital with COVID-19 pneumonia that has been adequately treated in this patient did have persistent abnormality on the chest x-ray with the patient started on Rocephin. Repeat sputum could not be obtained. Continue with current treatment. 2. Diarrhea possible, antibiotic associated. Clinically responded to the [facility] to continue and monitor clinical course closely. MMODL / IJN: [id number] /
[2020-01-10 16:51] LABS: Glucose,Whole Blood 228 mg/dL (75-99)
[2020-01-10] MEDS: LACTATED RINGERS 1,000 ML IV SCH ×2 (18:59→20:36)
[2020-01-10] MEDS: LISINOPRIL 20 MG TAB PO SCH (20:35)
[2020-01-10] MEDS: ATORVASTATIN 40 MG TAB PO SCH (20:35)
[2020-01-10 20:49] LABS: Glucose,Whole Blood 276 mg/dL (75-99)
[2020-01-10] MEDS: ACETAMINOPHEN TAB 325 MG TAB PO PRN (21:00)
[2020-01-11 05:04] LABS: Basophils % (A) 0 %; Eosinophils # (A) 0.1 k/uL (0-0.7); Eosinophils % (A) 2 %; HCT 27.9 % (34.0-46.0); HGB 8.7 gm/dL (11.4-16.0); Hypochromasia Slight; Lymphocytes # (A) 1.1 k/uL (1.0-4.8); Lymphocytes % (A) 13 %; MCHC 31.2 g/dL (31.0-37.0); MCV 86.6 fL (80.0-100.0); Mean Platelet Volume 7.8; Monocytes # (A) 0.5 k/uL (0-1.0); Monocytes % (A) 6 %; Neutrophils # (A) 6.4 k/uL (1.3-7.7); Neutrophils % (A) 78 %; Platelet Count 305 k/uL (150-450); RBC 3.23 m/uL (3.80-5.40); RDW 14.8 % (11.5-15.5); WBC 8.2 k/uL (3.8-10.6)
[2020-01-11 05:25] LABS: Albumin 2.6 g/dL (3.5-5.0); Calcium 8.4 mg/dL (8.4-10.2); Potassium 3.9 mmol/L (3.5-5.1); Total Bilirubin 0.2 mg/dL (0.2-1.3); Total Protein 5.3 g/dL (6.3-8.2)
[2020-01-11 07:07] LABS: Glucose,Whole Blood 119 mg/dL (75-99)
--- NOTE | 2020-01-11 07:27 | XR ---
EXAMINATION TYPE: XR chest 1V portable DATE OF EXAM: 01/11/2020 COMPARISON: 01/10/2020 INDICATION: Covid pneumonia TECHNIQUE: Single frontal view of the chest is obtained. FINDINGS: The heart size is borderline in size. The pulmonary vasculature is normal. Diffuse patchy infiltrates in the periphery of the lung arnold. Left central venous catheter tip is in the distal superior vena cava right atrial junction IMPRESSION: 1. Stable patchy bilateral infiltrates.
[2020-01-11] MEDS: SYMBICORT 160-4.5 MCG INHALER INHALATION SCH ×2 (07:46→20:09)
[2020-01-11] MEDS: ALBUTEROL HFA INHALER INHALATION PRN ×2 (07:46→20:09)
[2020-01-11] MEDS: INSULIN DETEMIR (LEVEMIR) 100 UNIT/ML SYR SQ SCH ×2 (08:18→20:54)
[2020-01-11] MEDS: ZINC SULFATE 220 MG CAP PO SCH (08:19)
[2020-01-11] MEDS: INSULIN ASPART (NovoLOG) 100 UNIT/ML VIAL SQ SCH ×8 (08:19→20:56)
[2020-01-11] MEDS: FUROSEMIDE 10 MG/ML 4 ML VIAL IV SCH (08:19)
[2020-01-11] MEDS: predniSONE 20 MG TAB PO SCH (08:19)
[2020-01-11] MEDS: ASPIRIN 325 MG TAB PO SCH (08:19)
[2020-01-11] MEDS: AMIODARONE 200 MG TAB PO SCH ×2 (08:20→20:47)
[2020-01-11] MEDS: METOPROLOL TARTRATE 12.5 MG TAB PO SCH ×2 (08:20→20:47)
[2020-01-11] MEDS: PANTOPRAZOLE 40 MG TABLET PO SCH (08:20)
[2020-01-11] MEDS: ASCORBIC ACID 500 MG TAB PO SCH ×2 (08:20→20:47)
[2020-01-11] MEDS: APIXABAN 5 MG TAB PO SCH ×2 (08:20→20:47)
[2020-01-11] MEDS: CHOLESTYRAMINE (WITH SUGAR) 4 GM PACKET PO SCH ×2 (10:00→17:19)
--- NOTE | 2020-01-11 11:54 | P.PN ---
Subjective Progress Note Date: 01/11/20 Principal diagnosis: Acute covid 19 pneumonia. Is a 64-year-old female patient who was originally hospitalized on 12/27/2019 because of an acute cold and 19 related infection/pneumonia. 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 Her symptoms progressively got worse and she became progressively more short of breath and she also developed nausea and diarrhea. She came into the hospital and she was quite hypoxic and she checked positive for coag with 19 infection. Her chest x-ray showed some mild cardiomegaly and diffuse interstitial infiltrates secondary to an underlying covert 19 related pneumonia. The patient also has other comorbidities including asthma, hypertension, hyperlipidemia and acid reflux in addition to diabetes mellitus type 2. She has coronary artery disease with previous coronary stenting. She has chronic stage III kidney disease. She is obese with a body mass index of 48.2. This patient has been intubated since 12/28/2019. Since then the patient has remained on a mechanical ventilator. She is currently on an assist-control mode rate of 26 with a tidal volume of 350 and FiO2 of 40% with a PEEP of 10. Her chest x-ray is consistent with lateral pneumonia worse on the left. She is on propofol for sedation. She is on vital 1.2 for enteral feeding and nutritional support. She has completed her course of Plaquenil and she was also treated with Zithromax vitamin C and zinc sulfate. Her sputum Gram stain and culture has been negative. Blood cultures been negative. She is on IV Solu-Medrol 40 mg every 12 hours. On today's evaluation of 01/02/2020, the patient remains intubated on a mechanical ventilator. The patient today is on a assist-control mode at the rate of 26 with a tidal volume of 350 and FiO2 of 40% with a PEEP of 5. Peak airway pressures around 27 anesthetic pressures of 21. The chest x-ray from today shows stable bilateral pulmonary infiltrates which has remained unchanged and the patient is infiltration rate is in the left lower lobe. ET tube is in a good location. The blood gas showed a pH of 7.44 with a pCO2 of 44 and pO2 of any 8. The patient has a peak given a pressure of 27. This particular pressures at 21. White cell count is at 16.2. She was noted to be excessively fluid overloaded and the patient's net fluid balance and the positive with a weight gain and order of 7 kg. The patient will be started on IV Lasix. Otherwise, no other significant events overnight. The patient remains on Lovenox therapeutic dose. No signs of any bleeding. On 01/03/2020, I'm seeing this patient for a follow-up in the intensive care unit. The patient was extubated yesterday and currently she is on 10 L of oxygen by nasal cannula. She is awake and communicating and following commands pH is extremely weak. I'm not sure if he is able to swallow and his Urrutia evaluation to be done today. Chest x-ray still showing stable bilateral pulmonary infiltrates unchanged from yesterday's chest x-ray. The patient has been a positive fluid balance. The patient is currently on Lasix 40 mg every 12 hours. The patient is on IV Solu-Medrol. The net fluid balance of been -2 L over the past 24 hours he had a body weight is still at 124 kg. In terms of labs, the white cell count at 13.1. BUN is at 43 with a creatinine of 0.9. The LDH is slightly elevated at 914. CRP level is at 50. No fever. No chills. No other complaints otherwise for now. On 01/04/2020, the patient is still weak and somewhat lethargic. She is able to take some few bites and take some applesauce. Her oral intake is diminished. She remains quite weak and debilitated. She has been placed on on the percent nonrebreather facemask to maintain a saturation of above 90% and the patient has been mouth breathing. She is receiving IV fluids at the rate of 75 mL an hour of normal saline. Her chest x-ray still showing diffuse bilateral pulmonary infiltrates, interstitial, unchanged compared to yesterday. She was receiving diuretics and the Lasix dose will be tapered. The patient was also taken of the IV Solu Medrol and started on a prednisone burst taper. No altered mentatio n. No agitation. No chest pain. Continues to have some dry cough. No significant sputum production. She is afebrile. Based on her covert 19 inflammatory markers, the LDH is at 739 with a C-reactive protein of 43 and a ferritin level is down to 462. Renal function is stable for now. No other significant events otherwise for now. The patient will be kept in ICU for another 24 hours pending some further improvement. On 01/05/2020, the patient is looking somewhat better, more alert and awake and she has regained some of her strength and she is able to raise her arms and legs against gravity and she is also willing to sit up on a chair with help. On today's evaluation, the patient was replaced back on a 15 L of oxygen by nasal cannula with a pulse of 76% pH is being considered for a partial nonrebreather facemask. She is taking minimal amount of oral intake and she is to advance her diet as tolerated. No nausea. No vomiting. No chest pain. She has developed coffee no significant sputum production. She is able to swallow her medications fine. No diarrhea. Note that after completion of around and around noontime today the patient went into atrial fibrillation with rapid ventricular response. The patient be started on Cardizem drip. No major hemodynamic instability along with his atrial fibrillation. The patient still has an arterial line in the right upper extremity and a Urrutia catheter still in place. On 01/06/2020, the patient is alternating between high flow oxygen and 100% nonrebreather facemask. No new complaints. I was told that she is working with physical therapy and she was able to sit up on a commode with assistance for a brief period of time. She is taking oral material remaining form of liquids and soft diet. She was in atrial fibrillation with rapid ventricular response and she was given amiodarone and she converted yesterday and she is still on a maintenance for now. She is on no anticoagulation for now. No nausea. No vomiting. No chest pain. No fever. No chills. No cough or sputum production. No other significant events otherwise for now. The patient is still in the intensive care unit as she is recovering from her covid 19 related pneumonia. The catheter still in place. A urinalysis was done as the urine material it's coming out of the Urrutia catheter is quite dark and cloudy. Nevertheless, the patient is a symptomatic and she is afebrile. On 01/07/2020 on seeing the patient for a follow-up. The patient physically is getting stronger. However, she still having and oxygenation problem which is still requiring 100% nonrebreather facemask. No other new complaints for now. Her oral intake is gradually improving pH is mainly relying on soft or liquid the diet. Cardiac rhythm is sinus. She is off amiodarone for now. Lovenox is being used for DVT prophylaxis. No chest pain. No altered mentation. She is receiving daily Lasix 40 mg IV push. She is also on Lovenox for DVT prophylaxis. She is on Rocephin as an empiric antibiotic coverage. She was taken off the IV Solu-Medrol and started on prednisone burst taper few days back. On 01/08/2020 on seeing this patient for a follow-up. This patient has been kept in ICU as the patient has had difficulties with improvement in her oxygenation as the patient is recovering from a Covid 19 related pneumonia. The patient was intubated and she was in a mechanical ventilator and she was extubated earlier this week. She was still requiring 100% nonrebreather facemask and earlier this morning she was on 15 L per minute nasal cannula. Chest x-ray still showing bilateral pulmonary infiltrates/consolidation most on the left lung base. Last night, the patient went again for the second time around into atrial fibrillation with rapid ventricular response. She was given amiodarone bolus and she converted back to normal sinus rhythm. For now she is completing the amiodarone bolus and the patient was started also on Eliquis. Echocardiac Wilmar was within normal. Cardiac enzymes were nonelevated. Thyroid function tests are within normal limits. The white cell count is 11.8. Hemoglobin is on 10.0. Renal function is stable. The patient is gradually increasing her diet as tolerated. She is mainly relying on liquid diet. She was started on Levemir insulin and she had issues with hypoglycemia. The dose needs to be reduced accordingly. Reevaluated today on 01/09/20, patient remains in the ICU, however she seems to be doing quite well. Patient is on a high flow nasal cannula at 12 L/m, and her O2 saturation is 99%. She is hemodynamically stable. Patient is in sinus rhythm, not requiring any pressors, she was initially admitted on 414, intubated on 12/27 and extubated on 01/01. Patient is doing well, asymptomatic, minimal sh ortness of breath, and I plan to taper down her FiO2 and possibly transfer the patient out of the ICU today. Labs today showed a relatively normal CBC. Relatively normal electrolytes. BUN is 29 creatinine is 1.04. Chest x-ray showed stable peripheral bilateral opacities and low lung volumes Patient was reevaluated today on 01/10/20, patient developed shortness of breath early this morning, and she was switched to non-rebreather mask. Her O2 saturation is 100% on a nonrebreather mask. Hence I recommended transitioning the patient to a high flow nasal cannula. Patient is feeling better on the nonrebreather mask. Her chest x-ray showed multifocal airspace disease. Not much different from what it was few days ago. Labs were reviewed including a relatively normal CBC relatively normal basic metabolic profile. Normal renal profile Reevaluated today on 01/11/20. Patient is feeling better, breathing easier today. Remains on a high flow nasal cannula, her O2 saturation is 97%, and I plan to cut down on the high flow but normal flow nasal cannula if possible. Her IV fluids remains at 40 mL per hour. Chest x-ray is basically the same continues to show by basilar peripheral infiltrates. Clinically however the patient is feeling better today compared to the last few days. Labs including electrolytes, renal profile, CBC are relatively normal. Hence I plan to transfer the patient out of the ICU today if possible Objective - Vital Signs Vital signs: Vital Signs Temp 98.2 F 01/11/20 08:00 Pulse 65 01/11/20 10:00 Resp 22 01/11/20 10:00 BP 110/56 01/11/20 10:00 Pulse Ox 97 01/11/20 10:00 Intake & Output 01/10/20 01/11/20 01/11/20 18:59 06:59 18:59 Intake Total 580 470 320 Output Total 801 136 8188 Balance -270 -230 -720 Weight 128.1 kg Intake: IV 480 470 200 Lactated Ringers 1,000 ml 480 420 200 @ 40 mls/hr IV .Q24H [facility] Rx#:[id number] Rocephin IVPB 50 Oral 100 120 Output: Urine 552 [id number] Other: Voiding Method Indwelling Catheter Indwelling Catheter Indwelling Catheter ABP, PAP, CO, CI - Last Documented Arterial Blood Pressure 84/63 - Exam Physical Exam: Revealed a 64-year-old female obese, in no distress. On high flow nasal cannula with O2 saturation in the high 90s. Head: Atraumatic normocephalic. HEENT: PERRLA, EOMI, no icterus. Chest: [Symmetrical chest expansion crackles at the bases no rhonchi and no wheezes. \Cardiac Exam: [Normal S1 and S2, no S3 gallop, no murmur.] Abdomen: [Soft, nontender, no megaly, no rebound, no guarding, normal bowel sounds.] Extremities: [No clubbing, trace of bipedal edema, no cyanosis.] Neurological Exam: [No focal neurologic deficit.] Alert oriented 3. Psychiatric: Normal mood, affect and normal mental status examination. Skin: No rashes. Lymphatics: No lymphadenopathy. - Labs CBC & Chem 7: 01/11/20 04:55 01/11/20 04:55 Labs: Abnormal Lab Results - Last 24 Hours (Table) 01/10/20 01/10/20 01/10/20 Range/Units 11:55 16:49 20:47 RBC (3.80-5.40) m/uL Hgb (11.4-16.0) gm/dL Hct (34.0-46.0) % Carbon Dioxide (22-30) mmol/L BUN (7-17) mg/dL Glucose (74-99) mg/dL POC Glucose (mg/dL) 151 H 228 H 276 H (75-99) mg/dL Total Protein (6.3-8.2) g/dL Albumin (3.5-5.0) g/dL 01/11/20 01/11/20 01/11/20 Range/Units 04:55 04:55 07:06 RBC 3.23 L (3.80-5.40) m/uL Hgb 8.7 L (11.4-16.0) gm/dL Hct 27.9 L (34.0-46.0) % Carbon Dioxide 34 H (22-30) mmol/L BUN 25 H (7-17) mg/dL Glucose 124 H (74-99) mg/dL POC Glucose (mg/dL) 119 H (75-99) mg/dL Total Protein 5.3 L (6.3-8.2) g/dL Albumin 2.6 L (3.5-5.0) g/dL Assessment and Plan Assessment: Impression: Acute hypoxic respiratory failure secondary to covid 19 pneumonia, admitted on 12/26 intubated on 12/27 extubated on 01/01, has been demonstrating significant clinical improvement over the last couple of days Obesity with BMI of 48.2 Benign essential hypertension GERD without esophagitis Type 2 diabetes Dyslipidemia History of mild intermittent bronchial asthma presently stable Coronary artery disease with previous stent placement New onset atrial fibrillation treated with amiodarone and anticoagulation therapy. Presently in normal sinus rhythm. Remains on oral amiodarone at 200 mg twice a day. She remains on Eliquis Recommendation: Transition patient to a lower flow nasal cannula, and continue to monitor O2 saturation. Consider transferring the patient out of the ICU to regular medical floor Discharge planning is in progress. Continue present supportive care measures. We will continue to follow. Time with Patient: Less than 30
--- NOTE | 2020-01-11 11:55 | P.PN ---
Subjective Progress Note Date: 01/11/20 This is a 64-year-old female patient of Dr. Mojica with past medical history of asthma, hypertension, hyperlipidemia, gastroesophageal reflux disease, diabetes mellitus type 2 insulin requiring, coronary artery disease status post stent, remote history of tobacco use and dependence, chronic kidney disease stage III. 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 They were exposed to a COVID-19 positive patient on December 11 and/or December 12. She had symptoms develop approximate 7 days ago with fever, cough, shortness of breath, nausea, diarrhea. She tried to manage at home but symptoms became significantly severe in the past 3 days and she lives alone she was so sick she could not get to the She to the bathroom. Patient came into [facility] for evaluation and found to be afebrile, blood pressure 141/68, heart rate 85, pulse ox 87%. EKG was a sinus rhythm with no acute ST changes. W BC 12.1, hemoglobin 12.7, platelet count 303, sodium 136, potassium 5.3, chloride 100, CO2 23, BUN 41, creatinine 1.43, blood sugar 230. Total bilirubin 0.6, AST 49, ALT 22, alkaline phosphatase 255, LDH 1600, ferritin 609.6 C-reactive protein 262, pro calcitonin 0.2 to. Chronic virus PCR detected, influenza testing negative, lactic acid 2.1. Repeat lactic acid 1.2 chest x-ray revealed mild cardiomegaly with moderately severe diffuse interstitial edema that is changed from old exam compared to November 2018. This could represent acute interstitial pneumonia or acute heart failure. Patient was started on Tylenol, azithromycin, Plaquenil admitted to the [facility] floor and consult was requested with infectious disease and pulmonary medicine. 12/27: Patient had a drop in her oxygen saturation and became tachypneic. She was initially placed on high flow nasal cannula at 10 L, transferred into the intensive care unit and was intubated this morning. Temperature max 101.4. Heart rate in the 60s and 70s. Repeat blood work reveals CBC unremarkable except for low lymphocytes. D-dimer 1.05, potassium 5.2, BUN 62 and creatinine 1.91. Blood sugars in the 200s. Alkaline phosphatase 198 LDH 1439. She has been continued on azithromycin, Plaquenil, zinc and vitamin C. Solu-Medrol is currently at 40 mg IV every 12 hours. 12/28: Patient remains in the intensive care unit, intubated and on mechanical ventilation with tidal volume 350, FiO2 of 50 and PEEP 13. Patient has been afebrile, heart rate 50, blood pressure 120/56. Repeat blood work reveals WBC 16, hemoglobin 10.7, platelet count 273. Repeat d-dimer is decreased at 0.72. Sodium 135, potassium 4.6, chloride 103, CO2 24, BUN 63 and creatinine 1.43. Ferritin decreased to 556.8, alkaline phosphatase decreased 167, LDH decreased to 1050, C-reactive protein 181.7. Case has been discussed outside patient's room with the patient's nurse. Blood sugars have been elevated running 189 to 231. We will increase Levemir to 42 units twice daily, added and NovoLog scheduled 5 units every 6 hours along with NovoLog scale. Patient is currently & Medrol 40 mg IV every 12 hours. 12/29: Patient remains intubated in critical ventilation with tidal volume 350, FiO2 of 40 and PEEP of 13. Patient has been afebrile, heart rate in the 50s, blood pressure 101/55. Repeat laboratory studies revealed a CBC 17.5, hemoglobin 10, platelet count 276. Sodium 135, potassium 5.4, chloride 105, CO2 26, BUN 61, creatinine 1.07 area blood sugars are running in the 200s up to 300, alkaline phosphatase 143, LDH 875, C-reactive protein 67.9, albumin 2.7. We will again today increase her insulins with long acting up to 50 units twice daily and NovoLog 10 units every 6 hours along with NovoLog scale. Patient has had good urine output, tube feedings are at goal. Patient appears to be stable at this time. 12/30: Patient still having significantly elevated CRP with abnormal liver function test, lactic acid that subtle down significantly. Blood sugar still mildly elevated when titrating insulin is making sugar slightly but better at this point. Patient is still sedated on mechanical ventilation currently no weaning his plan in the next 24 hours. 12/31: Back in off on sedation patient has done slightly well still not ready to be extubated this point she had her weaning parameter and was sedated and continue mechanical ventilation. Blood sugar still high her steroid was decreased today to Solu-Medrol 40 mg twice a day with higher Levemir to 60 units twice a day and up on NovoLog to 20 units every 6 hours plus a sliding scale we have to watch for any decrease blood sugar specially with a new change on insulin and medication. 01/01: Patient remains intubated and on mechanical ventilation. Patient is on a sedation holiday. Tidal volume 350, FiO2 40, PEEP 5. Patient has been afebrile, heart rate in the 40s, blood pressure 101/49. Repeat lab work reveals W BC 16.2, hemoglobin 9.9, platelet count 291. D-dimer 0.28. Sodium 138, potassium 5.2, chloride 104, CO2 29, BUN 42 and creatinine 0.89. Blood sugars have been running 148 197. At bedtime glucose 118. Scheduled NovoLog will be decreased to 15 units and continue Levemir at 60 units twice daily. Solu-Medrol at 40 mg IV every 12 hours and Lasix 40 mg every 12 hours. Patient has completed course of Plaquenil. She remains in isolation. 01/02: Patient was successfully extubated yesterday afternoon. She is pulse ox 97% on 10 L high flow nasal cannula. She has been afebrile, heart rate 69, blood pressure 112/52. WBC 13.1, hemoglobin 10.3, platelet count 308. Sodium 141, potassium 4.7, chloride 103, CO2 36, BUN 43 and creatinine 0.96. Blood sugars are improved and stable and have been running between 90 and 146 with holding of Levemir. Levemir will be discontinued and patient on scale insulin only for now. Repeat ferritin level 527.6, LDH 914, C-reactive protein 50. Sputum culture finalized with normal ct. Blood culture no growth at 144 hours. Repeat chest x-ray reveals patchy diffuse infiltrates less stable from comparison. Central venous catheter stable. Patient is having difficulties with swallowing and speech therapy will be evaluating. For now, oral medic ations on hold. assisted living care manager will discuss with the patient option of rehab when she is stable. Anticipate patient will be in the hospital until early next week. 01/03: Patient remains in intensive care unit. She is on O2 partial nonrebreather and pulse ox seen 97% on 15 L. Blood pressure 122/70, heart rate 80, respiratory rate 24. Patient has been afebrile for 24 hours. You have to collect again over a year repeat blood work reveals hemoglobin of 10.4, white count 12.9, platelet count 387. Sodium 140, potassium 4.5, chloride 100, CO2 38, BUN 52 and creatinine 1. Blood sugars have been running between 188 and 198. Blood sugars were in the 200s yesterday afternoon. Patient is now able to eat and we will start Levemir back in at 10 units twice daily. Sputum culture is finalized with normal ct and blood culture no growth. A repeat chest x- ray is stable peripherally oriented bilateral consolidation and retrocardiac airspace disease. Dr. Moreira is continuing to follow patient and recommending vancomycin and prednisone. assisted living care manager and social media director are attempting to reach the patient's son regarding subacute rehab. PT and OT have recommended subacute rehab. 01/04: Patient remains in the intensive care unit, afebrile, heart rate 76, respiratory rate 15-25, blood pressure 106/52, pulse ox 93% on partial rebreather. Repeat lab work reveals hemoglobin 9.8, WBC 8.7, platelet count 355. BUN 48 creatinine 1.01. Blood sugars running this morning at 158. During the evening in the low 200s, 201-230. Patient will be continued on Levemir 10 units twice daily for now and monitor closely. Anticipate increased need once patient is eating. Thus far, patient has had only a few bites of her food. Social work is working with the patient, her son regarding possible workman comp coverage for subacute rehab. Dr. Mojica is planning for her to go to [facility] for subacute rehab when stabilized. 01/05: Patient remains in intensive care unit. She is awake and alert. She continues to have significant weakness. She is eating very little. She is currently on partial rebreather mask and we will try to transition to nasal cannula today. Patient went into A. fib with RVR yesterday and was started on amiodarone subsequently converted to normal sinus rhythm. Echocardiogram reveals EF of 65-70% with severe concentric left ventricular hypertrophy, mild tricuspid regurgitation, mild pulmonary hypertension.. Patient has been afebrile, blood pressure 99/49, pulse ox 99% on 15 L partial rebreather mask. Repeat blood work reveals WBC 9.6, hemoglobin 9.8, platelet count 348. Electrolytes normal, CO2 36, BUN 44 and creatinine 0.94. Blood sugars running 143-165. 01/06: Patient remains in ICU. She was awake and alert this morning and continues to have significant weakness. Patient remains on partial rebreather mask unable to tolerate weaning to nasal cannula yesterday per nursing, will retry today. Patient continues to be normal sinus rhythm. Blood sugar last night was 400 will increase Levemir to 30 units twice a day, NovoLog 10 units with meals along with sliding scale coverage, will titrate slowly to patient's home dose due to decreased oral intake. Patient still to assist two get up to chair. Vital signs are stable, patient remains afebrile heart rate 64 blood pressure 96/53, pulse ox 98% on partial rebreather at 15 L. Labs are reviewed, hemoglobin stable at 9.7, BUN 41 and creatinine 0.91. Repeat chest x-ray showed no significant interval change in the appearance of the chest. 01/07 patient seen in ICU this a.m. She is awake and alert. Patient remains on partial rebreather mask O2 flow down to 12 L. Vital signs are stable, remains a febrile heart rate 66, blood pressure 99/66, pulse ox 96%. Patient has been in and out of A. fib per night nurse. Patient is anticoagulated on Eliquis. labs were reviewed, white blood cells 11.8 hemoglobin 10.0 BUN 33, creatinine 0.92. Blood sugars have been up and down, had a blood sugar of 56 this morning adjusted Levemir dose down to 20 units at bedtime and continue 30 AM this should improve as patient tolerates increase oral intake. Speech PT and OT all remain on the case, repeat chest x-ray this morning showed no significant change. 01/08: Patient remains in the intensive care unit. She is currently pulse oxing 99% on 12 L high flow nasal cannula. She has been afebrile, heart rate 62, blood pressure 108/43. Repeat lab work reveals WBC 8.4, hemoglobin 9.3. Potassium 3.3 and will be replaced. CO2 32, BUN 29 creatinine 1.04. Blood sugars this morning 112. Patient was running in the 200s in the evening prior. She is currently on Levemir 30 units in the morning and 20 units at bedtime along with NovoLog 10 units 3 times daily with meals and NovoLog scale. Patient is not eating today and we will make minor changes to the Levemir. NovoLog was held for breakfast.. She is on prednisone 40 mg daily. She was on oral amiodarone 200 mg twice daily and eliquis. She is on antibiotics in the form of ceftriaxone. Lasix is at 40 mg IV daily. Rama is evaluating the patient for subacute rehab. 01/09: Patient remains in intensive care unit. She is currently on nonrebre ather. Patient did well yesterday and was up to a chair with physical therapy. During the evening she was placed on a nonrebreather a pulse ox dropped down to 80%. This morning she was transitioned to nasal cannula 12 L but with rolling in bed she have dropping pulse ox to 70s. She is now back on a nonrebreather. Patient is also having increased volume of bowel movements. Stool has been sent for C. difficile toxin. Patient is afebrile, heart rate 65, respiratory rate 26-30, blood pressure 111/56, pulse ox 100% on nonrebreather. Repeat blood work reveals WBC 9.1, hemoglobin 9.3, platelet count 359. Sodium 141, potassium replacement 7, chloride 104, CO2 32, BUN 26 and creatinine 0.99. Blood sugar this morning is 154. Patient did have one reading of 348 last evening and was in the 200 chest or afternoon. NovoLog scheduled with lunch and supper will be increased. 01/10: Patient remains in intensive care unit. She is on high flow nasal cannula at 15 L pulse oxing 97%. Patient's been afebrile, heart rate 65, respiratory rate 31, blood pressure 110/56.repeat chest x-ray reveals stable patchy bilateral infiltrates.blood sugar this morning 119, blood sugars in the 200s yesterday evening 228 and 276. C. difficile toxin came back negative and Dr. Moreira started the patient on Questran. Objective - Vital Signs Vital signs: Vital Signs Temp 98.2 F 01/11/20 08:00 Pulse 62 01/11/20 08:00 Resp 23 01/11/20 08:00 BP 110/55 01/11/20 08:00 Pulse Ox 95 01/11/20 08:00 Intake & Output 01/10/20 01/11/20 01/11/20 18:59 06:59 18:59 Intake Total 580 470 200 Output Total 850 700 365 Balance -270 -230 -165 Weight 128.1 kg Intake: IV 480 470 80 Lactated Ringers 1,000 ml 480 420 80 @ 40 mls/hr IV .Q24H [facility] Rx#:[id number] Rocephin IVPB 50 Oral 100 120 Output: Urine 850 700 365 Other: Voiding Method Indwelling Catheter Indwelling Catheter ABP, PAP, CO, CI - Last Documented Arterial Blood Pressure 84/63 - Exam Review of Systems Constitutional: No fever, no chills, no night sweats. No weight change. Reports weakness, Reports fatigue. EENT: No headache. No blurred vision or double vision, no loss of vision. No loss of Hearing, no ringing in the ears, no dizziness. No nasal drainage or congestion. No epistaxis. No sore throat. Lungs: Reports shortness of breath, Reports cough, Reports sputum production. No wheezing. Cardiovascular: No chest pain, no lower extremity edema. No palpitations. No paroxysmal nocturnal dyspnea. No orthopnea. No lightheadedness or dizziness. No syncopal episodes. Abdominal: No abdominal pain. No nausea, vomiting. No diarrhea. No constipation. No bloody or tarry stools.. No loss of appetite. Genitourinary: No dysuria, increased frequency, urgency. No urinary retention. Musculoskeletal: No myalgias. No muscle weakness, no gait dysfunction, no frequent falls. No back pain. No neck pain. Integumentary: No wounds, no lesions. No rash or pruritus. No unusual bruising. No change in hair or nails. Neurologic: No aphasia. No facial droop. No change in mentation. No head injury. No headache. No paralysis. No paresthesia. Psychiatric: No depression. No anxiety. No mood swings. Endocrine: Abnormal blood sugars. No weight change. No excessive sweating or thirst. reports cold intolerance. Physical Examination Gen: This is a 64-year-old morbidly obese female. Patient is resting in ICU bed. Sheappears more comfortable today on high flow nasal cannula. HEENT: Head is atraumatic, normocephalic. Pupils equal, round. Sclerae is anicteric. Left-sided triple-lumen in place. NECK: Supple. No JVD. No lymphadenopathy. No thyromegaly. LUNGS: Diminished breath sounds bilaterally. Bilateral rales in the bases. Mild intercostal retractions. Tachypneic. HEART: Regular rate and rhythm. No murmur. returned goods sorter normal sinus rhythm. ABDOMEN: Soft. Bowel sounds are present. No masses. No tenderness. Urrutia catheter draining vini urine with sediment. EXTREMITIES: No pedal edema. No calf tenderness. Dorsalis pedis +2 bilaterally. NEUROLOGICAL: Patient is awake, alert and oriented x3. Cranial nerves 2 through 12 are grossly intact. Significant generalized weakness noted to upper and lower extremities. - Labs CBC & Chem 7: 01/11/20 04:55 01/11/20 04:55 Labs: Abnormal Lab Results - Last 24 Hours (Table) 01/10/20 01/10/20 01/10/20 Range/Units 11:55 16:49 20:47 RBC (3.80-5.40) m/uL Hgb (11.4-16.0) gm/dL Hct (34.0-46.0) % Carbon Dioxide (22-30) mmol/L BUN (7-17) mg/dL Glucose (74-99) mg/dL POC Glucose (mg/dL) 151 H 228 H 276 H (75-99) mg/dL Total Protein (6.3-8.2) g/dL Albumin (3.5-5.0) g/dL 01/11/20 01/11/20 01/11/20 Range/Units 04:55 04:55 07:06 RBC 3.23 L (3.80-5.40) m/uL Hgb 8.7 L (11.4-16.0) gm/dL Hct 27.9 L (34.0-46.0) % Carbon Dioxide 34 H (22-30) mmol/L BUN 25 H (7-17) mg/dL Glucose 124 H (74-99) mg/dL POC Glucose (mg/dL) 119 H (75-99) mg/dL Total Protein 5.3 L (6.3-8.2) g/dL Albumin 2.6 L (3.5-5.0) g/dL Assessment and Plan Plan: 1. Acute hypoxic respiratory failure secondary to COPD exacerbation and COVID- 19 pneumonitis. Patient has been successfully extubated. Completed Plaquenil. Consults with pulmonary medicine and infectious disease appreciated. Continue albuterol inhaler as needed, Symbicort twice daily, Phenergan cough syrup, prednisone 40 mg daily. Patient is currently on nonrebreather. 2. Acute kidney injury with chronic kidney disease stage III. Avoid nephrotoxic agents, hypotension. 3. Mild hyperkalemia secondary to acute kidney injury. 4. Mild lactic acidosis secondary to COVID-19 infection. Resolved. 5. Sepsis secondary to Covid 19 infection, POA. 6. Hyperlipidemia. Continue atorvastatin 40 mg at bedtime 7. Diabetes mellitus type 2, insulin requiring, uncontrolled with hyperglycemia secondary to steroids. Continue Levemir 20 units in the morning and 15 units at bedtime, continue NovoLog 10 units with breakfast, 12 units with lunch and supper and continue NovoLog scale before meals and at bedtime. 7. History of coronary artery disease status post stenting. Continue aspirin 325 mg daily, Lipitor. 8. Hypertension. Continue lisinopril 20 mg at bedtime. Avoid hypotension. 9. Gastroesophageal reflux disease disease and GI prophylaxis. Continue Protonix. 10. DVT prophylaxis. Eliquis 5 mg twice daily 11. Dysphagia. Speech therapy evaluation with recommendations for chapped diet with nectar thick liquids, continue one-to-one supervision, upright position small bites liquids via cup. Possible modified barium swallow on Thursday if symptoms continue. Speech therapy is following. 12. Atrial fibrillation with RVR, paroxysmal atrial fibrillation, new onset. Continue Lopressor 12.5 mg twice daily. Discharge plan: Subacute rehab at [facility] probably next week. Patient will need 2 COVID-19 tests prior to discharge. Impression and plan of care have been directed as dictated by the signing physi cian. Deborah Crow nurse practitioner acting as scribe for signing physician.
[2020-01-11 12:45] LABS: Glucose,Whole Blood 267 mg/dL (75-99)
[2020-01-11 16:49] LABS: Glucose,Whole Blood 301 mg/dL (75-99)
[2020-01-11] MEDS: ATORVASTATIN 40 MG TAB PO SCH (20:47)
[2020-01-11] MEDS: LISINOPRIL 20 MG TAB PO SCH (20:47)
[2020-01-11 20:51] LABS: Glucose,Whole Blood 225 mg/dL (75-99)
--- NOTE | 2020-01-11 21:51 | PN ---
PROGRESS NOTE DATE OF SERVICE: 01/11/2020 REASON FOR FOLLOWUP: Pneumonia and diarrhea. INTERVAL HISTORY: The patient is currently afebrile. The patient is breathing comfortably. The patient continues to have a cough; however, is bringing up sputum now. No hemoptysis. No chest pain. No abdominal pain. Diarrhea has resolved. PHYSICAL EXAMINATION: Blood pressure is 117/56, pulse of 67, temperature 98. She is 95% on 13 L high- flow oxygen. General description is a middle-aged female lying in bed in no distress. RESPIRATORY SYSTEM: Unlabored breathing with decreased breath sounds at the base. No wheeze. HEART: S1, S2. Regular rate and rhythm. ABDOMEN: Soft. No tenderness. LABS: Hemoglobin is 8.7, white count 8.2, BUN of 25, creatinine 0.98. DIAGNOSTIC IMPRESSION AND PLAN: 1. Patient with acute COVID-19 pneumonia that has been adequately treated now. Still having persistent respiratory symptoms with concern for possible bacterial pneumonia. Sputum culture will be requested. Currently on Rocephin; to continue. 2. Diarrhea, resolved with Questran; to continue. Monitor her clinical course closely. MMODL / IJN: [id number] / MTDD
[2020-01-12 02:10] LABS: Glucose,Whole Blood 146 mg/dL (75-99)
[2020-01-12 06:53] LABS: Glucose,Whole Blood 136 mg/dL (75-99)
[2020-01-12] MEDS: AMIODARONE 300 MG in DEXTROSE 5% IN WATER 250 ML IV SCH ×2 (07:09)
[2020-01-12] MEDS: INSULIN ASPART (NovoLOG) 100 UNIT/ML VIAL SQ SCH ×6 (08:03→20:48)
[2020-01-12] MEDS: INSULIN DETEMIR (LEVEMIR) 100 UNIT/ML SYR SQ SCH ×2 (08:03→20:48)
[2020-01-12] MEDS: PANTOPRAZOLE 40 MG TABLET PO SCH (08:04)
[2020-01-12] MEDS: predniSONE 20 MG TAB PO SCH (08:04)
[2020-01-12] MEDS: APIXABAN 5 MG TAB PO SCH ×2 (08:04→20:47)
[2020-01-12] MEDS: AMIODARONE 200 MG TAB PO SCH ×2 (08:04→20:47)
[2020-01-12] MEDS: ZINC SULFATE 220 MG CAP PO SCH (08:04)
[2020-01-12] MEDS: ASPIRIN 325 MG TAB PO SCH (08:04)
[2020-01-12] MEDS: METOPROLOL TARTRATE 12.5 MG TAB PO SCH ×2 (08:04→20:47)
[2020-01-12] MEDS: FUROSEMIDE 10 MG/ML 4 ML VIAL IV SCH (08:04)
[2020-01-12] MEDS: ASCORBIC ACID 500 MG TAB PO SCH ×2 (08:04→20:47)
[2020-01-12] MEDS: CHOLESTYRAMINE (WITH SUGAR) 4 GM PACKET PO SCH ×2 (08:05→17:39)
[2020-01-12] MEDS: ALBUTEROL HFA INHALER INHALATION PRN ×4 (08:44→19:21)
[2020-01-12] MEDS: SYMBICORT 160-4.5 MCG INHALER INHALATION SCH ×2 (08:45→19:21)
--- NOTE | 2020-01-12 11:28 | P.PN ---
Subjective Progress Note Date: 01/12/20 This is a 64-year-old female patient of Dr. Mojica with past medical history of asthma, hypertension, hyperlipidemia, gastroesophageal reflux disease, diabetes mellitus type 2 insulin requiring, coronary artery disease status post stent, remote history of tobacco use and dependence, chronic kidney disease stage III. 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 They were exposed to a COVID-19 positive patient on December 11 and/or December 12. She had symptoms develop approximate 7 days ago with fever, cough, shortness of breath, nausea, diarrhea. She tried to manage at home but symptoms became significantly severe in the past 3 days and she lives alone she was so sick she could not get to the She to the bathroom. Patient came into [facility] emergency center for evaluation and found to be afebrile, blood pressure 141/68, heart rate 85, pulse ox 87%. EKG was a sinus rhythm with no acute ST changes. W BC 12.1, hemoglobin 12.7, platelet count 303, sodium 136, potassium 5.3, chloride 100, CO2 23, BUN 41, creatinine 1.43, blood sugar 230. Total bilirubin 0.6, AST 49, ALT 22, alkaline phosphatase 255, LDH 1600, ferritin 609.6 C-reactive protein 262, pro calcitonin 0.2 to. Chronic virus PCR detected, influenza testing negative, lactic acid 2.1. Repeat lactic acid 1.2 chest x-ray revealed mild cardiomegaly with moderately severe diffuse interstitial edema that is changed from old exam compared to November 2018. This could represent acute interstitial pneumonia or acute heart failure. Patient was started on Tylenol, azithromycin, Plaquenil admitted to the [facility] floor and consult was requested with infectious disease and pulmonary medicine. 12/27: Patient had a drop in her oxygen saturation and became tachypneic. She was initially placed on high flow nasal cannula at 10 L, transferred into the intensive care unit and was intubated this morning. Temperature max 101.4. Heart rate in the 60s and 70s. Repeat blood work reveals CBC unremarkable except for low lymphocytes. D-dimer 1.05, potassium 5.2, BUN 62 and creatinine 1.91. Blood sugars in the 200s. Alkaline phosphatase 198 LDH 1439. She has been continued on azithromycin, Plaquenil, zinc and vitamin C. Solu-Medrol is currently at 40 mg IV every 12 hours. 12/28: Patient remains in the intensive care unit, intubated and on mechanical ventilation with tidal volume 350, FiO2 of 50 and PEEP 13. Patient has been afebrile, heart rate 50, blood pressure 120/56. Repeat blood work reveals WBC 16, hemoglobin 10.7, platelet count 273. Repeat d-dimer is decreased at 0.72. Sodium 135, potassium 4.6, chloride 103, CO2 24, BUN 63 and creatinine 1.43. Ferritin decreased to 556.8, alkaline phosphatase decreased 167, LDH decreased to 1050, C-reactive protein 181.7. Case has been discussed outside patient's room with the patient's nurse. Blood sugars have been elevated running 189 to 231. We will increase Levemir to 42 units twice daily, added and NovoLog scheduled 5 units every 6 hours along with NovoLog scale. Patient is currently & Medrol 40 mg IV every 12 hours. 12/29: Patient remains intubated in critical ventilation with tidal volume 350, FiO2 of 40 and PEEP of 13. Patient has been afebrile, heart rate in the 50s, blood pressure 101/55. Repeat laboratory studies revealed a CBC 17.5, hemoglobin 10, platelet count 276. Sodium 135, potassium 5.4, chloride 105, CO2 26, BUN 61, creatinine 1.07 area blood sugars are running in the 200s up to 300, alkaline phosphatase 143, LDH 875, C-reactive protein 67.9, albumin 2.7. We will again today increase her insulins with long acting up to 50 units twice daily and NovoLog 10 units every 6 hours along with NovoLog scale. Patient has had good urine output, tube feedings are at goal. Patient appears to be stable at this time. 12/30: Patient still having significantly elevated CRP with abnormal liver function test, lactic acid that subtle down significantly. Blood sugar still mildly elevated when titrating insulin is making sugar slightly but better at this point. Patient is still sedated on mechanical ventilation currently no weaning his plan in the next 24 hours. 12/31: Back in off on sedation patient has done slightly well still not ready to be extubated this point she had her weaning parameter and was sedated and continue mechanical ventilation. Blood sugar still high her steroid was decreased today to Solu-Medrol 40 mg twice a day with higher Levemir to 60 units twice a day and up on NovoLog to 20 units every 6 hours plus a sliding scale we have to watch for any decrease blood sugar specially with a new change on insulin and medication. 01/01: Patient remains intubated and on mechanical ventilation. Patient is on a sedation holiday. Tidal volume 350, FiO2 40, PEEP 5. Patient has been afebrile, heart rate in the 40s, blood pressure 101/49. Repeat lab work reveals W BC 16.2, hemoglobin 9.9, platelet count 291. D-dimer 0.28. Sodium 138, potassium 5.2, chloride 104, CO2 29, BUN 42 and creatinine 0.89. Blood sugars have been running 148 197. At bedtime glucose 118. Scheduled NovoLog will be decreased to 15 units and continue Levemir at 60 units twice daily. Solu-Medrol at 40 mg IV every 12 hours and Lasix 40 mg every 12 hours. Patient has completed course of Plaquenil. She remains in isolation. 01/02: Patient was successfully extubated yesterday afternoon. She is pulse ox 97% on 10 L high flow nasal cannula. She has been afebrile, heart rate 69, blood pressure 112/52. WBC 13.1, hemoglobin 10.3, platelet count 308. Sodium 141, potassium 4.7, chloride 103, CO2 36, BUN 43 and creatinine 0.96. Blood sugars are improved and stable and have been running between 90 and 146 with holding of Levemir. Levemir will be discontinued and patient on scale insulin only for now. Repeat ferritin level 527.6, LDH 914, C-reactive protein 50. Sputum culture finalized with normal ct. Blood culture no growth at 144 hours. Repeat chest x-ray reveals patchy diffuse infiltrates less stable from comparison. Central venous catheter stable. Patient is having difficulties with swallowing and speech therapy will be evaluating. For now, oral medic ations on hold. systems program manager will discuss with the patient option of rehab when she is stable. Anticipate patient will be in the hospital until early next week. 01/03: Patient remains in intensive care unit. She is on O2 partial nonrebreather and pulse ox seen 97% on 15 L. Blood pressure 122/70, heart rate 80, respiratory rate 24. Patient has been afebrile for 24 hours. You have to collect again over a year repeat blood work reveals hemoglobin of 10.4, white count 12.9, platelet count 387. Sodium 140, potassium 4.5, chloride 100, CO2 38, BUN 52 and creatinine 1. Blood sugars have been running between 188 and 198. Blood sugars were in the 200s yesterday afternoon. Patient is now able to eat and we will start Levemir back in at 10 units twice daily. Sputum culture is finalized with normal ct and blood culture no growth. A repeat chest x- ray is stable peripherally oriented bilateral consolidation and retrocardiac airspace disease. Dr. Moreira is continuing to follow patient and recommending vancomycin and prednisone. systems program manager and social science research assistant are attempting to reach the patient's son regarding subacute rehab. PT and OT have recommended subacute rehab. 01/04: Patient remains in the intensive care unit, afebrile, heart rate 76, respiratory rate 15-25, blood pressure 106/52, pulse ox 93% on partial rebreather. Repeat lab work reveals hemoglobin 9.8, WBC 8.7, platelet count 355. BUN 48 creatinine 1.01. Blood sugars running this morning at 158. During the evening in the low 200s, 201-230. Patient will be continued on Levemir 10 units twice daily for now and monitor closely. Anticipate increased need once patient is eating. Thus far, patient has had only a few bites of her food. Social work is working with the patient, her son regarding possible workman comp coverage for subacute rehab. Dr. Mojica is planning for her to go to [facility] for subacute rehab when stabilized. 01/05: Patient remains in intensive care unit. She is awake and alert. She continues to have significant weakness. She is eating very little. She is currently on partial rebreather mask and we will try to transition to nasal cannula today. Patient went into A. fib with RVR yesterday and was started on amiodarone subsequently converted to normal sinus rhythm. Echocardiogram reveals EF of 65-70% with severe concentric left ventricular hypertrophy, mild tricuspid regurgitation, mild pulmonary hypertension.. Patient has been afebrile, blood pressure 99/49, pulse ox 99% on 15 L partial rebreather mask. Repeat blood work reveals WBC 9.6, hemoglobin 9.8, platelet count 348. Electrolytes normal, CO2 36, BUN 44 and creatinine 0.94. Blood sugars running 143-165. 01/06: Patient remains in ICU. She was awake and alert this morning and continues to have significant weakness. Patient remains on partial rebreather mask unable to tolerate weaning to nasal cannula yesterday per nursing, will retry today. Patient continues to be normal sinus rhythm. Blood sugar last night was 400 will increase Levemir to 30 units twice a day, NovoLog 10 units with meals along with sliding scale coverage, will titrate slowly to patient's home dose due to decreased oral intake. Patient still to assist two get up to chair. Vital signs are stable, patient remains afebrile heart rate 64 blood pressure 96/53, pulse ox 98% on partial rebreather at 15 L. Labs are reviewed, hemoglobin stable at 9.7, BUN 41 and creatinine 0.91. Repeat chest x-ray showed no significant interval change in the appearance of the chest. 01/07 patient seen in ICU this a.m. She is awake and alert. Patient remains on partial rebreather mask O2 flow down to 12 L. Vital signs are stable, remains a febrile heart rate 66, blood pressure 99/66, pulse ox 96%. Patient has been in and out of A. fib per night nurse. Patient is anticoagulated on Eliquis. labs were reviewed, white blood cells 11.8 hemoglobin 10.0 BUN 33, creatinine 0.92. Blood sugars have been up and down, had a blood sugar of 56 this morning adjusted Levemir dose down to 20 units at bedtime and continue 30 AM this should improve as patient tolerates increase oral intake. Speech PT and OT all remain on the case, repeat chest x-ray this morning showed no significant change. 01/08: Patient remains in the intensive care unit. She is currently pulse oxing 99% on 12 L high flow nasal cannula. She has been afebrile, heart rate 62, blood pressure 108/43. Repeat lab work reveals WBC 8.4, hemoglobin 9.3. Potassium 3.3 and will be replaced. CO2 32, BUN 29 creatinine 1.04. Blood sugars this morning 112. Patient was running in the 200s in the evening prior. She is currently on Levemir 30 units in the morning and 20 units at bedtime along with NovoLog 10 units 3 times daily with meals and NovoLog scale. Patient is not eating today and we will make minor changes to the Levemir. NovoLog was held for breakfast.. She is on prednisone 40 mg daily. She was on oral amiodarone 200 mg twice daily and eliquis. She is on antibiotics in the form of ceftriaxone. Lasix is at 40 mg IV daily. Rama is evaluating the patient for subacute rehab. 01/09: Patient remains in intensive care unit. She is currently on nonrebre ather. Patient did well yesterday and was up to a chair with physical therapy. During the evening she was placed on a nonrebreather a pulse ox dropped down to 80%. This morning she was transitioned to nasal cannula 12 L but with rolling in bed she have dropping pulse ox to 70s. She is now back on a nonrebreather. Patient is also having increased volume of bowel movements. Stool has been sent for C. difficile toxin. Patient is afebrile, heart rate 65, respiratory rate 26-30, blood pressure 111/56, pulse ox 100% on nonrebreather. Repeat blood work reveals WBC 9.1, hemoglobin 9.3, platelet count 359. Sodium 141, potassium replacement 7, chloride 104, CO2 32, BUN 26 and creatinine 0.99. Blood sugar this morning is 154. Patient did have one reading of 348 last evening and was in the 200 chest or afternoon. NovoLog scheduled with lunch and supper will be increased. 01/10: Patient remains in intensive care unit. She is on high flow nasal cannula at 15 L pulse oxing 97%. Patient's been afebrile, heart rate 65, respiratory rate 31, blood pressure 110/56.repeat chest x-ray reveals stable patchy bilateral infiltrates.blood sugar this morning 119, blood sugars in the 200s yesterday evening 228 and 276. C. difficile toxin came back negative and Dr. Moreira started the patient on Questran. 01/11: The patient has been transferred to the [facility] floor. She remains in COVID-19 isolation. She continues to have shortness of breath with activity and unable to lay flat. Incentive spirometer is 625 mL. Patient had a soft brown bowel movement this morning. No diarrhea. Patient is currently pulse oxing 100% on 15 L nasal cannula and been turned down to 12 L high flow nasal cannula. She is afebrile. Heart rate 61, blood pressure 98/39. We will plan to repeat Coronavirus testing on Thursday and Thursday in preparation for discharge to [facility] most likely on Thursday. Capillary blood glucose this morning was 136. Patient was running high at 267 301 and 225 in the evening. Patient did not receive her scheduled NovoLog yesterday morning. NovoLog at lunch will be increased slightly. Objective - Vital Signs Vital signs: Vital Signs Temp 98.0 F 01/12/20 02:57 Pulse 61 01/12/20 02:57 Resp 19 01/12/20 02:57 BP 107/70 01/12/20 02:57 Pulse Ox 99 01/12/20 02:57 Intake & Output 01/11/20 01/12/20 01/12/20 18:59 06:59 18:59 Intake Total 1080 200 Output Total 1440 535 Balance -360 -335 Weight 121 kg Intake: IV 480 200 Lactated Ringers 1,000 ml 480 200 @ 40 mls/hr IV .Q24H JORGE Rx#:[id number] Oral 600 Output: Urine 1440 535 Other: Voiding Method Indwelling Catheter Indwelling Catheter # Bowel Movements 1 ABP, PAP, CO, CI - Last Documented Arterial Blood Pressure 84/63 - Exam Review of Systems Constitutional: No fever, no chills, no night sweats. No weight change. Reports weakness, Reports fatigue. EENT: No headache. No blurred vision or double vision, no loss of vision. No loss of Hearing, no ringing in the ears, no dizziness. No nasal drainage or congestion. No epistaxis. No sore throat. Lungs: Reports shortness of breath, Reports cough, Reports sputum production. No wheezing. Cardiovascular: No chest pain, no lower extremity edema. No palpitations. No paroxysmal nocturnal dyspnea. Reports orthopnea. No lightheadedness or dizzine ss. No syncopal episodes. Abdominal: No abdominal pain. No nausea, vomiting. No diarrhea. No con stipation. No bloody or tarry stools. No loss of appetite. Genitourinary: No dysuria, increased frequency, urgency. No urinary retention. Urrutia in place. Musculoskeletal: No myalgias. No muscle weakness, no gait dysfunction, no frequent falls. No back pain. No neck pain. Integumentary: No wounds, no lesions. No rash or pruritus. No unusual bruising. No change in hair or nails. Neurologic: No aphasia. No facial droop. No change in mentation. No head injury. No headache. No paralysis. No paresthesia. Psychiatric: No depression. No anxiety. No mood swings. Endocrine: Abnormal blood sugars. No weight change. No excessive sweating or thirst. Physical Examination Gen: This is a 64-year-old morbidly obese female. Patient is resting in bed on the [facility] floor. She appears to be more comfortable today. HEENT: Head is atraumatic, normocephalic. Pupils equal, round. Sclerae is anicteric. NECK: Supple. No JVD. No lymphadenopathy. No thyromegaly. LUNGS: Diminished breath sounds bilaterally. No intercostal retractions. HEART: Regular rate and rhythm. No murmur. ABDOMEN: Soft. Bowel sounds are present. No masses. No tenderness. Urrutia catheter draining vini urine. EXTREMITIES: trace bilat pedal edema. No calf tenderness. Dorsalis pedis +2 bilaterally. NEUROLOGICAL: Patient is awake, alert and oriented x3. Cranial nerves 2 through 12 are grossly intact. Significant generalized weakness noted to upper and lower extremities. - Labs CBC & Chem 7: 01/11/20 04:55 01/11/20 04:55 Labs: Abnormal Lab Results - Last 24 Hours (Table) 01/11/20 01/11/20 01/11/20 Range/Units 12:43 16:47 20:50 POC Glucose (mg/dL) 267 H 301 H 225 H (75-99) mg/dL 01/12/20 01/12/20 Range/Units 02:06 06:51 POC Glucose (mg/dL) 146 H 136 H (75-99) mg/dL Assessment and Plan Plan: 1. Acute hypoxic respiratory failure secondary to COPD exacerbation and COVID- 19 pneumonitis. Patient has been successfully extubated. Completed Plaquenil. Consults with pulmonary medicine and infectious disease appreciated. Continue albuterol inhaler as needed, Symbicort twice daily, Phenergan cough syrup, prednisone 40 mg daily. Continue ceftriaxone. Patient is currently on high flow nasal cannula. 2. Acute kidney injury with chronic kidney disease stage III. Avoid nephrotoxic agents, hypotension. 3. Mild hyperkalemia secondary to acute kidney injury. 4. Mild lactic acidosis secondary to COVID-19 infection. Resolved. 5. Sepsis secondary to Covid 19 infection, POA. 6. Hyperlipidemia. Continue atorvastatin 40 mg at bedtime 7. Diabetes mellitus type 2, insulin requiring, uncontrolled with hyperglycemia secondary to steroids. Continue Levemir 20 units in the morning and 15 units at bedtime, continue NovoLog 10 units with breakfast, 14 units with lunch and 12 units with supper and continue NovoLog scale before meals and at bedtime. 7. History of coronary artery disease status post stenting. Continue aspirin 325 mg daily, Lipitor. 8. Hypertension. Continue lisinopril 20 mg at bedtime. Avoid hypotension. 9. Gastroesophageal reflux disease disease and GI prophylaxis. Continue Protonix. 10. DVT prophylaxis. Eliquis 5 mg twice daily 11. Dysphagia. Speech therapy evaluation with recommendations for chapped diet with nectar thick liquids, and aspiration precautions. 12. Atrial fibrillation with RVR, paroxysmal atrial fibrillation, new onset. Continue Lopressor 12.5 mg twice daily. Discharge plan: Subacute rehab at [facility] on Thursday. Patient will be COVID-19 tested on Thursday and Thursday. Impression and plan of care have been directed as dictated by the signing physician. Deborah Crow nurse practitioner acting as scribe for signing physician.
[2020-01-12 11:38] LABS: Glucose,Whole Blood 142 mg/dL (75-99)
--- NOTE | 2020-01-12 11:48 | P.PN ---
Subjective Progress Note Date: 01/12/20 On 12/28/2019 patient seen in follow-up in the intensive care unit. She remains on high FiO2 this morning, she is currently on 50 L per high flow nasal cannula, with a pulse ox of 92%, she is dyspneic, and fatigue. Her Covid 19 test was positive, patient remains on azithromycin, Plaquenil, and IV steroids at 40 mg every 12 hours, she is also on zinc sulfate. Today's chest x-ray has been reviewed, showing worsening peripheral infiltrates. Blood gas has been obtained, showing pO2 of 91, pCO2 of 30, and pH of 7.38, this was done and FiO2 of 75%, which talk to the patient regarding intubation and placement on mechanical ventilation in view of high oxygen demand, worsening pulmonary infiltrates, worsening oxygenation, and the patient is agreeable to proceed with intubation and mechanical ventilation. Anesthesia services were consulted and intubated the patient, patient was placed on assist-control mode of ventilation with a rate of 20, tidal vital 350, FiO2 100%, and PEEP of 5, repeat blood gases were obtained showing pO2 of 112, pCO2 54, pH of 7.24, this was done on the 100%, and a vent settings were adjusted with a rate up to 26 breaths per minute, and increase of PEEP to 10 cm of water. They've remained has been started for sedation. The rest the lab work has been reviewed, d-dimer is elevated at 1.05, no leukocytosis, sodium is 137, potassium is 5.2, chloride is 102, CO2 is 25, BUN is 62, creatinine is 1.91, alk phos is 198, down from 255, LDH is 1439, down from 16 On 12/29/2019 patient seen in follow-up in the intensive care unit, she was intubated yesterday for acute hypoxemic respiratory failure secondary to "with 19 infection, today she remains on mechanical ventilator, she is sedated, she is on assist-control mode of ventilation with a rate of 26, tidal M of 350, FiO2 of 60% and PEEP of 10, her pulse ox is 92%, this morning his blood gases showed pO2 of 79, pCO2 40, and pH of 7.35, maintenance IV fluids include lactate of Ringer's at a rate of 75, Diprivan is a 55 mics per kilo per minute, tube feeding is Vital 1.2 at 10, with a goal of 10. Today's chest x-ray has been reviewed showing bilateral infiltrates. Today's labs have been reviewed, showing white blood cell count of 16.0, hemoglobin is 10.7, d-dimer is 0.72, serum sodium is 135, and the rest of the electrolytes were within normal limits, B1 of 63, creatinine is 1.43, ferritin level is trending down slightly, down to 556.8 on today's labs, LDH is down to 1050, liver enzymes are improving, al kaline phosphatase is 167 CRP is down to 181.7, interleukin level has been sent, and is pending at this time, patient is on a combination of Plaquenil, azithromycin, Solu-Medrol and zinc for COVID 19 related pneumonia. On 12/30/2019 patient seen in follow-up in the intensive care unit, she remains intubated, sedated on mechanical ventilator, current settings are assist-control with a rate of 26, tidal line was 350, FiO2 is 50% and PEEP is at 13 cm of water, this morning blood gases show pO2 of 110, pCO2 45 and pH of 7.35 and this was done on 50%. Today's chest x-ray has been reviewed, and stable findings of bilateral airspace disease related to COVID 19 related pneumonia. Today's labs have been reviewed, showing white blood cell, 17.5, hemoglobin is 10.0, d-dimer on yesterday's labs was trending down at 0.7, sodium is 135, potassium is 5.4, chloride is 105, renal profile is improving, B1 is down to 61, and creatinine is 1.07, ferritin is trending down at 488, liver enzymes improving, ALT and AST within normal limits, alkaline phosphatase down to 143, LDH is 875 which is improving, CRP is down to 67.9 on today's labs. Microbiology data has been reviewed no growth on sputum and blood culture. Patient has been afebrile, hemodynamically she stable, IV fluids including lactated Ringer's at a rate of 75, and Diprivan is a 35 mics per kilo per minute. She is tolerating tube fee dings, she received vital 1.2 at 22 with a goal of 22. On 01/12/2020 patient seen in follow-up on general medical floor. She was transferred out of ICU yesterday, she is awake and alert, doing well, she is still on high flow oxygen, at 15 L, with a pulse ox of 99 100%, denies any worsening shortness of breath, she is afebrile, she is getting stronger, patient has been adequately treated for Covid 19 pneumonia. Remains on Rocephin for possibility of bacterial pneumonia. Sputum sample has been requested however not been collected yet. No new labs today. Last chest x-ray on 01/11/2020 showed diffuse patchy infiltrates in the periphery of the lung arnold relatively unchanged Objective - Vital Signs Vital signs: Vital Signs Temp 98.3 F 01/12/20 07:00 Pulse 61 01/12/20 07:00 Resp 18 01/12/20 07:00 BP 98/39 01/12/20 07:00 Pulse Ox 100 01/12/20 07:00 Intake & Output 01/11/20 01/12/20 01/12/20 18:59 06:59 18:59 Intake Total 1080 200 Output Total 1440 535 Balance -360 -335 Weight 121 kg 121 kg Intake: IV 480 200 Lactated Ringers 1,000 ml 480 200 @ 40 mls/hr IV .Q24H [facility] Rx#:[id number] Oral 600 Output: Urine 1440 535 Other: Voiding Method Indwelling Catheter Indwelling Catheter Indwelling Catheter # Bowel Movements 1 ABP, PAP, CO, CI - Last Documented Arterial Blood Pressure 84/63 - Exam GENERAL EXAM: See 64-year-old obese white female, on 15 L high flow oxygen with a pulse ox of 100% comfortable in no apparent distress. HEAD: Normocephalic/atraumatic. EYES: Normal reaction of pupils, equal size. Conjunctiva pink, sclera white. NOSE: Clear with pink turbinates. THROAT: No erythema or exudates. NECK: No masses, no JVD, no thyroid enlargement, no adenopathy. CHEST: No chest wall deformity. Symmetrical expansion. LUNGS: Equal air entry with no crackles, wheeze, rhonchi or dullness. CVS: Regular rate and rhythm, normal S1 and S2, no gallops, no murmurs, no rubs ABDOMEN: Soft, nontender. No hepatosplenomegaly, normal bowel sounds, no guarding or rigidity. EXTREMITIES: No clubbing, no edema, no cyanosis, 2+ pulses and upper and lower extremities. MUSCULOSKELETAL: Muscle strength and tone normal. SPINE: No scoliosis or deformity SKIN: No rashes CENTRAL NERVOUS SYSTEM: Awake and alert, oriented 3, No focal deficits, tone is normal in all 4 extremities. - Labs CBC & Chem 7: 01/11/20 04:55 01/11/20 04:55 Labs: Abnormal Lab Results - Last 24 Hours (Table) 01/11/20 01/11/20 01/11/20 Range/Units 12:43 16:47 20:50 POC Glucose (mg/dL) 267 H 301 H 225 H (75-99) mg/dL 01/12/20 01/12/20 01/12/20 Range/Units 02:06 06:51 11:36 POC Glucose (mg/dL) 146 H 136 H 142 H (75-99) mg/dL Assessment and Plan Plan: Assessment: #1. Acute hypoxemic respiratory failure related to COVID 19 related pneumonia, requiring intubation and placement on mechanical ventilation on 12/28/2019. Patient was adequately treated and successfully extubated on 01/02/2020. #2. Cough, shortness of breath, weakness, fatigue, diffuse bilateral infiltra roger related to COVID19 infection #3. Elevated ferritin, LDH, CRP and d-dimer related to acute COVID19 related pneumonia, and inflammatory markers are improving on today's labs #4. Elevated troponin, rule out possibility of coinfection, related to bacterial infection #5. Hypertension #6. Hyperlipidemia #7. GERD/reflux #8. Diabetes mellitus type 2 #9. History of mild intermittent chronic bronchial asthma #10. Chronic kidney disease, unknown baseline #11. History of diverticular disease #12. History of coronary artery disease with PCI and stent placement Plan: Continue weaning FiO2, increase activity as tolerated, continue empiric antibiotics, follow-up blood work tomorrow, clinically stable, has been afebrile. Discharge planning is in progress for possibility to subacute rehab placement once the FiO2 has been weaned some more. We'll continue to follow I performed a history & physical examination of the patient and discussed their management with my nurse practitioner, Alva Urban. I reviewed the nurse practitioner's note and agree with the documented findings and plan of care. Lung sounds are positive for diminished breath sounds. The findings and the im pression was discussed with the patient. I attest to the documentation by the nurse practitioner. Time with Patient: Less than 30
[2020-01-12] MEDS: LACTATED RINGERS 1,000 ML IV SCH (14:47)
[2020-01-12] MEDS ORDERED: INSULIN ASPART (NovoLOG) 100 UNIT/ML VIAL SQ SCH (17:30)
--- NOTE | 2020-01-12 18:33 | PN ---
PROGRESS NOTE DATE OF SERVICE: 01/12/2020 REASON FOR FOLLOWUP: Pneumonia and diarrhea. INTERVAL HISTORY: The patient is currently afebrile. She has been transferred out of the ICU. She is currently breathing comfortably. She continues to have a cough; however, unable to bring up any sputum. No chest pain. No nausea, no vomiting. No abdominal pain. No diarrhea. PHYSICAL EXAMINATION: Blood pressure 107/54 with a pulse of 75, temperature 98.2. She is 94% on 11 L nasal cannula. General description is a middle-aged female lying in bed in no distress. RESPIRATORY SYSTEM: Unlabored breathing with decreased intensity of breath sounds. No wheeze. HEART: S1, S2. Regular rate and rhythm. ABDOMEN: Soft. No tenderness. LABS: Hemoglobin 8.7, white count 8.2, BUN of 25, creatinine 0.98. DIAGNOSTIC IMPRESSION AND PLAN: 1. Patient with acute COVID-19 pneumonia that has been adequately treated. Still having a slow recovery as far as her respiratory status is concerned, and persistent cough. Sputum culture has been requested; no collected so far. On empiric Rocephin. 2. Diarrhea, which responded to the Questran; to continue. Monitor clinical course closely. MMODL / IJN: [id number] /
[2020-01-12] MEDS: LISINOPRIL 20 MG TAB PO SCH (20:47)
[2020-01-12] MEDS: ATORVASTATIN 40 MG TAB PO SCH (20:47)
[2020-01-13 07:37] LABS: Basophils % (A) 0 %; Eosinophils # (A) 0.1 k/uL (0-0.7); Eosinophils % (A) 1 %; HCT 28.6 % (34.0-46.0); Hypochromasia Moderate; Lymphocytes # (A) 1.7 k/uL (1.0-4.8); Lymphocytes % (A) 19 %; MCH 27.5 pg (25.0-35.0); MCHC 31.5 g/dL (31.0-37.0); MCV 87.3 fL (80.0-100.0); Mean Platelet Volume 7.8; Monocytes # (A) 0.3 k/uL (0-1.0); Monocytes % (A) 4 %; Neutrophils # (A) 6.4 k/uL (1.3-7.7); Neutrophils % (A) 74 %; Platelet Count 282 k/uL (150-450); RBC 3.28 m/uL (3.80-5.40); RDW 15.5 % (11.5-15.5); WBC 8.6 k/uL (3.8-10.6)
[2020-01-13 07:38] LABS: Calcium 8.5 mg/dL (8.4-10.2); Potassium 3.7 mmol/L (3.5-5.1)
[2020-01-13 07:53] LABS: Glucose,Whole Blood 251 mg/dL (75-99)
[2020-01-13 07:53] LABS: Glucose,Whole Blood 300 mg/dL (75-99)
[2020-01-13] MEDS: ALBUTEROL HFA INHALER INHALATION PRN ×4 (07:56→19:59)
[2020-01-13] MEDS: SYMBICORT 160-4.5 MCG INHALER INHALATION SCH ×2 (07:56→19:58)
[2020-01-13 08:02] LABS: Glucose,Whole Blood 133 mg/dL (75-99)
[2020-01-13] MEDS: INSULIN ASPART (NovoLOG) 100 UNIT/ML VIAL SQ SCH ×7 (08:13→21:24)
[2020-01-13] MEDS: AMIODARONE 200 MG TAB PO SCH ×2 (08:20→21:33)
[2020-01-13] MEDS: METOPROLOL TARTRATE 12.5 MG TAB PO SCH ×2 (08:20→21:23)
[2020-01-13] MEDS: APIXABAN 5 MG TAB PO SCH ×2 (08:20→21:33)
[2020-01-13] MEDS: ASPIRIN 325 MG TAB PO SCH (08:20)
[2020-01-13] MEDS: ZINC SULFATE 220 MG CAP PO SCH (08:20)
[2020-01-13] MEDS: PANTOPRAZOLE 40 MG TABLET PO SCH (08:20)
[2020-01-13] MEDS: predniSONE 20 MG TAB PO SCH (08:20)
[2020-01-13] MEDS: ASCORBIC ACID 500 MG TAB PO SCH ×2 (08:20→21:33)
[2020-01-13] MEDS: CHOLESTYRAMINE (WITH SUGAR) 4 GM PACKET PO SCH ×2 (08:21→17:50)
[2020-01-13] MEDS: INSULIN DETEMIR (LEVEMIR) 100 UNIT/ML SYR SQ SCH ×2 (08:21→21:24)
[2020-01-13] MEDS: FUROSEMIDE 10 MG/ML 4 ML VIAL IV SCH (08:21)
[2020-01-13] MEDS: ACETAMINOPHEN TAB 325 MG TAB PO PRN (08:27)
[2020-01-13] MEDS ORDERED: FUROSEMIDE 10 MG/ML 4 ML VIAL IV STA (10:20)
--- NOTE | 2020-01-13 11:09 | XR ---
EXAMINATION TYPE: XR chest 1V portable DATE OF EXAM: 01/13/2020 COMPARISON: 01/11/2020 HISTORY: Follow-up for Covid 19 pneumonia. TECHNIQUE: Single frontal view of the chest is obtained. FINDINGS: Worsening bilateral airspace disease more confluent in the left lung base, left lateral eugene ng, and right lateral lung. Overall low lung volumes exaggerating the pulmonary vasculature. Cardiome diastinal silhouette is enlarged. Study is limited by patient body habitus. IMPRESSION: Worsening peripheral and basilar predominant multifocal consolidations compatible this p atient's known multifocal pneumonia.
[2020-01-13 12:13] LABS: Glucose,Whole Blood 260 mg/dL (75-99)
[2020-01-13] MEDS: LACTATED RINGERS 1,000 ML IV SCH (12:54)
--- NOTE | 2020-01-13 13:08 | P.PN ---
Subjective Progress Note Date: 01/13/20 Principal diagnosis: Acute hypoxemic respiratory failure secondary to CoVID 19 related pneumonia, requiring intubation and placement on mechanical ventilator on 12/28/2019 The patient is seen today 01/13/2020 in follow-up on the regular medical floor. She is currently sitting up in a chair at the bedside. Awake and alert in no acute distress. She's been up ambulating in her room. She is still requiring 12 L high flow nasal cannula to maintain O2 saturations in the 90s. White count 8.6. Hemoglobin 9.0. Sodium 142. Potassium 3.7. Creatinine 0.88. Glucose 121. Chest x-ray reveals worsening peripheral and basilar multifocal consolidations. She remains on bronchodilators, anticoagulated with Eliquis, prednisone, zinc, ceftriaxone. Daily 40 mg of IV Lasix. Currently in a negative balance. Objective - Vital Signs Vital signs: Vital Signs Temp 98.5 F 01/13/20 11:00 Pulse 66 01/13/20 11:00 Resp 18 01/13/20 11:00 BP 129/94 01/13/20 11:00 Pulse Ox 98 01/13/20 11:00 Intake & Output 01/12/20 01/13/20 01/13/20 18:59 06:59 18:59 Output Total 300 750 Balance -300 -750 Weight 121 kg 121.2 kg Output: Urine 300 750 Uretheral (Urrutia) 500 Other: Voiding Method Indwelling Catheter Indwelling Catheter Indwelling Catheter # Voids 3 ABP, PAP, CO, CI - Last Documented Arterial Blood Pressure 84/63 - Exam GENERAL EXAM: Very pleasant 64-year-old obese female patient, on 15 L high flow oxygen with a pulse ox of 98% comfortable in no apparent distress. HEAD: Normocephalic/atraumatic. EYES: Normal reaction of pupils, equal size. Conjunctiva pink, sclera white. NOSE: Clear with pink turbinates. THROAT: No erythema or exudates. NECK: No masses, no JVD, no thyroid enlargement, no adenopathy. CHEST: No chest wall deformity. Symmetrical expansion. LUNGS: Equal air entry with few scattered rhonchi bilaterally. CVS: Regular rate and rhythm, normal S1 and S2, no gallops, no murmurs, no rubs ABDOMEN: Soft, nontender. No hepatosplenomegaly, normal bowel sounds, no guarding or rigidity. EXTREMITIES: No clubbing, no edema, no cyanosis, 2+ pulses and upper and lower extremities. MUSCULOSKELETAL: Muscle strength and tone normal. SPINE: No scoliosis or deformity SKIN: No rashes CENTRAL NERVOUS SYSTEM: Awake and alert, oriented 3, No focal deficits, tone is normal in all 4 extremities. - Labs CBC & Chem 7: 01/13/20 06:53 01/13/20 06:53 Labs: Abnormal Lab Results - Last 24 Hours (Table) 01/12/20 01/12/20 01/13/20 Range/Units 17:04 20:23 06:53 RBC 3.28 L (3.80-5.40) m/uL Hgb 9.0 L (11.4-16.0) gm/dL Hct 28.6 L (34.0-46.0) % BUN (7-17) mg/dL Glucose (74-99) mg/dL POC Glucose (mg/dL) 251 H 300 H (75-99) mg/dL 01/13/20 01/13/20 01/13/20 Range/Units 06:53 06:57 12:10 RBC (3.80-5.40) m/uL Hgb (11.4-16.0) gm/dL Hct (34.0-46.0) % BUN 24 H (7-17) mg/dL Glucose 121 H (74-99) mg/dL POC Glucose (mg/dL) 133 H 260 H (75-99) mg/dL Assessment and Plan Assessment: 1. Acute hypoxemic respiratory failure related to COVID 19 related pneumonia, requiring intubation and placement on mechanical ventilation on 12/28/2019, subsequently extubated and currently on 12 L high flow nasal cannula on the regular medical floor 2. Cough, shortness of breath, weakness, fatigue, diffuse bilateral infiltrates related to COVID19 infection 3. Elevated ferritin, LDH, CRP and d-dimer related to acute COVID19 related pneumonia, and inflammatory markers are improving 4. Elevated troponin, rule out possibility of coinfection, related to bacterial infection 5. Hypertension 6. Hyperlipidemia 7. GERD/reflux 8. Diabetes mellitus type 2 9. History of chronic bronchial asthma, unspecified 10. Chronic kidney disease, unknown baseline 11. History of diverticular disease 12. History of coronary artery disease with PCI and stent placement Plan: The patient was seen and evaluated by Dr. Grijalva Chest x-ray, labs reviewed She remains on ceftriaxone. Continued on bronchodilators Titrate down the FiO2 as tolerated Incentive spirometer and cough and deep breathing exercises Increase her activity as tolerated We will continue to follow and make further recommendations based on her clin ical status. I, the cosigning physician, performed a history & physical examination of the patient. Lungs sounds withbilateral scattered rhonchit. Maintaining good O2 saturations in the 90s on12 L high flow nasal cannula. I discussed the assessment and plan of care with my nurse practitioner, Missy Jeffrey. I attest to the above note as dictated by her.
--- NOTE | 2020-01-13 14:30 | P.PN ---
Subjective Progress Note Date: 01/13/20 This is a 64-year-old female patient of Dr. Mojica with past medical history of asthma, hypertension, hyperlipidemia, gastroesophageal reflux disease, diabetes mellitus type 2 insulin requiring, coronary artery disease status post stent, remote history of tobacco use and dependence, chronic kidney disease stage III. 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 They were exposed to a COVID-19 positive patient on December 11 and/or December 12. She had symptoms develop approximate 7 days ago with fever, cough, shortness of breath, nausea, diarrhea. She tried to manage at home but symptoms became significantly severe in the past 3 days and she lives alone she was so sick she could not get to the She to the bathroom. Patient came into [facility] emergency center for evaluation and found to be afebrile, blood pressure 141/68, heart rate 85, pulse ox 87%. EKG was a sinus rhythm with no acute ST changes. W BC 12.1, hemoglobin 12.7, platelet count 303, sodium 136, potassium 5.3, chloride 100, CO2 23, BUN 41, creatinine 1.43, blood sugar 230. Total bilirubin 0.6, AST 49, ALT 22, alkaline phosphatase 255, LDH 1600, ferritin 609.6 C-reactive protein 262, pro calcitonin 0.2 to. Chronic virus PCR detected, influenza testing negative, lactic acid 2.1. Repeat lactic acid 1.2 chest x-ray revealed mild cardiomegaly with moderately severe diffuse interstitial edema that is changed from old exam compared to November 2018. This could represent acute interstitial pneumonia or acute heart failure. Patient was started on Tylenol, azithromycin, Plaquenil admitted to the [facility] floor and consult was requested with infectious disease and pulmonary medicine. 12/27: Patient had a drop in her oxygen saturation and became tachypneic. She was initially placed on high flow nasal cannula at 10 L, transferred into the intensive care unit and was intubated this morning. Temperature max 101.4. Heart rate in the 60s and 70s. Repeat blood work reveals CBC unremarkable except for low lymphocytes. D-dimer 1.05, potassium 5.2, BUN 62 and creatinine 1.91. Blood sugars in the 200s. Alkaline phosphatase 198 LDH 1439. She has been continued on azithromycin, Plaquenil, zinc and vitamin C. Solu-Medrol is currently at 40 mg IV every 12 hours. 12/28: Patient remains in the intensive care unit, intubated and on mechanical ventilation with tidal volume 350, FiO2 of 50 and PEEP 13. Patient has been afebrile, heart rate 50, blood pressure 120/56. Repeat blood work reveals WBC 16, hemoglobin 10.7, platelet count 273. Repeat d-dimer is decreased at 0.72. Sodium 135, potassium 4.6, chloride 103, CO2 24, BUN 63 and creatinine 1.43. Ferritin decreased to 556.8, alkaline phosphatase decreased 167, LDH decreased to 1050, C-reactive protein 181.7. Case has been discussed outside patient's room with the patient's nurse. Blood sugars have been elevated running 189 to 231. We will increase Levemir to 42 units twice daily, added and NovoLog scheduled 5 units every 6 hours along with NovoLog scale. Patient is currently & Medrol 40 mg IV every 12 hours. 12/29: Patient remains intubated in critical ventilation with tidal volume 350, FiO2 of 40 and PEEP of 13. Patient has been afebrile, heart rate in the 50s, blood pressure 101/55. Repeat laboratory studies revealed a CBC 17.5, hemoglobin 10, platelet count 276. Sodium 135, potassium 5.4, chloride 105, CO2 26, BUN 61, creatinine 1.07 area blood sugars are running in the 200s up to 300, alkaline phosphatase 143, LDH 875, C-reactive protein 67.9, albumin 2.7. We will again today increase her insulins with long acting up to 50 units twice daily and NovoLog 10 units every 6 hours along with NovoLog scale. Patient has had good urine output, tube feedings are at goal. Patient appears to be stable at this time. 12/30: Patient still having significantly elevated CRP with abnormal liver function test, lactic acid that subtle down significantly. Blood sugar still mildly elevated when titrating insulin is making sugar slightly but better at this point. Patient is still sedated on mechanical ventilation currently no weaning his plan in the next 24 hours. 12/31: Back in off on sedation patient has done slightly well still not ready to be extubated this point she had her weaning parameter and was sedated and continue mechanical ventilation. Blood sugar still high her steroid was decreased today to Solu-Medrol 40 mg twice a day with higher Levemir to 60 units twice a day and up on NovoLog to 20 units every 6 hours plus a sliding scale we have to watch for any decrease blood sugar specially with a new change on insulin and medication. 01/01: Patient remains intubated and on mechanical ventilation. Patient is on a sedation holiday. Tidal volume 350, FiO2 40, PEEP 5. Patient has been afebrile, heart rate in the 40s, blood pressure 101/49. Repeat lab work reveals W BC 16.2, hemoglobin 9.9, platelet count 291. D-dimer 0.28. Sodium 138, potassium 5.2, chloride 104, CO2 29, BUN 42 and creatinine 0.89. Blood sugars have been running 148 197. At bedtime glucose 118. Scheduled NovoLog will be decreased to 15 units and continue Levemir at 60 units twice daily. Solu-Medrol at 40 mg IV every 12 hours and Lasix 40 mg every 12 hours. Patient has completed course of Plaquenil. She remains in isolation. 01/02: Patient was successfully extubated yesterday afternoon. She is pulse ox 97% on 10 L high flow nasal cannula. She has been afebrile, heart rate 69, blood pressure 112/52. WBC 13.1, hemoglobin 10.3, platelet count 308. Sodium 141, potassium 4.7, chloride 103, CO2 36, BUN 43 and creatinine 0.96. Blood sugars are improved and stable and have been running between 90 and 146 with holding of Levemir. Levemir will be discontinued and patient on scale insulin only for now. Repeat ferritin level 527.6, LDH 914, C-reactive protein 50. Sputum culture finalized with normal ct. Blood culture no growth at 144 hours. Repeat chest x-ray reveals patchy diffuse infiltrates less stable from comparison. Central venous catheter stable. Patient is having difficulties with swallowing and speech therapy will be evaluating. For now, oral medic ations on hold. ship manager will discuss with the patient option of rehab when she is stable. Anticipate patient will be in the hospital until early next week. 01/03: Patient remains in intensive care unit. She is on O2 partial nonrebreather and pulse ox seen 97% on 15 L. Blood pressure 122/70, heart rate 80, respiratory rate 24. Patient has been afebrile for 24 hours. You have to collect again over a year repeat blood work reveals hemoglobin of 10.4, white count 12.9, platelet count 387. Sodium 140, potassium 4.5, chloride 100, CO2 38, BUN 52 and creatinine 1. Blood sugars have been running between 188 and 198. Blood sugars were in the 200s yesterday afternoon. Patient is now able to eat and we will start Levemir back in at 10 units twice daily. Sputum culture is finalized with normal ct and blood culture no growth. A repeat chest x- ray is stable peripherally oriented bilateral consolidation and retrocardiac airspace disease. Dr. Moreira is continuing to follow patient and recommending vancomycin and prednisone. ship manager and social media editor are attempting to reach the patient's son regarding subacute rehab. PT and OT have recommended subacute rehab. 01/04: Patient remains in the intensive care unit, afebrile, heart rate 76, respiratory rate 15-25, blood pressure 106/52, pulse ox 93% on partial rebreather. Repeat lab work reveals hemoglobin 9.8, WBC 8.7, platelet count 355. BUN 48 creatinine 1.01. Blood sugars running this morning at 158. During the evening in the low 200s, 201-230. Patient will be continued on Levemir 10 units twice daily for now and monitor closely. Anticipate increased need once patient is eating. Thus far, patient has had only a few bites of her food. Social work is working with the patient, her son regarding possible workman comp coverage for subacute rehab. Dr. Mojica is planning for her to go to [facility] for subacute rehab when stabilized. 01/05: Patient remains in intensive care unit. She is awake and alert. She continues to have significant weakness. She is eating very little. She is currently on partial rebreather mask and we will try to transition to nasal cannula today. Patient went into A. fib with RVR yesterday and was started on amiodarone subsequently converted to normal sinus rhythm. Echocardiogram reveals EF of 65-70% with severe concentric left ventricular hypertrophy, mild tricuspid regurgitation, mild pulmonary hypertension.. Patient has been afebrile, blood pressure 99/49, pulse ox 99% on 15 L partial rebreather mask. Repeat blood work reveals WBC 9.6, hemoglobin 9.8, platelet count 348. Electrolytes normal, CO2 36, BUN 44 and creatinine 0.94. Blood sugars running 143-165. 01/06: Patient remains in ICU. She was awake and alert this morning and continues to have significant weakness. Patient remains on partial rebreather mask unable to tolerate weaning to nasal cannula yesterday per nursing, will retry today. Patient continues to be normal sinus rhythm. Blood sugar last night was 400 will increase Levemir to 30 units twice a day, NovoLog 10 units with meals along with sliding scale coverage, will titrate slowly to patient's home dose due to decreased oral intake. Patient still to assist two get up to chair. Vital signs are stable, patient remains afebrile heart rate 64 blood pressure 96/53, pulse ox 98% on partial rebreather at 15 L. Labs are reviewed, hemoglobin stable at 9.7, BUN 41 and creatinine 0.91. Repeat chest x-ray showed no significant interval change in the appearance of the chest. 01/07 patient seen in ICU this a.m. She is awake and alert. Patient remains on partial rebreather mask O2 flow down to 12 L. Vital signs are stable, remains a febrile heart rate 66, blood pressure 99/66, pulse ox 96%. Patient has been in and out of A. fib per night nurse. Patient is anticoagulated on Eliquis. labs were reviewed, white blood cells 11.8 hemoglobin 10.0 BUN 33, creatinine 0.92. Blood sugars have been up and down, had a blood sugar of 56 this morning adjusted Levemir dose down to 20 units at bedtime and continue 30 AM this should improve as patient tolerates increase oral intake. Speech PT and OT all remain on the case, repeat chest x-ray this morning showed no significant change. 01/08: Patient remains in the intensive care unit. She is currently pulse oxing 99% on 12 L high flow nasal cannula. She has been afebrile, heart rate 62, blood pressure 108/43. Repeat lab work reveals WBC 8.4, hemoglobin 9.3. Potassium 3.3 and will be replaced. CO2 32, BUN 29 creatinine 1.04. Blood sugars this morning 112. Patient was running in the 200s in the evening prior. She is currently on Levemir 30 units in the morning and 20 units at bedtime along with NovoLog 10 units 3 times daily with meals and NovoLog scale. Patient is not eating today and we will make minor changes to the Levemir. NovoLog was held for breakfast.. She is on prednisone 40 mg daily. She was on oral amiodarone 200 mg twice daily and eliquis. She is on antibiotics in the form of ceftriaxone. Lasix is at 40 mg IV daily. Rama is evaluating the patient for subacute rehab. 01/09: Patient remains in intensive care unit. She is currently on nonrebre ather. Patient did well yesterday and was up to a chair with physical therapy. During the evening she was placed on a nonrebreather a pulse ox dropped down to 80%. This morning she was transitioned to nasal cannula 12 L but with rolling in bed she have dropping pulse ox to 70s. She is now back on a nonrebreather. Patient is also having increased volume of bowel movements. Stool has been sent for C. difficile toxin. Patient is afebrile, heart rate 65, respiratory rate 26-30, blood pressure 111/56, pulse ox 100% on nonrebreather. Repeat blood work reveals WBC 9.1, hemoglobin 9.3, platelet count 359. Sodium 141, potassium replacement 7, chloride 104, CO2 32, BUN 26 and creatinine 0.99. Blood sugar this morning is 154. Patient did have one reading of 348 last evening and was in the 200 chest or afternoon. NovoLog scheduled with lunch and supper will be increased. 01/10: Patient remains in intensive care unit. She is on high flow nasal cannula at 15 L pulse oxing 97%. Patient's been afebrile, heart rate 65, respiratory rate 31, blood pressure 110/56.repeat chest x-ray reveals stable patchy bilateral infiltrates.blood sugar this morning 119, blood sugars in the 200s yesterday evening 228 and 276. C. difficile toxin came back negative and Dr. Moreira started the patient on Questran. 01/11: The patient has been transferred to the [facility] floor. She remains in COVID-19 isolation. She continues to have shortness of breath with activity and unable to lay flat. Incentive spirometer is 625 mL. Patient had a soft brown bowel movement this morning. No diarrhea. Patient is currently pulse oxing 100% on 15 L nasal cannula and been turned down to 12 L high flow nasal cannula. She is afebrile. Heart rate 61, blood pressure 98/39. We will plan to repeat Coronavirus testing on Thursday and Thursday in preparation for discharge to [facility] most likely on Thursday. Capillary blood glucose this morning was 136. Patient was running high at 267 301 and 225 in the evening. Patient did not receive her scheduled NovoLog yesterday morning. NovoLog at lunch will be increased slightly. 01/12: Patient is seen today on the [facility] floor. She is working with physical therapy and occupational therapy. She has been able to get herself out of bed and was up in a chair for 3 hours yesterday. She is currently ambulating from chair and into the hallway with therapies. She continues to have significant weakness. Urrutia catheter will be discontinued today. Patient is requesting that her diabetes advanced and we will place her on consistent carb diet. Patient is afebrile, heart rate 60, blood pressure 132/80, pulse ox 99% on 12 L nasal cannula. Hemoglobin today is 9, BUN 24 and creatinine 0.88. Blood sugar this morning was 133, patient had an elevated blood sugar of 251 at supper and 300 at bedtime. Insulin adjusted again today. Prednisone will be decreased to 30 mg daily. Patient is currently on Rocephin. Diarrhea has resolved with Questran. Objective - Vital Signs Vital signs: Vital Signs Temp 98.1 F 01/13/20 03:51 Pulse 60 01/13/20 03:51 Resp 18 01/13/20 04:00 BP 132/80 01/13/20 03:51 Pulse Ox 99 01/13/20 03:51 Intake & Output 01/12/20 01/13/20 01/13/20 18:59 06:59 18:59 Output Total 300 Balance -300 Weight 121 kg 121.2 kg Output: Urine 300 Other: Voiding Method Indwelling Catheter Indwelling Catheter # Voids 3 ABP, PAP, CO, CI - Last Documented Arterial Blood Pressure 84/63 - Exam Review of Systems Constitutional: No fever, no chills, no night sweats. No weight change. Reports fatigue. EENT: No headache. No blurred vision or double vision, no loss of vision. No loss of Hearing, no ringing in the ears, no dizziness. No nasal drainage or congestion. No epistaxis. No sore throat. Lungs: Reports shortness of breath, Reports cough, Reports sputum production. No wheezing. Cardiovascular: No chest pain, no lower extremity edema. No palpitations. No paroxysmal nocturnal dyspnea. Reports orthopnea. No lightheadedness or dizziness. No syncopal episodes. Abdominal: No abdominal pain. No nausea, vomiting. No diarrhea. No constipation. No bloody or tarry stools. No loss of appetite. Genitourinary: No dysuria, increased frequency, urgency. No urinary retention. Urrutia in place. Musculoskeletal: No myalgias. No muscle weakness, no gait dysfunction, no frequent falls. No back pain. No neck pain. Integumentary: No wounds, no lesions. No rash or pruritus. No unusual bruising. No change in hair or nails. Neurologic: No aphasia. No facial droop. No change in mentation. No head injury. No headache. No paralysis. No paresthesia. Psychiatric: No depression. No anxiety. No mood swings. Endocrine: Abnormal blood sugars. No weight change. No excessive sweating or thirst. Physical Examination Gen: This is a 64-year-old morbidly obese female. Patient is ambulating with therapies and walker. HEENT: Head is atraumatic, normocephalic. Pupils equal, round. Sclerae is anicteric. NECK: Supple. No JVD. No lymphadenopathy. No thyromegaly. LUNGS: Diminished breath sounds bilaterally. No intercostal retractions. Respiratory status is stable. HEART: Regular rate and rhythm. No murmur. ABDOMEN: Soft. Bowel sounds are present. No masses. No tenderness. Urrutia catheter draining vini urine. EXTREMITIES: trace bilat pedal edema. No calf tenderness. Dorsalis pedis +2 bilaterally. NEUROLOGICAL: Patient is awake, alert and oriented x3. Cranial nerves 2 through 12 are grossly intact. Significant generalized weakness noted to upper and lower extremities. - Labs CBC & Chem 7: 01/13/20 06:53 01/13/20 06:53 Labs: Abnormal Lab Results - Last 24 Hours (Table) 01/12/20 01/13/20 01/13/20 Range/Units 11:36 06:53 06:53 RBC 3.28 L (3.80-5.40) m/uL Hgb 9.0 L (11.4-16.0) gm/dL Hct 28.6 L (34.0-46.0) % BUN 24 H (7-17) mg/dL Glucose 121 H (74-99) mg/dL POC Glucose (mg/dL) 142 H (75-99) mg/dL Assessment and Plan Plan: 1. Acute hypoxic respiratory failure secondary to COPD exacerbation and COVID- 19 pneumonitis. Patient has been successfully extubated. Completed Plaquenil. Consults with pulmonary medicine and infectious disease appreciated. Continue albuterol inhaler as needed, Symbicort twice daily, Phenergan cough syrup, prednisone decreased to 30 mg daily. Continue ceftriaxone. Patient is currently on high flow nasal cannula. 2. Acute kidney injury with chronic kidney disease stage III. Avoid nephrotoxic agents, hypotension. 3. Mild hyperkalemia secondary to acute kidney injury. 4. Mild lactic acidosis secondary to COVID-19 infection. Resolved. 5. Sepsis secondary to Covid 19 infection, POA. 6. Hyperlipidemia. Continue atorvastatin 40 mg at bedtime 7. Diabetes mellitus type 2, insulin requiring, uncontrolled with hyperglycemia secondary to steroids. Continue Levemir 30 units in the morning and 25 units at bedtime, continue NovoLog 10 units with breakfast, 14 units with lunch and supper and continue NovoLog scale before meals and at bedtime. 7. History of coronary artery disease status post stenting. Continue aspirin 325 mg daily, Lipitor. 8. Hypertension. Continue lisinopril 20 mg at bedtime. Avoid hypotension. 9. Gastroesophageal reflux disease disease and GI prophylaxis. Continue Protonix. 10. DVT prophylaxis. Eliquis 5 mg twice daily 11. Dysphagia. Diet will be advanced to a regular consistent carb diet. 12. Atrial fibrillation with RVR, paroxysmal atrial fibrillation, new onset. Continue Lopressor 12.5 mg twice daily, amiodarone 200 mg twice daily, eliquis 5 mg twice daily. Discharge plan: Subacute rehab at [facility] on Thursday. Patient will be COVID-19 tested on Thursday and Thursday. Continue therapies Impression and plan of care have been directed as dictated by the signing physician. Deborah Crow nurse practitioner acting as scribe for signing physician.
[2020-01-13 17:02] LABS: Glucose,Whole Blood 300 mg/dL (75-99)
[2020-01-13 20:41] LABS: Glucose,Whole Blood 266 mg/dL (75-99)
[2020-01-13] MEDS: LISINOPRIL 20 MG TAB PO SCH (21:22)
[2020-01-13] MEDS: ATORVASTATIN 40 MG TAB PO SCH (21:33)
--- NOTE | 2020-01-14 03:12 | PN ---
PROGRESS NOTE DATE OF SERVICE: 01/13/2020 REASON FOR FOLLOWUP: Pneumonia. INTERVAL HISTORY: The patient is currently afebrile. The patient seemed to be breathing slightly comfortably, still requiring high-flow oxygen. Denies having any chest pain. She did have a cough, intensity is about the same, no worsening. No abdominal pain or diarrhea. PHYSICAL EXAMINATION: Blood pressure 130/49 with a pulse of 67, temperature 98.4. She is 96% on 12 L high- flow oxygen. General description is a middle-aged female up in the bed in no distress. Respiratory system: Unlabored breathing with decreased breath sounds, no wheeze. Heart S1, S2. Regular rate and rhythm. Abdomen soft, no tenderness. LABS: Hemoglobin is 9, white count 8.6, BUN of 24, creatinine 0.88. X-ray did shows worsening multifocal infiltrate. DIAGNOSTIC IMPRESSION AND PLAN: Patient with acute COVID-19 that has been adequately treated now with persistent pneumonia. The persistent abnormal changes on the chest x-ray was it infectious or no infectious in this patient currently with no fever or elevated white count. We will try to obtain a sputum to adjust antibiotic. Currently on empiric Rocephin to continue and monitor clinical course closely. MMODL / IJN: [id number] /
[2020-01-14 07:22] LABS: Glucose,Whole Blood 115 mg/dL (75-99)
[2020-01-14] MEDS: ALBUTEROL HFA INHALER INHALATION PRN ×3 (07:30→19:53)
[2020-01-14] MEDS: SYMBICORT 160-4.5 MCG INHALER INHALATION SCH ×2 (07:31→19:52)
[2020-01-14] MEDS: INSULIN ASPART (NovoLOG) 100 UNIT/ML VIAL SQ SCH ×7 (08:44→21:06)
[2020-01-14] MEDS: PANTOPRAZOLE 40 MG TABLET PO SCH (09:39)
[2020-01-14] MEDS: ZINC SULFATE 220 MG CAP PO SCH (09:39)
[2020-01-14] MEDS: INSULIN DETEMIR (LEVEMIR) 100 UNIT/ML SYR SQ SCH ×2 (09:39→21:06)
[2020-01-14] MEDS: AMIODARONE 200 MG TAB PO SCH ×2 (09:40→21:07)
[2020-01-14] MEDS: FUROSEMIDE 10 MG/ML 4 ML VIAL IV SCH (09:40)
[2020-01-14] MEDS: predniSONE 10 MG TAB PO SCH (09:40)
[2020-01-14] MEDS: ASCORBIC ACID 500 MG TAB PO SCH ×2 (09:40→21:07)
[2020-01-14] MEDS: METOPROLOL TARTRATE 12.5 MG TAB PO SCH ×2 (09:40→21:07)
[2020-01-14] MEDS: ASPIRIN 325 MG TAB PO SCH (09:40)
[2020-01-14] MEDS: APIXABAN 5 MG TAB PO SCH ×2 (09:40→21:07)
[2020-01-14] MEDS: CHOLESTYRAMINE (WITH SUGAR) 4 GM PACKET PO SCH ×2 (09:47→17:14)
[2020-01-14 11:30] LABS: Glucose,Whole Blood 241 mg/dL (75-99)
--- NOTE | 2020-01-14 11:57 | P.PN ---
Subjective Progress Note Date: 01/14/20 This is a 64-year-old female patient of Dr. Mojica with past medical history of asthma, hypertension, hyperlipidemia, gastroesophageal reflux disease, diabetes mellitus type 2 insulin requiring, coronary artery disease status post stent, remote history of tobacco use and dependence, chronic kidney disease stage III. 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 They were exposed to a COVID-19 positive patient on December 11 and/or December 12. She had symptoms develop approximate 7 days ago with fever, cough, shortness of breath, nausea, diarrhea. She tried to manage at home but symptoms became significantly severe in the past 3 days and she lives alone she was so sick she could not get to the She to the bathroom. Patient came into [facility] emergency center for evaluation and found to be afebrile, blood pressure 141/68, heart rate 85, pulse ox 87%. EKG was a sinus rhythm with no acute ST changes. W BC 12.1, hemoglobin 12.7, platelet count 303, sodium 136, potassium 5.3, chloride 100, CO2 23, BUN 41, creatinine 1.43, blood sugar 230. Total bilirubin 0.6, AST 49, ALT 22, alkaline phosphatase 255, LDH 1600, ferritin 609.6 C-reactive protein 262, pro calcitonin 0.2 to. Chronic virus PCR detected, influenza testing negative, lactic acid 2.1. Repeat lactic acid 1.2 chest x-ray revealed mild cardiomegaly with moderately severe diffuse interstitial edema that is changed from old exam compared to November 2018. This could represent acute interstitial pneumonia or acute heart failure. Patient was started on Tylenol, azithromycin, Plaquenil admitted to the [facility] floor and consult was requested with infectious disease and pulmonary medicine. 12/27: Patient had a drop in her oxygen saturation and became tachypneic. She was initially placed on high flow nasal cannula at 10 L, transferred into the intensive care unit and was intubated this morning. Temperature max 101.4. Heart rate in the 60s and 70s. Repeat blood work reveals CBC unremarkable except for low lymphocytes. D-dimer 1.05, potassium 5.2, BUN 62 and creatinine 1.91. Blood sugars in the 200s. Alkaline phosphatase 198 LDH 1439. She has been continued on azithromycin, Plaquenil, zinc and vitamin C. Solu-Medrol is currently at 40 mg IV every 12 hours. 12/28: Patient remains in the intensive care unit, intubated and on mechanical ventilation with tidal volume 350, FiO2 of 50 and PEEP 13. Patient has been afebrile, heart rate 50, blood pressure 120/56. Repeat blood work reveals WBC 16, hemoglobin 10.7, platelet count 273. Repeat d-dimer is decreased at 0.72. Sodium 135, potassium 4.6, chloride 103, CO2 24, BUN 63 and creatinine 1.43. Ferritin decreased to 556.8, alkaline phosphatase decreased 167, LDH decreased to 1050, C-reactive protein 181.7. Case has been discussed outside patient's room with the patient's nurse. Blood sugars have been elevated running 189 to 231. We will increase Levemir to 42 units twice daily, added and NovoLog scheduled 5 units every 6 hours along with NovoLog scale. Patient is currently & Medrol 40 mg IV every 12 hours. 12/29: Patient remains intubated in critical ventilation with tidal volume 350, FiO2 of 40 and PEEP of 13. Patient has been afebrile, heart rate in the 50s, blood pressure 101/55. Repeat laboratory studies revealed a CBC 17.5, hemoglobin 10, platelet count 276. Sodium 135, potassium 5.4, chloride 105, CO2 26, BUN 61, creatinine 1.07 area blood sugars are running in the 200s up to 300, alkaline phosphatase 143, LDH 875, C-reactive protein 67.9, albumin 2.7. We will again today increase her insulins with long acting up to 50 units twice daily and NovoLog 10 units every 6 hours along with NovoLog scale. Patient has had good urine output, tube feedings are at goal. Patient appears to be stable at this time. 12/30: Patient still having significantly elevated CRP with abnormal liver function test, lactic acid that subtle down significantly. Blood sugar still mildly elevated when titrating insulin is making sugar slightly but better at this point. Patient is still sedated on mechanical ventilation currently no weaning his plan in the next 24 hours. 12/31: Back in off on sedation patient has done slightly well still not ready to be extubated this point she had her weaning parameter and was sedated and continue mechanical ventilation. Blood sugar still high her steroid was decreased today to Solu-Medrol 40 mg twice a day with higher Levemir to 60 units twice a day and up on NovoLog to 20 units every 6 hours plus a sliding scale we have to watch for any decrease blood sugar specially with a new change on insulin and medication. 01/01: Patient remains intubated and on mechanical ventilation. Patient is on a sedation holiday. Tidal volume 350, FiO2 40, PEEP 5. Patient has been afebrile, heart rate in the 40s, blood pressure 101/49. Repeat lab work reveals W BC 16.2, hemoglobin 9.9, platelet count 291. D-dimer 0.28. Sodium 138, potassium 5.2, chloride 104, CO2 29, BUN 42 and creatinine 0.89. Blood sugars have been running 148 197. At bedtime glucose 118. Scheduled NovoLog will be decreased to 15 units and continue Levemir at 60 units twice daily. Solu-Medrol at 40 mg IV every 12 hours and Lasix 40 mg every 12 hours. Patient has completed course of Plaquenil. She remains in isolation. 01/02: Patient was successfully extubated yesterday afternoon. She is pulse ox 97% on 10 L high flow nasal cannula. She has been afebrile, heart rate 69, blood pressure 112/52. WBC 13.1, hemoglobin 10.3, platelet count 308. Sodium 141, potassium 4.7, chloride 103, CO2 36, BUN 43 and creatinine 0.96. Blood sugars are improved and stable and have been running between 90 and 146 with holding of Levemir. Levemir will be discontinued and patient on scale insulin only for now. Repeat ferritin level 527.6, LDH 914, C-reactive protein 50. Sputum culture finalized with normal ct. Blood culture no growth at 144 hours. Repeat chest x-ray reveals patchy diffuse infiltrates less stable from comparison. Central venous catheter stable. Patient is having difficulties with swallowing and speech therapy will be evaluating. For now, oral medic ations on hold. gallery manager will discuss with the patient option of rehab when she is stable. Anticipate patient will be in the hospital until early next week. 01/03: Patient remains in intensive care unit. She is on O2 partial nonrebreather and pulse ox seen 97% on 15 L. Blood pressure 122/70, heart rate 80, respiratory rate 24. Patient has been afebrile for 24 hours. You have to collect again over a year repeat blood work reveals hemoglobin of 10.4, white count 12.9, platelet count 387. Sodium 140, potassium 4.5, chloride 100, CO2 38, BUN 52 and creatinine 1. Blood sugars have been running between 188 and 198. Blood sugars were in the 200s yesterday afternoon. Patient is now able to eat and we will start Levemir back in at 10 units twice daily. Sputum culture is finalized with normal ct and blood culture no growth. A repeat chest x- ray is stable peripherally oriented bilateral consolidation and retrocardiac airspace disease. Dr. Moreira is continuing to follow patient and recommending vancomycin and prednisone. gallery manager and oncology social work are attempting to reach the patient's son regarding subacute rehab. PT and OT have recommended subacute rehab. 01/04: Patient remains in the intensive care unit, afebrile, heart rate 76, respiratory rate 15-25, blood pressure 106/52, pulse ox 93% on partial rebreather. Repeat lab work reveals hemoglobin 9.8, WBC 8.7, platelet count 355. BUN 48 creatinine 1.01. Blood sugars running this morning at 158. During the evening in the low 200s, 201-230. Patient will be continued on Levemir 10 units twice daily for now and monitor closely. Anticipate increased need once patient is eating. Thus far, patient has had only a few bites of her food. Social work is working with the patient, her son regarding possible workman comp coverage for subacute rehab. Dr. Mojica is planning for her to go to [facility] for subacute rehab when stabilized. 01/05: Patient remains in intensive care unit. She is awake and alert. She continues to have significant weakness. She is eating very little. She is currently on partial rebreather mask and we will try to transition to nasal cannula today. Patient went into A. fib with RVR yesterday and was started on amiodarone subsequently converted to normal sinus rhythm. Echocardiogram reveals EF of 65-70% with severe concentric left ventricular hypertrophy, mild tricuspid regurgitation, mild pulmonary hypertension.. Patient has been afebrile, blood pressure 99/49, pulse ox 99% on 15 L partial rebreather mask. Repeat blood work reveals WBC 9.6, hemoglobin 9.8, platelet count 348. Electrolytes normal, CO2 36, BUN 44 and creatinine 0.94. Blood sugars running 143-165. 01/06: Patient remains in ICU. She was awake and alert this morning and continues to have significant weakness. Patient remains on partial rebreather mask unable to tolerate weaning to nasal cannula yesterday per nursing, will retry today. Patient continues to be normal sinus rhythm. Blood sugar last night was 400 will increase Levemir to 30 units twice a day, NovoLog 10 units with meals along with sliding scale coverage, will titrate slowly to patient's home dose due to decreased oral intake. Patient still to assist two get up to chair. Vital signs are stable, patient remains afebrile heart rate 64 blood pressure 96/53, pulse ox 98% on partial rebreather at 15 L. Labs are reviewed, hemoglobin stable at 9.7, BUN 41 and creatinine 0.91. Repeat chest x-ray showed no significant interval change in the appearance of the chest. 01/07 patient seen in ICU this a.m. She is awake and alert. Patient remains on partial rebreather mask O2 flow down to 12 L. Vital signs are stable, remains a febrile heart rate 66, blood pressure 99/66, pulse ox 96%. Patient has been in and out of A. fib per night nurse. Patient is anticoagulated on Eliquis. labs were reviewed, white blood cells 11.8 hemoglobin 10.0 BUN 33, creatinine 0.92. Blood sugars have been up and down, had a blood sugar of 56 this morning adjusted Levemir dose down to 20 units at bedtime and continue 30 AM this should improve as patient tolerates increase oral intake. Speech PT and OT all remain on the case, repeat chest x-ray this morning showed no significant change. 01/08: Patient remains in the intensive care unit. She is currently pulse oxing 99% on 12 L high flow nasal cannula. She has been afebrile, heart rate 62, blood pressure 108/43. Repeat lab work reveals WBC 8.4, hemoglobin 9.3. Potassium 3.3 and will be replaced. CO2 32, BUN 29 creatinine 1.04. Blood sugars this morning 112. Patient was running in the 200s in the evening prior. She is currently on Levemir 30 units in the morning and 20 units at bedtime along with NovoLog 10 units 3 times daily with meals and NovoLog scale. Patient is not eating today and we will make minor changes to the Levemir. NovoLog was held for breakfast.. She is on prednisone 40 mg daily. She was on oral amiodarone 200 mg twice daily and eliquis. She is on antibiotics in the form of ceftriaxone. Lasix is at 40 mg IV daily. Rama is evaluating the patient for subacute rehab. 01/09: Patient remains in intensive care unit. She is currently on nonrebre ather. Patient did well yesterday and was up to a chair with physical therapy. During the evening she was placed on a nonrebreather a pulse ox dropped down to 80%. This morning she was transitioned to nasal cannula 12 L but with rolling in bed she have dropping pulse ox to 70s. She is now back on a nonrebreather. Patient is also having increased volume of bowel movements. Stool has been sent for C. difficile toxin. Patient is afebrile, heart rate 65, respiratory rate 26-30, blood pressure 111/56, pulse ox 100% on nonrebreather. Repeat blood work reveals WBC 9.1, hemoglobin 9.3, platelet count 359. Sodium 141, potassium replacement 7, chloride 104, CO2 32, BUN 26 and creatinine 0.99. Blood sugar this morning is 154. Patient did have one reading of 348 last evening and was in the 200 chest or afternoon. NovoLog scheduled with lunch and supper will be increased. 01/10: Patient remains in intensive care unit. She is on high flow nasal cannula at 15 L pulse oxing 97%. Patient's been afebrile, heart rate 65, respiratory rate 31, blood pressure 110/56.repeat chest x-ray reveals stable patchy bilateral infiltrates.blood sugar this morning 119, blood sugars in the 200s yesterday evening 228 and 276. C. difficile toxin came back negative and Dr. Moreira started the patient on Questran. 01/11: The patient has been transferred to the [facility] floor. She remains in COVID-19 isolation. She continues to have shortness of breath with activity and unable to lay flat. Incentive spirometer is 625 mL. Patient had a soft brown bowel movement this morning. No diarrhea. Patient is currently pulse oxing 100% on 15 L nasal cannula and been turned down to 12 L high flow nasal cannula. She is afebrile. Heart rate 61, blood pressure 98/39. We will plan to repeat Coronavirus testing on Thursday and Thursday in preparation for discharge to [facility] most likely on Thursday. Capillary blood glucose this morning was 136. Patient was running high at 267 301 and 225 in the evening. Patient did not receive her scheduled NovoLog yesterday morning. NovoLog at lunch will be increased slightly. 01/12: Patient is seen today on the [facility] floor. She is working with physical therapy and occupational therapy. She has been able to get herself out of bed and was up in a chair for 3 hours yesterday. She is currently ambulating from chair and into the hallway with therapies. She continues to have significant weakness. Urrutia catheter will be discontinued today. Patient is requesting that her diabetes advanced and we will place her on consistent carb diet. Patient is afebrile, heart rate 60, blood pressure 132/80, pulse ox 99% on 12 L nasal cannula. Hemoglobin today is 9, BUN 24 and creatinine 0.88. Blood sugar this morning was 133, patient had an elevated blood sugar of 251 at supper and 300 at bedtime. Insulin adjusted again today. Prednisone will be decreased to 30 mg daily. Patient is currently on Rocephin. Diarrhea has resolved with Questran. 01/13: Patient is seen today on the [facility] floor. She states her breathing is less tight today. She is currently on 11 L high flow nasal cannula and pulse oxing 96%. She has been afebrile, heart rate 78, blood pressure 119/64. Patient denies having any lower extremity edema. Lasix will be changed to oral today. She has been up in the chair and states she spent several hours in the chair yesterday which helps her breathing. Patient's blood sugars to remain high despite multiple changes to her insulins. The patient has been continued on Rocephin. We'll plan to check COVID-19 once oxygen needs are lower. Objective - Vital Signs Vital signs: Vital Signs Temp 97.5 F L 01/14/20 09:53 Pulse 78 01/14/20 09:53 Resp 18 01/14/20 09:53 BP 119/64 01/14/20 09:53 Pulse Ox 96 01/14/20 09:53 Intake & Output 01/13/20 01/14/20 01/14/20 18:59 06:59 18:59 Output Total 750 450 Balance -750 -450 Weight 121.7 kg Output: Urine 750 450 Uretheral (Urrutia) 500 Other: Voiding Method Indwelling Catheter Indwelling Catheter # Voids 1 ABP, PAP, CO, CI - Last Documented Arterial Blood Pressure 84/63 - Exam Review of Systems Constitutional: No fever, no chills, no night sweats. No weight change. Reports fatigue. EENT: No headache. No blurred vision or double vision, no loss of vision. No loss of Hearing, no ringing in the ears, no dizziness. No nasal drainage or congestion. No epistaxis. No sore throat. Lungs: Reports shortness of breath, Reports cough, Reports sputum production. No wheezing. Cardiovascular: No chest pain, no lower extremity edema. No palpitations. No paroxysmal nocturnal dyspnea. Reports orthopnea. No lightheadedness or dizziness. No syncopal episodes. Abdominal: No abdominal pain. No nausea, vomiting. No diarrhea. No constipation. No bloody or tarry stools. No loss of appetite. Genitourinary: No dysuria, increased frequency, urgency. No urinary retention. Musculoskeletal: No myalgias. Reports muscle weakness, no gait dysfunction, no frequent falls. No back pain. No neck pain. Integumentary: No wounds, no lesions. No rash or pruritus. No unusual bruising. No change in hair or nails. Neurologic: No aphasia. No facial droop. No change in mentation. No head injury. No headache. No paralysis. No paresthesia. Psychiatric: No depression. No anxiety. No mood swings. Endocrine: Abnormal blood sugars. No weight change. No excessive sweating or thirst. Physical Examination Gen: This is a 64-year-old morbidly obese female. Patient is ambulating with therapies and walker. HEENT: Head is atraumatic, normocephalic. Pupils equal, round. Sclerae is anicteric. NECK: Supple. No JVD. No lymphadenopathy. No thyromegaly. LUNGS: Diminished breath sounds bilaterally. Scattered crackles. No intercostal retractions. Respiratory status is stable. HEART: Regular rate and rhythm. No murmur. ABDOMEN: Soft. Bowel sounds are present. No masses. No tenderness. EXTREMITIES: trace bilat pedal edema. No calf tenderness. Dorsalis pedis +2 bilaterally. NEUROLOGICAL: Patient is awake, alert and oriented x3. Cranial nerves 2 through 12 are grossly intact. Significant generalized weakness noted to upper and lower extremities. - Labs CBC & Chem 7: 01/13/20 06:53 01/13/20 06:53 Labs: Abnormal Lab Results - Last 24 Hours (Table) 01/13/20 01/13/20 01/13/20 Range/Units 12:10 17:00 20:38 POC Glucose (mg/dL) 260 H 300 H 266 H (75-99) mg/dL 01/14/20 Range/Units 07:20 POC Glucose (mg/dL) 115 H (75-99) mg/dL Assessment and Plan Plan: 1. Acute hypoxic respiratory failure secondary to COPD exacerbation and COVID- 19 pneumonitis. Patient has been successfully extubated. Completed Plaquenil. Consults with pulmonary medicine and infectious disease appreciated. Continue albuterol inhaler as needed, Symbicort twice daily, Phenergan cough syrup, prednisone decreased to 30 mg daily. Continue ceftriaxone. Patient is currently on high flow nasal cannula. 2. Acute kidney injury with chronic kidney disease stage III. Avoid nephrotoxic agents, hypotension. 3. Mild hyperkalemia secondary to acute kidney injury. 4. Mild lactic acidosis secondary to COVID-19 infection. Resolved. 5. Sepsis secondary to Covid 19 infection, POA. 6. Hyperlipidemia. Continue atorvastatin 40 mg at bedtime 7. Diabetes mellitus type 2, insulin requiring, uncontrolled with hyperglycemia secondary to steroids. Continue Levemir 30 units in the morning and 25 units at bedtime, continue NovoLog 10 units with breakfast, 14 units with lunch and supper and continue NovoLog scale before meals and at bedtime. 7. History of coronary artery disease status post stenting. Continue aspirin 325 mg daily, Lipitor. 8. Hypertension. Continue lisinopril 20 mg at bedtime. Avoid hypotension. 9. Gastroesophageal reflux disease disease and GI prophylaxis. Continue Protonix. 10. DVT prophylaxis. Eliquis 5 mg twice daily 11. Dysphagia. Diet will be advanced to a regular consistent carb diet. 12. Atrial fibrillation with RVR, paroxysmal atrial fibrillation, new onset. Continue Lopressor 12.5 mg twice daily, amiodarone 200 mg twice daily, eliquis 5 mg twice daily. Discharge plan: Subacute rehab at [facility] next week. Patient will be COVID-19 tested on Thursday and Thursday. Continue therapies Impression and plan of care have been directed as dictated by the signing physician. Deborah Crow nurse practitioner acting as scribe for signing physician.
--- NOTE | 2020-01-14 13:05 | P.PN ---
Subjective Progress Note Date: 01/14/20 Principal diagnosis: Acute hypoxemic respiratory failure secondary to CoVID 19 related pneumonia, requiring intubation and placement on mechanical ventilator on 12/28/2019 The patient is seen today 01/13/2020 in follow-up on the regular medical floor. She is currently sitting up in a chair at the bedside. Awake and alert in no acute distress. She's been up ambulating in her room. She is still requiring 12 L high flow nasal cannula to maintain O2 saturations in the 90s. White count 8.6. Hemoglobin 9.0. Sodium 142. Potassium 3.7. Creatinine 0.88. Glucose 121. Chest x-ray reveals worsening peripheral and basilar multifocal consolidations. She remains on bronchodilators, anticoagulated with Eliquis, prednisone, zinc, ceftriaxone. Daily 40 mg of IV Lasix. Currently in a negative balance. The patient is seen today 01/14/2020 in follow-up on the regular medical floor. She is currently resting comfortably in bed. Awake and alert in no acute distress. She is breathing easier today as compared to yesterday. She was up in the chair for several hours yesterday. She is currently on 10 L high flow nasal cannula maintaining O2 saturation in the 90s. She remains afebrile. Hemodynamically stable. Blood and sputum cultures reveal no growth. Anticoagulated with Eliquis. Continued on a prednisone taper. Continued on zinc. Objective - Vital Signs Vital signs: Vital Signs Temp 97.5 F L 01/14/20 09:53 Pulse 78 01/14/20 09:53 Resp 18 01/14/20 09:53 BP 119/64 01/14/20 09:53 Pulse Ox 96 01/14/20 09:53 Intake & Output 01/13/20 01/14/20 01/14/20 18:59 06:59 18:59 Output Total 750 450 Balance -750 -450 Weight 121.7 kg Output: Urine 750 450 Uretheral (Urrutia) 500 Other: Voiding Method Indwelling Catheter Indwelling Catheter # Voids 1 ABP, PAP, CO, CI - Last Documented Arterial Blood Pressure 84/63 - Exam GENERAL EXAM: Very pleasant 64-year-old obese female patient, on 10 L high flow oxygen with a pulse ox of 96% comfortable in no apparent distress. HEAD: Normocephalic/atraumatic. EYES: Normal reaction of pupils, equal size. Conjunctiva pink, sclera white. NOSE: Clear with pink turbinates. THROAT: No erythema or exudates. NECK: No masses, no JVD, no thyroid enlargement, no adenopathy. CHEST: No chest wall deformity. Symmetrical expansion. LUNGS: Equal air entry with few scattered rhonchi bilaterally. CVS: Regular rate and rhythm, normal S1 and S2, no gallops, no murmurs, no rubs ABDOMEN: Soft, nontender. No hepatosplenomegaly, normal bowel sounds, no guarding or rigidity. EXTREMITIES: No clubbing, no edema, no cyanosis, 2+ pulses and upper and lower extremities. MUSCULOSKELETAL: Muscle strength and tone normal. SPINE: No scoliosis or deformity SKIN: No rashes CENTRAL NERVOUS SYSTEM: Awake and alert, oriented 3, No focal deficits, tone is normal in all 4 extremities. - Labs CBC & Chem 7: 01/13/20 06:53 01/13/20 06:53 Labs: Abnormal Lab Results - Last 24 Hours (Table) 01/13/20 01/13/20 01/14/20 Range/Units 17:00 20:38 07:20 POC Glucose (mg/dL) 300 H 266 H 115 H (75-99) mg/dL 01/14/20 Range/Units 11:29 POC Glucose (mg/dL) 241 H (75-99) mg/dL Assessment and Plan Assessment: 1. Acute hypoxemic respiratory failure related to COVID 19 related pneumonia, requiring intubation and placement on mechanical ventilation on 12/28/2019, subsequently extubated and currently on 10 L high flow nasal cannula on the regular medical floor 2. Cough, shortness of breath, weakness, fatigue, diffuse bilateral infiltrates related to COVID19 infection 3. Elevated ferritin, LDH, CRP and d-dimer related to acute COVID19 related pn eumonia, and inflammatory markers are improving 4. Elevated troponin, rule out possibility of coinfection, related to bacterial infection 5. Hypertension 6. Hyperlipidemia 7. GERD/reflux 8. Diabetes mellitus type 2 9. History of chronic bronchial asthma, unspecified 10. Chronic kidney disease, unknown baseline 11. History of diverticular disease 12. History of coronary artery disease with PCI and stent placement Plan: The patient was seen and evaluated by Dr. Grijalva Continued on bronchodilators, prednisone Titrate down the FiO2 as tolerated Incentive spirometer and cough and deep breathing exercises Increase her activity as tolerated Home once her oxygen requirements are less than 5 L. We will continue to follow and make further recommendations based on her clinical status. I, the cosigning physician, performed a history & physical examination of the patient. Lungs sounds with bilateral scattered rhonchit. Maintaining good O2 saturations in the 90s on10 L high flow nasal cannula. I discussed the assessment and plan of care with my nurse practitioner, Missy Jeffrey. I attest to the above note as dictated by her.
[2020-01-14 16:51] LABS: Glucose,Whole Blood 251 mg/dL (75-99)
--- NOTE | 2020-01-14 18:40 | PN ---
PROGRESS NOTE DATE OF SERVICE: 01/14/2020 REASON FOR FOLLOWUP: Pneumonia. INTERVAL HISTORY: The patient is currently afebrile. The patient seemed to be breathing more comfortably. Her FiO2 is currently down to 10 L. The patient denies any chest pain. The patient did have more cough, but not bringing up any sputum. No nausea, vomiting, abdominal pain or diarrhea. PHYSICAL EXAMINATION: Blood pressure 122/70 with a pulse of 73, temperature 98.1. She is 95% on 1 L nasal canula oxygen. General description is a middle-aged female up in the chair in no distress. Respiratory system: Unlabored breathing. LABS: No new labs have been obtained today. DIAGNOSTIC IMPRESSION AND PLAN: Patient admitted to the hospital with acute COVID-19 pneumonia that has been adequately treated now with persistent pulmonary infiltrates with questionable lung infection. The patient not running any fever and did not have any elevated white count. Sputum cultures have been requested that has not been obtained. Currently on Empiric Rocephin to continue We will continue to monitor clinical course closely. MMODL / IJN: [id number] / MTDD
[2020-01-14 20:47] LABS: Glucose,Whole Blood 204 mg/dL (75-99)
[2020-01-14] MEDS: ATORVASTATIN 40 MG TAB PO SCH (21:06)
[2020-01-14] MEDS: LISINOPRIL 20 MG TAB PO SCH (21:07)
[2020-01-14] MEDS: LACTATED RINGERS 1,000 ML IV SCH (21:13)
[2020-01-15 07:31] LABS: Glucose,Whole Blood 86 mg/dL (75-99)
[2020-01-15] MEDS: INSULIN ASPART (NovoLOG) 100 UNIT/ML VIAL SQ SCH ×7 (07:42→21:19)
[2020-01-15] MEDS: ASPIRIN 325 MG TAB PO SCH (08:09)
[2020-01-15] MEDS: ZINC SULFATE 220 MG CAP PO SCH (08:09)
[2020-01-15] MEDS: predniSONE 10 MG TAB PO SCH (08:09)
[2020-01-15] MEDS: PANTOPRAZOLE 40 MG TABLET PO SCH (08:09)
[2020-01-15] MEDS: INSULIN DETEMIR (LEVEMIR) 100 UNIT/ML SYR SQ SCH ×2 (08:09→21:17)
[2020-01-15] MEDS: ASCORBIC ACID 500 MG TAB PO SCH ×2 (08:09→21:12)
[2020-01-15] MEDS: FUROSEMIDE 40 MG TAB PO SCH (08:10)
[2020-01-15] MEDS: METOPROLOL TARTRATE 12.5 MG TAB PO SCH ×2 (08:10→21:16)
[2020-01-15] MEDS: CHOLESTYRAMINE (WITH SUGAR) 4 GM PACKET PO SCH ×2 (08:11→17:23)
[2020-01-15] MEDS: AMIODARONE 200 MG TAB PO SCH ×2 (08:11→21:12)
[2020-01-15] MEDS: APIXABAN 5 MG TAB PO SCH ×2 (08:11→21:12)
[2020-01-15] MEDS: ALBUTEROL HFA INHALER INHALATION PRN ×3 (08:20→21:02)
[2020-01-15] MEDS: SYMBICORT 160-4.5 MCG INHALER INHALATION SCH ×2 (08:20→21:03)
--- NOTE | 2020-01-15 11:11 | P.PN ---
Subjective Progress Note Date: 01/15/20 Principal diagnosis: Acute hypoxemic respiratory failure secondary to CoVID 19 related pneumonia, requiring intubation and placement on mechanical ventilator on 12/28/2019 The patient is seen today 01/13/2020 in follow-up on the regular medical floor. She is currently sitting up in a chair at the bedside. Awake and alert in no acute distress. She's been up ambulating in her room. She is still requiring 12 L high flow nasal cannula to maintain O2 saturations in the 90s. White count 8.6. Hemoglobin 9.0. Sodium 142. Potassium 3.7. Creatinine 0.88. Glucose 121. Chest x-ray reveals worsening peripheral and basilar multifocal consolidations. She remains on bronchodilators, anticoagulated with Eliquis, prednisone, zinc, ceftriaxone. Daily 40 mg of IV Lasix. Currently in a negative balance. The patient is seen today 01/14/2020 in follow-up on the regular medical floor. She is currently resting comfortably in bed. Awake and alert in no acute distress. She is breathing easier today as compared to yesterday. She was up in the chair for several hours yesterday. She is currently on 10 L high flow nasal cannula maintaining O2 saturation in the 90s. She remains afebrile. Hemodynamically stable. Blood and sputum cultures reveal no growth. Anticoagulated with Eliquis. Continued on a prednisone taper. Continued on zinc. Patient is seen today 01/15/2020 in follow-up on the regular medical floor. She is awake and alert in no acute distress. She's been up to the bathroom and in the shower today. She denies any worsening shortness of breath cough or congestion. Her oxygen has been titrated down to 9 L high flow nasal cannula maintaining O2 saturation in the 90s. She's been afebrile. Hemodynamically stable. Blood and sputum cultures reveal no growth. Blood glucose 86. Objective - Vital Signs Vital signs: Vital Signs Temp 98.1 F 01/15/20 08:15 Pulse 60 01/15/20 08:15 Resp 16 01/15/20 08:15 BP 121/70 01/15/20 08:15 Pulse Ox 93 L 01/15/20 08:15 Intake & Output 01/14/20 01/15/20 01/15/20 18:59 06:59 18:59 Intake Total 290 Balance 290 Weight 123.5 kg Intake: Oral 290 Other: # Voids 1 ABP, PAP, CO, CI - Last Documented Arterial Blood Pressure 84/63 - Exam GENERAL EXAM: Very pleasant 64-year-old obese female patient, on 9 L high flow oxygen with a pulse ox of 93% comfortable in no apparent distress. HEAD: Normocephalic/atraumatic. EYES: Normal reaction of pupils, equal size. Conjunctiva pink, sclera white. NOSE: Clear with pink turbinates. THROAT: No erythema or exudates. NECK: No masses, no JVD, no thyroid enlargement, no adenopathy. CHEST: No chest wall deformity. Symmetrical expansion. LUNGS: Equal air entry with few scattered rhonchi bilaterally. CVS: Regular rate and rhythm, normal S1 and S2, no gallops, no murmurs, no rubs ABDOMEN: Soft, nontender. No hepatosplenomegaly, normal bowel sounds, no guarding or rigidity. EXTREMITIES: No clubbing, no edema, no cyanosis, 2+ pulses and upper and lower extremities. MUSCULOSKELETAL: Muscle strength and tone normal. SPINE: No scoliosis or deformity SKIN: No rashes CENTRAL NERVOUS SYSTEM: Awake and alert, oriented 3, No focal deficits, tone is normal in all 4 extremities. - Labs CBC & Chem 7: 01/13/20 06:53 01/13/20 06:53 Labs: Abnormal Lab Results - Last 24 Hours (Table) 01/14/20 01/14/20 01/14/20 Range/Units 11:29 16:50 20:42 POC Glucose (mg/dL) 241 H 251 H 204 H (75-99) mg/dL Assessment and Plan Assessment: 1. Acute hypoxemic respiratory failure related to COVID 19 related pneumonia, requiring intubation and placement on mechanical ventilation on 12/28/2019, subsequently extubated and currently on 9 L high flow nasal cannula on the regular medical floor 2. Cough, shortness of breath, weakness, fatigue, diffuse bilateral infiltrates related to COVID19 infection 3. Elevated ferritin, LDH, CRP and d-dimer related to acute COVID19 related pneumonia, and inflammatory markers are improving 4. Elevated troponin, rule out possibility of coinfection, related to bacterial infection 5. Hypertension 6. Hyperlipidemia 7. GERD/reflux 8. Diabetes mellitus type 2 9. History of chronic bronchial asthma, unspecified 10. Chronic kidney disease, unknown baseline 11. History of diverticular disease 12. History of coronary artery disease with PCI and stent placement Plan: The patient was seen and evaluated by Dr. Grijalva Titrate down the FiO2 as tolerated Home once her oxygen requirements are less than 5 L Incentive spirometer and cough and deep breathing exercises Increase her activity as tolerated We will continue to follow and make further recommendations based on her clinical status. I, the cosigning physician, performed a history & physical examination of the patient. Lungs sounds with bilateral scattered rhonchit. Maintaining good O2 saturations in the 90s on9 L high flow nasal cannula. I discussed the assessment and plan of care with my nurse practitioner, Missy Jeffrey. I attest to the above note as dictated by her.
--- NOTE | 2020-01-15 11:23 | P.PN ---
Subjective Progress Note Date: 01/15/20 This is a 64-year-old female patient of Dr. Mojica with past medical history of asthma, hypertension, hyperlipidemia, gastroesophageal reflux disease, diabetes mellitus type 2 insulin requiring, coronary artery disease status post stent, remote history of tobacco use and dependence, chronic kidney disease stage III. Patient is a [employer] and worked for [employer] in the past, recently changed to a position at [employer]. 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 They were exposed to a COVID-19 positive patient on December 11 and/or December 12. She had symptoms develop approximate 7 days ago with fever, cough, shortness of breath, nausea, diarrhea. She tried to manage at home but symptoms became significantly severe in the past 3 days and she lives alone she was so sick she could not get to the She to the bathroom. Patient came into [facility] emergency center for evaluation and found to be afebrile, blood pressure 141/68, heart rate 85, pulse ox 87%. EKG was a sinus rhythm with no acute ST changes. W BC 12.1, hemoglobin 12.7, platelet count 303, sodium 136, potassium 5.3, chloride 100, CO2 23, BUN 41, creatinine 1.43, blood sugar 230. Total bilirubin 0.6, AST 49, ALT 22, alkaline phosphatase 255, LDH 1600, ferritin 609.6 C-reactive protein 262, pro calcitonin 0.2 to. Chronic virus PCR detected, influenza testing negative, lactic acid 2.1. Repeat lactic acid 1.2 chest x-ray revealed mild cardiomegaly with moderately severe diffuse interstitial edema that is changed from old exam compared to November 2018. This could represent acute interstitial pneumonia or acute heart failure. Patient was started on Tylenol, azithromycin, Plaquenil admitted to the [facility] floor and consult was requested with infectious disease and pulmonary medicine. 12/27: Patient had a drop in her oxygen saturation and became tachypneic. She was initially placed on high flow nasal cannula at 10 L, transferred into the intensive care unit and was intubated this morning. Temperature max 101.4. Heart rate in the 60s and 70s. Repeat blood work reveals CBC unremarkable except for low lymphocytes. D-dimer 1.05, potassium 5.2, BUN 62 and creatinine 1.91. Blood sugars in the 200s. Alkaline phosphatase 198 LDH 1439. She has been continued on azithromycin, Plaquenil, zinc and vitamin C. Solu-Medrol is currently at 40 mg IV every 12 hours. 12/28: Patient remains in the intensive care unit, intubated and on mechanical ventilation with tidal volume 350, FiO2 of 50 and PEEP 13. Patient has been afebrile, heart rate 50, blood pressure 120/56. Repeat blood work reveals WBC 16, hemoglobin 10.7, platelet count 273. Repeat d-dimer is decreased at 0.72. Sodium 135, potassium 4.6, chloride 103, CO2 24, BUN 63 and creatinine 1.43. Ferritin decreased to 556.8, alkaline phosphatase decreased 167, LDH decreased to 1050, C-reactive protein 181.7. Case has been discussed outside patient's room with the patient's nurse. Blood sugars have been elevated running 189 to 231. We will increase Levemir to 42 units twice daily, added and NovoLog scheduled 5 units every 6 hours along with NovoLog scale. Patient is currently & Medrol 40 mg IV every 12 hours. 12/29: Patient remains intubated in critical ventilation with tidal volume 350, FiO2 of 40 and PEEP of 13. Patient has been afebrile, heart rate in the 50s, blood pressure 101/55. Repeat laboratory studies revealed a CBC 17.5, hemoglobin 10, platelet count 276. Sodium 135, potassium 5.4, chloride 105, CO2 26, BUN 61, creatinine 1.07 area blood sugars are running in the 200s up to 300, alkaline phosphatase 143, LDH 875, C-reactive protein 67.9, albumin 2.7. We will again today increase her insulins with long acting up to 50 units twice daily and NovoLog 10 units every 6 hours along with NovoLog scale. Patient has had good urine output, tube feedings are at goal. Patient appears to be stable at this time. 12/30: Patient still having significantly elevated CRP with abnormal liver function test, lactic acid that subtle down significantly. Blood sugar still mildly elevated when titrating insulin is making sugar slightly but better at this point. Patient is still sedated on mechanical ventilation currently no weaning his plan in the next 24 hours. 12/31: Back in off on sedation patient has done slightly well still not ready to be extubated this point she had her weaning parameter and was sedated and continue mechanical ventilation. Blood sugar still high her steroid was decreased today to Solu-Medrol 40 mg twice a day with higher Levemir to 60 units twice a day and up on NovoLog to 20 units every 6 hours plus a sliding scale we have to watch for any decrease blood sugar specially with a new change on insulin and medication. 01/01: Patient remains intubated and on mechanical ventilation. Patient is on a sedation holiday. Tidal volume 350, FiO2 40, PEEP 5. Patient has been afebrile, heart rate in the 40s, blood pressure 101/49. Repeat lab work reveals W BC 16.2, hemoglobin 9.9, platelet count 291. D-dimer 0.28. Sodium 138, potassium 5.2, chloride 104, CO2 29, BUN 42 and creatinine 0.89. Blood sugars have been running 148 197. At bedtime glucose 118. Scheduled NovoLog will be decreased to 15 units and continue Levemir at 60 units twice daily. Solu-Medrol at 40 mg IV every 12 hours and Lasix 40 mg every 12 hours. Patient has completed course of Plaquenil. She remains in isolation. 01/02: Patient was successfully extubated yesterday afternoon. She is pulse ox 97% on 10 L high flow nasal cannula. She has been afebrile, heart rate 69, blood pressure 112/52. WBC 13.1, hemoglobin 10.3, platelet count 308. Sodium 141, potassium 4.7, chloride 103, CO2 36, BUN 43 and creatinine 0.96. Blood sugars are improved and stable and have been running between 90 and 146 with holding of Levemir. Levemir will be discontinued and patient on scale insulin only for now. Repeat ferritin level 527.6, LDH 914, C-reactive protein 50. Sputum culture finalized with normal ct. Blood culture no growth at 144 hours. Repeat chest x-ray reveals patchy diffuse infiltrates less stable from comparison. Central venous catheter stable. Patient is having difficulties with swallowing and speech therapy will be evaluating. For now, oral medic ations on hold. disability manager will discuss with the patient option of rehab when she is stable. Anticipate patient will be in the hospital until early next week. 01/03: Patient remains in intensive care unit. She is on O2 partial nonrebreather and pulse ox seen 97% on 15 L. Blood pressure 122/70, heart rate 80, respiratory rate 24. Patient has been afebrile for 24 hours. You have to collect again over a year repeat blood work reveals hemoglobin of 10.4, white count 12.9, platelet count 387. Sodium 140, potassium 4.5, chloride 100, CO2 38, BUN 52 and creatinine 1. Blood sugars have been running between 188 and 198. Blood sugars were in the 200s yesterday afternoon. Patient is now able to eat and we will start Levemir back in at 10 units twice daily. Sputum culture is finalized with normal ct and blood culture no growth. A repeat chest x- ray is stable peripherally oriented bilateral consolidation and retrocardiac airspace disease. Dr. Moreira is continuing to follow patient and recommending vancomycin and prednisone. disability manager and social services manager are attempting to reach the patient's son regarding subacute rehab. PT and OT have recommended subacute rehab. 01/04: Patient remains in the intensive care unit, afebrile, heart rate 76, respiratory rate 15-25, blood pressure 106/52, pulse ox 93% on partial rebreather. Repeat lab work reveals hemoglobin 9.8, WBC 8.7, platelet count 355. BUN 48 creatinine 1.01. Blood sugars running this morning at 158. During the evening in the low 200s, 201-230. Patient will be continued on Levemir 10 units twice daily for now and monitor closely. Anticipate increased need once patient is eating. Thus far, patient has had only a few bites of her food. Social work is working with the patient, her son regarding possible workman comp coverage for subacute rehab. Dr. Mojica is planning for her to go to [facility] for subacute rehab when stabilized. 01/05: Patient remains in intensive care unit. She is awake and alert. She continues to have significant weakness. She is eating very little. She is currently on partial rebreather mask and we will try to transition to nasal cannula today. Patient went into A. fib with RVR yesterday and was started on amiodarone subsequently converted to normal sinus rhythm. Echocardiogram reveals EF of 65-70% with severe concentric left ventricular hypertrophy, mild tricuspid regurgitation, mild pulmonary hypertension.. Patient has been afebrile, blood pressure 99/49, pulse ox 99% on 15 L partial rebreather mask. Repeat blood work reveals WBC 9.6, hemoglobin 9.8, platelet count 348. Electrolytes normal, CO2 36, BUN 44 and creatinine 0.94. Blood sugars running 143-165. 01/06: Patient remains in ICU. She was awake and alert this morning and continues to have significant weakness. Patient remains on partial rebreather mask unable to tolerate weaning to nasal cannula yesterday per nursing, will retry today. Patient continues to be normal sinus rhythm. Blood sugar last night was 400 will increase Levemir to 30 units twice a day, NovoLog 10 units with meals along with sliding scale coverage, will titrate slowly to patient's home dose due to decreased oral intake. Patient still to assist two get up to chair. Vital signs are stable, patient remains afebrile heart rate 64 blood pressure 96/53, pulse ox 98% on partial rebreather at 15 L. Labs are reviewed, hemoglobin stable at 9.7, BUN 41 and creatinine 0.91. Repeat chest x-ray showed no significant interval change in the appearance of the chest. 01/07 patient seen in ICU this a.m. She is awake and alert. Patient remains on partial rebreather mask O2 flow down to 12 L. Vital signs are stable, remains a febrile heart rate 66, blood pressure 99/66, pulse ox 96%. Patient has been in and out of A. fib per night nurse. Patient is anticoagulated on Eliquis. labs were reviewed, white blood cells 11.8 hemoglobin 10.0 BUN 33, creatinine 0.92. Blood sugars have been up and down, had a blood sugar of 56 this morning adjusted Levemir dose down to 20 units at bedtime and continue 30 AM this should improve as patient tolerates increase oral intake. Speech PT and OT all remain on the case, repeat chest x-ray this morning showed no significant change. 01/08: Patient remains in the intensive care unit. She is currently pulse oxing 99% on 12 L high flow nasal cannula. She has been afebrile, heart rate 62, blood pressure 108/43. Repeat lab work reveals WBC 8.4, hemoglobin 9.3. Potassium 3.3 and will be replaced. CO2 32, BUN 29 creatinine 1.04. Blood sugars this morning 112. Patient was running in the 200s in the evening prior. She is currently on Levemir 30 units in the morning and 20 units at bedtime along with NovoLog 10 units 3 times daily with meals and NovoLog scale. Patient is not eating today and we will make minor changes to the Levemir. NovoLog was held for breakfast.. She is on prednisone 40 mg daily. She was on oral amiodarone 200 mg twice daily and eliquis. She is on antibiotics in the form of ceftriaxone. Lasix is at 40 mg IV daily. Rama is evaluating the patient for subacute rehab. 01/09: Patient remains in intensive care unit. She is currently on nonrebre ather. Patient did well yesterday and was up to a chair with physical therapy. During the evening she was placed on a nonrebreather a pulse ox dropped down to 80%. This morning she was transitioned to nasal cannula 12 L but with rolling in bed she have dropping pulse ox to 70s. She is now back on a nonrebreather. Patient is also having increased volume of bowel movements. Stool has been sent for C. difficile toxin. Patient is afebrile, heart rate 65, respiratory rate 26-30, blood pressure 111/56, pulse ox 100% on nonrebreather. Repeat blood work reveals WBC 9.1, hemoglobin 9.3, platelet count 359. Sodium 141, potassium replacement 7, chloride 104, CO2 32, BUN 26 and creatinine 0.99. Blood sugar this morning is 154. Patient did have one reading of 348 last evening and was in the 200 chest or afternoon. NovoLog scheduled with lunch and supper will be increased. 01/10: Patient remains in intensive care unit. She is on high flow nasal cannula at 15 L pulse oxing 97%. Patient's been afebrile, heart rate 65, respiratory rate 31, blood pressure 110/56.repeat chest x-ray reveals stable patchy bilateral infiltrates.blood sugar this morning 119, blood sugars in the 200s yesterday evening 228 and 276. C. difficile toxin came back negative and Dr. Moreira started the patient on Questran. 01/11: The patient has been transferred to the [facility] floor. She remains in COVID-19 isolation. She continues to have shortness of breath with activity and unable to lay flat. Incentive spirometer is 625 mL. Patient had a soft brown bowel movement this morning. No diarrhea. Patient is currently pulse oxing 100% on 15 L nasal cannula and been turned down to 12 L high flow nasal cannula. She is afebrile. Heart rate 61, blood pressure 98/39. We will plan to repeat Coronavirus testing on Thursday and Thursday in preparation for discharge to [facility] most likely on Thursday. Capillary blood glucose this morning was 136. Patient was running high at 267 301 and 225 in the evening. Patient did not receive her scheduled NovoLog yesterday morning. NovoLog at lunch will be increased slightly. 01/12: Patient is seen today on the [facility] floor. She is working with physical therapy and occupational therapy. She has been able to get herself out of bed and was up in a chair for 3 hours yesterday. She is currently ambulating from chair and into the hallway with therapies. She continues to have significant weakness. Urrutia catheter will be discontinued today. Patient is requesting that her diabetes advanced and we will place her on consistent carb diet. Patient is afebrile, heart rate 60, blood pressure 132/80, pulse ox 99% on 12 L nasal cannula. Hemoglobin today is 9, BUN 24 and creatinine 0.88. Blood sugar this morning was 133, patient had an elevated blood sugar of 251 at supper and 300 at bedtime. Insulin adjusted again today. Prednisone will be decreased to 30 mg daily. Patient is currently on Rocephin. Diarrhea has resolved with Questran. 01/13: Patient is seen today on the [facility] floor. She states her breathing is less tight today. She is currently on 11 L high flow nasal cannula and pulse oxing 96%. She has been afebrile, heart rate 78, blood pressure 119/64. Patient denies having any lower extremity edema. Lasix will be changed to oral today. She has been up in the chair and states she spent several hours in the chair yesterday which helps her breathing. Patient's blood sugars to remain high despite multiple changes to her insulins. The patient has been continued on Rocephin. We'll plan to check COVID-19 once oxygen needs are lower. 01/14: The patient is resting in bed this morning during evaluation. She is requesting melatonin and Mucinex which will be started. She is currently pulse oxing 93-99% on 10 L nasal cannula, afebrile, heart rate 60, blood pressure 121/70. Blood sugar this morning was 86 but otherwise running in the 200s. Insulin adjusted again today. We will plan to do Covid testing tomorrow in anticipation of discharge to [facility] sometime next week. Objective - Vital Signs Vital signs: Vital Signs Temp 98.1 F 01/15/20 08:15 Pulse 60 01/15/20 08:15 Resp 16 01/15/20 08:15 BP 121/70 01/15/20 08:15 Pulse Ox 93 L 01/15/20 08:15 Intake & Output 01/14/20 01/15/20 01/15/20 18:59 06:59 18:59 Intake Total 290 Balance 290 Weight 123.5 kg Intake: Oral 290 ABP, PAP, CO, CI - Last Documented Arterial Blood Pressure 84/63 - Exam Review of Systems Constitutional: No fever, no chills, no night sweats. No weight change. Reports fatigue-improving. EENT: No headache. No blurred vision or double vision, no loss of vision. No loss of Hearing, no ringing in the ears, no dizziness. No nasal drainage or congestion. No epistaxis. No sore throat. Lungs: Reports shortness of breath, Reports cough, Reports sputum production. No wheezing. Cardiovascular: No chest pain, no lower extremity edema. No palpitations. No paroxysmal nocturnal dyspnea. Reports orthopnea. No lightheadedness or dizziness. No syncopal episodes. Abdominal: No abdominal pain. No nausea, vomiting. No diarrhea. No constipation. No bloody or tarry stools. No loss of appetite. Genitourinary: No dysuria, increased frequency, urgency. No urinary retention. Musculoskeletal: No myalgias. Reports muscle weakness, no gait dysfunction, no frequent falls. No back pain. No neck pain. Integumentary: No wounds, no lesions. No rash or pruritus. No unusual bruisin g. No change in hair or nails. Neurologic: No aphasia. No facial droop. No change in mentation. No head injury. No headache. No paralysis. No paresthesia. Psychiatric: No depression. No anxiety. No mood swings. Endocrine: Abnormal blood sugars. No weight change. No excessive sweating or thirst. Physical Examination Gen: This is a 64-year-old morbidly obese female. Patient is resting in bed. HEENT: Head is atraumatic, normocephalic. Pupils equal, round. Sclerae is anicteric. NECK: Supple. No JVD. No lymphadenopathy. No thyromegaly. LUNGS: Diminished breath sounds bilaterally. Scattered crackles. No intercostal retractions. Respiratory status is stable. HEART: Regular rate and rhythm. No murmur. ABDOMEN: Soft. Bowel sounds are present. No masses. No tenderness. EXTREMITIES: trace bilat pedal edema. No calf tenderness. Dorsalis pedis +2 bilaterally. NEUROLOGICAL: Patient is awake, alert and oriented x3. Cranial nerves 2 through 12 are grossly intact. Significant generalized weakness noted to upper and lower extremities. - Labs CBC & Chem 7: 01/13/20 06:53 01/13/20 06:53 Labs: Abnormal Lab Results - Last 24 Hours (Table) 01/14/20 01/14/20 01/14/20 Range/Units 11:29 16:50 20:42 POC Glucose (mg/dL) 241 H 251 H 204 H (75-99) mg/dL Assessment and Plan Plan: 1. Acute hypoxic respiratory failure secondary to COPD exacerbation and COVID- 19 pneumonitis. Patient has been successfully extubated. Completed Plaquenil. Consults with pulmonary medicine and infectious disease appreciated. Continue albuterol inhaler as needed, Symbicort twice daily, Phenergan cough syrup, prednisone decreased to 30 mg daily. Continue ceftriaxone. Patient is currently on high flow nasal cannula. 2. Acute kidney injury with chronic kidney disease stage III. Avoid nephrotoxic agents, hypotension. 3. Mild hyperkalemia secondary to acute kidney injury. 4. Mild lactic acidosis secondary to COVID-19 infection. Resolved. 5. Sepsis secondary to Covid 19 infection, POA. 6. Hyperlipidemia. Continue atorvastatin 40 mg at bedtime 7. Diabetes mellitus type 2, insulin requiring, uncontrolled with hyperglycemia secondary to steroids. Continue Levemir 30 units in the morning and 25 units at bedtime, continue NovoLog 10 units with breakfast, 14 units with lunch and supper and continue NovoLog scale before meals and at bedtime. 7. History of coronary artery disease status post stenting. Continue aspirin 325 mg daily, Lipitor. 8. Hypertension. Continue lisinopril 20 mg at bedtime. Avoid hypotension. 9. Gastroesophageal reflux disease disease and GI prophylaxis. Continue Proton ix. 10. DVT prophylaxis. Eliquis 5 mg twice daily 11. Dysphagia. Continue consistent carb diet. 12. Atrial fibrillation with RVR, paroxysmal atrial fibrillation, new onset. Continue Lopressor 12.5 mg twice daily, amiodarone 200 mg twice daily, eliquis 5 mg twice daily. Discharge plan: Subacute rehab at [facility] next week. Patient will be COVID-19 tested on Thursday. Continue therapies Impression and plan of care have been directed as dictated by the signing physician. Deborah Crow nurse practitioner acting as scribe for signing physician.
[2020-01-15 11:41] LABS: Glucose,Whole Blood 196 mg/dL (75-99)
[2020-01-15] MEDS: guaiFENesin 600 MG TABLET.ER PO SCH ×2 (12:28→21:12)
[2020-01-15 17:06] LABS: Glucose,Whole Blood 208 mg/dL (75-99)
[2020-01-15] MEDS: LACTATED RINGERS 1,000 ML IV SCH (17:33)
[2020-01-15 20:56] LABS: Glucose,Whole Blood 155 mg/dL (75-99)
[2020-01-15] MEDS: ATORVASTATIN 40 MG TAB PO SCH (21:12)
[2020-01-15] MEDS: MELATONIN 5 MG TABLET PO SCH (21:12)
[2020-01-15] MEDS: LISINOPRIL 20 MG TAB PO SCH (21:16)
--- NOTE | 2020-01-15 23:52 | PN ---
PROGRESS NOTE DATE OF SERVICE: 01/15/2020 REASON FOR FOLLOWUP: Pneumonia. INTERVAL HISTORY: The patient is currently afebrile. Patient is breathing slightly comfortably. The patient's FiO2 is currently down to 9 L. Denies any chest pain. Did have a cough but no sputum. No vomiting. No diarrhea. PHYSICAL EXAMINATION: Blood pressure 121/80 with a pulse of 65, temperature 98.4. She is 97% on 9 L nasal cannula. General description is a middle-aged female up in the bed in no distress. RESPIRATORY SYSTEM: Unlabored breathing with decreased breath sounds in the bases. No wheeze. HEART: S1, S2. Regular rate and rhythm. ABDOMEN: Soft, no tenderness. LABS: No new labs have been obtained today. DIAGNOSTIC IMPRESSION AND PLAN: Patient with acute COVID-19 pneumonia for which the patient completed her treatment. Now with persistent pulmonary infiltrates and high-flow oxygen. She is currently on prednisone may benefit from burst of steroids to see response. Clinically not behaving as infectious hence will hold any further antibiotic at this point. MMODL / IJN: [id number] /
[2020-01-16 06:53] LABS: Glucose,Whole Blood 80 mg/dL (75-99)
[2020-01-16] MEDS ORDERED: INSULIN ASPART (NovoLOG) 100 UNIT/ML VIAL SQ SCH ×3 (07:30→17:30)
[2020-01-16] MEDS: INSULIN ASPART (NovoLOG) 100 UNIT/ML VIAL SQ SCH ×4 (07:49→20:59)
[2020-01-16] MEDS: predniSONE 10 MG TAB PO SCH (07:55)
[2020-01-16] MEDS: ASPIRIN 325 MG TAB PO SCH (07:55)
[2020-01-16] MEDS: FUROSEMIDE 40 MG TAB PO SCH (07:55)
[2020-01-16] MEDS: AMIODARONE 200 MG TAB PO SCH ×2 (07:55→20:57)
[2020-01-16] MEDS: METOPROLOL TARTRATE 12.5 MG TAB PO SCH ×2 (07:56→20:57)
[2020-01-16] MEDS: APIXABAN 5 MG TAB PO SCH ×2 (07:56→20:57)
[2020-01-16] MEDS: ASCORBIC ACID 500 MG TAB PO SCH ×2 (07:56→20:57)
[2020-01-16] MEDS: PANTOPRAZOLE 40 MG TABLET PO SCH (07:56)
[2020-01-16] MEDS: guaiFENesin 600 MG TABLET.ER PO SCH ×2 (07:56→20:57)
[2020-01-16] MEDS: ZINC SULFATE 220 MG CAP PO SCH (07:57)
[2020-01-16] MEDS: CHOLESTYRAMINE (WITH SUGAR) 4 GM PACKET PO SCH ×2 (07:57→17:04)
[2020-01-16] MEDS: INSULIN DETEMIR (LEVEMIR) 100 UNIT/ML SYR SQ SCH (07:58)
[2020-01-16 08:00] LABS: Anisocytosis Slight; HCT 29.2 % (34.0-46.0); HGB 8.9 gm/dL (11.4-16.0); Hypochromasia Moderate; MCH 27.4 pg (25.0-35.0); MCHC 30.7 g/dL (31.0-37.0); MCV 89.3 fL (80.0-100.0); Mean Platelet Volume 8.1; Platelet Count 198 k/uL (150-450); RBC 3.26 m/uL (3.80-5.40); RDW 16.3 % (11.5-15.5); WBC 7.3 k/uL (3.8-10.6)
[2020-01-16 08:06] LABS: Calcium 8.7 mg/dL (8.4-10.2); Potassium 3.8 mmol/L (3.5-5.1)
[2020-01-16] MEDS: SYMBICORT 160-4.5 MCG INHALER INHALATION SCH ×2 (08:18→19:02)
[2020-01-16] MEDS: ALBUTEROL HFA INHALER INHALATION PRN ×3 (08:19→19:03)
[2020-01-16 10:02] VITALS: BMI 48.2
[2020-01-16 11:24] LABS: Glucose,Whole Blood 175 mg/dL (75-99)
--- NOTE | 2020-01-16 11:28 | P.PN ---
Subjective Progress Note Date: 01/16/20 This is a 64-year-old female patient of Dr. Mojica with past medical history of asthma, hypertension, hyperlipidemia, gastroesophageal reflux disease, diabetes mellitus type 2 insulin requiring, coronary artery disease status post stent, remote history of tobacco use and dependence, chronic kidney disease stage III. 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 They were exposed to a COVID-19 positive patient on December 11 and/or December 12. She had symptoms develop approximate 7 days ago with fever, cough, shortness of breath, nausea, diarrhea. She tried to manage at home but symptoms became significantly severe in the past 3 days and she lives alone she was so sick she could not get to the She to the bathroom. Patient came into [facility] for evaluation and found to be afebrile, blood pressure 141/68, heart rate 85, pulse ox 87%. EKG was a sinus rhythm with no acute ST changes. W BC 12.1, hemoglobin 12.7, platelet count 303, sodium 136, potassium 5.3, chloride 100, CO2 23, BUN 41, creatinine 1.43, blood sugar 230. Total bilirubin 0.6, AST 49, ALT 22, alkaline phosphatase 255, LDH 1600, ferritin 609.6 C-reactive protein 262, pro calcitonin 0.2 to. Chronic virus PCR detected, influenza testing negative, lactic acid 2.1. Repeat lactic acid 1.2 chest x-ray revealed mild cardiomegaly with moderately severe diffuse interstitial edema that is changed from old exam compared to November 2018. This could represent acute interstitial pneumonia or acute heart failure. Patient was started on Tylenol, azithromycin, Plaquenil admitted to the [facility] floor and consult was requested with infectious disease and pulmonary medicine. 12/27: Patient had a drop in her oxygen saturation and became tachypneic. She was initially placed on high flow nasal cannula at 10 L, transferred into the intensive care unit and was intubated this morning. Temperature max 101.4. Heart rate in the 60s and 70s. Repeat blood work reveals CBC unremarkable except for low lymphocytes. D-dimer 1.05, potassium 5.2, BUN 62 and creatinine 1.91. Blood sugars in the 200s. Alkaline phosphatase 198 LDH 1439. She has been continued on azithromycin, Plaquenil, zinc and vitamin C. Solu-Medrol is currently at 40 mg IV every 12 hours. 12/28: Patient remains in the intensive care unit, intubated and on mechanical ventilation with tidal volume 350, FiO2 of 50 and PEEP 13. Patient has been afebrile, heart rate 50, blood pressure 120/56. Repeat blood work reveals WBC 16, hemoglobin 10.7, platelet count 273. Repeat d-dimer is decreased at 0.72. Sodium 135, potassium 4.6, chloride 103, CO2 24, BUN 63 and creatinine 1.43. Ferritin decreased to 556.8, alkaline phosphatase decreased 167, LDH decreased to 1050, C-reactive protein 181.7. Case has been discussed outside patient's room with the patient's nurse. Blood sugars have been elevated running 189 to 231. We will increase Levemir to 42 units twice daily, added and NovoLog scheduled 5 units every 6 hours along with NovoLog scale. Patient is currently & Medrol 40 mg IV every 12 hours. 12/29: Patient remains intubated in critical ventilation with tidal volume 350, FiO2 of 40 and PEEP of 13. Patient has been afebrile, heart rate in the 50s, blood pressure 101/55. Repeat laboratory studies revealed a CBC 17.5, hemoglobin 10, platelet count 276. Sodium 135, potassium 5.4, chloride 105, CO2 26, BUN 61, creatinine 1.07 area blood sugars are running in the 200s up to 300, alkaline phosphatase 143, LDH 875, C-reactive protein 67.9, albumin 2.7. We will again today increase her insulins with long acting up to 50 units twice daily and NovoLog 10 units every 6 hours along with NovoLog scale. Patient has had good urine output, tube feedings are at goal. Patient appears to be stable at this time. 12/30: Patient still having significantly elevated CRP with abnormal liver function test, lactic acid that subtle down significantly. Blood sugar still mildly elevated when titrating insulin is making sugar slightly but better at this point. Patient is still sedated on mechanical ventilation currently no weaning his plan in the next 24 hours. 12/31: Back in off on sedation patient has done slightly well still not ready to be extubated this point she had her weaning parameter and was sedated and continue mechanical ventilation. Blood sugar still high her steroid was decreased today to Solu-Medrol 40 mg twice a day with higher Levemir to 60 units twice a day and up on NovoLog to 20 units every 6 hours plus a sliding scale we have to watch for any decrease blood sugar specially with a new change on insulin and medication. 01/01: Patient remains intubated and on mechanical ventilation. Patient is on a sedation holiday. Tidal volume 350, FiO2 40, PEEP 5. Patient has been afebrile, heart rate in the 40s, blood pressure 101/49. Repeat lab work reveals W BC 16.2, hemoglobin 9.9, platelet count 291. D-dimer 0.28. Sodium 138, potassium 5.2, chloride 104, CO2 29, BUN 42 and creatinine 0.89. Blood sugars have been running 148 197. At bedtime glucose 118. Scheduled NovoLog will be decreased to 15 units and continue Levemir at 60 units twice daily. Solu-Medrol at 40 mg IV every 12 hours and Lasix 40 mg every 12 hours. Patient has completed course of Plaquenil. She remains in isolation. 01/02: Patient was successfully extubated yesterday afternoon. She is pulse ox 97% on 10 L high flow nasal cannula. She has been afebrile, heart rate 69, blood pressure 112/52. WBC 13.1, hemoglobin 10.3, platelet count 308. Sodium 141, potassium 4.7, chloride 103, CO2 36, BUN 43 and creatinine 0.96. Blood sugars are improved and stable and have been running between 90 and 146 with holding of Levemir. Levemir will be discontinued and patient on scale insulin only for now. Repeat ferritin level 527.6, LDH 914, C-reactive protein 50. Sputum culture finalized with normal ct. Blood culture no growth at 144 hours. Repeat chest x-ray reveals patchy diffuse infiltrates less stable from comparison. Central venous catheter stable. Patient is having difficulties with swallowing and speech therapy will be evaluating. For now, oral medic ations on hold. manager enterprise content management will discuss with the patient option of rehab when she is stable. Anticipate patient will be in the hospital until early next week. 01/03: Patient remains in intensive care unit. She is on O2 partial nonrebreather and pulse ox seen 97% on 15 L. Blood pressure 122/70, heart rate 80, respiratory rate 24. Patient has been afebrile for 24 hours. You have to collect again over a year repeat blood work reveals hemoglobin of 10.4, white count 12.9, platelet count 387. Sodium 140, potassium 4.5, chloride 100, CO2 38, BUN 52 and creatinine 1. Blood sugars have been running between 188 and 198. Blood sugars were in the 200s yesterday afternoon. Patient is now able to eat and we will start Levemir back in at 10 units twice daily. Sputum culture is finalized with normal ct and blood culture no growth. A repeat chest x- ray is stable peripherally oriented bilateral consolidation and retrocardiac airspace disease. Dr. Moreira is continuing to follow patient and recommending vancomycin and prednisone. manager enterprise content management and manager social media are attempting to reach the patient's son regarding subacute rehab. PT and OT have recommended subacute rehab. 01/04: Patient remains in the intensive care unit, afebrile, heart rate 76, respiratory rate 15-25, blood pressure 106/52, pulse ox 93% on partial rebreather. Repeat lab work reveals hemoglobin 9.8, WBC 8.7, platelet count 355. BUN 48 creatinine 1.01. Blood sugars running this morning at 158. During the evening in the low 200s, 201-230. Patient will be continued on Levemir 10 units twice daily for now and monitor closely. Anticipate increased need once patient is eating. Thus far, patient has had only a few bites of her food. Social work is working with the patient, her son regarding possible workman comp coverage for subacute rehab. Dr. Mojica is planning for her to go to [facility] for subacute rehab when stabilized. 01/05: Patient remains in intensive care unit. She is awake and alert. She continues to have significant weakness. She is eating very little. She is currently on partial rebreather mask and we will try to transition to nasal cannula today. Patient went into A. fib with RVR yesterday and was started on amiodarone subsequently converted to normal sinus rhythm. Echocardiogram reveals EF of 65-70% with severe concentric left ventricular hypertrophy, mild tricuspid regurgitation, mild pulmonary hypertension.. Patient has been afebrile, blood pressure 99/49, pulse ox 99% on 15 L partial rebreather mask. Repeat blood work reveals WBC 9.6, hemoglobin 9.8, platelet count 348. Electrolytes normal, CO2 36, BUN 44 and creatinine 0.94. Blood sugars running 143-165. 01/06: Patient remains in ICU. She was awake and alert this morning and continues to have significant weakness. Patient remains on partial rebreather mask unable to tolerate weaning to nasal cannula yesterday per nursing, will retry today. Patient continues to be normal sinus rhythm. Blood sugar last night was 400 will increase Levemir to 30 units twice a day, NovoLog 10 units with meals along with sliding scale coverage, will titrate slowly to patient's home dose due to decreased oral intake. Patient still to assist two get up to chair. Vital signs are stable, patient remains afebrile heart rate 64 blood pressure 96/53, pulse ox 98% on partial rebreather at 15 L. Labs are reviewed, hemoglobin stable at 9.7, BUN 41 and creatinine 0.91. Repeat chest x-ray showed no significant interval change in the appearance of the chest. 01/07 patient seen in ICU this a.m. She is awake and alert. Patient remains on partial rebreather mask O2 flow down to 12 L. Vital signs are stable, remains a febrile heart rate 66, blood pressure 99/66, pulse ox 96%. Patient has been in and out of A. fib per night nurse. Patient is anticoagulated on Eliquis. labs were reviewed, white blood cells 11.8 hemoglobin 10.0 BUN 33, creatinine 0.92. Blood sugars have been up and down, had a blood sugar of 56 this morning adjusted Levemir dose down to 20 units at bedtime and continue 30 AM this should improve as patient tolerates increase oral intake. Speech PT and OT all remain on the case, repeat chest x-ray this morning showed no significant change. 01/08: Patient remains in the intensive care unit. She is currently pulse oxing 99% on 12 L high flow nasal cannula. She has been afebrile, heart rate 62, blood pressure 108/43. Repeat lab work reveals WBC 8.4, hemoglobin 9.3. Potassium 3.3 and will be replaced. CO2 32, BUN 29 creatinine 1.04. Blood sugars this morning 112. Patient was running in the 200s in the evening prior. She is currently on Levemir 30 units in the morning and 20 units at bedtime along with NovoLog 10 units 3 times daily with meals and NovoLog scale. Patient is not eating today and we will make minor changes to the Levemir. NovoLog was held for breakfast.. She is on prednisone 40 mg daily. She was on oral amiodarone 200 mg twice daily and eliquis. She is on antibiotics in the form of ceftriaxone. Lasix is at 40 mg IV daily. Rama is evaluating the patient for subacute rehab. 01/09: Patient remains in intensive care unit. She is currently on nonrebre ather. Patient did well yesterday and was up to a chair with physical therapy. During the evening she was placed on a nonrebreather a pulse ox dropped down to 80%. This morning she was transitioned to nasal cannula 12 L but with rolling in bed she have dropping pulse ox to 70s. She is now back on a nonrebreather. Patient is also having increased volume of bowel movements. Stool has been sent for C. difficile toxin. Patient is afebrile, heart rate 65, respiratory rate 26-30, blood pressure 111/56, pulse ox 100% on nonrebreather. Repeat blood work reveals WBC 9.1, hemoglobin 9.3, platelet count 359. Sodium 141, potassium replacement 7, chloride 104, CO2 32, BUN 26 and creatinine 0.99. Blood sugar this morning is 154. Patient did have one reading of 348 last evening and was in the 200 chest or afternoon. NovoLog scheduled with lunch and supper will be increased. 01/10: Patient remains in intensive care unit. She is on high flow nasal cannula at 15 L pulse oxing 97%. Patient's been afebrile, heart rate 65, respiratory rate 31, blood pressure 110/56.repeat chest x-ray reveals stable patchy bilateral infiltrates.blood sugar this morning 119, blood sugars in the 200s yesterday evening 228 and 276. C. difficile toxin came back negative and Dr. Moreira started the patient on Questran. 01/11: The patient has been transferred to the [facility] floor. She remains in COVID-19 isolation. She continues to have shortness of breath with activity and unable to lay flat. Incentive spirometer is 625 mL. Patient had a soft brown bowel movement this morning. No diarrhea. Patient is currently pulse oxing 100% on 15 L nasal cannula and been turned down to 12 L high flow nasal cannula. She is afebrile. Heart rate 61, blood pressure 98/39. We will plan to repeat Coronavirus testing on Thursday and Thursday in preparation for discharge to [facility] most likely on Thursday. Capillary blood glucose this morning was 136. Patient was running high at 267 301 and 225 in the evening. Patient did not receive her scheduled NovoLog yesterday morning. NovoLog at lunch will be increased slightly. 01/12: Patient is seen today on the [facility] floor. She is working with physical therapy and occupational therapy. She has been able to get herself out of bed and was up in a chair for 3 hours yesterday. She is currently ambulating from chair and into the hallway with therapies. She continues to have significant weakness. Urrutia catheter will be discontinued today. Patient is requesting that her diabetes advanced and we will place her on consistent carb diet. Patient is afebrile, heart rate 60, blood pressure 132/80, pulse ox 99% on 12 L nasal cannula. Hemoglobin today is 9, BUN 24 and creatinine 0.88. Blood sugar this morning was 133, patient had an elevated blood sugar of 251 at supper and 300 at bedtime. Insulin adjusted again today. Prednisone will be decreased to 30 mg daily. Patient is currently on Rocephin. Diarrhea has resolved with Questran. 01/13: Patient is seen today on the [facility] floor. She states her breathing is less tight today. She is currently on 11 L high flow nasal cannula and pulse oxing 96%. She has been afebrile, heart rate 78, blood pressure 119/64. Patient denies having any lower extremity edema. Lasix will be changed to oral today. She has been up in the chair and states she spent several hours in the chair yesterday which helps her breathing. Patient's blood sugars to remain high despite multiple changes to her insulins. The patient has been continued on Rocephin. We'll plan to check COVID-19 once oxygen needs are lower. 01/14: The patient is resting in bed this morning during evaluation. She is requesting melatonin and Mucinex which will be started. She is currently pulse oxing 93-99% on 10 L nasal cannula, afebrile, heart rate 60, blood pressure 121/70. Blood sugar this morning was 86 but otherwise running in the 200s. Insulin adjusted again today. We will plan to do Covid testing tomorrow in anticipation of discharge to [facility] sometime next week. 01/15: Patient's breathing status continues to improve slowly. She is now on 6 L nasal cannula pulse oxing 96-98%. Heart rate is 61, blood pressure 108/60, afebrile. We will repeat Covid 19 testing in preparation for [facility] transfer for tomorrow. Lasix will be changed to 40 in the morning and 20 in the afternoon. Repeat blood work reveals hemoglobin 8.9, BUN 27 creatinine 0.94. Blood sugars are improving with only one reading at 208 at supper. Mild insulin adjustments made. Prednisone decreased to 20 mg daily starting tomorrow. Objective - Vital Signs Vital signs: Vital Signs Temp 98.0 F 01/16/20 07:00 Pulse 69 01/16/20 09:05 Resp 17 01/16/20 08:00 BP 105/69 01/16/20 07:00 Pulse Ox 96 01/16/20 09:05 Intake & Output 01/15/20 01/16/20 01/16/20 18:59 06:59 18:59 Intake Total 780 100 Output Total 1 Balance 779 100 Intake: Oral 780 100 Output: Urine 1 Other: # Voids 1 # Bowel Movements 1 ABP, PAP, CO, CI - Last Documented Arterial Blood Pressure 84/63 - Exam Review of Systems Constitutional: No fever, no chills, no night sweats. No weight change. Reports fatigue-improving. EENT: No headache. No blurred vision or double vision, no loss of vision. No loss of Hearing, no ringing in the ears, no dizziness. No nasal drainage or congestion. No epistaxis. No sore throat. Lungs: Reports shortness of breath-improving, Reports cough, Reports sputum production. No wheezing. Cardiovascular: No chest pain, no lower extremity edema. No palpitations. No paroxysmal nocturnal dyspnea. Reports orthopnea. No lightheadedness or dizziness. No syncopal episodes. Abdominal: No abdominal pain. No nausea, vomiting. No diarrhea. No consti pation. No bloody or tarry stools. No loss of appetite. Genitourinary: No dysuria, increased frequency, urgency. No urinary retention. Musculoskeletal: No myalgias. Reports muscle weakness, no gait dysfunction, no frequent falls. No back pain. No neck pain. Integumentary: No wounds, no lesions. No rash or pruritus. No unusual bruising. No change in hair or nails. Neurologic: No aphasia. No facial droop. No change in mentation. No head injury. No headache. No paralysis. No paresthesia. Psychiatric: No depression. No anxiety. No mood swings. Endocrine: Abnormal blood sugars. No weight change. No excessive sweating or thirst. Physical Examination Gen: This is a 64-year-old morbidly obese female. HEENT: Head is atraumatic, normocephalic. Pupils equal, round. Sclerae is anicteric. NECK: Supple. No JVD. No lymphadenopathy. No thyromegaly. LUNGS: Diminished breath sounds bilaterally. Scattered crackles. No intercostal retractions. Respiratory status is stable. HEART: Regular rate and rhythm. No murmur. ABDOMEN: Soft. Bowel sounds are present. No masses. No tenderness. EXTREMITIES: trace bilat pedal edema. No calf tenderness. Dorsalis pedis +2 bilaterally. NEUROLOGICAL: Patient is awake, alert and oriented x3. Cranial nerves 2 through 12 are grossly intact. Significant generalized weakness noted to upper and lower extremities. - Labs CBC & Chem 7: 01/16/20 07:36 01/16/20 07:36 Labs: Abnormal Lab Results - Last 24 Hours (Table) 01/15/20 01/15/20 01/15/20 Range/Units 11:39 17:02 20:50 RBC (3.80-5.40) m/uL Hgb (11.4-16.0) gm/dL Hct (34.0-46.0) % MCHC (31.0-37.0) g/dL RDW (11.5-15.5) % BUN (7-17) mg/dL POC Glucose (mg/dL) 196 H 208 H 155 H (75-99) mg/dL 01/16/20 01/16/20 Range/Units 07:36 07:36 RBC 3.26 L (3.80-5.40) m/uL Hgb 8.9 L (11.4-16.0) gm/dL Hct 29.2 L (34.0-46.0) % MCHC 30.7 L (31.0-37.0) g/dL RDW 16.3 H (11.5-15.5) % BUN 27 H (7-17) mg/dL POC Glucose (mg/dL) (75-99) mg/dL Assessment and Plan Plan: 1. Acute hypoxic respiratory failure secondary to COPD exacerbation and COVID- 19 pneumonitis. Patient has been successfully extubated. Completed Plaquenil. Consults with pulmonary medicine and infectious disease appreciated. Continue albuterol inhaler as needed, Symbicort twice daily, Phenergan cough syrup, prednisone decreased to 20 mg daily. Continue ceftriaxone. Patient is currently on high flow nasal cannula. 2. Acute kidney injury with chronic kidney disease stage III. Avoid nephrotoxic agents, hypotension. 3. Mild hyperkalemia secondary to acute kidney injury. 4. Mild lactic acidosis secondary to COVID-19 infection. Resolved. 5. Sepsis secondary to Covid 19 infection, POA. 6. Hyperlipidemia. Continue atorvastatin 40 mg at bedtime 7. Diabetes mellitus type 2, insulin requiring, uncontrolled with hyperglycemia secondary to steroids. Continue Levemir 30 units in the morning and 25 units at bedtime, continue NovoLog 10 units with breakfast, 14 units with lunch and supper and continue NovoLog scale before meals and at bedtime. 7. History of coronary artery disease status post stenting. Continue aspirin 325 mg daily, Lipitor. 8. Hypertension. Continue lisinopril 20 mg at bedtime. Avoid hypotension. 9. Gastroesophageal reflux disease disease and GI prophylaxis. Continue Protonix. 10. DVT prophylaxis. Eliquis 5 mg twice daily 11. Dysphagia. Continue consistent carb diet. 12. Atrial fibrillation with RVR, paroxysmal atrial fibrillation, new onset. Continue Lopressor 12.5 mg twice daily, amiodarone 200 mg twice daily, eliquis 5 mg twice daily. Discharge plan: Subacute rehab at [facility] Thursday or Thursday of this week. Repeat COVID-19 test today and tomorrow. Continue therapies Impression and plan of care have been directed as dictated by the signing physician. Deborah Crow nurse practitioner acting as scribe for signing physician.
--- NOTE | 2020-01-16 12:20 | P.PN ---
Subjective Progress Note Date: 01/16/20 Principal diagnosis: Acute hypoxemic respiratory failure secondary to CoVID 19 related pneumonia, requiring intubation and placement on mechanical ventilator on 12/28/2019 The patient is seen today 01/13/2020 in follow-up on the regular medical floor. She is currently sitting up in a chair at the bedside. Awake and alert in no acute distress. She's been up ambulating in her room. She is still requiring 12 L high flow nasal cannula to maintain O2 saturations in the 90s. White count 8.6. Hemoglobin 9.0. Sodium 142. Potassium 3.7. Creatinine 0.88. Glucose 121. Chest x-ray reveals worsening peripheral and basilar multifocal consolidations. She remains on bronchodilators, anticoagulated with Eliquis, prednisone, zinc, ceftriaxone. Daily 40 mg of IV Lasix. Currently in a negative balance. The patient is seen today 01/14/2020 in follow-up on the regular medical floor. She is currently resting comfortably in bed. Awake and alert in no acute distress. She is breathing easier today as compared to yesterday. She was up in the chair for several hours yesterday. She is currently on 10 L high flow nasal cannula maintaining O2 saturation in the 90s. She remains afebrile. Hemodynamically stable. Blood and sputum cultures reveal no growth. Anticoagulated with Eliquis. Continued on a prednisone taper. Continued on zinc. Patient is seen today 01/15/2020 in follow-up on the regular medical floor. She is awake and alert in no acute distress. She's been up to the bathroom and in the shower today. She denies any worsening shortness of breath cough or congestion. Her oxygen has been titrated down to 9 L high flow nasal cannula maintaining O2 saturation in the 90s. She's been afebrile. Hemodynamically stable. Blood and sputum cultures reveal no growth. Blood glucose 86. The patient is seen today 01/16/2020 in follow-up on the regular medical floor. She is currently up ambulating in the room with assistance. Awake and alert in no acute distress. Feeling stronger each day. Not quite back to her baseline. She is maintaining O2 saturations in the upper 90s on 6 L/m per nasal cannula. She's been afebrile. Blood and sputum cultures reveal no growth. White count 7.3. Hemoglobin 8.9. Sodium 139. Potassium 3.8. Creatinine 0.94. Follow-up coronavirus is not detected. She remains on bronchodilators, prednisone, vitamin C and zinc. Anticoagulated with Eliquis. Objective - Vital Signs Vital signs: Vital Signs Temp 97.7 F 01/16/20 11:00 Pulse 61 01/16/20 11:00 Resp 20 01/16/20 11:00 BP 108/60 01/16/20 11:00 Pulse Ox 98 01/16/20 11:00 Intake & Output 01/15/20 01/16/20 01/16/20 18:59 06:59 18:59 Intake Total 780 100 Output Total 1 Balance 779 100 Weight 123.5 kg Intake: Oral 780 100 Output: Urine 1 Other: # Voids 1 # Bowel Movements 1 ABP, PAP, CO, CI - Last Documented Arterial Blood Pressure 84/63 - Exam GENERAL EXAM: Very pleasant 64-year-old obese female patient, on 6 L high flow oxygen with a pulse ox of 98% comfortable in no apparent distress. HEAD: Normocephalic/atraumatic. EYES: Normal reaction of pupils, equal size. Conjunctiva pink, sclera white. NOSE: Clear with pink turbinates. THROAT: No erythema or exudates. NECK: No masses, no JVD, no thyroid enlargement, no adenopathy. CHEST: No chest wall deformity. Symmetrical expansion. LUNGS: Equal air entry with few scattered rhonchi bilaterally. CVS: Regular rate and rhythm, normal S1 and S2, no gallops, no murmurs, no rubs ABDOMEN: Soft, nontender. No hepatosplenomegaly, normal bowel sounds, no guarding or rigidity. EXTREMITIES: No clubbing, no edema, no cyanosis, 2+ pulses and upper and lower extremities. MUSCULOSKELETAL: Muscle strength and tone normal. SPINE: No scoliosis or deformity SKIN: No rashes CENTRAL NERVOUS SYSTEM: Awake and alert, oriented 3, No focal deficits, tone is normal in all 4 extremities. - Labs CBC & Chem 7: 01/16/20 07:36 01/16/20 07:36 Labs: Abnormal Lab Results - Last 24 Hours (Table) 01/15/20 01/15/20 01/16/20 Range/Units 17:02 20:50 07:36 RBC 3.26 L (3.80-5.40) m/uL Hgb 8.9 L (11.4-16.0) gm/dL Hct 29.2 L (34.0-46.0) % MCHC 30.7 L (31.0-37.0) g/dL RDW 16.3 H (11.5-15.5) % BUN (7-17) mg/dL POC Glucose (mg/dL) 208 H 155 H (75-99) mg/dL 01/16/20 01/16/20 Range/Units 07:36 11:22 RBC (3.80-5.40) m/uL Hgb (11.4-16.0) gm/dL Hct (34.0-46.0) % MCHC (31.0-37.0) g/dL RDW (11.5-15.5) % BUN 27 H (7-17) mg/dL POC Glucose (mg/dL) 175 H (75-99) mg/dL Assessment and Plan Assessment: 1. Acute hypoxemic respiratory failure related to COVID 19 related pneumonia, requiring intubation and placement on mechanical ventilation on 12/28/2019, subsequently extubated and currently on 6 L high flow nasal cannula on the regular medical floor. Follow-up Covid testing negative today. 2. Cough, shortness of breath, weakness, fatigue, diffuse bilateral infiltrates related to COVID19 infection is improved 3. Elevated ferritin, LDH, CRP and d-dimer related to acute COVID19 related pneumonia, and inflammatory markers are improving 4. Elevated troponin, rule out possibility of coinfection, related to bacterial infection 5. Hypertension 6. Hyperlipidemia 7. GERD/reflux 8. Diabetes mellitus type 2 9. History of chronic bronchial asthma, unspecified 10. Chronic kidney disease, unknown baseline 11. History of diverticular disease 12. History of coronary artery disease with PCI and stent placement Plan: The patient was seen and evaluated by Dr. Liu Continue to titrate down the FiO2 as tolerated Follow up CoVID 19 testing is negative today Incentive spirometer and cough and deep breathing exercises Increase her activity as tolerated We will continue to follow and make further recommendations based on her clinical status. I, the cosigning physician, performed a history & physical examination of the patient. Lungs sounds with bilateral scattered rhonchit. Maintaining good O2 saturations in the 90s on 6 L high flow nasal cannula. I discussed the assessment and plan of care with my nurse practitioner, Missy Jeffrey. I attest to the above note as dictated by her.
[2020-01-16] MEDS: FUROSEMIDE 20 MG TAB PO SCH (12:29)
[2020-01-16 16:40] LABS: Glucose,Whole Blood 333 mg/dL (75-99)
[2020-01-16] MEDS: LACTATED RINGERS 1,000 ML IV SCH (17:04)
--- NOTE | 2020-01-16 19:23 | PN ---
PROGRESS NOTE DATE OF SERVICE: 01/16/2020 REASON FOR FOLLOWUP: Pneumonia. INTERVAL HISTORY: The patient is currently afebrile. The patient is breathing more comfortably. Her FiO2 is currently down to 6 L. Denies having any chest pain. Cough but no worsening. No nausea, vomiting, abdominal pain or diarrhea. PHYSICAL EXAMINATION: Blood pressure 110/66, pulse of 67, temperature 98.2. She is 97% on 6 L nasal cannula. General description is a middle-aged female up in the bed in no distress. RESPIRATORY SYSTEM: Unlabored breathing with decreased intensity of breath sounds. No wheeze. HEART: S1, S2. Regular rate and rhythm. ABDOMEN: Soft. No tenderness. LABS: Hemoglobin 8.9, white count 7.3, BUN of 27, creatinine 0.94. [place] PCR came back negative. Sputum has been negative. DIAGNOSTIC IMPRESSION AND PLAN: Patient with acute COVID-19 pneumonia, for which the patient has completed her treatment. The patient has slowly to be weaned off the oxygen, though seems to be clinically improving. To continue with the current symptomatic treatment. No need for any systemic antibiotic therapy at this point. Continue with supportive care. MMODL / IJN: [id number] /
[2020-01-16 20:33] LABS: Glucose,Whole Blood 347 mg/dL (75-99)
[2020-01-16] MEDS: MELATONIN 5 MG TABLET PO SCH (20:56)
[2020-01-16] MEDS: ATORVASTATIN 40 MG TAB PO SCH (20:57)
[2020-01-16] MEDS: LISINOPRIL 20 MG TAB PO SCH (20:57)
[2020-01-16] MEDS ORDERED: INSULIN DETEMIR (LEVEMIR) 100 UNIT/ML SYR SQ SCH (21:00)
[2020-01-17 06:54] LABS: Glucose,Whole Blood 83 mg/dL (75-99)
[2020-01-17] MEDS: ALBUTEROL HFA INHALER INHALATION PRN ×2 (07:28→12:22)
[2020-01-17] MEDS: SYMBICORT 160-4.5 MCG INHALER INHALATION SCH (07:29)
[2020-01-17] MEDS: INSULIN ASPART (NovoLOG) 100 UNIT/ML VIAL SQ SCH ×2 (07:29→11:58)
[2020-01-17] MEDS ORDERED: INSULIN ASPART (NovoLOG) 100 UNIT/ML VIAL SQ SCH ×3 (07:30→17:30)
[2020-01-17] MEDS ORDERED: predniSONE 20 MG TAB PO SCH (09:00)
[2020-01-17 09:10] LABS: Glucose,Whole Blood 178 mg/dL (75-99)
[2020-01-17] MEDS: CHOLESTYRAMINE (WITH SUGAR) 4 GM PACKET PO SCH (09:14)
[2020-01-17] MEDS: AMIODARONE 200 MG TAB PO SCH (09:19)
[2020-01-17] MEDS: ZINC SULFATE 220 MG CAP PO SCH (09:19)
[2020-01-17] MEDS: PANTOPRAZOLE 40 MG TABLET PO SCH (09:19)
[2020-01-17] MEDS: ASCORBIC ACID 500 MG TAB PO SCH (09:19)
[2020-01-17] MEDS: INSULIN DETEMIR (LEVEMIR) 100 UNIT/ML SYR SQ SCH (09:19)
[2020-01-17] MEDS: APIXABAN 5 MG TAB PO SCH (09:19)
[2020-01-17] MEDS: ASPIRIN 325 MG TAB PO SCH (09:19)
[2020-01-17] MEDS: guaiFENesin 600 MG TABLET.ER PO SCH (09:19)
[2020-01-17] MEDS: FUROSEMIDE 40 MG TAB PO SCH (09:20)
[2020-01-17] MEDS: METOPROLOL TARTRATE 12.5 MG TAB PO SCH (09:22)
[2020-01-17 11:33] LABS: Glucose,Whole Blood 130 mg/dL (75-99)
--- NOTE | 2020-01-17 11:36 | P.DS ---
Providers Date of admission: 12/26/19 23:18 Expected date of discharge: 01/17/20 Attending physician: Ilia Mojica Consults: 12/26/19 23:20 Consult Physician Urgent Consulting Provider: Shun Liu Consult Reason/Comments: covid pneumonia Do you want consulting provider notified?: Yes Consult Physician Urgent Consulting Provider: Katina Moreira Consult Reason/Comments: covid pneumonia Do you want consulting provider notified?: Yes Primary care physician: Ilia Mojica [facility] Course: This is a 64-year-old female patient of Dr. Mojica with past medical history of asthma, hypertension, hyperlipidemia, gastroesophageal reflux disease, diabetes mellitus type 2 insulin requiring, coronary artery disease status post stent, remote history of tobacco use and dependence, chronic kidney disease stage III. 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 They were exposed to a COVID-19 positive patient on December 11 and/or December 12. She had symptoms develop approximate 7 days ago with fever, cough, shortness of breath, nausea, diarrhea. She tried to manage at home but symptoms became significantly severe in the past 3 days and she lives alone she was so sick she could not get to the She to the bathroom. Patient came into [facility] emergency center for evaluation and found to be afebrile, blood pressure 141/68, heart rate 85, pulse ox 87%. EKG was a sinus rhythm with no acute ST changes. W BC 12.1, hemoglobin 12.7, platelet count 303, sodium 136, potassium 5.3, chloride 100, CO2 23, BUN 41, creatinine 1.43, blood sugar 230. Total bilirubin 0.6, AST 49, ALT 22, alkaline phosphatase 255, LDH 1600, ferritin 609.6 C-reactive protein 262, pro calcitonin 0.2 to. Chronic virus PCR detected, influenza testing negative, lactic acid 2.1. Repeat lactic acid 1.2 chest x-ray revealed mild cardiomegaly with moderately severe diffuse interstitial edema that is changed from old exam compared to November 2018. This could represent acute interstitial pneumonia or acute heart failure. Patient was started on Tylenol, azithromycin, Plaquenil admitted to the [facility] floor and consult was requested with infectious disease and pulmonary medicine. 12/27: Patient had a drop in her oxygen saturation and became tachypneic. She was initially placed on high flow nasal cannula at 10 L, transferred into the intensive care unit and was intubated this morning. Temperature max 101.4. Heart rate in the 60s and 70s. Repeat blood work reveals CBC unremarkable except for low lymphocytes. D-dimer 1.05, potassium 5.2, BUN 62 and creatinine 1.91. Blood sugars in the 200s. Alkaline phosphatase 198 LDH 1439. She has been continued on azithromycin, Plaquenil, zinc and vitamin C. Solu-Medrol is currently at 40 mg IV every 12 hours. 12/28: Patient remains in the intensive care unit, intubated and on mechanical v entilation with tidal volume 350, FiO2 of 50 and PEEP 13. Patient has been afebrile, heart rate 50, blood pressure 120/56. Repeat blood work reveals WBC 16, hemoglobin 10.7, platelet count 273. Repeat d-dimer is decreased at 0.72. Sodium 135, potassium 4.6, chloride 103, CO2 24, BUN 63 and creatinine 1.43. Ferritin decreased to 556.8, alkaline phosphatase decreased 167, LDH decreased to 1050, C-reactive protein 181.7. Case has been discussed outside patient's room with the patient's nurse. Blood sugars have been elevated running 189 to 231. We will increase Levemir to 42 units twice daily, added and NovoLog scheduled 5 units every 6 hours along with NovoLog scale. Patient is currently & Medrol 40 mg IV every 12 hours. 12/29: Patient remains intubated in critical ventilation with tidal volume 350, FiO2 of 40 and PEEP of 13. Patient has been afebrile, heart rate in the 50s, blood pressure 101/55. Repeat laboratory studies revealed a CBC 17.5, hemoglobin 10, platelet count 276. Sodium 135, potassium 5.4, chloride 105, CO2 26, BUN 61, creatinine 1.07 area blood sugars are running in the 200s up to 300, alkaline phosphatase 143, LDH 875, C-reactive protein 67.9, albumin 2.7. We will again today increase her insulins with long acting up to 50 units twice daily and NovoLog 10 units every 6 hours along with NovoLog scale. Patient has had good urine output, tube feedings are at goal. Patient appears to be stable at this time. 12/30: Patient still having significantly elevated CRP with abnormal liver function test, lactic acid that subtle down significantly. Blood sugar still mildly elevated when titrating insulin is making sugar slightly but better at this point. Patient is still sedated on mechanical ventilation currently no weaning his plan in the next 24 hours. 12/31: Back in off on sedation patient has done slightly well still not ready to be extubated this point she had her weaning parameter and was sedated and continue mechanical ventilation. Blood sugar still high her steroid was decreased today to Solu-Medrol 40 mg twice a day with higher Levemir to 60 units twice a day and up on NovoLog to 20 units every 6 hours plus a sliding scale we have to watch for any decrease blood sugar specially with a new change on insulin and medication. 01/01: Patient remains intubated and on mechanical ventilation. Patient is on a sedation holiday. Tidal volume 350, FiO2 40, PEEP 5. Patient has been afebrile, heart rate in the 40s, blood pressure 101/49. Repeat lab work reveals W BC 16.2, hemoglobin 9.9, platelet count 291. D-dimer 0.28. Sodium 138, pot assium 5.2, chloride 104, CO2 29, BUN 42 and creatinine 0.89. Blood sugars have been running 148 197. At bedtime glucose 118. Scheduled NovoLog will be decreased to 15 units and continue Levemir at 60 units twice daily. Solu-Medrol at 40 mg IV every 12 hours and Lasix 40 mg every 12 hours. Patient has completed course of Plaquenil. She remains in isolation. 01/02: Patient was successfully extubated yesterday afternoon. She is pulse ox 97% on 10 L high flow nasal cannula. She has been afebrile, heart rate 69, blood pressure 112/52. WBC 13.1, hemoglobin 10.3, platelet count 308. Sodium 141, potassium 4.7, chloride 103, CO2 36, BUN 43 and creatinine 0.96. Blood sugars are improved and stable and have been running between 90 and 146 with holding of Levemir. Levemir will be discontinued and patient on scale insulin only for now. Repeat ferritin level 527.6, LDH 914, C-reactive protein 50. Sputum culture finalized with normal ct. Blood culture no growth at 144 hours. Repeat chest x-ray reveals patchy diffuse infiltrates less stable from comparison. Central venous catheter stable. Patient is having difficulties with swallowing and speech therapy will be evaluating. For now, oral medications on hold. baseball club manager will discuss with the patient option of rehab when she is stable. Anticipate patient will be in the hospital until early next week. 01/03: Patient remains in intensive care unit. She is on O2 partial nonrebreather and pulse ox seen 97% on 15 L. Blood pressure 122/70, heart rate 80, respiratory rate 24. Patient has been afebrile for 24 hours. You have to collect again over a year repeat blood work reveals hemoglobin of 10.4, white count 12.9, platelet count 387. Sodium 140, potassium 4.5, chloride 100, CO2 38, BUN 52 and creatinine 1. Blood sugars have been running between 188 and 198. Blood sugars were in the 200s yesterday afternoon. Patient is now able to eat and we will start Levemir back in at 10 units twice daily. Sputum culture is finalized with normal ct and blood culture no growth. A repeat chest x- ray is stable peripherally oriented bilateral consolidation and retrocardiac airspace disease. Dr. Moreira is continuing to follow patient and recommending vancomycin and prednisone. baseball club manager and social secretary are attempting to reach the patient's son regarding subacute rehab. PT and OT have recommended subacute rehab. 01/04: Patient remains in the intensive care unit, afebrile, heart rate 76, respiratory rate 15-25, blood pressure 106/52, pulse ox 93% on partial rebreather. Repeat lab work reveals hemoglobin 9.8, WBC 8.7, platelet count 355. BUN 48 creatinine 1.01. Blood sugars running this morning at 158. During the evening in the low 200s, 201-230. Patient will be continued on Levemir 10 units twice daily for now and monitor closely. Anticipate increased need once patient is eating. Thus far, patient has had only a few bites of her food. Social work is working with the patient, her son regarding possible workman comp coverage for subacute rehab. Dr. Mojica is planning for her to go to [facility] for subacute rehab when stabilized. 01/05: Patient remains in intensive care unit. She is awake and alert. She continues to have significant weakness. She is eating very little. She is currently on partial rebreather mask and we will try to transition to nasal cannula today. Patient went into A. fib with RVR yesterday and was started on amiodarone subsequently converted to normal sinus rhythm. Echocardiogram reveals EF of 65-70% with severe concentric left ventricular hypertrophy, mild tricuspid regurgitation, mild pulmonary hypertension.. Patient has been afebrile, blood pressure 99/49, pulse ox 99% on 15 L partial rebreather mask. Repeat blood work reveals WBC 9.6, hemoglobin 9.8, platelet count 348. Electrolytes normal, CO2 36, BUN 44 and creatinine 0.94. Blood sugars running 143-165. 01/06: Patient remains in ICU. She was awake and alert this morning and continues to have significant weakness. Patient remains on partial rebreather mask unable to tolerate weaning to nasal cannula yesterday per nursing, will retry today. Patient continues to be normal sinus rhythm. Blood sugar last night was 400 will increase Levemir to 30 units twice a day, NovoLog 10 units with meals along with sliding scale coverage, will titrate slowly to patient's home dose due to decreased oral intake. Patient still to assist two get up to chair. Vital signs are stable, patient remains afebrile heart rate 64 blood pressure 96/53, pulse ox 98% on partial rebreather at 15 L. Labs are reviewed, hemoglobin stable at 9.7, BUN 41 and creatinine 0.91. Repeat chest x-ray showed no significant interval change in the appearance of the chest. 01/07 patient seen in ICU this a.m. She is awake and alert. Patient remains on partial rebreather mask O2 flow down to 12 L. Vital signs are stable, remains afebrile heart rate 66, blood pressure 99/66, pulse ox 96%. Patient has been in and out of A. fib per night nurse. Patient is anticoagulated on Eliquis. labs were reviewed, white blood cells 11.8 hemoglobin 10.0 BUN 33, creatinine 0.92. Blood sugars have been up and down, had a blood sugar of 56 this morning adjusted Levemir dose down to 20 units at bedtime and continue 30 AM this should improve as patient tolerates increase oral intake. Speech PT and OT all remain on the case, repeat chest x-ray this morning showed no significant change. 01/08: Patient remains in the intensive care unit. She is currently pulse oxing 99% on 12 L high flow nasal cannula. She has been afebrile, heart rate 62, blood pressure 108/43. Repeat lab work reveals WBC 8.4, hemoglobin 9.3. Potassium 3.3 and will be replaced. CO2 32, BUN 29 creatinine 1.04. Blood sugars this morning 112. Patient was running in the 200s in the evening prior. She is currently on Levemir 30 units in the morning and 20 units at bedtime along with NovoLog 10 units 3 times daily with meals and NovoLog scale. Patient is not eating today and we will make minor changes to the Levemir. NovoLog was held for breakfast.. She is on prednisone 40 mg daily. She was on oral amiodarone 200 mg twice daily and eliquis. She is on antibiotics in the form of ceftriaxone. Lasix is at 40 mg IV daily. [facility] is evaluating the patient for subacute rehab. 01/09: Patient remains in intensive care unit. She is currently on nonrebreather. Patient did well yesterday and was up to a chair with physical therapy. During the evening she was placed on a nonrebreather a pulse ox dropped down to 80%. This morning she was transitioned to nasal cannula 12 L but with rolling in bed she have dropping pulse ox to 70s. She is now back on a nonrebreather. Patient is also having increased volume of bowel movements. S tool has been sent for C. difficile toxin. Patient is afebrile, heart rate 65, respiratory rate 26-30, blood pressure 111/56, pulse ox 100% on nonrebreather. Repeat blood work reveals WBC 9.1, hemoglobin 9.3, platelet count 359. Sodium 141, potassium replacement 7, chloride 104, CO2 32, BUN 26 and creatinine 0.99. Blood sugar this morning is 154. Patient did have one reading of 348 last eveni ng and was in the 200 chest or afternoon. NovoLog scheduled with lunch and supper will be increased. 01/10: Patient remains in intensive care unit. She is on high flow nasal cannula at 15 L pulse oxing 97%. Patient's been afebrile, heart rate 65, respiratory rate 31, blood pressure 110/56.repeat chest x-ray reveals stable patchy bilateral infiltrates.blood sugar this morning 119, blood sugars in the 200s yesterday evening 228 and 276. C. difficile toxin came back negative and Dr. Moreira started the patient on Questran. 01/11: The patient has been transferred to the [facility] floor. She remains in COVID-19 isolation. She continues to have shortness of breath with activity and unable to lay flat. Incentive spirometer is 625 mL. Patient had a soft brown bowel movement this morning. No diarrhea. Patient is currently pulse oxing 100% on 15 L nasal cannula and been turned down to 12 L high flow nasal cannula. She is afebrile. Heart rate 61, blood pressure 98/39. We will plan to repeat Coronavirus testing on Thursday and Thursday in preparation for discharge to [facility] most likely on Thursday. Capillary blood glucose this morning was 136. Patient was running high at 267 301 and 225 in the evening. Patient did not receive her scheduled NovoLog yesterday morning. NovoLog at lunch will be increased slightly. 01/12: Patient is seen today on the [facility] floor. She is working with physical therapy and occupational therapy. She has been able to get herself out of bed and was up in a chair for 3 hours yesterday. She is currently ambulating from chair and into the hallway with therapies. She continues to have significant weakness. Urrutia catheter will be discontinued today. Patient is requesting that her diabetes advanced and we will place her on consistent carb diet. Molly ent is afebrile, heart rate 60, blood pressure 132/80, pulse ox 99% on 12 L nasal cannula. Hemoglobin today is 9, BUN 24 and creatinine 0.88. Blood sugar this morning was 133, patient had an elevated blood sugar of 251 at supper and 300 at bedtime. Insulin adjusted again today. Prednisone will be decreased to 30 mg daily. Patient is currently on Rocephin. Diarrhea has resolved with Questran. 01/13: Patient is seen today on the [facility] floor. She states her breathing is less tight today. She is currently on 11 L high flow nasal cannula and pulse oxing 96%. She has been afebrile, heart rate 78, blood pressure 119/64. Patient denies having any lower extremity edema. Lasix will be changed to oral today. She has been up in the chair and states she spent several hours in the chair yesterday which helps her breathing. Patient's blood sugars to remain high despite multiple changes to her insulins. The patient has been continued on Rocephin. We'll plan to check COVID-19 once oxygen needs are lower. 01/14: The patient is resting in bed this morning during evaluation. She is requesting melatonin and Mucinex which will be started. She is currently pulse oxing 93-99% on 10 L nasal cannula, afebrile, heart rate 60, blood pressure 121/70. Blood sugar this morning was 86 but otherwise running in the 200s. Insulin adjusted again today. We will plan to do Covid testing tomorrow in anticipation of discharge to [facility] sometime next week. 01/15: Patient's breathing status continues to improve slowly. She is now on 6 L nasal cannula pulse oxing 96-98%. Heart rate is 61, blood pressure 108/60, afebrile. We will repeat Covid 19 testing in preparation for detention transfer for tomorrow. Lasix will be changed to 40 in the morning and 20 in the afternoon. Repeat blood work reveals hemoglobin 8.9, BUN 27 creatinine 0.94. Blood sugars are improving with only one reading at 208 at supper. Mild insulin adjustments made. Prednisone decreased to 20 mg daily starting tomorrow. 01/16: Patient is now pulse ox seen 90% on 4 L nasal cannula. She has been afebrile, heart rate 54, blood pressure 94/45. Blood sugars are running between 178 and 347. Steroids currently at prednisone 20 mg daily. Amiodarone will be decreased to 200 mg daily and lisinopril down to 5 mg daily. COVID-19 testing completed yesterday is not detected. Repeat COVID-19 testing today is not de tected. Patient will be discharged to [facility] today in stable condition. Discharge diagnoses: 1. Acute hypoxic respiratory failure secondary to COPD exacerbation and COVID- 19 pneumonitis. 2. Acute kidney injury with chronic kidney disease stage III. 3. Mild hyperkalemia secondary to acute kidney injury. 4. Mild lactic acidosis secondary to COVID-19 infection. Resolved. 5. Sepsis secondary to Covid 19 infection, POA. 6. Hyperlipidemia. 7. Diabetes mellitus type 2, insulin requiring, uncontrolled with hyperglycemia secondary to steroids. 7. History of coronary artery disease status post stenting. 8. Hypertension. 9. Gastroesophageal reflux disease disease. 10. Dysphagia, resolved. 1. Atrial fibrillation with RVR, paroxysmal atrial fibrillation, new onset. Discharge plan: [facility] under the care of Dr. Mojica. Impression and plan of care have been directed as dictated by the signing physician. Deborah Crow nurse practitioner acting as scribe for signing physician. Patient Condition at Discharge: Good Plan - Discharge Summary Discharge Rx Participant: Yes New Discharge Prescriptions: New Benzocaine/Menthol Lozeng [Cepacol lozenge] 1 each MUCOUS MEM Q4HR PRN lozenge PRN Reason: Cough predniSONE [Deltasone] 20 mg PO DAILY tab Apixaban [Eliquis] 5 mg PO BID tab Furosemide [Lasix] 20 mg PO 1400 tab Furosemide [Lasix] 40 mg PO DAILY tab Insulin Detemir (Levemir) [Levemir] 26 unit SQ DAILY@0700 syr Insulin Detemir (Levemir) [Levemir] 26 unit SQ HS syr Metoprolol Tartrate [Lopressor] 12.5 mg PO BID tab Melatonin 10 mg PO HS tablet guaiFENesin [Mucinex] 1,200 mg PO Q12HR tablet.er INSULIN ASPART (NovoLOG) [NovoLOG (formulary)] 15 unit SQ AC-BRKFST vial INSULIN ASPART (NovoLOG) [NovoLOG (formulary)] 15 unit SQ AC-SUPPER vial INSULIN ASPART (NovoLOG) [NovoLOG (formulary)] 17 unit SQ 1230 vial INSULIN ASPART (NovoLOG) [NovoLOG (formulary)] 0 unit SQ ACHS vial Promethazine HCl [Phenergan Syrup] 6.25 mg PO Q4H PRN cup PRN Reason: coughing Budesonide-Formot 160-4.5 Mcg [Symbicort 160-4.5 Mcg Inhaler] 2 puff INHALATION RT-BID puff Acetaminophen Tab [Tylenol] 650 mg PO Q6HR PRN tab PRN Reason: Fever And/ Or Pain Albuterol Inhaler [Ventolin Hfa Inhaler] 2 puff INHALATION Q6H PRN puff PRN Reason: Shortness Of Breath Ascorbic Acid [Vitamin C] 500 mg PO BID tab Amiodarone [Cordarone] 200 mg PO DAILY #30 tab Amiodarone [Cordarone] 200 mg PO BID tab Lisinopril [Zestril] 5 mg PO DAILY #30 tab Continue Nitroglycerin Sl Tabs [Nitrostat] 0.4 mg SL Q5M PRN PRN Reason: Chest Pain Esomeprazole Magnesium [NexIUM] 20 mg PO DAILY Atorvastatin [Lipitor] 40 mg PO HS Discontinued Naproxen Sodium [Aleve] 220 mg PO BID Lisinopril 20 mg PO HS INSULIN LISPRO (humaLOG) [humaLOG] See Protocol SQ BID Acetaminophen [Tylenol] 1,000 mg PO BID Pioglitazone [Actos] 15 mg PO DAILY Loratadine [Claritin] 10 mg PO HS Dulaglutide [Trulicity] 1.5 mg SQ TH Aspirin 325 mg PO DAILY Insulin Degludec [Tresiba Flextouch U-100] 36 units SQ BID Discharge Medication List Atorvastatin [Lipitor] 40 mg PO HS 06/04/14 [History] Esomeprazole Magnesium [NexIUM] 20 mg PO DAILY 06/04/14 [History] Nitroglycerin Sl Tabs [Nitrostat] 0.4 mg SL Q5M PRN 06/04/14 [History] Acetaminophen Tab [Tylenol] 650 mg PO Q6HR PRN tab 01/17/20 [Rx] Albuterol Inhaler [Ventolin Hfa Inhaler] 2 puff INHALATION Q6H PRN puff 01/17/20 [Rx] Amiodarone [Cordarone] 200 mg PO BID tab 01/17/20 [Rx] Amiodarone [Cordarone] 200 mg PO DAILY #30 tab 01/17/20 [Rx] Apixaban [Eliquis] 5 mg PO BID tab 01/17/20 [Rx] Ascorbic Acid [Vitamin C] 500 mg PO BID tab 01/17/20 [Rx] Benzocaine/Menthol Lozeng [Cepacol lozenge] 1 each MUCOUS MEM Q4HR PRN lozenge 01/17/20 [Rx] Budesonide-Formot 160-4.5 Mcg [Symbicort 160-4.5 Mcg Inhaler] 2 puff INHALATION RT-BID puff 01/17/20 [Rx] Furosemide [Lasix] 20 mg PO 1400 tab 01/17/20 [Rx] Furosemide [Lasix] 40 mg PO DAILY tab 01/17/20 [Rx] INSULIN ASPART (NovoLOG) [NovoLOG (formulary)] 0 unit SQ ACHS vial 01/17/20 [Rx] INSULIN ASPART (NovoLOG) [NovoLOG (formulary)] 15 unit SQ AC-BRKFST vial 01/17/20 [Rx] INSULIN ASPART (NovoLOG) [NovoLOG (formulary)] 15 unit SQ AC-SUPPER vial 01/17/20 [Rx] INSULIN ASPART (NovoLOG) [NovoLOG (formulary)] 17 unit SQ 1230 vial 01/17/20 [Rx] Insulin Detemir (Levemir) [Levemir] 26 unit SQ DAILY@0700 syr 01/17/20 [Rx] Insulin Detemir (Levemir) [Levemir] 26 unit SQ HS syr 01/17/20 [Rx] Lisinopril [Zestril] 5 mg PO DAILY #30 tab 01/17/20 [Rx] Melatonin 10 mg PO HS tablet 01/17/20 [Rx] Metoprolol Tartrate [Lopressor] 12.5 mg PO BID tab 01/17/20 [Rx] Promethazine HCl [Phenergan Syrup] 6.25 mg PO Q4H PRN cup 01/17/20 [Rx] guaiFENesin [Mucinex] 1,200 mg PO Q12HR tablet.er 01/17/20 [Rx] predniSONE [Deltasone] 20 mg PO DAILY tab 01/17/20 [Rx] Follow up Appointment(s)/Referral(s): Ilia Mojica MD [Primary Care Provider] - 1 Week (at [facility]) Discharge Disposition: TRANSFER TO SNF/ECF
[2020-01-17 11:40] VITALS: BP 95/75; PULSE 53; RESP 18; TEMP 98.2
--- NOTE | 2020-01-17 13:04 | P.PN ---
Subjective Progress Note Date: 01/17/20 Principal diagnosis: Acute hypoxemic respiratory failure secondary to CoVID 19 related pneumonia, requiring intubation and placement on mechanical ventilator on 12/28/2019 The patient is seen today 01/13/2020 in follow-up on the regular medical floor. She is currently sitting up in a chair at the bedside. Awake and alert in no acute distress. She's been up ambulating in her room. She is still requiring 12 L high flow nasal cannula to maintain O2 saturations in the 90s. White count 8.6. Hemoglobin 9.0. Sodium 142. Potassium 3.7. Creatinine 0.88. Glucose 121. Chest x-ray reveals worsening peripheral and basilar multifocal consolidations. She remains on bronchodilators, anticoagulated with Eliquis, prednisone, zinc, ceftriaxone. Daily 40 mg of IV Lasix. Currently in a negative balance. The patient is seen today 01/14/2020 in follow-up on the regular medical floor. She is currently resting comfortably in bed. Awake and alert in no acute distress. She is breathing easier today as compared to yesterday. She was up in the chair for several hours yesterday. She is currently on 10 L high flow nasal cannula maintaining O2 saturation in the 90s. She remains afebrile. Hemodynamically stable. Blood and sputum cultures reveal no growth. Anticoagulated with Eliquis. Continued on a prednisone taper. Continued on zinc. Patient is seen today 01/15/2020 in follow-up on the regular medical floor. She is awake and alert in no acute distress. She's been up to the bathroom and in the shower today. She denies any worsening shortness of breath cough or congestion. Her oxygen has been titrated down to 9 L high flow nasal cannula maintaining O2 saturation in the 90s. She's been afebrile. Hemodynamically stable. Blood and sputum cultures reveal no growth. Blood glucose 86. The patient is seen today 01/16/2020 in follow-up on the regular medical floor. She is currently up ambulating in the room with assistance. Awake and alert in no acute distress. Feeling stronger each day. Not quite back to her baseline. She is maintaining O2 saturations in the upper 90s on 6 L/m per nasal cannula. She's been afebrile. Blood and sputum cultures reveal no growth. White count 7.3. Hemoglobin 8.9. Sodium 139. Potassium 3.8. Creatinine 0.94. Follow-up coronavirus is not detected. She remains on bronchodilators, prednisone, vitamin C and zinc. Anticoagulated with Eliquis. The patient is seen today 01/17/2020 in follow-up on the regular medical floor.she is awake and alert in no acute distress. Breathing easier today compared to yesterday. Still requiring 6 L high flow nasal cannula to maintain O2 saturations in the mid 90s. She's been afebrile. Hemodynamically stable. Blood cultures reveal no growth. Sputum culture reveals no growth. CoVID 19 screening negative again today. She is anticoagulated with Eliquis. Continued on prednisone taper. Remains on vitamin C and zinc. Objective - Vital Signs Vital signs: Vital Signs Temp 98.2 F 01/17/20 11:05 Pulse 53 L 01/17/20 11:05 Resp 18 01/17/20 11:05 BP 95/75 01/17/20 11:05 Pulse Ox 95 01/17/20 11:05 Intake & Output 01/16/20 01/17/20 01/17/20 18:59 06:59 18:59 Intake Total 140 220 Balance 140 220 Weight 123.5 kg 122.8 kg Intake: Oral 140 220 ABP, PAP, CO, CI - Last Documented Arterial Blood Pressure 84/63 - Exam GENERAL EXAM: Very pleasant 64-year-old obese female patient, on 6 L high flow oxygen with a pulse ox of 95% comfortable in no apparent distress. HEAD: Normocephalic/atraumatic. EYES: Normal reaction of pupils, equal size. Conjunctiva pink, sclera white. NOSE: Clear with pink turbinates. THROAT: No erythema or exudates. NECK: No masses, no JVD, no thyroid enlargement, no adenopathy. CHEST: No chest wall deformity. Symmetrical expansion. LUNGS: Equal air entry with few scattered rhonchi bilaterally. CVS: Regular rate and rhythm, normal S1 and S2, no gallops, no murmurs, no rubs ABDOMEN: Soft, nontender. No hepatosplenomegaly, normal bowel sounds, no guarding or rigidity. EXTREMITIES: No clubbing, no edema, no cyanosis, 2+ pulses and upper and lower extremities. MUSCULOSKELETAL: Muscle strength and tone normal. SPINE: No scoliosis or deformity SKIN: No rashes CENTRAL NERVOUS SYSTEM: Awake and alert, oriented 3, No focal deficits, tone is normal in all 4 extremities. - Labs CBC & Chem 7: 01/16/20 07:36 01/16/20 07:36 Labs: Abnormal Lab Results - Last 24 Hours (Table) 01/16/20 01/16/20 01/17/20 Range/Units 16:39 20:28 09:06 POC Glucose (mg/dL) 333 H 347 H 178 H (75-99) mg/dL 01/17/20 Range/Units 11:32 POC Glucose (mg/dL) 130 H (75-99) mg/dL Assessment and Plan Assessment: 1. Acute hypoxemic respiratory failure related to COVID 19 related pneumonia, requiring intubation and placement on mechanical ventilation on 12/28/2019, subsequently extubated and currently on 6 L high flow nasal cannula on the regular medical floor. Follow-up Covid testing negative 2. 2. Cough, shortness of breath, weakness, fatigue, diffuse bilateral infiltrates related to COVID19 infection is improved 3. Elevated ferritin, LDH, CRP and d-dimer related to acute COVID19 related pneumonia, and inflammatory markers are improving 4. Elevated troponin, rule out possibility of coinfection, related to bacterial infection 5. Hypertension 6. Hyperlipidemia 7. GERD/reflux 8. Diabetes mellitus type 2 9. History of chronic bronchial asthma, unspecified 10. Chronic kidney disease, unknown baseline 11. History of diverticular disease 12. History of coronary artery disease with PCI and stent placement Plan: The patient was seen and evaluated by Dr. Liu Continue to titrate down the FiO2 as tolerated Follow up CoVID 19 testing is negative again today Incentive spirometer and cough and deep breathing exercises Increase her activity as tolerated Plan is for transfer for subacute rehabilitation today. I, the cosigning physician, performed a history & physical examination of the patient. Lungs sounds with bilateral scattered rhonchit. Maintaining good O2 saturations in the 90s on 6 L high flow nasal cannula. I discussed the assessment and plan of care with my nurse practitioner, Missy Jeffrey. I attest to the above note as dictated by her.
[2020-01-17] MEDS: FUROSEMIDE 20 MG TAB PO SCH (13:34)
--- NOTE | 2020-01-17 15:11 | PN ---
PROGRESS NOTE DATE OF SERVICE: 01/17/2020 REASON FOR FOLLOWUP: Acute COVID-19 pneumonia. INTERVAL HISTORY: The patient is currently afebrile, patient is breathing more comfortably. The patient did have a cough which seemed to be loosening up. No chest pain. No abdominal pain or any diarrhea. PHYSICAL EXAMINATION: Blood pressure 95/75, pulse of 53, temp 98.2. She is 95% on 6 L nasal cannula. General description is a middle-aged female, up in the bed in no distress. RESPIRATORY SYSTEM: Unlabored breathing with decreased breath sounds, no wheeze. HEART: S1, S2. Regular rate and rhythm. ABDOMEN: Soft, nontender. LABS: No new labs done today. DIAGNOSTIC IMPRESSION AND PLAN: Patient with acute COVID-19 pneumonia. The patient has completed her treatment with have persistent pulmonary infiltrates and requirement for high oxygen, though this has slowly improved. She will be discharged home on supplemental oxygen. Advised incentive spirometry if any changes in her clinical condition to let us know MMODL / IJN: [id number] / [facility] HOSPITALIsaiah
[2020-01-17] MEDS ORDERED: INSULIN DETEMIR (LEVEMIR) 100 UNIT/ML SYR SQ SCH (21:00)
[2020-01-18] MEDS ORDERED: INSULIN DETEMIR (LEVEMIR) 100 UNIT/ML SYR SQ SCH (07:00)
[2020-01-18] MEDS ORDERED: INSULIN ASPART (NovoLOG) 100 UNIT/ML VIAL SQ SCH (07:30)
--- NOTE | 2020-01-18 10:10 | CDI ---
Documentation Clarification Form Date: 01/18/20 From: Antonietta Fletcher CCS Phone: If you have a question about this query, please contact Chana Hernandez, Motion Picture Photographer at [phone] between 8am and 5pm. Admit Date: 12/26/19 Discharge Date:01/17/20 Patient Name: Estelle Looney Visit Number: [id number] ATTENTION: The Clinical Documentation Specialists (CDI) and [facility] Coding Staff appreciate your assistance in clarifying documentation. Please respond to the clarification below the line at the bottom and electronically sign. The CDI & [facility] Coding staff will review the response and follow-up if needed. Please note: Queries are made part of the Legal Health Record. If you have any questions, please contact the author of this message via ITS. Dear Dr. Mojica, CHF is documented in the ED, H&P, PNs, DS. Cardiomegaly with moderately severe diffuse interstitial edema that is changed from old exam compared to November 2018.This could represent acute interstitial pneumonia or acute heart failure. PN 01/01-01/10 document: She was noted to be excessively fluid overloaded and the patient's net fluid balance and the positive with a weight gain and order of 7 kg. The patient will be started on IV Lasix. History/Risk Factors: HTN, CKD, DM, CAD w/ stent, PHTN, COVID, PNA Clinical Indicators: Edema, Fluid overload VS/Pulse OX: BP 145/68, IA 77, RR 18, O2 Sat 92 Echocardiogram Results: There is severe concentric left ventricular hypertrophy. Overall left ventricular systolic function is normal with, an EF between 65 - 70 %. Chest X Ray: Mild cardiomegaly with moderately severe diffuse interstitial edema that is a change compared to old exam.This could relate to acute interstitial pneumonia or acute heart failure. Treatment: Lasix 40 mg IV Daily, Lasix 40 mg PO Daily In your professional opinion, can you please clarify the acuity and type of CHF if known? Systolic Heart Failure: Acute Chronic Acute on Chronic Diastolic Heart Failure: Acute xx Chronic Acute on Chronic Systolic & Diastolic Heart Failure: Acute Chronic Acute on Chronic Heart Failure Unable to Determine Other, please specify MTDD
== END 2020-01-17 16:16 | DRG 870 ==
LOC: EC 21:39 → 4SSUR 23:18 → 2SICU 12-27 16:21 → 4SSUR 01-12 01:22
PROVIDERS: ADMIT Internal Medicine Geriatric Medicine; ATTEND Internal Medicine Geriatric Medicine
PROC: 5A1955Z Respiratory Ventilation, Greater than 96 Consecutive Hours (ICD-10-PCS; principal; 2019-12-28)
PROC: 0BH17EZ Insertion of Endotracheal Airway into Trachea, Via Natural or Artificial Opening (ICD-10-PCS; 2019-12-28)
PROC: 0DH67UZ Insertion of Feeding Device into Stomach, Via Natural or Artificial Opening (ICD-10-PCS; 2019-12-28)
PROC: 3E0G76Z Introduction of Nutritional Substance into Upper GI, Via Natural or Artificial Opening (ICD-10-PCS; 2019-12-28)
PROC: 02HV33Z Insertion of Infusion Device into Superior Vena Cava, Percutaneous Approach (ICD-10-PCS; 2019-12-28)
PROC: 03HY32Z Insertion of Monitoring Device into Upper Artery, Percutaneous Approach (ICD-10-PCS; 2019-12-28)
PROC: 4A133B1 Monitoring of Arterial Pressure, Peripheral, Percutaneous Approach (ICD-10-PCS; 2019-12-28)
PROC: 4A133J1 Monitoring of Arterial Pulse, Peripheral, Percutaneous Approach (ICD-10-PCS; 2019-12-28)
DX: A41.89 Other specified sepsis (principal); U07.1 COVID-19; J96.01 Acute respiratory failure with hypoxia; J12.89 Other viral pneumonia; J44.0 Chronic obstructive pulmonary disease with (acute) lower respiratory infection; J44.1 Chronic obstructive pulmonary disease with (acute) exacerbation; N17.9 Acute kidney failure, unspecified; E87.2 Acidosis; I13.0 Hypertensive heart and chronic kidney disease with heart failure and stage 1 through stage 4 chronic kidney disease, or unspecified chronic kidney disease; J45.901 Unspecified asthma with (acute) exacerbation; I50.32 Chronic diastolic (congestive) heart failure; Z68.42 Body mass index [BMI] 45.0-49.9, adult; N39.0 Urinary tract infection, site not specified; I27.29 Other secondary pulmonary hypertension; E11.649 Type 2 diabetes mellitus with hypoglycemia without coma; N18.3 Chronic kidney disease, stage 3 (moderate); E11.22 Type 2 diabetes mellitus with diabetic chronic kidney disease; E66.01 Morbid (severe) obesity due to excess calories; E11.65 Type 2 diabetes mellitus with hyperglycemia; Z79.4 Long term (current) use of insulin; I48.0 Paroxysmal atrial fibrillation; K21.9 Gastro-esophageal reflux disease without esophagitis; I25.10 Atherosclerotic heart disease of native coronary artery without angina pectoris; K57.90 Diverticulosis of intestine, part unspecified, without perforation or abscess without bleeding; E78.5 Hyperlipidemia, unspecified; E87.5 Hyperkalemia; R94.5 Abnormal results of liver function studies; R79.82 Elevated C-reactive protein (CRP); R13.10 Dysphagia, unspecified; D72.810 Lymphocytopenia; R19.7 Diarrhea, unspecified; I07.1 Rheumatic tricuspid insufficiency; R79.89 Other specified abnormal findings of blood chemistry; T38.0X5A Adverse effect of glucocorticoids and synthetic analogues, initial encounter; T36.8X5A Adverse effect of other systemic antibiotics, initial encounter; Z71.3 Dietary counseling and surveillance; Z88.8 Allergy status to other drugs, medicaments and biological substances; Z79.899 Other long term (current) drug therapy; Z79.82 Long term (current) use of aspirin; Z87.19 Personal history of other diseases of the digestive system; Z90.49 Acquired absence of other specified parts of digestive tract; Z95.5 Presence of coronary angioplasty implant and graft; Z87.891 Personal history of nicotine dependence; Z91.048 Other nonmedicinal substance allergy status; Z88.1 Allergy status to other antibiotic agents; Z88.0 Allergy status to penicillin
CPT/HCPCS: 36415; 36600; 71045; 76770; 80048; 80053; 81001; 82550; 82553; 82728; 82805; 83520; 83605; 83615; 84132; 84145; 84439; 84443; 84484; 85025; 85027; 85379; 85610; 85730; 86140; 87040; 87070; 87205; 87324; 87502; 87635; 93005; 93306; 94002; 94003; 94640; 96365; 99285

== ENCOUNTER → 2020-03-06 | Outpatient (CLI) | payer OTHER ==
--- NOTE | 2020-03-06 15:56 | XR ---
EXAMINATION TYPE: XR chest 2V DATE OF EXAM: 03/06/2020 COMPARISON: Chest x-ray January 13, 2020 and older studies. HISTORY: Covid pneumonia. TECHNIQUE: Frontal and lateral views of the chest are obtained. FINDINGS: There is persistent low lung volumes with peripheral mid to lower lung increased opacity f avoring residual fibrotic changes from recent infection. Findings are new from the 2019 x-ray. The ca rdiac silhouette size is stable and mildly enlarged. No pleural effusion or pneumothorax noted bilate rally. Cholecystectomy clips are redemonstrated. The osseous structures are intact. IMPRESSION: Persistent low lung volumes and residual peripheral mid to lower lung bilateral pulmonar y fibrotic changes new from the 2019 x-ray presumed product of recent Covid 19 infection roughly 1 mo nth earlier. Correlate clinically and with pulmonary functional studies.
== END | disposition home or self-care (01) ==
LOC: RAD 15:18
PROVIDERS: ATTEND Internal Medicine Geriatric Medicine
DX: U07.1 COVID-19 (principal); J84.10 Pulmonary fibrosis, unspecified
CPT/HCPCS: 71046

== ENCOUNTER → 2020-03-23 | Outpatient (CLI) | payer OTHER | END | disposition home or self-care (01) | LOC: CPPFTMAIN 13:35 | PROVIDERS: ATTEND Internal Medicine Critical Care Medicine | DX: J45.909 Unspecified asthma, uncomplicated (principal); R94.2 Abnormal results of pulmonary function studies | CPT/HCPCS: 94060; 94726; 94729 ==

== ENCOUNTER → 2020-04-11 | Outpatient (CLI) | payer OTHER ==
--- NOTE | 2020-04-11 12:55 | CT ---
EXAMINATION TYPE: CT chest wo con DATE OF EXAM: 04/11/2020 COMPARISON: Chest radiograph 03/06/2020 HISTORY: Interstitial lung disease. History of COVID-[address] DLP: 1879.6 mGycm. Automated Exposure Control for Dose Reduction was Utilized. TECHNIQUE: CT scan of the thorax is performed without IV contrast. FINDINGS: LUNGS: There is bilateral traction bronchiectasis. There is basilar predominant groundglass opacities with areas of subpleural architectural distortion and banding. Mild fibrotic changes and reticular i nterstitial thickening, with no areas that meet criteria for honeycombing. There is no pleural effusi on or pneumothorax seen. The tracheobronchial tree is patent. MEDIASTINUM: Lack of IV contrast is noted to limit evaluation for mediastinal and especially hilar ad enopathy. There are no definitive greater than 1 cm hilar or mediastinal lymph nodes. No cardiomegaly or pericardial effusion is seen. OTHER: No adrenal nodule. There is irregular cortical appearance of left rib 10 posteromedially, like ly related to old fracture. IMPRESSION: Basilar predominant traction bronchiectasis, groundglass opacities, and subpleural architectural dist ortion with banding seen. Findings likely represents sequela of COVID-19 viral infection. Differentia l includes nonspecific interstitial pneumonia (NSIP), however NSIP does not classically cause subpleu ral banding. No evidence of honeycombing.
== END | disposition home or self-care (01) ==
LOC: RADCTMAIN 09:55
PROVIDERS: ATTEND Internal Medicine Critical Care Medicine
DX: J47.9 Bronchiectasis, uncomplicated (principal); R91.8 Other nonspecific abnormal finding of lung field; J84.89 Other specified interstitial pulmonary diseases; J94.8 Other specified pleural conditions
CPT/HCPCS: 71250

== ENCOUNTER → 2020-04-18 | Outpatient (CLI) | payer OTHER ==
[2020-04-18 11:13] LABS: Basophils % (A) 0 %; Eosinophils # (A) 0.2 k/uL (0-0.7); Eosinophils % (A) 3 %; HCT 37.4 % (34.0-46.0); HGB 11.7 gm/dL (11.4-16.0); Lymphocytes # (A) 1.6 k/uL (1.0-4.8); Lymphocytes % (A) 24 %; MCH 27.3 pg (25.0-35.0); MCHC 31.2 g/dL (31.0-37.0); MCV 87.4 fL (80.0-100.0); Mean Platelet Volume 8.2; Monocytes # (A) 0.4 k/uL (0-1.0); Monocytes % (A) 5 %; Neutrophils # (A) 4.6 k/uL (1.3-7.7); Neutrophils % (A) 66 %; Platelet Count 238 k/uL (150-450); RBC 4.28 m/uL (3.80-5.40); RDW 13.4 % (11.5-15.5)
[2020-04-18 16:26] LABS: African American GFR (CKD) 34.1 (60.0-200.0); Albumin 4.2 g/dL (3.80-4.90); Anion Gap 8.9 mmol/L (4.00-12.00); Calcium 9.4 mg/dL (8.7-10.3); Carbon Dioxide 28.1 mmol/L (21.6-31.8); Globulin 2.1 g/dL (1.6-3.3); LDL Cholesterol,Calculated 85.8 mg/dL (0.0-131.0); Non-African American GFR(CKD) 29.4 (60.0-200.0); Potassium 4.6 mmol/L (3.5-5.5); Total Bilirubin 0.3 mg/dL (0.2-1.2); Total Protein 6.3 g/dL (6.2-8.2); VLDL Calculation 16.2 mg/dL (5.00-40.00)
[2020-04-18 17:33] LABS: Hemoglobin A1C 6.8 % (4.0-6.0)
== END | disposition home or self-care (01) ==
LOC: LABWHC1 09:39
PROVIDERS: ATTEND Internal Medicine Geriatric Medicine
DX: U07.1 COVID-19 (principal); E11.65 Type 2 diabetes mellitus with hyperglycemia; E11.22 Type 2 diabetes mellitus with diabetic chronic kidney disease; N18.2 Chronic kidney disease, stage 2 (mild)
CPT/HCPCS: 36415; 80053; 80061; 83036; 84443; 85025

== ENCOUNTER 2020-05-30 20:38 | Emergency (ER) | payer OTHER ==
[2020-05-30 20:49] VITALS: RESP 18
--- NOTE | 2020-05-30 21:05 | ED ---
Fall HPI - General Chief Complaint: Fall Stated Complaint: Fall Time Seen by Provider: 05/30/20 20:57 Source: patient Mode of arrival: wheelchair - History of Present Illness Initial Comments: Patient is 64-year-old female presenting to emergency Department with a chief complaint of leg pain. Patient states she was on a mobility scooter was going up L when she fell off of it as her hand got stuck on the throttle, but her scooter fell and hit her on the right calf. Patient reports this occurred about one hour prior to arrival. Patient reports now she has and tenderness in the right calf. He states there is gradual discoloration in the region of the signs of progress. States it feels hard. States the pain is exacerbated with ambulation. Does report a tingling sensation in the foot but no discoloration. - Related Data Home Medications Medication Instructions Recorded Confirmed Atorvastatin [Lipitor] 40 mg PO HS 06/04/14 12/26/19 Esomeprazole Magnesium [NexIUM] 20 mg PO DAILY 06/04/14 12/26/19 Nitroglycerin Sl Tabs [Nitrostat] 0.4 mg SL Q5M PRN 06/04/14 12/26/19 Previous Rx's Medication Instructions Recorded Acetaminophen Tab [Tylenol] 650 mg PO Q6HR PRN tab 01/17/20 Albuterol Inhaler [Ventolin Hfa 2 puff INHALATION Q6H PRN puff 01/17/20 Inhaler] Amiodarone [Cordarone] 200 mg PO DAILY #30 tab 01/17/20 Apixaban [Eliquis] 5 mg PO BID tab 01/17/20 Ascorbic Acid [Vitamin C] 500 mg PO BID tab 01/17/20 Benzocaine/Menthol Lozeng [Cepacol 1 each MUCOUS MEM Q4HR PRN lozenge 01/17/20 lozenge] Budesonide-Formot 160-4.5 Mcg 2 puff INHALATION RT-BID puff 01/17/20 [Symbicort 160-4.5 Mcg Inhaler] Furosemide [Lasix] 20 mg PO 1400 tab 01/17/20 Furosemide [Lasix] 40 mg PO DAILY tab 01/17/20 INSULIN ASPART (NovoLOG) [NovoLOG 0 unit SQ ACHS vial 01/17/20 (formulary)] INSULIN ASPART (NovoLOG) [NovoLOG 15 unit SQ AC-BRKFST vial 01/17/20 (formulary)] INSULIN ASPART (NovoLOG) [NovoLOG 15 unit SQ AC-SUPPER vial 01/17/20 (formulary)] INSULIN ASPART (NovoLOG) [NovoLOG 17 unit SQ 1230 vial 01/17/20 (formulary)] Insulin Detemir (Levemir) [Levemir] 26 unit SQ DAILY@0700 syr 01/17/20 Insulin Detemir (Levemir) [Levemir] 26 unit SQ HS syr 01/17/20 Melatonin 10 mg PO HS tablet 01/17/20 Metoprolol Tartrate [Lopressor] 12.5 mg PO BID tab 01/17/20 Promethazine HCl [Phenergan Syrup] 6.25 mg PO Q4H PRN cup 01/17/20 guaiFENesin [Mucinex] 1,200 mg PO Q12HR tablet.er 01/17/20 lisinopriL [Zestril] 5 mg PO DAILY #30 tab 01/17/20 predniSONE [Deltasone] 20 mg PO DAILY tab 01/17/20 Allergies Allergy/AdvReac Type Severity Reaction Status Date / Time daptomycin [From Cubicin] AdvReac Unknown Verified 05/30/20 20:42 lanolin AdvReac Unknown Verified 05/30/20 20:42 moxifloxacin HCl AdvReac Anaphylaxis Verified 05/30/20 20:42 [From Avelox] Penicillins AdvReac Unknown Verified 05/30/20 20:42 tetracycline [Tetracycline] AdvReac Unknown Verified 05/30/20 20:42 vancomycin AdvReac Unknown Verified 05/30/20 20:42 Review of Systems ROS Statement: Those systems with pertinent positive or pertinent negative responses have been documented in the HPI. ROS Other: All systems not noted in ROS Statement are negative. Past Medical History Past Medical History: Atrial Fibrillation, Asthma, Heart Failure, Diabetes Mellitus, GERD/Reflux, Hypertension, Renal Disease Additional Past Medical History / Comment(s): diverticulitis, pulmonary fibrosis History of Any Multi-Drug Resistant Organisms: None Reported Past Surgical History: Cholecystectomy, Heart Catheterization With Stent Additional Past Surgical History / Comment(s): DNC Past Anesthesia/Blood Transfusion Reactions: Unable to Obtain Date of Last Stent Placement:: 2005 Past Psychological History: No Psychological Hx Reported Smoking Status: Former smoker Past Alcohol Use History: None Reported Past Drug Use History: None Reported General Exam Limitations: no limitations General appearance: alert, in no apparent distress, obese Head exam: Present: atraumatic, normocephalic, normal inspection Eye exam: Present: normal appearance, PERRL, EOMI Pupils: Present: normal accommodation ENT exam: Present: normal exam, normal oropharynx, mucous membranes moist, TM's normal bilaterally, normal external ear exam Neck exam: Present: normal inspection, full ROM. Absent: tenderness Respiratory exam: Present: normal lung sounds bilaterally. Absent: respiratory distress, wheezes, rales Cardiovascular Exam: Present: regular rate, normal rhythm, normal heart sounds Extremities exam: Present: normal inspection, full ROM, normal capillary refill, calf tenderness (Right calf tenderness with ecchymotic region.), other (+2 ulnar and radial pulses bilateral it. +2 dorsalis pedis and posterior tibial bilateral.). Absent: pedal edema, joint swelling Back exam: Present: normal inspection, full ROM. Absent: tenderness Neurological exam: Present: alert, oriented X3 Psychiatric exam: Present: normal affect, normal mood Skin exam: Present: warm, dry, intact, normal color Course Vital Signs 05/30/20 20:43 Temperature 99.1 F Pulse Rate 60 Respiratory 18 Rate Blood Pressure 136/62 O2 Sat by Pulse 100 Oximetry Medical Decision Making - Medical Decision Making patient is 64-year-old female presenting to the emergency department with a chief complaint of right leg pain. On physical examination, patient appears to have some tenderness and ecchymosis at the right calf. She is on blood thinners I suspect she is developing a hematoma. There is focal hard mass on the right calf. X-ray of the tibia and fibula is negative for acute fractures or dislocations. Ultrasound performed shows no signs of DVT but does reveal small hypoechoic area most likely resembling a hematoma. Patient was advised to apply cold compress to the region for the next 24-48 hours afterward followed by a more mass. I have very low concern for compartment syndrome at this time. Patient was advised to follow with orthopedic surgeon. Strict return parameters were thoroughly discussed the patient was understanding and agreeable. Case discussed with physician. Disposition Clinical Impression: Fall, Right calf pain Disposition: HOME SELF-CARE Condition: Stable Instructions (If sedation given, give patient instructions): Fall Prevention (ED), Hematoma (ED) Additional Instructions: Follow with sales order specialist if your symptoms are not improved. Keep the leg elevated. Alternate between Tylenol and Motrin for pain control. Return to emergency department if symptoms worsen. Is patient prescribed a controlled substance at d/c from ED?: No Referrals: Ilia Mojica MD [Primary Care Provider] - 1-2 days Wolf Shah DO [Doctor of Osteopathic Medicine] - 1-2 days Time of Disposition: 22:49
--- NOTE | 2020-05-30 21:39 | XR ---
EXAMINATION TYPE: XR tibia fibula RT DATE OF EXAM: 05/30/2020 COMPARISON: 06/30/2014 HISTORY: Pain TECHNIQUE: 2 views FINDINGS: The tibia and fibula appear intact. I see no fracture nor dislocation. Ankle joint and knee joint appear intact. IMPRESSION: No acute abnormality of the right tibia and fibula. No adverse change.
--- NOTE | 2020-05-30 22:39 | US ---
EXAMINATION TYPE: US venous doppler duplex LE RT DATE OF EXAM: 05/30/2020 10:23 PM COMPARISON: NONE CLINICAL HISTORY: concern for intramuscular hematoma. Concern for intramuscular hematoma. Bruise righ t lower extremity after fall 4 hours ago. Patient on Eliquis. No hx of DVT. SIDE PERFORMED: Right TECHNIQUE: The lower extremity deep venous system is examined utilizing real time linear array sonog clyde with graded compression, doppler sonography and color-flow sonography. VESSELS IMAGED: External Iliac Vein (EIV) Common Femoral Vein Deep Femoral Vein Greater Saphenous Vein * Femoral Vein Popliteal Vein Small Saphenous Vein * Proximal Calf Veins (* superficial vessels) Right Leg: No evidence of DVT at this time from prox calf veins to EIV. Limited compression of dista l femoral vein due to patient's pain level. Color flow shown. Hypoechoic area is seen at patient's area of pain medial right mid calf measurin.1 x 1.1 x 0.8 cm . This area does not appear to elongate. GSV does appear to compress within the calf. IMPRESSION: No evidence of deep vein thrombosis in the right leg. Small hypoechoic rounded area in t he calf. This could be a small hematoma.
[2020-05-30 23:13] VITALS: BP 113/47; PULSE 55; TEMP 98.1
== END 2020-05-30 23:13 | disposition home or self-care (01) ==
LOC: EC 20:38
DX: S80.11XA Contusion of right lower leg, initial encounter (principal); R22.41 Localized swelling, mass and lump, right lower limb; K21.9 Gastro-esophageal reflux disease without esophagitis; I11.0 Hypertensive heart disease with heart failure; I50.9 Heart failure, unspecified; Z79.899 Other long term (current) drug therapy; Z87.891 Personal history of nicotine dependence; Z88.1 Allergy status to other antibiotic agents; Z88.0 Allergy status to penicillin; Z88.8 Allergy status to other drugs, medicaments and biological substances; Z95.5 Presence of coronary angioplasty implant and graft; W20.8XXA Other cause of strike by thrown, projected or falling object, initial encounter; Y93.55 Activity, bike riding; Y92.828 Other wilderness area as the place of occurrence of the external cause
CPT/HCPCS: 99284